=== PATIENT | male | born 1940 | race Caucasian/White ===

== ENCOUNTER 2025-01-13 10:38 | Outpatient (CLI) | payer MEDICAID, SELFPAY ==
[2025-01-13 10:53] LABS: Basophils % 0.6 % (0.1-2.0); Eosinophils # 0.1 Kmm3 (0.0-0.4); Eosinophils % 0.9 % (0.1-12.0); Hematocrit 37.2 % (42.0-52.0); Lymphocytes # 1.6 K/mm3 (0.7-4.5); Lymphocytes % 23.4 % (10-50); Mean Corpuscular HGB Conc 32.3 g/dL (31.8-35.4); Mean Corpuscular Hemoglobin 29.8 pg (27.0-31.2); Mean Corpuscular Volume 92.3 fl (80-94); Mean Platelet Volume 9.5 fl (7.4-10.4); Monocytes # 0.5 K/mm3 (0.1-1.0); Monocytes % 7.4 % (1.7-9.3); Neutrophils # 4.6 K/mm3 (1.8-7.8); Neutrophils % 67.6 % (37.0-80.0); Nucleated Red Blood Cells # 0 10^3/uL; Nucleated Red Blood Cells % 0 %; Platelet Count 240 K/mm3 (142-424); Red Blood Count 4.03 M/mm3 (4.60-6.20); Red Cell Distribution Width 15.9 % (11.5-17.5); Red Cell Distribution Width-SD 52.8 fL; White Blood Count 6.7 K/mm3 (4.8-10.8)
[2025-01-13 11:20] LABS: Chloride 102 mmol/L (98-107); Potassium 3.5 mmoL/L (3.5-5.1); Sodium 134 mmol/L (136-145)
[2025-01-13 11:23] LABS: Anion Gap 6.5 mEq/L (5-15); Blood Urea Nitrogen 16 mg/dl (9-20); Carbon Dioxide 29 mmol/L (22.0-30.0); Estimated Glomerular Filt Rate 92 ml/min (>60); GFR (African American) 111 ML/MIN (>60); Glucose 133 mg/dl (74-100)
== END 2025-01-13 23:59 | disposition home or self-care (01) ==
LOC: LAB.DROPOF 10:45
PROVIDERS: PCP Internal Medicine Adolescent Medicine; Visit Provider Internal Medicine Adolescent Medicine
DX: E83.89 Other disorders of mineral metabolism (principal)
CPT/HCPCS: 80048; 85025

== ENCOUNTER 2025-01-17 19:43 | Inpatient (IN) | payer MEDICAID, SELFPAY ==
--- NOTE | 2025-01-17 19:46 | ECG_ITS ---
APPROVED REPORT Exam: Resting ECG HR:126 bpm ECG Measurements Heart Rate 126 AXES QRSd 118 QRS -76 QT 348 T 103 QTc 422 Conclusion ATRIAL FIBRILLATION WITH RAPID VENTRICULAR RESPONSE LEFT ANTERIOR FASCICULAR BLOCK [QRS AXIS <= -45, QR IN I, RS IN II] ANTEROSEPTAL MYOCARDIAL INFARCTION , OF INDETERMINATE AGE [40+ ms Q WAVE IN V1-V4] ABNORMAL ECG UNCONFIRMED REPORT Electronically signed by : Justice Modi, 01/19/2025 15:15:41
[2025-01-17 19:51] VITALS: BP 154/92; PULSE 83; RESP 18; TEMP 36.9; O2SAT 94; BMI 18.6
--- NOTE | 2025-01-17 19:56 | CT_ITS ---
PROCEDURE INFORMATION: Exam: CT Abdomen And Pelvis With Contrast Exam date and time: 01/17/2025 8:18 PM Age: 84 years old Clinical indication: Abdominal pain; Additional info: Diffuse abd pain TECHNIQUE: Imaging protocol: Computed tomography of the abdomen and pelvis with contrast. Radiation optimization: All CT scans at this facility use at least one of these dose optimization techniques: automated exposure control; mA and/or kV adjustment per patient size (includes targeted exams where dose is matched to clinical indication); or iterative reconstruction. Contrast material: ISOVUE; Contrast volume: 75 m see scored l; Contrast route: IV; COMPARISON: No relevant prior studies available. FINDINGS: Liver: Normal. No mass. Gallbladder and biliary ducts: Distended gallbladder with gallbladder wall thickening and small amount pericholecystic fluid Pancreas: Normal. No ductal dilation. Spleen: Normal. No splenomegaly. Adrenal glands: Normal. No mass. Kidneys and ureters: No hydronephrosis. Stomach and bowel: Increased stool burden at the rectum. No abnormal bowel dilation. Appendix: No evidence of appendicitis. Intraperitoneal space: No abnormal free fluid Vasculature: Unremarkable. No abdominal aortic aneurysm. Lymph nodes: Unremarkable. No enlarged lymph nodes. Urinary bladder: Unremarkable as visualized. Reproductive: Unremarkable as visualized. Bones/joints: Unremarkable. No acute fracture. Soft tissues: Unremarkable. IMPRESSION: 1. Findings suspicious for acute cholecystitis 2. Other incidental findings above.
--- NOTE | 2025-01-17 19:57 | XR_ITS ---
PROCEDURE INFORMATION: Exam: XR Chest Exam date and time: 01/17/2025 8:33 PM Age: 84 years old Clinical indication: Dyspnea TECHNIQUE: Imaging protocol: Radiologic exam of the chest. Views: 1 view. COMPARISON: CT ABDOMEN PELVIS W CON 01/17/2025 8:18 PM FINDINGS: Lungs: Left midlung opacification Pleural spaces: Unremarkable. No pleural effusion. No pneumothorax. Heart/Mediastinum: Unremarkable. No cardiomegaly. Bones/joints: Osseous structures appear normal Other findings: No effusion IMPRESSION: Left mid lung infiltrate or less likely mass.
--- NOTE | 2025-01-17 19:58 | ED_ITS ---
Discharge Plan Disposition Patient Disposition: Admitted Clinical Impressions Clinical Impression: Abdominal pain, Generalized weakness, Acute cholecystitis, Atrial fibrillation with rapid ventricular response Discharge ED Provider: Vannesa Modi General Adult HPI General Chief complaint: Nausea/Vomiting/Diarrhea Stated complaint: n/v, abd pain Time Seen by Provider: 01/17/25 19:50 Mode of Arrival: EMS Source of Information: Patient, EMS and Medical Record Description of Symptoms (Recalled from ER Triage Doc. by RN): Pt to ED vis [facility] from [facility]. Staff there reports pt has been vomiting clear/thick liquid today, and will not eat. Staff also reports pts weight has dropped approx 50lbs in 3 months. Pt has no complaints upon arrival. History of Present Illness HPI narrative: Patient is an 84-year-old male who is from [facility] is a very poor historian primarily speaks Taiwanese we attempted to use a Taiwanese motor vehicle parts interpreter and the patient was able to tell us that he had some right-sided abdominal pain some nausea vomiting yesterday and some generalized weakness which is consistent with the [facility] pelvis. He is a very poor historian does not understand Kosovan and was not doing a very good job with the Taiwanese motor vehicle parts interpreter either so history is severely limited. Related Data Allergies Allergy/AdvReac Type Severity Reaction Status Date / Time No Known Allergies Allergy Verified 01/17/25 19:58 [facility] Disclaimer: The information contained in this section may have been updated after the patient was seen, as this information can be updated by other users. Social History Smoking Status: Never smoker alcohol intake: never current occupational status: other Travel in the last 8 weeks?: None ROS Obtained: Yes All systems reviewed & no additional complaints except as documented Physical Exam General General appearance: alert Respiratory Respiratory exam: Present normal lung sounds bilaterally Cardiovascular Cardiovascular exam: Present regular rate Abdominal Exam Abdominal exam: Present soft, distention and tenderness Neurological Exam Neurological exam: Present alert; Absent oriented X3 Medical Decision Making Medical Records Screening: Per USPSTF and CDC recommendations, given the prevalence of disease in our region, it is our hospital?s policy to screen for HIV and viral Hepatitis for all patients aged 18 and over and those with ongoing risk factors. Kwame Inquiry Pt receiving controlled substance: No Vital Signs: 01/17/25 19:51 01/17/25 20:01 01/17/25 21:00 Temperature 98.5 F Temperature Source Oral Pulse Rate 121 H 108 H Pulse Rate [Left Radial] 83 Respiratory Rate 18 18 15 Blood Pressure 154/78 H 166/100 H Blood Pressure [Right Arm] 154/92 H Blood Pressure Mean [Right Arm] 112 Blood Pressure Source [Right Arm] Automatic Cuff Blood Pressure Position [Right Arm] Sitting 02 Sat by Pulse Oximetry 94 L 98 Oxygen Delivery Method Room Air 01/17/25 21:30 01/17/25 22:02 Temperature Temperature Source Pulse Rate Pulse Rate [Left Radial] Respiratory Rate 19 19 Blood Pressure 157/87 H 124/78 Blood Pressure [Right Arm] Blood Pressure Mean [Right Arm] Blood Pressure Source [Right Arm] Blood Pressure Position [Right Arm] 02 Sat by Pulse Oximetry Oxygen Delivery Method Lab Data Lab results reviewed: Yes I reviewed the patient's lab results. Lab Results 01/17/25 19:30: WBC 11.3 H, RBC 4.12 L, Hgb 12.5 L, Hct 38.0 L, MCV 92.2, MCH 30.3, MCHC 32.9, RDW 16.3, Plt Count 255, MPV 9.6, Neut % (Auto) 79.8, Lymph % (Auto) 11.9, [place] % (Auto) 7.3, Eos % (Auto) 0.2, Baso % (Auto) 0.4, Neut # (Auto) 9.0 H, Lymph # (Auto) 1.3, [place] # (Auto) 0.8, Eos # (Auto) 0.0, Baso # (Auto) 0.0, Sodium 133 L, Potassium 3.8, Chloride 100, Carbon Dioxide 27, Anion Gap 9.8, BUN 15, Creatinine 0.70, Estimated Creat Clear 47, Estimated GFR 107, Est GFR ( Amer) 130, Glucose 210 H, Calcium 8.9, Magnesium 1.9, Total Bilirubin 0.9, AST 31, ALT 20, Alkaline Phosphatase 99, Troponin I 0.06 H, Total Protein 6.5, Albumin 3.3 L, Globulin 3.2, Albumin/Globulin Ratio 1.0 L, Lipase 87 01/17/25 20:10: Lactate 2.1 01/17/25 19:30 01/17/25 19:30 Orders (Tests/Meds): ED MEDICATIONS Generic Name Dose Route Start Last Admin Trade Name Freq PRN Reason Stop Dose Admin Piperacillin Sod/Tazobactam 50 mls @ 100 mls/hr 01/17/25 23:03 Sod 3.375 gm/ Sodium Chloride IV 01/17/25 23:32 ONCE ONE Sodium Chloride 10 ml 01/17/25 20:27 01/17/25 20:28 Sodium Chloride 0.9% 10ml Syr (Rad Only) IV 02/16/25 20:26 10 ml NEEDED PRN Administration Maintain IV Site Discontinued Medications Generic Name Dose Route Start Last Admin Trade Name Emmanuelq PRN Reason Stop Dose Admin Acetaminophen 1,000 mg 01/17/25 19:56 01/17/25 20:07 Acetaminophen 1,000mg/100ml Vial IV 01/17/25 19:57 1,000 mg ONCE ONE Administration Sodium Chloride 500 mls @ 999 mls/hr 01/17/25 19:56 01/17/25 20:07 Sod Chlor 0.9% 1000ml Bag IV 01/17/25 20:26 999 mls/hr .Q31M ONE Administration Iopamidol 75 ml 01/17/25 20:27 01/17/25 20:28 Iopamidol-370 (76%);100ml Bottle IV 01/17/25 20:28 75 ml ONCE ONE Administration Ondansetron HCl 4 mg 01/17/25 19:56 01/17/25 20:08 Ondansetron 4mg/2ml Vial IV 01/17/25 19:57 4 mg ONCE ONE Administration ORDERS Category Date Time Status CT abdomen pelvis w con Stat Cat Scan 01/17/25 19:56 Completed CXR --portable [XR chest portable] Stat Exams 01/17/25 19:57 Completed POCUS Point of Care (ER Only) Stat Exams 01/17/25 23:14 Ordered CBC w/Auto Diff [Complete Blood Count Auto Diff] Stat Lab 01/17/25 19:30 Completed CMP [Comprehensive Metabolic Panel] Stat Lab 01/17/25 19:30 Completed Lactic Acid Stat Lab 01/17/25 20:10 Completed Lipase Stat Lab 01/17/25 19:30 Completed Magnesium Stat Lab 01/17/25 19:30 Completed Trop I [Troponin I] Stat Lab 01/17/25 19:30 Completed Troponin I Q3H Lab 01/17/25 23:00 Ordered Troponin I Q3H Lab 01/18/25 02:00 Ordered UA [Urinalysis and Microscopic] Stat Lab 01/17/25 19:56 Ordered Medical Decision Narrative: Patient with above history and physical diffuse abdominal pain nausea vomiting yesterday and generalized weakness broad workup especially given his significant language barrier has been initiated including CT scan chest x-ray labs IV fluids urinalysis etc. Reassessment 11:[address] scan was performed which I personally interpreted also reviewed radiology read and there is gallbladder wall thickening with pericholecystic fluid patient does have diffuse abdominal tenderness but history as stated above is extremely limited with the use of an motor vehicle parts interpreter and discussing the case directly with the patient himself. It does seem to be consistent with the [facility] and what he is telling us that he is having abdominal pain nausea and vomiting nothing else has been found therefore working diagnosis is acute cholecystitis. Labs essentially unremarkable aside from mild elevation in troponin which is nonspecific. Patient does have atrial fibrillation with RVR and IV fluids and Tylenol were administered but will likely need rate control. Hospital medicine will deal with this further. Patient is hemodynamically stable otherwise with regards to blood pressure and perfusion. He remains slightly confused and we discussed the case with his daughter who does speak good Kosovan and she states that he is confused at baseline. I also spoke with Dr. Thurman who is on-call for hospital medicine told him there is significant diagnostic uncertainty here but the working diagnosis is acute cholecystitis therefore we will give IV antibiotics and get a formal ultrasound tomorrow admit to hospital medicine get his rate under control with regards to atrial fibrillation and reassess. Likely will not go to the operating room tomorrow. Patient was admitted to hospital medicine for further evaluation management. Critical Care Critical Care Time Critical Care Time: Yes Attestation: On 01/17/25, the high probability of a clinically significant, sudden or life threatening deterioration of the following system(s) required my full and direct attention, intervention and personal management. The time I documented below is in addition to time spent performing reported procedures but includes the following listed in this critical care notation. Total Time Total Critical Care Time: 35
[2025-01-17 20:01] VITALS: BP 154/78; PULSE 121; RESP 18; O2SAT 98
[2025-01-17 20:03] LABS: Basophils % 0.4 % (0.1-2.0); Eosinophils % 0.2 % (0.1-12.0); Hemoglobin 12.5 g/dL (14.1-18.0); Lymphocytes # 1.3 K/mm3 (0.7-4.5); Lymphocytes % 11.9 % (10-50); Mean Corpuscular HGB Conc 32.9 g/dL (31.8-35.4); Mean Corpuscular Hemoglobin 30.3 pg (27.0-31.2); Mean Corpuscular Volume 92.2 fl (80-94); Mean Platelet Volume 9.6 fl (7.4-10.4); Monocytes # 0.8 K/mm3 (0.1-1.0); Monocytes % 7.3 % (1.7-9.3); Neutrophils % 79.8 % (37.0-80.0); Nucleated Red Blood Cells # 0 10^3/uL; Nucleated Red Blood Cells % 0 %; Platelet Count 255 K/mm3 (142-424); Red Blood Count 4.12 M/mm3 (4.60-6.20); Red Cell Distribution Width 16.3 % (11.5-17.5); Red Cell Distribution Width-SD 55.1 fL; White Blood Count 11.3 K/mm3 (4.8-10.8)
[2025-01-17 20:05] LABS: Albumin Level 3.3 g/dl (3.5-5.0); Chloride 100 mmol/L (98-107); Potassium 3.8 mmoL/L (3.5-5.1); Sodium 133 mmol/L (136-145)
[2025-01-17 20:07] LABS: Alanine Aminotransferase 20 U/L (12-78); Anion Gap 9.8 mEq/L (5-15); Aspartate Amino Transferase 31 U/L (17-59); Blood Urea Nitrogen 15 mg/dl (9-20); Carbon Dioxide 27 mmol/L (22.0-30.0); Creatinine Clearance Estimated 47 mL/min (50-200); Estimated Glomerular Filt Rate 107 ml/min (>60); GFR (African American) 130 ML/MIN (>60)
[2025-01-17] MEDS: ACETAMINOPHEN 1,000MG/100ML VIAL 1000 MG IV (20:07)
[2025-01-17] MEDS: 0.9 % SODIUM CHLORIDE 1000ML 500 ML 999 ML IV (20:07)
[2025-01-17 20:08] LABS: Alkaline Phosphatase 99 U/L (38-126); Bilirubin,Total 0.9 mg/dl (0.2-1.3); Calcium 8.9 mg/dl (8.4-10.2); Globulin 3.2 g/dL (1.3-3.2); Glucose 210 mg/dl (74-100); Lipase 87 U/L (23-300); Magnesium 1.9 mg/dl (1.6-2.3); Total Protein,Serum 6.5 g/dl (6.3-8.2)
[2025-01-17] MEDS: ONDANSETRON 4MG/2ML VIAL 4 MG IV (20:08)
[2025-01-17 20:20] LABS: Troponin I 0.06 ng/ml (0.00-0.034)
[2025-01-17] MEDS: SODIUM CHLORIDE 0.9% 10ML SYR (RAD ONLY) 10 ML IV (20:28)
[2025-01-17] MEDS: IOPAMIDOL-370 (76%);100ML BOTTLE 75 ML IV (20:28)
[2025-01-17 20:31] LABS: Lactic Acid 2.1 mmol/L (0.7-2.1)
[2025-01-17 21:00] VITALS: BP 166/100; PULSE 108; RESP 15
[2025-01-17 21:30] VITALS: BP 157/87; RESP 19
[2025-01-17 22:02] VITALS: BP 124/78; RESP 19
--- NOTE | 2025-01-17 23:06 | PC.NURSE ---
Called and spoke with [facility] nurse to inquire about pts baseline. Nurse is unsure of all details. Daughter was called. Daughter reports pt is confused at times and has possible dementia. Daughter also reports that pt is non-ambulatory and has been at the half-way for approx 1.5 weeks. Daughter states they have been transferring him to a wheelchair at time there, but is mostly bed bound and has been getting bed baths. Daughter states that pt can speak singaporean. Pt has not spoken any singaporean here. Can answer yes/no questions intermittently. Appears confused. Assessment difficult d/t language barrier and confusion. Batch Tank Controller was used and pt only spoke 2 sentences. Batch Tank Controller had difficult time understanding pt.
--- NOTE | 2025-01-17 23:16 | PC.NURSE ---
called malt house loader for bed assignment
[2025-01-17 23:59] LABS: Troponin I 0.09 ng/ml (0.00-0.034)
[2025-01-18] VITALS (23 sets, daily range): BP systolic 99–144; BP diastolic 52–81; PULSE 90–140; RESP 14–20; TEMP 36.4–37.6; O2SAT 90–99; BMI 19.6
[2025-01-18] MEDS: HEPARIN DRIP CONSULT 1 EACH NOTAPPLIC (00:14)
--- NOTE | 2025-01-18 00:14 | PC.NURSE ---
ATTEMPTED TO GET BLOOD CULTURES WITH DEREJE JIMENEZ. PT DID NOT TOLERATE PROCEDURE AND WAS UNSUCCESFUL COLLECTING
[2025-01-18 00:20] LABS: Reflex Lactic Add Lactic Reflex
[2025-01-18 01:24] LABS: PTT Heparin (inpatient only) 28.7 Seconds (50-75)
[2025-01-18 01:37] LABS: Lactic Acid Follow Up (RFLX 1) 4.5 mmol/L (0.7-2.1)
[2025-01-18 01:51] LABS: Troponin I 0.09 ng/ml (0.00-0.034)
[2025-01-18] MEDS: LACTATED RINGERS 1000ML 1,000 ML 125 ML IV ×3 (02:00→22:40)
[2025-01-18] MEDS: METOPROLOL TARTRATE 5MG/5ML VIAL 5 MG IV ×2 (02:02→06:17)
[2025-01-18] MEDS: HEPARIN SODIUM 5,000 UNIT/ML VIAL 4300 UNIT IV (02:02)
[2025-01-18] MEDS: humaLOG 100 UNITS/ML 10ML VIAL (SSI) SUBCUT ×4 (02:03→22:00)
[2025-01-18] MEDS: PIPERCILLIN/TAZO 3.375 GM in 0.9 % SODIUM CHLORIDE 50 ML IV (02:03)
[2025-01-18] MEDS: HEPARIN SODIUM,PORCINE/D5W 500 ML 18 UNIT IV (02:04)
--- NOTE | 2025-01-18 02:30 | P.HP_ITS ---
<Statement entered by Justice Lunsford MD - 01/18/25 08:29> Rounded on patient after nurse practitioner. Personally examined and interviewed patient. Agree with exam findings and care plan as documented. History of Present Illness *Admission Date: 01/17/25 *Reason for visit:: Abdominal pain *History of present illness: This is an 84-year-old Yemeni-speaking gentleman who arrives from living facility for further evaluation of abdominal pain. Patient has minimal communication capabilities given language barrier. Per nursing staff at living facility, he they were able to delineate that he was complaining of right upper quadrant abdominal pain. He does have a history of dementia as well as frequent auditory hallucinations. Other history includes hypertension, T2DM and GERD. He presents with pain upon palpation to the epigastric and right upper quadrant. Of note patient was also in atrial fibrillation with heart rate in the 120s. No stated history of A-fib, not on AC. Does take metoprolol for hypertension. Merge department workup notable for white blood cell count of 11. Glucose of 210. Lactic of 2.1. Troponin of 0.06. CT of the abdomen notable for distended gallbladder with gallbladder wall thickening and small amount of pericholecystic fluid. No common bile duct dilatation. Given the above-mentioned findings, Dr. Molina was consulted, will see patient in the hospital. He is admitted to hospital service at this time [facility] Disclaimer: The information contained in this section may have been updated after the patient was seen, as this information can be updated by other users. Social History (Updated 01/17/25 @ 23:23 by Vannesa Modi MD) Smoking Status: Never smoker alcohol intake: never current occupational status: other Travel in the last 8 weeks?: None Have you lived/traveled outside US in past 30 days?: No Contact w/someone who lives/traveled outside US past 30 days?: No Exposure to someone with infectious disease in past 14 days?: No Do you have a fever (greater than 100.4 F or 38 C)?: No Have you tested positive for COVID-19?: No Exposed to someone with COVID-19 in past 14 days?: No Do you have a sore throat?: No Do you have a cough?: No Do you have any weakness?: No Do you have any diarrhea?: No Are you experiencing any unusual bleeding?: No Do you have any muscle aches/pain?: No Do you have any abdominal pain?: Yes Are you experiencing loss of taste or smell?: No Review of Systems Review of Systems Review of systems:: unable to obtain Review of systems (narrative): Confusion and language barrier Meds Home Medications and Allergies New Prescriptions to Start Prescriptions: Allergies Allergy/AdvReac Type Severity Reaction Status Date / Time No Known Allergies Allergy Verified 01/17/25 19:58 Exam Data for Last 24 hours Vital signs and Labs for Last 24 Hours: Temp Pulse Resp BP Pulse Ox O2 Del Method 98.5 F 106 H 20 144/77 H 98 Room Air 01/18/25 00:12 01/18/25 00:12 01/18/25 00:12 01/18/25 00:12 01/17/25 20:01 01/18/25 00:12 Laboratory Results - last 24 hr 01/17/25 01:00: APTT 28.7 L 01/17/25 19:30: WBC 11.3 H, RBC 4.12 L, Hgb 12.5 L, Hct 38.0 L, MCV 92.2, MCH 30.3, MCHC 32.9, RDW 16.3, Plt Count 255, MPV 9.6, Neut % (Auto) 79.8, Lymph % (Auto) 11.9, [place] % (Auto) 7.3, Eos % (Auto) 0.2, Baso % (Auto) 0.4, Neut # (Auto) 9.0 H, Lymph # (Auto) 1.3, [place] # (Auto) 0.8, Eos # (Auto) 0.0, Baso # (Auto) 0.0, Sodium 133 L, Potassium 3.8, Chloride 100, Carbon Dioxide 27, Anion Gap 9.8, BUN 15, Creatinine 0.70, Estimated Creat Clear 47, Estimated GFR 107, Est GFR ( Amer) 130, Glucose 210 H, Calcium 8.9, Magnesium 1.9, Total Bilirubin 0.9, AST 31, ALT 20, Alkaline Phosphatase 99, Troponin I 0.06 H, Total Protein 6.5, Albumin 3.3 L, Globulin 3.2, Albumin/Globulin Ratio 1.0 L, Lipase 87 01/17/25 20:10: Lactate 2.1 01/17/25 23:33: Troponin I 0.09 H 01/18/25 01:00: Lactate 4.5 H, Troponin I 0.09 H I & O for Last 24 hours: Intake & Output 01/15/25 01/16/25 01/17/25 01/18/25 23:59 23:59 23:59 23:59 Weight 62.142 kg Constitutional Constitutional: no acute distress *Routine HEENT Exam Head: Present normocephalic Eye: Present EOMI and PERRL ENT: Present mucous membranes moist *Routine Neck Exam Neck: Present supple; Absent lymphadenopathy *Routine Respiratory Exam Respiratory: Present CTA bilaterally *Routine Cardiovascular Exam Cardiovascular: Present RRR *Routine Abdominal Exam Abdominal: Present soft, normoactive bowel sounds and tenderness (Right upper quadrant TTP) *Routine Rectal Exam Rectal:: deferred *Routine Genitalia Exam Genitalia:: deferred *Routine Extremities Exam Extremities: Absent cyanosis, clubbing or edema *Routine Skin Exam Skin: Present warm; Absent rash *Routine Neurological Exam Neurological: Present alert and oriented X3 Assessment and Plan *Assessment and plan (1) Acute cholecystitis: Status: Acute Category: Medical Code(s): K81.0 - Acute cholecystitis (2) Abdominal pain: Status: Acute Category: Medical Code(s): R10.9 - Unspecified abdominal pain (3) Atrial fibrillation with rapid ventricular response: Status: Acute Category: Medical Code(s): I48.91 - Unspecified atrial fibrillation (4) NSTEMI (non-ST elevated myocardial infarction): Status: Acute Category: Medical Code(s): I21.4 - Non-ST elevation (NSTEMI) myocardial infarction (5) Generalized weakness: Status: Acute Category: Medical Code(s): R53.1 - Weakness (6) Diabetes: Status: Acute Category: Medical Code(s): E11.9 - Type 2 diabetes mellitus without complications Plan #Acute cholecystitis #Abdominal pain Reports abdominal pain and weight loss recently. CT imaging with distended gallbladder and pericholecystic fluid. Dr. Molina consulted. Will see patient in hospital. Likely OR on Saturday. Continue Zosyn Continue IV fluids Nonfebrile, no leukocytosis, low suspicion for cholangitis #Atrial fibrillation with RVR #NSTEMI Poor communication even with community pharmacist services but does not allude to the fact that he is having chest pain. Likely new onset atrial fibrillation but unsure of the timing. Given elevated [id number] score of 4, (age,sex,hypertension and diabetes,history) will initiate heparin drip. Metoprolol x 1 dose with improvement in rate to the low 100s Troponin of 0.06, peak of 0.09 and flat #T2DM Continue sliding scale and long-acting insulin #Sepsis Meets criteria for tachycardia, lactic acidosis and leukocytosis. Acute cholecystitis on imaging. Received 30 mL/kg bolus of IV fluids Follow-up blood cultures Continue Zosyn #Heparin drip - Requires toxicity monitoring with pharmacokinetics
[2025-01-18] MEDS: LACTATED RINGERS 1000ML 1,000 ML 999 ML IV (02:33)
[2025-01-18 03:10] LABS: Reflex Lactic (2 hrs) Add Lactic Reflex
[2025-01-18 03:56] LABS: Basophils % 0.1 % (0.1-2.0); Hematocrit 38.5 % (42.0-52.0); Hemoglobin 12.5 g/dL (14.1-18.0); Lymphocytes # 0.7 K/mm3 (0.7-4.5); Lymphocytes % 2.7 % (10-50); Mean Corpuscular HGB Conc 32.5 g/dL (31.8-35.4); Mean Corpuscular Hemoglobin 30.2 pg (27.0-31.2); Mean Platelet Volume 9.3 fl (7.4-10.4); Monocytes # 1.2 K/mm3 (0.1-1.0); Monocytes % 4.7 % (1.7-9.3); Neutrophils # 24.2 K/mm3 (1.8-7.8); Neutrophils % 91.7 % (37.0-80.0); Nucleated Red Blood Cells # 0 10^3/uL; Nucleated Red Blood Cells % 0 %; Platelet Count 207 K/mm3 (142-424); Red Blood Count 4.14 M/mm3 (4.60-6.20); Red Cell Distribution Width 16.7 % (11.5-17.5); Red Cell Distribution Width-SD 57.4 fL; White Blood Count 26.4 K/mm3 (4.8-10.8)
[2025-01-18 03:58] LABS: MANUAL DIFFERENTIAL MANUAL DIFFERENTIAL (MANUAL DIFF)
[2025-01-18 04:08] LABS: Anion Gap 11.2 mEq/L (5-15); Blood Urea Nitrogen 10 mg/dl (9-20); Calcium 8.1 mg/dl (8.4-10.2); Carbon Dioxide 22 mmol/L (22.0-30.0); Chloride 106 mmol/L (98-107); Creatinine Clearance Estimated 47 mL/min (50-200); Estimated Glomerular Filt Rate 158 ml/min (>60); GFR (African American) 191 ML/MIN (>60); Glucose 129 mg/dl (74-100); Lactic Acid Follow up (RFLX 2) 3.5 mmol/L (0.7-2.1); Potassium 3.2 mmoL/L (3.5-5.1); Sodium 136 mmol/L (136-145)
[2025-01-18 04:11] LABS: Atypical Lymphocytes % 1; Band Neutrophils % 2 (0-8); Lymphocytes % 2 % (10-50); Neutrophils % 95 % (42-76); Total Cells Counted 100
--- NOTE | 2025-01-18 04:19 | EXP.SEPSISRE ---
[facility] Tissue Perfusion Eval Sepsis Re-Evaluation Performed: Yes Date Performed: 01/18/25 Time Performed: 04:19
[2025-01-18] MEDS: ONDANSETRON 4MG/2ML VIAL 4 MG IV (06:16)
[2025-01-18] MEDS: MAGNESIUM SULFATE IN WATER 2 GM/50 ML PIGGYBACK IV (06:17)
[2025-01-18 06:26] LABS: Microscopic, Urine URINE MICROSCOPIC (MICROSCOPIC)
[2025-01-18] MEDS: KCl 10mEq/100ml 100 ML 100 MEQ IV ×2 (06:30)
[2025-01-18 06:40] LABS: Appearance,Urine CLEAR (Clear); Blood, Urine 1+ (Negative); Color,Urine BROWN (Yellow); Glucose,Urine (UA) Negative (Negative); Ketones,Urine 1+ (Negative); Leukocyte Esterase,Urine Negative (Negative); Nitrate,Urine Negative (Negative); PH,Urine 5.5 (5.0-8.5); Protein,Urine 2+ (Negative); Specific Gravity, Urine 1.015 (1.005-1.030); Urobilinogen,Urine >=8.0 EU/dl (0.2)
[2025-01-18 06:42] LABS: POC Glucose,Bedside 110 (70-110)
[2025-01-18 06:42] LABS: Bilirubin,Urine Negative (Negative)
[2025-01-18 06:55] LABS: Bacteria,Urine 2+ /lpf; Squamous Epithelial Cell,Urine Occasional #/hpf (0-5); WBC,Urine Occasional #/hpf (0-3)
[2025-01-18 07:00] LABS: Amorphous Sediment,Urine 1+ /lpf
--- NOTE | 2025-01-18 07:19 | US_ITS ---
FINAL REPORT TECHNIQUE: Sonographic images of the right upper quadrant were obtained. CLINICAL HISTORY: cholecystitis vs cholangitis FINDINGS: PANCREAS: Tail the pancreas obscured. Head of the pancreas is normal. LIVER: Evaluation is somewhat limited. No focal hepatic lesion. No intrahepatic biliary ductal dilatation. GALLBLADDER: Gallbladder is distended with sludge. Gallbladder wall measures 4 mm which is borderline. No pericholecystic fluid. COMMON DUCT: 4 mm. Normal for age. RIGHT KIDNEY: Limited evaluation. No hydronephrosis. FREE FLUID: None. IMPRESSION: Distended gallbladder with sludge and borderline gallbladder wall thickening. No gallstones or pericholecystic fluid. Reviewed, Interpreted and Dictated by Vee Conde MD Transcribed by Yoana Willard Authenticated and [facility]
[2025-01-18 07:38] LABS: Lactic Acid 2.9 mmol/L (0.7-2.1)
--- NOTE | 2025-01-18 08:09 | SW/DCPLANNER ---
Addendum entered by Angelique Duron 01/22/25 09:17: I have updated Angela rai/ [facility] (formerly [facility]) that patient will return today. Addendum entered by Osiris Borges RN 01/22/25 09:00: Called and spoke with Angela and the DON @ [facility] this morning, who confirmed that patient is ok to return with [facility] Drains in place. Plan is for to document daily output and send report with patient to f/u appt with Dr. Molina. Addendum entered by Angelique Duron 01/21/25 09:57: Updated patient information faxed to Angela rai/ [facility]. Original Note: Patient currently resides at [facility] level of care. I will continue to follow up w/ Angela at [facility]. Discharge date is unknown at this time. Updated patient information has been faxed.
--- NOTE | 2025-01-18 08:14 | P.CONPHA_ITS ---
[facility] Pharmacy Heparin Dosing Demographic Data Admission date:: 01/18/25 Date: 01/18/25 Time: 08:14 Allergies Allergy/AdvReac Type Severity Reaction Status Date / Time No Known Allergies Allergy Verified 01/17/25 19:58 Height: 1.83 m Weight: 65.8 kg Indication Medication therapy:: Heparin Current Indications:: AFIB Current Active Problems (Updated 01/19/25 @ 11:44 by Jessica Adames APRN) Hyperlipidemia (Acute) Coronary artery disease (Acute) Hypertension (Acute) Leukocytosis (Acute) Pneumonia (Acute) Diabetes (Acute) NSTEMI (non-ST elevated myocardial infarction) (Acute) Atrial fibrillation with rapid ventricular response (Acute) Acute cholecystitis (Acute) Generalized weakness (Acute) CVA?: No Bleeding problem?: No Kidney disease?: No MA?: No Desired PTT range:: 50-75 seconds Labs Anticoagulation Lab Results:: 01/17/25 01/18/25 19:30 03:45 Hgb 12.5 L 12.5 L Hct 38.0 L 38.5 L Plt Count 255 207 Monitoring Dose Monitor 1: Date: 01/18/25 Time: 01:00 PTT Result:: 28.7 Infusion Rate:: HEPARIN 4300 UNIT BOLUS, 900 UNITS/HR (18 ML/HR) Dose Monitor 2: Date: 01/18/25 Time: 08:53 PTT Result:: 93.8 Infusion Rate:: DOSE DECREASED TO 800 UNITS/HR Dose Monitor 3: Date: 01/18/25 Time: 20:25 PTT Result:: 108.7 Infusion Rate:: DOSE DECREASED TO HEPARIN 600 UNIT/HR Dose Monitor 4: Date: 01/18/25 Time: 22:25 PTT Result:: 95.5 Infusion Rate:: DOSE DECREASED TO HEPARIN 465 UNIT/HR Dose Monitor 5: Date: 01/19/25 Time: 00:58 PTT Result:: 69.6 Infusion Rate:: DOSE CONTINUED AT HEPARIN 465 UNITS/HR Dose Monitor 6: Date: 01/19/25 Time: 07:49 PTT Result:: 63.5 Infusion Rate:: DOSE CONTINUED AT HEPARIN 465 UNITS/HR Core Measures Is INR > or = 2 at discharge?: No Most Recent Labs:: Laboratory Results - last 24 hr 01/17/25 01:00: APTT 28.7 L 01/17/25 06:19: Urine Color Brown, Urine Appearance Clear, Urine pH 5.5, Ur Specific [place] 1.015, Urine Protein 2+ A, Urine Glucose (UA) Negative, Urine Ketones 1+, Urine Blood 1+ A, Urine Nitrate Negative, Urine Bilirubin Negative, Urine Urobilinogen >=8.0, Ur Leukocyte Esterase Negative, Urine RBC 3-5, Urine WBC Occasional, Ur Squamous Epith Cells Occasional, Amorphous Sediment 1+, Urine Bacteria 2+ 01/17/25 19:30: WBC 11.3 H, RBC 4.12 L, Hgb 12.5 L, Hct 38.0 L, MCV 92.2, MCH 30.3, MCHC 32.9, RDW 16.3, Plt Count 255, MPV 9.6, Neut % (Auto) 79.8, Lymph % (Auto) 11.9, [place] % (Auto) 7.3, Eos % (Auto) 0.2, Baso % (Auto) 0.4, Neut # (Auto) 9.0 H, Lymph # (Auto) 1.3, [place] # (Auto) 0.8, Eos # (Auto) 0.0, Baso # (Auto) 0.0, Sodium 133 L, Potassium 3.8, Chloride 100, Carbon Dioxide 27, Anion Gap 9.8, BUN 15, Creatinine 0.70, Estimated Creat Clear 47, Estimated GFR 107, Est GFR ( Amer) 130, Glucose 210 H, Calcium 8.9, Magnesium 1.9, Total Bilirubin 0.9, AST 31, ALT 20, Alkaline Phosphatase 99, Troponin I 0.06 H, Total Protein 6.5, Albumin 3.3 L, Globulin 3.2, Albumin/Globulin Ratio 1.0 L, Lipase 87 01/17/25 20:10: Lactate 2.1 01/17/25 23:33: Troponin I 0.09 H 01/18/25 01:00: Lactate 4.5 H, Troponin I 0.09 H 01/18/25 03:45: WBC 26.4 H* D, RBC 4.14 L, Hgb 12.5 L, Hct 38.5 L, MCV 93.0, MCH 30.2, MCHC 32.5, RDW 16.7, Plt Count 207, MPV 9.3, Neut % (Auto) 91.7 H, Lymph % (Auto) 2.7 L, [place] % (Auto) 4.7, Eos % (Auto) 0.0 L, Baso % (Auto) 0.1, Neut # (Auto) 24.2 H, Lymph # (Auto) 0.7, [place] # (Auto) 1.2 H, Eos # (Auto) 0.0, Baso # (Auto) 0.0, Total Counted 100, Neutrophils % (Manual) 95 H, Band Neutrophils % 2, Lymphocytes % (Manual) 2 L, Atypical Lymphs % 1, Sodium 136, Potassium 3.2 L, Chloride 106, Carbon Dioxide 22, Anion Gap 11.2, BUN 10 D, Creatinine 0.50 L D, Estimated Creat Clear 47, Estimated GFR 158, Est GFR ( Amer) 191 D, Glucose 129 H D, Lactate 3.5 H, Calcium 8.1 L 01/18/25 06:35: POC Glucose 110 01/18/25 07:02: Lactate 2.9 H If INR was < than 2.0 why was therapy stopped?: HEPARIN STOPPED Were Heparin and Warfarin started on the same day?: No If not, why?: HEPARIN STOPPED LOVENOX STARTED
--- NOTE | 2025-01-18 08:27 | EXP.SURG.CON ---
History of Present Illness *Admission Date: 01/18/25 *Reason for visit:: Possible acute cholecystitis *History of present illness: This is an 84-year-old gentleman seen in consultation from the primary service after presenting to the emergency department with recent poor appetite, nausea/vomiting, weakness, and likely right-sided abdominal pain. See HPI imported from admission H&P below. Forwarded from admission H&P: This is an 84-year-old Emir[place]-speaking gentleman who arrives from living facility for further evaluation of abdominal pain. Patient has minimal communication capabilities given language barrier. Per nursing staff at living facility, he they were able to delineate that he was complaining of right upper quadrant abdominal pain. He does have a history of dementia as well as frequent auditory hallucinations. Other history includes hypertension, T2DM and GERD. He presents with pain upon palpation to the epigastric and right upper quadrant. Of note patient was also in atrial fibrillation with heart rate in the 120s. No stated history of A-fib, not on AC. Does take metoprolol for hypertension. Merge department workup notable for white blood cell count of 11. Glucose of 210. Lactic of 2.1. Troponin of 0.06. CT of the abdomen notable for distended gallbladder with gallbladder wall thickening and small amount of pericholecystic fluid. No common bile duct dilatation. Given the above-mentioned findings, Dr. Molina was consulted, will see patient in the hospital. He is admitted to hospital service at this time [facility] Disclaimer: The information contained in this section may have been updated after the patient was seen, as this information can be updated by other users. Medical History (Updated 01/18/25 @ 08:34 by Ken Molina MD) Auditory hallucinations Benign prostatic hyperplasia Constipation Atherosclerosis of coronary artery bypass graft Hypertension Parkinsonism Major depressive disorder Hyperlipidemia Diabetes mellitus Osteoarthritis Social History (Updated 01/18/25 @ 03:59 by Mary Merlos RN) Smoking Status: Never smoker alcohol intake: never current occupational status: other Travel in the last 8 weeks?: None Have you lived/traveled outside US in past 30 days?: No Contact w/someone who lives/traveled outside US past 30 days?: No Exposure to someone with infectious disease in past 14 days?: No Do you have a fever (greater than 100.4 F or 38 C)?: No Have you tested positive for COVID-19?: No Exposed to someone with COVID-19 in past 14 days?: No Do you have a sore throat?: No Do you have a cough?: No Do you have any weakness?: No Are you experiencing any nausea/vomitting?: No Do you have any diarrhea?: No Are you experiencing any unusual bleeding?: No Do you have any muscle aches/pain?: No Do you have any abdominal pain?: Yes Are you experiencing loss of taste or smell?: No Meds Home Medications and Allergies Home Medications ?Medication ?Instructions ?Recorded ?Confirmed ?Type acetaminophen 500 mg tablet 500 mg PO Q6H PRN Fever Or Pain 01/18/25 01/18/25 History acetaminophen 500 mg tablet 500 mg PO TID 01/18/25 01/18/25 History amino acids-protein hydrolysate 30 ea PO DAILY 01/18/25 01/18/25 History oral liquid calcium carbonate (Oyster Shell 500 mg PO BID 01/18/25 01/18/25 History Calcium) clopidogrel 75 mg tablet 75 mg PO HS 01/18/25 01/18/25 History enalapril maleate 20 mg tablet 20 mg PO DAILY 01/18/25 01/18/25 History fentanyl 12 mcg/hr transdermal 1 patch transdermal Q72H 01/18/25 01/18/25 History patch insulin glargine 100 unit/mL (3 15 unit SQ HS 01/18/25 01/18/25 History mL) subcutaneous pen (Lantus Solostar U-100 Insulin) memantine 5 mg tablet 5 mg PO BID 01/18/25 01/18/25 History metoprolol succinate 50 mg 50 mg PO DAILY 01/18/25 01/18/25 History tablet,extended release 24 hr mirtazapine 7.5 mg tablet 7.5 mg PO HS 01/18/25 01/18/25 History multivitamin 1 tab PO DAILY 01/18/25 01/18/25 History polyethylene glycol 3350 17 gram 17 g PO DAILY 01/18/25 01/18/25 History oral powder packet quetiapine 25 mg tablet (Seroquel) 12.5 mg PO DAILY 01/18/25 01/18/25 History rosuvastatin 40 mg tablet 40 mg PO HS 01/18/25 01/18/25 History sennosides 8.6 mg-docusate sodium 1 tab PO BID 01/18/25 01/18/25 History 50 mg tablet (Senna with Docusate Sodium) New Prescriptions to Start Prescriptions: Allergies Allergy/AdvReac Type Severity Reaction Status Date / Time No Known Allergies Allergy Verified 01/17/25 19:58 Exam (Inpt) Vital signs and Labs for Last 24 Hours: Temp Pulse Resp BP Pulse Ox O2 Del Method 99.7 F H 101 H 14 114/66 99 Room Air 01/18/25 04:00 01/18/25 04:00 01/18/25 04:00 01/18/25 04:00 01/18/25 04:00 01/18/25 06:44 Laboratory Results - last 24 hr 01/17/25 01:00: APTT 28.7 L 01/17/25 06:19: Urine Color Brown, Urine Appearance Clear, Urine pH 5.5, Ur Specific [place] 1.015, Urine Protein 2+ A, Urine Glucose (UA) Negative, Urine Ketones 1+, Urine Blood 1+ A, Urine Nitrate Negative, Urine Bilirubin Negative, Urine Urobilinogen >=8.0, Ur Leukocyte Esterase Negative, Urine RBC 3-5, Urine WBC Occasional, Ur Squamous Epith Cells Occasional, Amorphous Sediment 1+, Urine Bacteria 2+ 01/17/25 19:30: WBC 11.3 H, RBC 4.12 L, Hgb 12.5 L, Hct 38.0 L, MCV 92.2, MCH 30.3, MCHC 32.9, RDW 16.3, Plt Count 255, MPV 9.6, Neut % (Auto) 79.8, Lymph % (Auto) 11.9, [place] % (Auto) 7.3, Eos % (Auto) 0.2, Baso % (Auto) 0.4, Neut # (Auto) 9.0 H, Lymph # (Auto) 1.3, [place] # (Auto) 0.8, Eos # (Auto) 0.0, Baso # (Auto) 0.0, Sodium 133 L, Potassium 3.8, Chloride 100, Carbon Dioxide 27, Anion Gap 9.8, BUN 15, Creatinine 0.70, Estimated Creat Clear 47, Estimated GFR 107, Est GFR ( Amer) 130, Glucose 210 H, Calcium 8.9, Magnesium 1.9, Total Bilirubin 0.9, AST 31, ALT 20, Alkaline Phosphatase 99, Troponin I 0.06 H, Total Protein 6.5, Albumin 3.3 L, Globulin 3.2, Albumin/Globulin Ratio 1.0 L, Lipase 87 01/17/25 20:10: Lactate 2.1 01/17/25 23:33: Troponin I 0.09 H 01/18/25 01:00: Lactate 4.5 H, Troponin I 0.09 H 01/18/25 03:45: WBC 26.4 H* D, RBC 4.14 L, Hgb 12.5 L, Hct 38.5 L, MCV 93.0, MCH 30.2, MCHC 32.5, RDW 16.7, Plt Count 207, MPV 9.3, Neut % (Auto) 91.7 H, Lymph % (Auto) 2.7 L, [place] % (Auto) 4.7, Eos % (Auto) 0.0 L, Baso % (Auto) 0.1, Neut # (Auto) 24.2 H, Lymph # (Auto) 0.7, [place] # (Auto) 1.2 H, Eos # (Auto) 0.0, Baso # (Auto) 0.0, Total Counted 100, Neutrophils % (Manual) 95 H, Band Neutrophils % 2, Lymphocytes % (Manual) 2 L, Atypical Lymphs % 1, Sodium 136, Potassium 3.2 L, Chloride 106, Carbon Dioxide 22, Anion Gap 11.2, BUN 10 D, Creatinine 0.50 L D, Estimated Creat Clear 47, Estimated GFR 158, Est GFR ( Amer) 191 D, Glucose 129 H D, Lactate 3.5 H, Calcium 8.1 L 01/18/25 06:35: POC Glucose 110 01/18/25 07:02: Lactate 2.9 H I & O for Labs for Last 24 Hours: Intake & Output 01/15/25 01/16/25 01/17/25 01/18/25 11:59 11:59 11:59 11:59 Intake Total 1300 / 1300 Output Total 210 / 210 Balance 1090 / 1090 Weight 145 lb 1.027 oz Constitutional: no acute distress and chronically ill appearing Respiratory: Absent respiratory distress GI: Present soft and tenderness (Difficult to assess but does seem to be somewhat tender with palpation in the epigastric region, mid abdomen, and right upper quadrant.) Results Labs 01/18/25 03:45 01/18/25 03:45 Labs: Laboratory Results - last 24 hr 01/17/25 01:00: APTT 28.7 L 01/17/25 06:19: Urine Color Brown, Urine Appearance Clear, Urine pH 5.5, Ur Specific [place] 1.015, Urine Protein 2+ A, Urine Glucose (UA) Negative, Urine Ketones 1+, Urine Blood 1+ A, Urine Nitrate Negative, Urine Bilirubin Negative, Urine Urobilinogen >=8.0, Ur Leukocyte Esterase Negative, Urine RBC 3-5, Urine WBC Occasional, Ur Squamous Epith Cells Occasional, Amorphous Sediment 1+, Urine Bacteria 2+ 01/17/25 19:30: WBC 11.3 H, RBC 4.12 L, Hgb 12.5 L, Hct 38.0 L, MCV 92.2, MCH 30.3, MCHC 32.9, RDW 16.3, Plt Count 255, MPV 9.6, Neut % (Auto) 79.8, Lymph % (Auto) 11.9, [place] % (Auto) 7.3, Eos % (Auto) 0.2, Baso % (Auto) 0.4, Neut # (Auto) 9.0 H, Lymph # (Auto) 1.3, [place] # (Auto) 0.8, Eos # (Auto) 0.0, Baso # (Auto) 0.0, Sodium 133 L, Potassium 3.8, Chloride 100, Carbon Dioxide 27, Anion Gap 9.8, BUN 15, Creatinine 0.70, Estimated Creat Clear 47, Estimated GFR 107, Est GFR ( Amer) 130, Glucose 210 H, Calcium 8.9, Magnesium 1.9, Total Bilirubin 0.9, AST 31, ALT 20, Alkaline Phosphatase 99, Troponin I 0.06 H, Total Protein 6.5, Albumin 3.3 L, Globulin 3.2, Albumin/Globulin Ratio 1.0 L, Lipase 87 01/17/25 20:10: Lactate 2.1 01/17/25 23:33: Troponin I 0.09 H 01/18/25 01:00: Lactate 4.5 H, Troponin I 0.09 H 01/18/25 03:45: WBC 26.4 H* D, RBC 4.14 L, Hgb 12.5 L, Hct 38.5 L, MCV 93.0, MCH 30.2, MCHC 32.5, RDW 16.7, Plt Count 207, MPV 9.3, Neut % (Auto) 91.7 H, Lymph % (Auto) 2.7 L, [place] % (Auto) 4.7, Eos % (Auto) 0.0 L, Baso % (Auto) 0.1, Neut # (Auto) 24.2 H, Lymph # (Auto) 0.7, [place] # (Auto) 1.2 H, Eos # (Auto) 0.0, Baso # (Auto) 0.0, Total Counted 100, Neutrophils % (Manual) 95 H, Band Neutrophils % 2, Lymphocytes % (Manual) 2 L, Atypical Lymphs % 1, Sodium 136, Potassium 3.2 L, Chloride 106, Carbon Dioxide 22, Anion Gap 11.2, BUN 10 D, Creatinine 0.50 L D, Estimated Creat Clear 47, Estimated GFR 158, Est GFR ( Amer) 191 D, Glucose 129 H D, Lactate 3.5 H, Calcium 8.1 L 01/18/25 06:35: POC Glucose 110 01/18/25 07:02: Lactate 2.[address] scan - abdomen: report reviewed and image reviewed CT scan - pelvis: report reviewed and image reviewed Assessment and Plan *Assessment and plan (1) Acute cholecystitis: Status: Acute Category: Medical Code(s): K81.0 - Acute cholecystitis Plan: Radiographic anomaly per CT scan noted. Some vague subjective right upper quadrant pain and recent lack of appetite/nausea/vomiting all potentially secondary to biliary disease. Secondary to significant comorbid medical conditions he would be at increased risk for any operative intervention. Follow-up results of formal right upper quadrant ultrasound Tentatively plan cholecystectomy tomorrow (pending ultrasound results, medical assessment of risk, and POA consent). May require transfer to a tertiary facility secondary to comorbid conditions. Continue antibiotics as per primary service (2) NSTEMI (non-ST elevated myocardial infarction): Status: Acute Category: Medical Code(s): I21.4 - Non-ST elevation (NSTEMI) myocardial infarction Plan: Management as per primary service and cardiology (3) Pneumonia: Status: Acute Qualifiers: Pneumonia type: due to unspecified organism Laterality: left Lung location: unspecified part of lung Qualified Code(s): J18.9 - Pneumonia, unspecified organism Category: Medical Code(s): J18.9 - Pneumonia, unspecified organism Plan: Management as per primary service (4) Leukocytosis: Status: Acute Qualifiers: Leukocytosis type: unspecified Qualified Code(s): D72.829 - Elevated white blood cell count, unspecified Category: Medical Code(s): D72.829 - Elevated white blood cell count, unspecified Plan: Significant elevation today could be secondary to acute cholecystitis; however, left-sided pneumonia remains a potential causative factor. (5) Atrial fibrillation with rapid ventricular response: Status: Acute Category: Medical Code(s): I48.91 - Unspecified atrial fibrillation (6) Diabetes: Status: Acute Qualifiers: Diabetes mellitus type: type 2 Diabetes mellitus medical terminologist insulin use: unspecified medical terminologist insulin use status Category: Medical Code(s): E11.9 - Type 2 diabetes mellitus without complications (7) Generalized weakness: Status: Acute Category: Medical Code(s): R53.1 - Weakness
[2025-01-18] MEDS: PIPERACILLIN/TAZO 3.375 GM in 0.9 % SODIUM CHLORIDE 50 ML IV ×3 (09:01→21:00)
--- NOTE | 2025-01-18 09:10 | CA_ITS ---
APPROVED REPORT EXAM: Comprehensive 2D, Doppler, and color-flow Echocardiogram Computer Repair Instructor: Stephanie Huston RVT Ht: 6 ft 0 in Wt: 145lbs BSA: 1.86 BP: 144/77 mmHg Indications: PRE-OP,CHOLECYSTITIS,ELEVATED TROP,A-FIB,HTN,HLD,DM VERY TDS-PT SCANNED FLAT ON BACK,DEMENTIA,LIMITED WINDOWS,BEST STUDY POSSIBLE 2D Dimensions IVSd 0.82 cm M: 0.6-1.2 LVEF (Visual) 50.50 % PWd 0.76 cm M: 0.6 - 1.2 LVDd 4.46 cm M: 4.2 - 5.9 LVDs 3.32 cm M: 2.5 - 4.0 M-Mode Dimensions LA Diam 3.63 cm (1.9-4.0) LV Diastology E Decel Time 120 (160-240 msec) E/A Ratio 2.3 Aortic Valve AO Peak GR. 3.00 mmHg Mitral Valve MV E Max Juan José. 73.0 (40-130 cm/s) MV A Velocity 32.0 (40-130 cm/s) E/A Ratio 2.27 MV PHT 35.0 ms Pulmonary Valve PV Peak Velocity 93.0 (50-150 cm/s) Left Ventricle The left ventricle is normal size. The left ventricular systolic function is normal. The left ventricular ejection fraction is within the normal range. There is increased LV wall thickness. Wall motion accurately evaluated in the setting of technically difficult study. Diastolic function is indeterminate. EF is 55%. Right Ventricle The right ventricle is not very well-visualized, grossly appears at least mildly dilated with normal function. Atria The left atrium size is normal. The right atrium is not well-visualized. The interatrial septum is not well-visualized. Aortic Valve The aortic valve is mildly thickened. There is no aortic valvular stenosis. No aortic regurgitation is present. Mitral Valve The mitral valve is normal in structure. No evidence of mitral valve stenosis. Trace mitral valve regurgitation noted. Tricuspid Valve Tricuspid valve is grossly normal in structure and function. Trace tricuspid regurgitation. There is insufficient TR jet to estimate RVSP. Pulmonic Valve The pulmonic valve is not well-visualized. Great Vessels The aortic root is normal in size. Pericardium There is a small sized, anterior pericardial effusion present along the distal RV free wall. No echo indications of tamponade. No evidence of chamber collapse. Other Information Study Quality: Technically Difficult Conclusion Technically difficult study due to poor acoustic windows. Grossly, normal biventricular systolic function. Mild RV dilation. No significant valvular stenosis or regurgitation. Small, anterior pericardial effusion is present. Serial limited TTE's is suggested to evaluate for progression versus resolution of the pericardial effusion. Electronically signed by : Neeta Lr MD 01/18/2025 12:20:53
[2025-01-18 09:34] LABS: Albumin Level 2.7 g/dl (3.5-5.0)
[2025-01-18 09:36] LABS: Bilirubin,Unconjugated 0.7 mg/dL (0.0-1.1)
[2025-01-18 09:37] LABS: Alanine Aminotransferase 22 U/L (12-78); Alkaline Phosphatase 85 U/L (38-126); Aspartate Amino Transferase 31 U/L (17-59); Bilirubin,Direct 0.7 mg/dl (0.0-0.4); Bilirubin,Indirect 0.7 mg/dL (0.0-0.9); Bilirubin,Total 1.4 mg/dl (0.2-1.3); Total Protein,Serum 5.5 g/dl (6.3-8.2)
[2025-01-18 09:47] LABS: PTT Heparin (inpatient only) 93.8 Seconds (50-75)
--- NOTE | 2025-01-18 09:54 | P.CONPHA_ITS ---
Pharmacy Intervention Comments: HOME MEDICATION LIST VERIFIED USING LIST FROM [facility]
--- NOTE | 2025-01-18 09:57 | PC.NURSE ---
DECREASE HEPARIN DRIP TO 800 UNITS PER MCKENZIE
[2025-01-18] MEDS: HEPARIN SODIUM,PORCINE/D5W 500 ML 16 UNIT IV (10:30)
[2025-01-18 11:55] LABS: POC Glucose,Bedside 176 (70-110)
--- NOTE | 2025-01-18 14:07 | PC.NURSE ---
pt transported to laboratory technical specialist via stretcher
--- NOTE | 2025-01-18 14:08 | IR_ITS ---
APPROVED REPORT Patient Location: [facility] Specialist: ROSHAN Garcia RT (R) PROCEDURES Left heart catheterization Left ventriculogram Selective coronary angiogram INDICATION Acute non-ST elevation myocardial infarction, Preoperative evaluation Informed consent was obtained prior to the procedure. COMPLICATIONS NONE Estimated Blood Loss: LESS THAN 10 ML TECHNIQUE One percent lidocaine used to anesthetize the right anterior aspect of the wrist. The right radial artery was accessed via the Seldinger technique. A 6 [place] sheath was placed in the right radial artery. 2.5 mg of Verapamil, 800 mcg of nitroglycerin, 1mg Lidocaine and 5000 U Heparin were given through the arterial sheath. The 6 [place] JL 3 catheter was also used to perform left heart catheterization, left ventriculogram and selective coronary angiogram. At the end of the procedure the sheath was removed good hemostasis was achieved using Traclet band, patient was transferred to the postop holding area in stable condition. ANGIOGRAPHIC RESULTS The left main artery Has an ostial and distal 10% stenosis The left anterior descending artery Has a proximal 20% stenosis mid vessel 30% stenosis with an additional mid vessel concentric calcified 80% stenosis followed by a stent which has mild to moderate eccentric in-stent restenosis. Distally there is a 90% stenosis as the LAD wraps the apex. A large first diagonal artery has a stent in the proximal segment which is widely patent free of in-stent restenosis with excellent proximal distal transitioning. There is an additional mid vessel 60% stenosis in the diagonal artery The circumflex artery Is nondominant and gives rise to a medium sized first obtuse marginal artery which has 40% calcified mid vessel stenoses. The second obtuse marginal artery has a mid vessel 50% calcified stenosis The right coronary artery Is a large dominant vessel with a proximal eccentric 60% stenosis with mid vessel 30 and 40% stenosis and a distal 30% stenosis. It gives rise to a large posterior descending and posterolateral branch both of which have mild 10 to 20% stenoses The [place] ventriculogram reveals Normal 60% The left ventricular end-diastolic pressure 10 mmHg IMPRESSION Coronary artery disease as described above all of which is best managed medically at this time Normal ejection fraction Normal LVEDP PLAN 1. Patient is a low and acceptable risk to proceed with cholecystectomy providing the atrial fibrillation with rapid ventricular response is better rate controlled 2. Recommend high intensity statin 3. No percutaneous revascularization will improve patient's perioperative cardiac morbidity or mortality 4. Following surgical cholecystectomy patient can be evaluated outpatient with stress testing in the event he is experiencing intractable angina pectoris 5. Medical management is most warranted for the coronary artery disease 6. LDL less than 55 achieved with high intensity statin Electronically signed by : Rogers Calzada MD 01/18/2025 16:45:08
--- NOTE | 2025-01-18 14:59 | EXP.CARD.CON ---
History of Present Illness History of Present Illness Consult date: 01/18/25 Requesting physician: Justice Lunsford Chief complaint: abdominal pain History of present illness: This is an 84-year-old gentleman who presented to the emergency department with abdominal pain. The patient speaks Nepalese and arrived from an outlying living facility. The patient has very minimal communication capabilities given his language barrier. We did try to use the [employer] se[employer] phone but they were unable to translate for the patient because of his underlying dementia and his speech was incoherent. His daughter is also unable to translate for him at this time because of his underlying dementia and him not making any sense when he is trying to communicate. From the nursing staff at the facility where he resides the patient was indicating that he was having right upper quadrant abdominal pain. The patient has also complained to them of epigastric pain and reflux. He does have underlying dementia and frequent auditory hallucinations. His daughter is his POA. Upon arrival to the emergency department the patient was found to be in atrial fibrillation with RVR. He had an elevated troponin as well as a CT that shows concerns for acute cholecystitis. This morning he appears to be in no distress but is pointing to the epigastric region indicating that he is having some discomfort/pain in that area. His vital signs are stable. His daughter does report that he has a history of coronary artery disease with coronary stents placed greater than 10 years ago. She believes he had his stents while he was living in [place]. [facility] Disclaimer: The information contained in this section may have been updated after the patient was seen, as this information can be updated by other users. Medical History (Updated 01/18/25 @ 15:06 by Jessica Adames APRN) Coronary artery disease Pneumonia Diabetes Acute cholecystitis Atrial fibrillation with rapid ventricular response NSTEMI (non-ST elevated myocardial infarction) Auditory hallucinations Benign prostatic hyperplasia Constipation Atherosclerosis of coronary artery bypass graft Hypertension Parkinsonism Major depressive disorder Hyperlipidemia Diabetes mellitus Osteoarthritis Social History (Updated 01/18/25 @ 03:59 by Mary Merlos RN) Smoking Status: Never smoker alcohol intake: never current occupational status: other Travel in the last 8 weeks?: None Have you lived/traveled outside US in past 30 days?: No Contact w/someone who lives/traveled outside US past 30 days?: No Exposure to someone with infectious disease in past 14 days?: No Do you have a fever (greater than 100.4 F or 38 C)?: No Have you tested positive for COVID-19?: No Exposed to someone with COVID-19 in past 14 days?: No Do you have a sore throat?: No Do you have a cough?: No Do you have any weakness?: No Are you experiencing any nausea/vomitting?: No Do you have any diarrhea?: No Are you experiencing any unusual bleeding?: No Do you have any muscle aches/pain?: No Do you have any abdominal pain?: Yes Are you experiencing loss of taste or smell?: No Review of Systems Review of Systems Review of systems:: pertinent systems reviewed and negative unless documented below Constitutional Constitutional: Reports system reviewed and no additional complaints, except as documented Eyes Eyes: Reports system reviewed and no additional complaints, except as documented ENT Ears, Nose, Mouth, and Throat: Reports system reviewed and no additional complaints, except as documented *Cardiovascular Cardiovascular: Reports system reviewed and no additional complaints, except as documented and Reports chest pain *Respiratory Respiratory: Reports system reviewed and no additional complaints, except as documented *Gastrointestinal Gastrointestinal: Reports system reviewed and no additional complaints, except as documented, Reports abdominal pain and Reports heartburn *Genitourinary Genitourinary: Reports system reviewed and no additional complaints, except as documented *Musculoskeletal Musculoskeletal: Reports system reviewed and no additional complaints, except as documented Integumentary/Breasts Skin/Breast: Reports system reviewed and no additional complaints, except as documented *Neurologic Neurologic: Reports system reviewed and no additional complaints, except as documented Psychiatric Psychiatric: Reports system reviewed and no additional complaints, except as documented Endocrine Endocrine: Reports system reviewed and no additional complaints, except as documented Hematologic/Lymphatic Hematologic/Lymphatic: Reports system reviewed and no additional complaints, except as documented Allergic/Immunologic Allergic/Immunologic: Reports system reviewed and no additional complaints, except as documented Exam Data for Last 24 hours Vital signs and Labs for Last 24 Hours: Temp Pulse Resp BP Pulse Ox O2 Del Method 97.8 F 106 H 20 106/65 L 98 Room Air 01/18/25 08:00 01/18/25 08:00 01/18/25 08:00 01/18/25 08:00 01/18/25 08:00 01/18/25 13:10 Laboratory Results - last 24 hr 01/17/25 01:00: APTT 28.7 L 01/17/25 06:19: Urine Color Brown, Urine Appearance Clear, Urine pH 5.5, Ur Specific [place] 1.015, Urine Protein 2+ A, Urine Glucose (UA) Negative, Urine Ketones 1+, Urine Blood 1+ A, Urine Nitrate Negative, Urine Bilirubin Negative, Urine Urobilinogen >=8.0, Ur Leukocyte Esterase Negative, Urine RBC 3-5, Urine WBC Occasional, Ur Squamous Epith Cells Occasional, Amorphous Sediment 1+, Urine Bacteria 2+ 01/17/25 19:30: WBC 11.3 H, RBC 4.12 L, Hgb 12.5 L, Hct 38.0 L, MCV 92.2, MCH 30.3, MCHC 32.9, RDW 16.3, Plt Count 255, MPV 9.6, Neut % (Auto) 79.8, Lymph % (Auto) 11.9, [place] % (Auto) 7.3, Eos % (Auto) 0.2, Baso % (Auto) 0.4, Neut # (Auto) 9.0 H, Lymph # (Auto) 1.3, [place] # (Auto) 0.8, Eos # (Auto) 0.0, Baso # (Auto) 0.0, Sodium 133 L, Potassium 3.8, Chloride 100, Carbon Dioxide 27, Anion Gap 9.8, BUN 15, Creatinine 0.70, Estimated Creat Clear 47, Estimated GFR 107, Est GFR ( Amer) 130, Glucose 210 H, Calcium 8.9, Magnesium 1.9, Total Bilirubin 0.9, AST 31, ALT 20, Alkaline Phosphatase 99, Troponin I 0.06 H, Total Protein 6.5, Albumin 3.3 L, Globulin 3.2, Albumin/Globulin Ratio 1.0 L, Lipase 87 01/17/25 20:10: Lactate 2.1 01/17/25 23:33: Troponin I 0.09 H 01/18/25 01:00: Lactate 4.5 H, Troponin I 0.09 H 01/18/25 03:45: WBC 26.4 H* D, RBC 4.14 L, Hgb 12.5 L, Hct 38.5 L, MCV 93.0, MCH 30.2, MCHC 32.5, RDW 16.7, Plt Count 207, MPV 9.3, Neut % (Auto) 91.7 H, Lymph % (Auto) 2.7 L, [place] % (Auto) 4.7, Eos % (Auto) 0.0 L, Baso % (Auto) 0.1, Neut # (Auto) 24.2 H, Lymph # (Auto) 0.7, [place] # (Auto) 1.2 H, Eos # (Auto) 0.0, Baso # (Auto) 0.0, Total Counted 100, Neutrophils % (Manual) 95 H, Band Neutrophils % 2, Lymphocytes % (Manual) 2 L, Atypical Lymphs % 1, Sodium 136, Potassium 3.2 L, Chloride 106, Carbon Dioxide 22, Anion Gap 11.2, BUN 10 D, Creatinine 0.50 L D, Estimated Creat Clear 47, Estimated GFR 158, Est GFR ( Amer) 191 D, Glucose 129 H D, Lactate 3.5 H, Calcium 8.1 L 01/18/25 06:35: POC Glucose 110 01/18/25 07:02: Lactate 2.9 H 01/18/25 08:53: APTT 93.8 H*, Total Bilirubin 1.4 H, Direct Bilirubin 0.7 H, Conjugated Bilirubin 0.0, Indirect Bilirubin 0.7, Unconjugated Bilirubin 0.7, AST 31, ALT 22, Alkaline Phosphatase 85, Troponin I 0.10 H, Total Protein 5.5 L, Albumin 2.7 L D 01/18/25 11:38: POC Glucose 176 H I & O for Last 24 hours: Intake & Output 01/15/25 01/16/25 01/17/25 01/18/25 23:59 23:59 23:59 23:59 Intake Total 1300 / 1300 Output Total 210 / 210 Balance 1090 / 1090 Weight 137 lb 145 lb 1.027 oz Meds Home Medications and Allergies Home Medications ?Medication ?Instructions ?Recorded ?Confirmed ?Type acetaminophen 500 mg tablet 500 mg PO Q6H PRN Fever Or Pain 01/18/25 01/18/25 History acetaminophen 500 mg tablet 500 mg PO TID 01/18/25 01/18/25 History amino acids-protein hydrolysate 30 ea PO DAILY 01/18/25 01/18/25 History oral liquid calcium carbonate ([place] 500 mg PO BID 01/18/25 01/18/25 History Calcium) clopidogrel 75 mg tablet 75 mg PO HS 01/18/25 01/18/25 History enalapril maleate 20 mg tablet 20 mg PO DAILY 01/18/25 01/18/25 History fentanyl 12 mcg/hr transdermal 1 patch transdermal Q72H 01/18/25 01/18/25 History patch insulin glargine 100 unit/mL (3 15 unit SQ HS 01/18/25 01/18/25 History mL) subcutaneous pen (Lantus Solostar U-100 Insulin) memantine 5 mg tablet 5 mg PO BID 01/18/25 01/18/25 History metoprolol succinate 50 mg 50 mg PO DAILY 01/18/25 01/18/25 History tablet,extended release 24 hr mirtazapine 7.5 mg tablet 7.5 mg PO HS 01/18/25 01/18/25 History multivitamin 1 tab PO DAILY 01/18/25 01/18/25 History polyethylene glycol 3350 17 gram 17 g PO DAILY 01/18/25 01/18/25 History oral powder packet quetiapine 25 mg tablet 25 mg PO HS 01/18/25 01/18/25 History quetiapine 25 mg tablet (Seroquel) 12.5 mg PO DAILY 01/18/25 01/18/25 History rosuvastatin 40 mg tablet 40 mg PO HS 01/18/25 01/18/25 History sennosides 8.6 mg-docusate sodium 1 tab PO BID 01/18/25 01/18/25 History 50 mg tablet (Senna with Docusate Sodium) New Prescriptions to Start Prescriptions: Allergies Allergy/AdvReac Type Severity Reaction Status Date / Time No Known Allergies Allergy Verified 01/17/25 19:58 Assessment and Plan *Assessment and plan (1) NSTEMI (non-ST elevated myocardial infarction): Status: Acute Category: Medical Code(s): I21.4 - Non-ST elevation (NSTEMI) myocardial infarction (2) Atrial fibrillation with rapid ventricular response: Status: Acute Category: Medical Code(s): I48.91 - Unspecified atrial fibrillation (3) Acute cholecystitis: Status: Acute Category: Medical Code(s): K81.0 - Acute cholecystitis (4) Diabetes: Status: Acute Qualifiers: Diabetes mellitus complication status: without complication Diabetes mellitus custodial insulin use: with custodial use Diabetes mellitus type: type 2 Qualified Code(s): E11.9 - Type 2 diabetes mellitus without complications; Z79.4 - senior care (current) use of insulin Category: Medical Code(s): E11.9 - Type 2 diabetes mellitus without complications (5) Pneumonia: Status: Acute Qualifiers: Laterality: left Lung location: unspecified part of lung Pneumonia type: due to unspecified organism Qualified Code(s): J18.9 - Pneumonia, unspecified organism Category: Medical Code(s): J18.9 - Pneumonia, unspecified organism (6) Hypertension: Status: Acute Qualifiers: Hypertension type: primary hypertension Qualified Code(s): I10 - Essential (primary) hypertension Category: Medical Code(s): I10 - Essential (primary) hypertension (7) Coronary artery disease: Status: Acute Qualifiers: Associated angina: with other forms of angina Coronary Disease-Associated Artery/Lesion type: [place] artery [place] vs. transplanted heart: [place] heart Qualified Code(s): I25.118 - Atherosclerotic heart disease of [place] coronary artery with other forms of angina pectoris Category: Medical Code(s): I25.10 - Atherosclerotic heart disease of [place] coronary artery without angina pectoris (8) Hyperlipidemia: Status: Acute Qualifiers: Hyperlipidemia type: mixed hyperlipidemia Qualified Code(s): E78.2 - Mixed hyperlipidemia Category: Medical Code(s): E78.5 - Hyperlipidemia, unspecified Plan Plan: 1. This is an 84-year-old gentleman who was admitted to the hospital and found to have acute cholecystitis. They plan to proceed with gallbladder removal tomorrow. Cardiac clearance is needed. 2. The patient does have an elevated troponin consistent with a non-STEMI. After talking to his daughter on the phone he does have a history of coronary artery disease with stents greater than 10 years ago. He does not follow-up with cardiology that she is aware of. 3. Due to his non-STEMI and angina and known history of coronary artery disease, we will plan to proceed with left cardiac catheterization today to evaluate his coronary artery disease prior to him proceeding with cholecystectomy tomorrow. 4. The patient and his daughter Kerri, who is his POA have been educated on the risks and benefits of proceeding with left cardiac catheterization. His daughter verbalizes understanding and is agreeable in proceeding with the procedure. Verbal consent was obtained over the phone from his daughter Kerri Escobedo who is his POA. 5. The patient will be n.p.o. in preparation for left cardiac catheterization. 6. His EF is normal on echocardiogram. He does have a small effusion. 7. The patient does have atrial fibrillation. He has been treated with metoprolol and his rate did improve. 8. He is currently on a heparin drip for anticoagulation. 9. His blood pressure is well-controlled. 10. His LDL goal is less than 55. Will get a lipid panel in the morning. 11. He is currently being treated for pneumonia. Will defer to the hospitalist. 12. Further recommendations were made pending the patient's response to treatment and the results of his left cardiac catheterization today. Thank you for the opportunity to participate in the care of this patient. All recommendations and orders are per Dr. Lr.
[2025-01-18] MEDS: HEPARIN 1,000 UNITS/ML 10ML VIAL (CATH LAB) 5000 UNIT IV (15:57)
[2025-01-18] MEDS: HEPARIN 1,000 UNITS/500ML NS (CATH LAB) 3000 UNIT IV (15:57)
[2025-01-18] MEDS: 0.9 % SODIUM CHLORIDE 500 ML 25 ML IV (15:57)
[2025-01-18] MEDS: LIDOCAINE 1% 10ML MDV 10 ML IJ (15:57)
[2025-01-18] MEDS: diphenhydrAMINE 50MG/ML VIAL 50 MG IV (15:58)
[2025-01-18] MEDS: MIDAZOLAM HCL 1MG/ML 5ML VIAL 1 MG IV (15:58)
[2025-01-18] MEDS: FENTANYL 100MCG/2ML VIAL 50 MCG IV (15:58)
[2025-01-18] MEDS: NITROGLYCERIN 800MCG/8ML SYR (CATH LAB) 800 MCG IA (15:58)
[2025-01-18] MEDS: VERAPAMIL 2.5MG/ML 2ML VIAL 2.5 MG IV (15:58)
[2025-01-18] MEDS: IOPAMIDOL-370 (76%);100ML BOTTLE 50 ML IV (16:53)
[2025-01-18 18:08] LABS: POC Glucose,Bedside 183 (70-110)
--- NOTE | 2025-01-18 20:01 | EXP.ACUTE.PN ---
Subjective *Date: 01/18/25 *Time: 23:01 Interval history: Confused, difficult to communicate with due to language barrier and dementia. Resting comfortably on exam. Afebrile. Stable on room air Medical Exam Vital signs and Labs for Last 24 Hours: Vital Signs Temp Pulse Pulse Resp BP BP Pulse Ox 01/18/25 18:55 134 H 18 134/56 L 99 01/18/25 18:31 01/18/25 18:25 114 H 18 140/73 95 01/18/25 17:55 125 H 18 125/72 96 01/18/25 17:40 136 H 16 121/75 98 01/18/25 17:25 133 H 18 99/62 L 96 01/18/25 17:10 125 H 16 120/71 97 01/18/25 17:10 01/18/25 16:55 123 H 16 103/57 L 95 01/18/25 16:46 124 H 99/55 L 92 L 01/18/25 16:37 100 H 130 H 18 99/52 L 90 L 01/18/25 13:10 01/18/25 12:00 115 H 01/18/25 12:00 97.6 F 114 H 17 121/65 96 01/18/25 11:20 01/18/25 09:15 01/18/25 09:00 01/18/25 08:00 115 H 01/18/25 08:00 97.8 F 106 H 20 106/65 L 98 01/18/25 06:44 01/18/25 05:00 01/18/25 04:00 90 01/18/25 04:00 99.7 F H 101 H 14 114/66 99 01/18/25 03:00 01/18/25 01:00 01/18/25 01:00 120 H 01/18/25 00:13 133 H 01/18/25 00:12 98.5 F 106 H 20 144/77 H 01/18/25 00:00 98.4 F 112 H 16 144/77 H 98 01/17/25 22:02 19 124/78 01/17/25 21:30 19 157/87 H 01/17/25 21:00 108 H 15 166/100 H O2 Del Method O2 Flow Rate 01/18/25 18:55 Room Air 01/18/25 18:31 Room Air 01/18/25 18:25 Room Air 01/18/25 17:55 Room Air 01/18/25 17:40 Room Air 01/18/25 17:25 Room Air 01/18/25 17:10 Room Air 01/18/25 17:10 Room Air 01/18/25 16:55 Room Air 01/18/25 16:46 Room Air 01/18/25 16:37 Nasal Cannula 2 01/18/25 13:10 Room Air 01/18/25 12:00 01/18/25 12:00 Room Air 01/18/25 11:20 Room Air 01/18/25 09:15 Room Air 01/18/25 09:00 Room Air 01/18/25 08:00 01/18/25 08:00 Room Air 01/18/25 06:44 Room Air 01/18/25 05:00 Room Air 01/18/25 04:00 01/18/25 04:00 Room Air 01/18/25 03:00 Room Air 01/18/25 01:00 Room Air 01/18/25 01:00 Room Air 01/18/25 00:13 01/18/25 00:12 Room Air 01/18/25 00:00 Room Air 01/17/25 22:02 01/17/25 21:30 01/17/25 21:00 Intake and Output 01/18/25 01/18/25 01/18/25 07:59 15:59 23:59 Intake Total 1300 / 1300 Output Total 210 / 210 0 / 210 0 / 210 Balance 1090 / 1090 0 / 1090 0 / 1090 Intake: Intake, Total IV Amount 1300 / 1300 Lactated Ringers 1000ML 1,000 250 / 250 ml @ 125 mls/hr IV .Q8H [facility] Rx# :[id number] Lactated Ringers 1000ML 1,000 1000 / 1000 ml @ 999 mls/hr IV .Q1H1M ONE Rx#:[id number] Piperacillin/Tazo 3.375 gm In 0 50 / 50 .9 % Sodium Chloride 50 ml @ 100 mls/hr IV Q6H [facility] Rx#: [id number] Output: Output, Urine Amount 210 / 210 0 / 210 0 / 210 Other: Number of Voids 0 Number of Unmeasured Voids 0 1 Weight 65.771 kg 65.8 kg Patient Weight 01/18/25 23:59 Weight 65.8 kg Laboratory Results - last 24 hr 01/17/25 01:00: APTT 28.7 L 01/17/25 06:19: Urine Color Brown, Urine Appearance Clear, Urine pH 5.5, Ur Specific [place] 1.015, Urine Protein 2+ A, Urine Glucose (UA) Negative, Urine Ketones 1+, Urine Blood 1+ A, Urine Nitrate Negative, Urine Bilirubin Negative, Urine Urobilinogen >=8.0, Ur Leukocyte Esterase Negative, Urine RBC 3-5, Urine WBC Occasional, Ur Squamous Epith Cells Occasional, Amorphous Sediment 1+, Urine Bacteria 2+ 01/17/25 19:30: WBC 11.3 H, RBC 4.12 L, Hgb 12.5 L, Hct 38.0 L, MCV 92.2, MCH 30.3, MCHC 32.9, RDW 16.3, Plt Count 255, MPV 9.6, Neut % (Auto) 79.8, Lymph % (Auto) 11.9, [place] % (Auto) 7.3, Eos % (Auto) 0.2, Baso % (Auto) 0.4, Neut # (Auto) 9.0 H, Lymph # (Auto) 1.3, [place] # (Auto) 0.8, Eos # (Auto) 0.0, Baso # (Auto) 0.0, Sodium 133 L, Potassium 3.8, Chloride 100, Carbon Dioxide 27, Anion Gap 9.8, BUN 15, Creatinine 0.70, Estimated Creat Clear 47, Estimated GFR 107, Est GFR ( Amer) 130, Glucose 210 H, Calcium 8.9, Magnesium 1.9, Total Bilirubin 0.9, AST 31, ALT 20, Alkaline Phosphatase 99, Troponin I 0.06 H, Total Protein 6.5, Albumin 3.3 L, Globulin 3.2, Albumin/Globulin Ratio 1.0 L, Lipase 87 01/17/25 20:10: Lactate 2.1 01/17/25 23:33: Troponin I 0.09 H 01/18/25 01:00: Lactate 4.5 H, Troponin I 0.09 H 01/18/25 03:45: WBC 26.4 H* D, RBC 4.14 L, Hgb 12.5 L, Hct 38.5 L, MCV 93.0, MCH 30.2, MCHC 32.5, RDW 16.7, Plt Count 207, MPV 9.3, Neut % (Auto) 91.7 H, Lymph % (Auto) 2.7 L, [place] % (Auto) 4.7, Eos % (Auto) 0.0 L, Baso % (Auto) 0.1, Neut # (Auto) 24.2 H, Lymph # (Auto) 0.7, [place] # (Auto) 1.2 H, Eos # (Auto) 0.0, Baso # (Auto) 0.0, Total Counted 100, Neutrophils % (Manual) 95 H, Band Neutrophils % 2, Lymphocytes % (Manual) 2 L, Atypical Lymphs % 1, Sodium 136, Potassium 3.2 L, Chloride 106, Carbon Dioxide 22, Anion Gap 11.2, BUN 10 D, Creatinine 0.50 L D, Estimated Creat Clear 47, Estimated GFR 158, Est GFR ( Amer) 191 D, Glucose 129 H D, Lactate 3.5 H, Calcium 8.1 L 01/18/25 06:35: POC Glucose 110 01/18/25 07:02: Lactate 2.9 H 01/18/25 08:53: APTT 93.8 H*, Total Bilirubin 1.4 H, Direct Bilirubin 0.7 H, Conjugated Bilirubin 0.0, Indirect Bilirubin 0.7, Unconjugated Bilirubin 0.7, AST 31, ALT 22, Alkaline Phosphatase 85, Troponin I 0.10 H, Total Protein 5.5 L, Albumin 2.7 L D 01/18/25 11:38: POC Glucose 176 H 01/18/25 16:55: POC Glucose 183 H I & O for Labs for Last 24 Hours: Intake & Output 01/15/25 01/16/25 01/17/25 01/18/25 23:59 23:59 23:59 23:59 Intake Total 1300 / 1300 Output Total 210 / 210 Balance 1090 / 1090 Weight 62.142 kg 65.8 kg Constitutional: Present mild distress, thin, chronically ill appearing and cooperative Head: Present atraumatic and normocephalic ENT: Present normal exam Respiratory: Present normal respiratory effort; Absent rhonchi, wheezes or crackles Cardiac: Present Tachycardia Comment:: Irregularly irregular GI: Present tenderness (Right upper quadrant) and normal bowel sounds; Absent distention Extremities: Present normal inspection and full ROM Skin: Present intact; Absent erythema Neuro: Present Grossly Intact, alert, awake and moves all extremities; Absent oriented x 3 Assessment and Plan *Assessment and plan (1) Acute cholecystitis: Status: Acute Category: Medical Code(s): K81.0 - Acute cholecystitis (2) Abdominal pain: Status: Deleted Category: Medical Code(s): R10.9 - Unspecified abdominal pain (3) Atrial fibrillation with rapid ventricular response: Status: Acute Category: Medical Code(s): I48.91 - Unspecified atrial fibrillation (4) NSTEMI (non-ST elevated myocardial infarction): Status: Acute Category: Medical Code(s): I21.4 - Non-ST elevation (NSTEMI) myocardial infarction (5) Generalized weakness: Status: Acute Category: Medical Code(s): R53.1 - Weakness (6) Diabetes: Status: Acute Qualifiers: Diabetes mellitus complication status: without complication 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 Presented for nausea and vomiting. Concern for cholecystitis. Cardiology evaluating today for preop optimization. Surgery assisting with management. Anticipate cholecystectomy tomorrow. Continues to require inpatient management. Problems addressed as follows: #Acute cholecystitis #Abdominal pain Reports abdominal pain and weight loss recently. CT imaging with distended gallbladder and pericholecystic fluid. -White count elevated at 26, 91% neutrophils. Hemoglobin 12.5. Kidney function normal with BUN 10, creatinine 0.5. Bilirubin 1.4, LFTs normal with AST and ALT 31 and 22 along with alk phos of 85. Repeat CBC, CMP, magnesium ordered for more - Right upper quadrant ultrasound obtained showing distention of gallbladder with sludge and wall thickening. No gallstones or pericholecystic fluid - Discussed case with surgery, planning on cholecystectomy tomorrow. Continue Zosyn 3.375 g every 6 hours Continue IV fluids #Atrial fibrillation with RVR #NSTEMI Poor communication even with weed thinner services but does not allude to the fact that he is having chest pain. Likely new onset atrial fibrillation but unsure of the timing. Given elevated [id number] score of 4, (age,sex,hypertension and diabetes,history) will initiate heparin drip. Continue metoprolol tartrate 50 mg twice daily. On heparin drip for anticoagulation Cardiology consulted, discussed case, taken for heart cath. No stents required at this time. Optimized for surgery. High risk for intra-abdominal surgery however alternative would be antibiotics and high risk for decompensation and . Family agreeable to proceeding with cholecystectomy #T2DM: continue sliding scale and long-acting insulin, A1c ordered for the morning #Sepsis Meets criteria for tachycardia, lactic acidosis and leukocytosis. Acute cholecystitis on imaging. Received 30 mL/kg bolus of IV fluids Follow-up blood cultures Continue Zosyn #Heparin drip - Requires toxicity monitoring with pharmacokinetics Full code N.p.o.
[2025-01-18] MEDS: METOPROLOL TARTRATE 50MG TABLET 50 MG PO (21:00)
[2025-01-18 21:11] LABS: PTT Heparin (inpatient only) 108.7 Seconds (50-75)
--- NOTE | 2025-01-18 21:19 | PC.NURSE ---
Addendum entered by Maisha Lundberg RN 01/19/25 01:33: Ike from [facility] called at this time to inform me that, according to the patient's PTT result (69.4, drawn at 00:58), there will be no adjustments made to the heparin drip at this time. The next PTT lab will be drawn at 02:30. Addendum entered by Maisha Lundberg RN 01/18/25 23:47: [facility] called at this time to inform me that, according to the patient's PTT result (95.5, drawn at 22:25), adjustments are going to be made to the heparin drip. According to the MAR, the heparin drip changed to be infusing at 9.3 mL/hr (adjusted from 12 mL/hr). The next PTT lab will be drawn at 00:45. Original Note: Ike from [facility] called at this time to inform me that, according to the patient's PTT result (108.7, drawn at 20:25), adjustments are going to be made to the heparin drip. According to the MAR, the heparin drip changed to be infusing at 12 mL/hr (adjusted from 16 mL/hr). The next PTT lab will be drawn at 22:25.
[2025-01-18 21:49] LABS: POC Glucose,Bedside 184 (70-110)
[2025-01-18 23:39] LABS: PTT Heparin (inpatient only) 95.5 Seconds (50-75)
[2025-01-19] VITALS (28 sets, daily range): BP systolic 76–129; BP diastolic 38–87; PULSE 77–120; RESP 14–21; TEMP 36.1–43; O2SAT 91–98; BMI 19.8
[2025-01-19 01:29] LABS: PTT Heparin (inpatient only) 69.4 Seconds (50-75)
--- NOTE | 2025-01-19 01:37 | PC.NURSE ---
Vannesa Schneideris [facility] was notified [id number] that the patient's blood pressure dropped to 90/55, and his axilla temperature was increased at 100.3. The patient was also grimacing and showing voluntary guarding cues to his abdomen during repositioning in bed. New orders for intravenous acetaminophen and a bolus of normal saline were obtained and to be administered per NOV.
[2025-01-19] MEDS: 0.9 % SODIUM CHLORIDE 1000ML 1,000 ML 999 ML IV ×2 (01:40→04:50)
[2025-01-19] MEDS: ACETAMINOPHEN 1,000MG/100ML VIAL 1000 MG IV (01:40)
[2025-01-19] MEDS: PIPERACILLIN/TAZO 3.375 GM in 0.9 % SODIUM CHLORIDE 50 ML IV (02:15)
--- NOTE | 2025-01-19 04:41 | PC.NURSE ---
Addendum entered by Maisha Lundberg RN 01/19/25 05:50: Blood pressure post-normal saline bolus is 99/47. Addendum entered by Maisha Lundberg RN 01/19/25 05:14: Extra vital sign assessments taken accordingly (see intervention). Original Note: Patient remains afebrile since receiving intravenous acetaminophen. However, the patient's blood pressure was hypotensive at 82/41 this morning, and he was starting to verbally complain of significant belly pain as well. Patient appears to understand very little Maori and can speak a couple Maori words (patient primarily speaks his three affiliated language, Macedonian). Elbert ROQUE was notified about the patient's low blood pressure and complaint of abdominal pain. She stated to give the patient another liter of fluids and check the blood pressure in between the infusion; pain will be addressed later once blood pressure increases. Lactic acid lab draw also to be added via verbal order.
[2025-01-19 05:12] LABS: Basophils # 0.1 K/mm3 (0-0.2); Basophils % 0.2 % (0.1-2.0); Hematocrit 31.4 % (42.0-52.0); Hemoglobin 10.6 g/dL (14.1-18.0); Lymphocytes # 1.3 K/mm3 (0.7-4.5); Lymphocytes % 3.9 % (10-50); Mean Corpuscular HGB Conc 33.8 g/dL (31.8-35.4); Mean Corpuscular Hemoglobin 30.5 pg (27.0-31.2); Mean Corpuscular Volume 90.5 fl (80-94); Mean Platelet Volume 9.6 fl (7.4-10.4); Monocytes # 1.5 K/mm3 (0.1-1.0); Monocytes % 4.6 % (1.7-9.3); Neutrophils # 28.9 K/mm3 (1.8-7.8); Neutrophils % 86.7 % (37.0-80.0); Nucleated Red Blood Cells # 0 10^3/uL; Nucleated Red Blood Cells % 0 %; Platelet Count 188 K/mm3 (142-424); Red Blood Count 3.47 M/mm3 (4.60-6.20); Red Cell Distribution Width 16.6 % (11.5-17.5); Red Cell Distribution Width-SD 55.5 fL
[2025-01-19 05:18] LABS: Albumin Level 2.3 g/dl (3.5-5.0); Chloride 107 mmol/L (98-107); Potassium 3.4 mmoL/L (3.5-5.1); Sodium 134 mmol/L (136-145)
[2025-01-19 05:21] LABS: Lactic Acid 2.2 mmol/L (0.7-2.1)
[2025-01-19 05:21] LABS: Alanine Aminotransferase 19 U/L (12-78); Alkaline Phosphatase 82 U/L (38-126); Anion Gap 5.4 mEq/L (5-15); Aspartate Amino Transferase 39 U/L (17-59); Bilirubin,Direct 0.6 mg/dl (0.0-0.4); Bilirubin,Indirect 0.8 mg/dL (0.0-0.9); Bilirubin,Total 1.4 mg/dl (0.2-1.3); Bilirubin,Unconjugated 0.7 mg/dL (0.0-1.1); Blood Urea Nitrogen 11 mg/dl (9-20); Calcium 7.8 mg/dl (8.4-10.2); Carbon Dioxide 25 mmol/L (22.0-30.0); Cholesterol 61 mg/dl (140-200); Creatinine Clearance Estimated 50 mL/min (50-200); Estimated Glomerular Filt Rate 107 ml/min (>60); GFR (African American) 130 ML/MIN (>60); Glucose 157 mg/dl (74-100); HDL Cholesterol 38 mg/dl (40-60); Triglycerides 49 mg/dl (30-150); VLDL Cholesterol 10 mg/dL (0-40)
[2025-01-19 05:22] LABS: Chol/HDL Ratio 1.6 (1-3.5)
[2025-01-19 05:23] LABS: MANUAL DIFFERENTIAL MANUAL DIFFERENTIAL (MANUAL DIFF); White Blood Count 33.4 K/mm3 (4.8-10.8)
--- NOTE | 2025-01-19 05:25 | PC.NURSE ---
Addendum entered by Maisha Lundberg RN 01/19/25 07:09: CT of the abdomen cancelled; chest x-ray taken this morning (see report). Original Note: Lab called at this time to report a critical WBC value of 33.4 for the patient. Elbert ROQUE was paged to inform her about the lab value. She stated that the patient will need to be scanned again; pending new orders, CT of the abdomen.
[2025-01-19 05:33] LABS: Direct LDL Cholesterol < 30.00 mg/dL (100-129)
[2025-01-19 05:34] LABS: POC Glucose,Bedside 204 (70-110)
[2025-01-19 05:34] LABS: POC Glucose,Bedside 160 (70-110)
[2025-01-19 05:36] LABS: Hemoglobin A1C 6.8 % (4.0-6.0)
[2025-01-19] MEDS: humaLOG 100 UNITS/ML 10ML VIAL (SSI) SUBCUT ×2 (05:53→21:21)
[2025-01-19 06:11] LABS: Lymphocytes % 7 % (10-50); Monocytes % 1 % (2-9); Neutrophils % 92 % (42-76); Total Cells Counted 100
[2025-01-19 06:16] LABS: Platelet Estimate Normal; RBC Morphology Normal
--- NOTE | 2025-01-19 06:34 | XR_ITS ---
FINAL REPORT CLINICAL HISTORY: hypoxia COMPARISON: 01/17/2025 FINDINGS: A portable view of the chest was obtained. Cardiac and mediastinal silhouettes are within normal limits. The previously seen left midlung opacity is no longer visible. There is right greater than left basilar opacity favored to represent atelectasis.. There is no significant pleural effusion. No evidence of pneumothorax.. IMPRESSION: Right greater than left basilar opacity, favor atelectasis. Reviewed, Interpreted and Dictated by Vee Conde MD Transcribed by Vanessa Sullivan Authenticated and [facility]
--- NOTE | 2025-01-19 06:34 | EXP.SURG.PN ---
Subjective Narrative: Currently resting Exam Data for Last 24 hours Vital signs and Labs for Last 24 Hours: Temp Pulse Resp BP Pulse Ox O2 Del Method O2 Flow Rate 97.9 F 77 18 108/63 L 94 L Room Air 2 01/19/25 02:10 01/19/25 06:10 01/19/25 06:10 01/19/25 06:10 01/19/25 06:10 01/19/25 06:10 01/18/25 16:37 Laboratory Results - last 24 hr 01/17/25 06:19: Urine Color Brown, Urine Appearance Clear, Urine pH 5.5, Ur Specific [place] 1.015, Urine Protein 2+ A, Urine Glucose (UA) Negative, Urine Ketones 1+, Urine Blood 1+ A, Urine Nitrate Negative, Urine Bilirubin Negative, Urine Urobilinogen >=8.0, Ur Leukocyte Esterase Negative, Urine RBC 3-5, Urine WBC Occasional, Ur Squamous Epith Cells Occasional, Amorphous Sediment 1+, Urine Bacteria 2+ 01/18/25 01:10: POC Glucose 204 H 01/18/25 06:35: POC Glucose 110 01/18/25 07:02: Lactate 2.9 H 01/18/25 08:53: APTT 93.8 H*, Total Bilirubin 1.4 H, Direct Bilirubin 0.7 H, Conjugated Bilirubin 0.0, Indirect Bilirubin 0.7, Unconjugated Bilirubin 0.7, AST 31, ALT 22, Alkaline Phosphatase 85, Troponin I 0.10 H, Total Protein 5.5 L, Albumin 2.7 L D 01/18/25 11:38: POC Glucose 176 H 01/18/25 16:55: POC Glucose 183 H 01/18/25 20:25: APTT 108.7 H* 01/18/25 21:22: POC Glucose 184 H 01/18/25 22:25: APTT 95.5 H* 01/19/25 00:58: APTT 69.4 01/19/25 05:04: WBC 33.4 H* D, RBC 3.47 L, Hgb 10.6 L, Hct 31.4 L, MCV 90.5, MCH 30.5, MCHC 33.8, RDW 16.6, Plt Count 188, MPV 9.6, Neut % (Auto) 86.7 H, Lymph % (Auto) 3.9 L, [place] % (Auto) 4.6, Eos % (Auto) 0.0 L, Baso % (Auto) 0.2, Neut # (Auto) 28.9 H, Lymph # (Auto) 1.3, [place] # (Auto) 1.5 H, Eos # (Auto) 0.0, Baso # (Auto) 0.1, Total Counted 100, Neutrophils % (Manual) 92 H, Lymphocytes % (Manual) 7 L, Monocytes % (Manual) 1 L, Platelet Estimate Normal, RBC Morphology Normal, Sodium 134 L, Potassium 3.4 L, Chloride 107, Carbon Dioxide 25, Anion Gap 5.4, BUN 11, Creatinine 0.70 D, Estimated Creat Clear 50, Estimated GFR 107, Est GFR ( Amer) 130 D, Glucose 157 H, Hemoglobin A1c 6.8 H, Calcium 7.8 L, Total Bilirubin 1.4 H, Direct Bilirubin 0.6 H, Conjugated Bilirubin 0.0, Indirect Bilirubin 0.8, Unconjugated Bilirubin 0.7, AST 39 D, ALT 19, Alkaline Phosphatase 82, Total Protein 5.0 L, Albumin 2.3 L D, Triglycerides 49, Cholesterol 61 L, LDL Cholesterol Direct < 30.00 L, VLDL Cholesterol 10, HDL Cholesterol 38 L, Cholesterol/HDL Ratio 1.6 01/19/25 05:09: Lactate 2.2 H 01/19/25 05:26: POC Glucose 160 H I & O for Last 24 hours: Intake & Output 01/16/25 01/17/25 01/18/25 01/19/25 11:59 11:59 11:59 11:59 Intake Total 1300 / 1300 1903 / 1903 Output Total 210 / 210 250 / 250 Balance 1090 / 1090 1653 / 1653 Weight 145 lb 1.027 oz 146 lb Microbiology Reports for the Last 24 Hours: Microbiology 01/18/25 01:00 Blood Blood Culture - Preliminary NO GROWTH AFTER 24 HOURS 01/18/25 01:00 Blood Blood Culture - Preliminary NO GROWTH AFTER 24 HOURS Constitutional Constitutional: no acute distress and chronically ill appearing *Routine Respiratory Exam Respiratory: Absent respiratory distress *Routine Cardiovascular Exam Cardiovascular: Absent tachycardia *Routine Abdominal Exam Comments: Deferred Progress Note: A&P Assessment and plan (1) Acute cholecystitis: Status: Acute Assessment and plan: Tentatively plan cholecystectomy later today if medically cleared. Anesthesia consult pending. May require transfer to tertiary facility. (2) Pneumonia: Status: Acute (3) Atrial fibrillation with rapid ventricular response: Status: Acute (4) NSTEMI (non-ST elevated myocardial infarction): Status: Acute (5) Leukocytosis: Status: Acute Assessment and plan: Possibly secondary to pneumonia. Possibly secondary to acute cholecystitis
[2025-01-19] MEDS: 0.9 % SODIUM CHLORIDE 1000ML 1,000 ML 100 ML IV ×2 (06:40→16:18)
[2025-01-19] MEDS: MEROPENEM 1 GM in 0.9 % SODIUM CHLORIDE 100 ML IV ×2 (06:40→15:23)
[2025-01-19 08:07] LABS: PTT Heparin (inpatient only) 63.5 Seconds (50-75)
[2025-01-19 09:15] LABS: Reflex Lactic Add Lactic Reflex
[2025-01-19 09:53] LABS: Lactic Acid Follow Up (RFLX 1) 2.7 mmol/L (0.7-2.1)
--- NOTE | 2025-01-19 10:15 | EXP.CARD.PN ---
Subjective Subjective Date: 01/19/25 Time: 09:00 Principal diagnosis: Cholecystitis, elevated troponin Interval history: This is an 84-year-old gentleman who presented to the emergency department with abdominal pain. The patient speaks Micronesian and arrived from an outlying living facility. The patient has very minimal communication capabilities given his language barrier and dementia. We did try to use the medical office scheduler phone but they were unable to translate for the patient because of his underlying dementia and his speech was incoherent. His daughter is also unable to translate for him at this time because of his underlying dementia and him not making any sense when he is trying to communicate her per her report. From the nursing staff at the facility where he resides the patient was indicating that he was having right upper quadrant abdominal pain. The patient has also complained to them of epigastric pain and reflux. He does have underlying dementia and frequent auditory hallucinations. His daughter is his POA. His ex- is at the bedside today. She states that he has been complaining of pain all over his body. No specific complaints this morning. She says he denied any chest pain or shortness of breath. Upon arrival to the emergency department the patient was found to be in atrial fibrillation with RVR. He had an elevated troponin as well as a CT that shows concerns for acute cholecystitis. This morning he appears to be in no distress. He underwent left cardiac catheterization yesterday secondary to his elevated troponin and was found to have patent coronary artery disease and is at acceptable risk from a cardiac standpoint to proceed with surgery today. Exam Data for Last 24 hours Vital signs and Labs for Last 24 Hours: Temp Pulse Resp BP Pulse Ox O2 Del Method O2 Flow Rate 98.0 F 98 H 20 90/45 L 96 Room Air 2 01/19/25 08:00 01/19/25 08:00 01/19/25 08:00 01/19/25 08:00 01/19/25 08:00 01/19/25 08:00 01/18/25 16:37 Laboratory Results - last 24 hr 01/18/25 01:10: POC Glucose 204 H 01/18/25 11:38: POC Glucose 176 H 01/18/25 16:55: POC Glucose 183 H 01/18/25 20:25: APTT 108.7 H* 01/18/25 21:22: POC Glucose 184 H 01/18/25 22:25: APTT 95.5 H* 01/19/25 00:58: APTT 69.4 01/19/25 05:04: WBC 33.4 H* D, RBC 3.47 L, Hgb 10.6 L, Hct 31.4 L, MCV 90.5, MCH 30.5, MCHC 33.8, RDW 16.6, Plt Count 188, MPV 9.6, Neut % (Auto) 86.7 H, Lymph % (Auto) 3.9 L, [place] % (Auto) 4.6, Eos % (Auto) 0.0 L, Baso % (Auto) 0.2, Neut # (Auto) 28.9 H, Lymph # (Auto) 1.3, [place] # (Auto) 1.5 H, Eos # (Auto) 0.0, Baso # (Auto) 0.1, Total Counted 100, Neutrophils % (Manual) 92 H, Lymphocytes % (Manual) 7 L, Monocytes % (Manual) 1 L, Platelet Estimate Normal, RBC Morphology Normal, Sodium 134 L, Potassium 3.4 L, Chloride 107, Carbon Dioxide 25, Anion Gap 5.4, BUN 11, Creatinine 0.70 D, Estimated Creat Clear 50, Estimated GFR 107, Est GFR ( Amer) 130 D, Glucose 157 H, Hemoglobin A1c 6.8 H, Calcium 7.8 L, Total Bilirubin 1.4 H, Direct Bilirubin 0.6 H, Conjugated Bilirubin 0.0, Indirect Bilirubin 0.8, Unconjugated Bilirubin 0.7, AST 39 D, ALT 19, Alkaline Phosphatase 82, Total Protein 5.0 L, Albumin 2.3 L D, Triglycerides 49, Cholesterol 61 L, LDL Cholesterol Direct < 30.00 L, VLDL Cholesterol 10, HDL Cholesterol 38 L, Cholesterol/HDL Ratio 1.6 01/19/25 05:09: Lactate 2.2 H 01/19/25 05:26: POC Glucose 160 H 01/19/25 07:49: APTT 63.5 01/19/25 09:40: Lactate 2.7 H I & O for Last 24 hours: Intake & Output 01/16/25 01/17/25 01/18/25 01/19/25 23:59 23:59 23:59 23:59 Intake Total 1300 / 3203 1903 / 1903 Output Total 210 / 460 250 / 250 Balance 1090 / 2743 1653 / 1653 Weight 137 lb 145 lb 1.027 oz 146 lb Microbiology Reports for the Last 24 Hours: Microbiology 01/18/25 01:00 Blood Blood Culture - Preliminary NO GROWTH AFTER 24 HOURS 01/18/25 01:00 Blood Blood Culture - Preliminary NO GROWTH AFTER 24 HOURS Constitutional Constitutional: no acute distress and thin *Routine HEENT Exam Head: Present normocephalic and atraumatic ENT: Present mucous membranes moist *Routine Neck Exam Neck: Present supple, full ROM and normal carotid upstroke; Absent JVD, carotid bruit or lymphadenopathy *Routine Respiratory Exam Respiratory: Present CTA bilaterally, normal respiratory effort, able to speak in complete sentences and symmetric chest movement *Routine Cardiovascular Exam Cardiovascular: Present Normal S1, Normal S2 and irregularly irregular; Absent murmur or gallop *Routine Abdominal Exam Abdominal: Present soft and normoactive bowel sounds; Absent tenderness, distended or organomegaly *Routine Extremities Exam Extremities: Present full ROM, pulses intact and normal capillary refill; Absent cyanosis, clubbing or edema *Routine Skin Exam Skin: Present intact and warm; Absent erythema *Routine Neurological Exam Neurological: Present alert, oriented X3 and CN II-XII intact; Absent sensory deficit or motor deficit Routine Psychiatric Exam Psychiatric: Present normal affect Progress Note: A&P Assessment and plan (1) Acute cholecystitis: Status: Acute (2) Pneumonia: Status: Acute (3) Atrial fibrillation with rapid ventricular response: Status: Acute (4) NSTEMI (non-ST elevated myocardial infarction): Status: Acute (5) Coronary artery disease: Status: Acute (6) Leukocytosis: Status: Acute (7) Diabetes: Status: Acute (8) Hypertension: Status: Acute (9) Hyperlipidemia: Status: Acute (10) Pericardial effusion: Status: Acute Assessment and Plan Assessment and Plan for All Diagnoses:: Plan: 1. This is an 84-year-old gentleman who was admitted to the hospital and found to have acute cholecystitis. The patient is scheduled to undergo cholecystectomy today. He is at a moderate but acceptable risk to proceed with cholecystectomy today. His coronary artery disease is patent. 2. Coronary artery disease is patent. Recommend aspirin 81 mg daily following surgery. However following cholecystectomy on an outpatient basis if he is having chest pain or shortness of breath he could undergo outpatient Lexiscan stress test to rule out ischemia. 3. Blood pressure is well-controlled. 4. His EF is normal on echocardiogram. He does have a small pericardial effusion. Will repeat a limited echo tomorrow to make sure his small pericardial effusion has not worsened. 5. The patient does have atrial fibrillation. He is rate controlled on metoprolol. 6. He is on a heparin drip for anticoagulation at this time. Prior to discharge home he will need to be switched over to Eliquis for long-term anticoagulation. 7. His LDL goal is less than 55. His LDL is less than 30. He is on a statin. 8. The patient is diabetic. His hemoglobin A1c is 6.8%. Will defer management of this to the hospitalist. 9. The patient is anemic. Will defer this to the hospitalist as well. 10. The patient is currently being treated for pneumonia. Will defer to the hospitalist. 11. He does have a leukocytosis. This is likely stemming from his pneumonia or acute cholecystitis or both. 12. Further recommendations will be made pending the patient's response to treatment. Thank you for the opportunity to participate in the care of this patient. All recommendations and orders are per Dr. Lr.
--- NOTE | 2025-01-19 10:28 | P.PNANES_ITS ---
[facility] Disclaimer: The information contained in this section may have been updated after the patient was seen, as this information can be updated by other users. Medical History (Updated 01/18/25 @ 15:06 by Jessica Adames APRN) Coronary artery disease Pneumonia Diabetes Acute cholecystitis Atrial fibrillation with rapid ventricular response NSTEMI (non-ST elevated myocardial infarction) Auditory hallucinations Benign prostatic hyperplasia Constipation Atherosclerosis of coronary artery bypass graft Hypertension Parkinsonism Major depressive disorder Hyperlipidemia Diabetes mellitus Osteoarthritis Social History (Updated 01/18/25 @ 03:59 by Mary Merlos RN) Smoking Status: Never smoker alcohol intake: never substance use type: denies use current occupational status: other Travel in the last 8 weeks?: None [facility] Anesthesia Checklist Patient Identification Patient Identification: Arm Band and Verbal (Name & ) Structural Data Admitted From: Inpatient Planned Operative Procedure/s: Laparoscopic cholecystectomy Consent for Planned Operative Procedure(s) Verified: Yes Verified Documents: Surgical Consent NPO Status Verified Time NPO: 00:00 Chart Verification Results Verified: CBC, BMP and ECG Additional verifications Fingerstick Blood Glucose: 157 Anesthesia Reactions: No Hx Blood Transfusions: No Blood Transfusion Reaction: No Airway Assessment Mallampati Score:: Class II C-Spine Mobility Assessed: No TMJ Mobility Assessed: No Dentition: Dentures-good fit (Upper dentures, 1 tooth on bottom) Neurological Assessment Level of Consciousness: Lethargic and Disoriented Hx Seizures: No Numbness or tingling in extremities: No Anesthesia Plan Anesthesia Risk discussed: Yes Anesthesia Plan: Verified ASA Class: III Anesthesia Type: General
--- NOTE | 2025-01-19 11:20 | SUR.PREOP ---
Dr. Santacruz called to discuss continuing heparin drip. Orders to stop drip preoperatively. Heparin drip stopped at 1115 am.
[2025-01-19 11:53] LABS: Reflex Lactic (2 hrs) Add Lactic Reflex
[2025-01-19] MEDS: SODIUM CHLORIDE IRRIG SOLUTION 3,000 ML 25 ML IR (13:25)
[2025-01-19] MEDS: LIDOCAINE 1% 20ML MDV 20 ML (13:25)
[2025-01-19] MEDS: OXYMETAZOLINE NASAL SPRAY 0.05% 15ML 15 ML NS (13:44)
--- NOTE | 2025-01-19 14:44 | EXP.OP.NOTE ---
Date of procedure: 01/19/25 Pre-op Diagnosis:: Acute calculus cholecystitis Post-op Diagnosis:: Gangrenous calculus cholecystitis Procedure performed:: Laparoscopic cholecystectomy Surgeon:: Ken Molina MD Anesthesia: BURKE Estimated blood loss (mL): 15 Operative findings:: Entire gallbladder gangrenous Associated small bowel/colonic ileus (distended loops) Harmeet-Dominguez drains (x 2) placed Operative note:: After informed consent was obtained, the patient was taken to the operating room and placed in the supine position. General anesthesia was induced and the abdomen was prepped and draped in a sterile fashion. After infiltration with local anesthetic an infraumbilical incision was made. A Veress needle was placed in position. The abdomen was insufflated. A 5 mm optical trocar was placed in position. Under direct visualization, a 12 mm trocar was placed in the subxiphoid position and 2 additional 5 mm trocars were placed in the right upper quadrant. The gallbladder was gangrenous. An otomy was made along the dome of the gallbladder for decompression. As the gallbladder was elevated necrosis with the entire organ was confirmed. Severe infundibular thickening and soft tissue weeping was noted. To the degree possible, the gallbladder was elevated up and over the liver margin. The tissue around the apparent cystic duct was carefully dissected. The presumed cystic artery was also freed from surrounding tissue and controlled with metallic clips prior to transection distally. Secondary to surrounding necrosis and soft tissue thickening the decision was made to proceed with a dome down approach with placement of Endoloops. Harmonic xiomara were then utilized to dissect the gallbladder away from the liver margin. Endoloops (x 2) were placed at the infundibulum. The gallbladder was transected just past the Endoloops. It was then placed in a retrieval bag and removed through the subxiphoid trocar site. The right upper quadrant was thoroughly irrigated. No active bleeding or bile leak was noted. 2 #10 flat Harmeet-Dominguez drains were placed in the gallbladder fossa and exited through the right upper quadrant trocar sites. The drains were secured with interrupted Nurolon. Fascia at the subxiphoid trocar site was reapproximated utilizing 0 Ethibond. The remaining trocar was removed. All wounds were irrigated and skin was closed with 4-0 Monocryl in an interrupted mattress fashion to facilitate hemostasis. The patient's anesthetic agents were reversed and extubation was completed prior to transfer to recovery in stable condition. Condition: stable (/Guarded) Disposition: PACU Specimens:: Gallbladder Complications:: No immediate
[2025-01-19 14:56] LABS: Microscopic,Cath URINE MICROSCOPIC (MICROSCOPIC)
--- NOTE | 2025-01-19 14:58 | EXP.ANES.I ---
[facility] Anesthesia Record Part I Anesthesia Record I Intake, IV Amount: 1,000 Hydration: Adequate Estimated blood loss (mL): 10 Urine output (mL): 400 Blood Pressure: 129/83 SaO2: 93 Pulse Rate: 110 Airway Patency: Patent Respiratory Rate: 18 Temperature: 97 F Patient is:: Awake Stable to PACU at:: 15:00
--- NOTE | 2025-01-19 15:01 | XR_ITS ---
FINAL REPORT CLINICAL HISTORY: NG placement..post op gb surgery COMPARISON: 01/19/2025 FINDINGS: A portable view of the chest was obtained. New NG tube is seen extending into the stomach. The heart and mediastinum are stable. The lung apices are excluded. The lungs are otherwise unremarkable. IMPRESSION: NG tube as above. Reviewed, Interpreted and Dictated by Vee Conde MD Transcribed by Brielle Kwan Authenticated and [facility]
[2025-01-19 15:19] LABS: Blood, Urine/Cath 3+ (Negative); Color,Urine/Cath BROWN (Yellow); Glucose,Urine/Cath (UA) Negative (Negative); Ketones,Urine/Cath TRACE (Negative); Leukocyte Esterase,Cath Negative (Negative); Nitrate,Cath POSITIVE (Negative); Protein,Urine/Cath 2+ (Negative); Specific Gravity, Urine/Cath 1.025 (1.005-1.030)
[2025-01-19] MEDS: SODIUM CHLORIDE 3% 15ML NEB 3 ML IH (15:43)
[2025-01-19 16:00] LABS: Appearance,Urine/Cath Slightly Cloudy (Clear); Bilirubin,Cath 1+ (Negative)
[2025-01-19 16:22] LABS: Lactic Acid Follow up (RFLX 2) 3.2 mmol/L (0.7-2.1)
[2025-01-19 17:05] LABS: POC Glucose,Bedside 165 (70-110)
[2025-01-19] MEDS: ENOXAPARIN 80MG/0.8ML SYRINGE 65 MG SUBCUT (17:16)
--- NOTE | 2025-01-19 17:44 | PC.NURSE ---
patient is alert to self remains on RA tolerating well. at bedside. at bedside. NG to right nare at 55 cm placed by post op, auscultated and aspirated for placement upon patients arrival to the unit. Xray obtained in post op. NG to gravity. ABD dressing C/D/I. patient is currently resting with eyes closed, RR even and unlabored. at bedside. gagnon placed in post op. urine is still dark in color. mittens placed in post op due to patient pulling at tubes. mittens remain in place, 2 fingers are able to fit under mits. aware of mits and agrees with leaving them in place. plan of care ongoing
[2025-01-19 19:12] LABS: Amorphous Sediment,Ur/Cath 3+ /lpf; Bacteria,Urine/Cath 3+ /lpf
--- NOTE | 2025-01-19 20:57 | P.PN_ITS ---
Subjective *Date: 01/19/25 *Time: 20:57 Interval history: Patient resting comfortably without distress after surgery. No acute concerns. Exam Data for Last 24 hours Vital signs and Labs for Last 24 Hours: Temp Pulse Resp BP Pulse Ox O2 Del Method O2 Flow Rate 97.6 F 96 H 16 104/58 L 96 Room Air 2 01/19/25 17:35 01/19/25 18:05 01/19/25 18:05 01/19/25 18:05 01/19/25 18:05 01/19/25 18:33 01/18/25 16:37 Laboratory Results - last 24 hr 01/18/25 01:10: POC Glucose 204 H 01/18/25 20:25: APTT 108.7 H* 01/18/25 21:22: POC Glucose 184 H 01/18/25 22:25: APTT 95.5 H* 01/19/25 00:58: APTT 69.4 01/19/25 05:04: WBC 33.4 H* D, RBC 3.47 L, Hgb 10.6 L, Hct 31.4 L, MCV 90.5, MCH 30.5, MCHC 33.8, RDW 16.6, Plt Count 188, MPV 9.6, Neut % (Auto) 86.7 H, Lymph % (Auto) 3.9 L, [place] % (Auto) 4.6, Eos % (Auto) 0.0 L, Baso % (Auto) 0.2, Neut # (Auto) 28.9 H, Lymph # (Auto) 1.3, [place] # (Auto) 1.5 H, Eos # (Auto) 0.0, Baso # (Auto) 0.1, Total Counted 100, Neutrophils % (Manual) 92 H, Lymphocytes % (Manual) 7 L, Monocytes % (Manual) 1 L, Platelet Estimate Normal, RBC Morphology Normal, Sodium 134 L, Potassium 3.4 L, Chloride 107, Carbon Dioxide 25, Anion Gap 5.4, BUN 11, Creatinine 0.70 D, Estimated Creat Clear 50, Estimated GFR 107, Est GFR ( Amer) 130 D, Glucose 157 H, Hemoglobin A1c 6.8 H, Calcium 7.8 L, Total Bilirubin 1.4 H, Direct Bilirubin 0.6 H, Conjugated Bilirubin 0.0, Indirect Bilirubin 0.8, Unconjugated Bilirubin 0.7, AST 39 D, ALT 19, Alkaline Phosphatase 82, Total Protein 5.0 L, Albumin 2.3 L D, Triglycerides 49, Ch olesterol 61 L, LDL Cholesterol Direct < 30.00 L, VLDL Cholesterol 10, HDL Cholesterol 38 L, Cholesterol/HDL Ratio 1.6 01/19/25 05:09: Lactate 2.2 H 01/19/25 05:26: POC Glucose 160 H 01/19/25 07:49: APTT 63.5 01/19/25 09:40: Lactate 2.7 H 01/19/25 13:20: Urine Color Brown, Urine Appearance Slightly cloudy, Urine pH 6.0, Ur Specific [place] 1.025, Urine Protein 2+, Urine Glucose (UA) Negative, Urine Ketones Trace, Urine Blood 3+, Urine Nitrate Positive A, Urine Bilirubin 1+ A, Urine Urobilinogen 4.0, Ur Leukocyte Esterase Negative, Urine RBC 5-10, Urine WBC 5-10, Ur Squamous Epith Cells 10-20, Urine Bacteria 3+ A 01/19/25 15:50: Lactate 3.2 H 01/19/25 16:57: POC Glucose 165 H I & O for Last 24 hours: Intake & Output 01/16/25 01/17/25 01/18/25 01/19/25 23:59 23:59 23:59 23:59 Intake Total 1300 / 3203 2903 / 2903 Output Total 210 / 460 250 / 250 Balance 1090 / 2743 2653 / 2653 Weight 62.142 kg 65.8 kg 66.224 kg Microbiology Reports for the Last 24 Hours: Microbiology 01/18/25 01:00 Blood Blood Culture - Preliminary NO GROWTH AFTER 24 HOURS 01/18/25 01:00 Blood Blood Culture - Preliminary NO GROWTH AFTER 24 HOURS Constitutional Constitutional: no acute distress and chronically ill appearing *Routine Respiratory Exam Respiratory: Absent respiratory distress *Routine Cardiovascular Exam Cardiovascular: Absent tachycardia *Routine Abdominal Exam Comments: Deferred Assessment and Plan *Assessment and plan (1) Acute cholecystitis: Status: Acute Category: Medical Code(s): K81.0 - Acute cholecystitis (2) Abdominal pain: Status: Deleted Category: Medical Code(s): R10.9 - Unspecified abdominal pain (3) Atrial fibrillation with rapid ventricular response: Status: Acute Category: Medical Code(s): I48.91 - Unspecified atrial fibrillation (4) NSTEMI (non-ST elevated myocardial infarction): Status: Acute Category: Medical Code(s): I21.4 - Non-ST elevation (NSTEMI) myocardial infarction (5) Generalized weakness: Status: Acute Category: Medical Code(s): R53.1 - Weakness (6) Diabetes: Status: Acute Qualifiers: Diabetes mellitus type: type 2 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 Presented for nausea and vomiting. Concern for cholecystitis. Cardiology evaluating today for preop optimization. Surgery assisting with management. Anticipate cholecystectomy tomorrow. Continues to require inpatient management. Problems addressed as follows: #Sepsis #Acute gangrenous cholecystitis #Abdominal pain Reports abdominal pain and weight loss recently. CT imaging with distended gallbladder and pericholecystic fluid. - Right upper quadrant ultrasound obtained showing distention of gallbladder with sludge and wall thickening. No gallstones or pericholecystic fluid ?WBC worsened to 33.4 this morning. ? General Surgery consulted, s/p laparoscopic cholecystectomy. Patient tolerated procedure well. - Discussed case with surgery, planning on cholecystectomy tomorrow. Continue Zosyn 3.375 g every 6 hours Continue IV fluids #UTI ? UA grossly abnormal, follow-up urine culture. ? Continue Zosyn for now. #Atrial fibrillation with RVR #NSTEMI Poor communication even with translator interpreter services but does not allude to the fact that he is having chest pain. Likely new onset atrial fibrillation in the setting of infection but unsure of the timing. Given elevated [id number] score of 4, (age,sex,hypertension and diabetes,history) will initiate heparin drip. Continue metoprolol tartrate 50 mg twice daily. Transition to Lovenox for anticoagulation. Cardiology consulted, discussed case, taken for heart cath. No stents required at this time. Optimized for surgery. #T2DM: continue sliding scale and long-acting insulin, A1c ordered for the morning Full code Low residue diet
[2025-01-19] MEDS: ATORVASTATIN 40MG TABLET 40 MG PO (21:04)
[2025-01-19] MEDS: PIPERCILLIN/TAZO 3.375 GM in 0.9 % SODIUM CHLORIDE 50 ML IV (21:30)
[2025-01-20] VITALS (7 sets, daily range): BP systolic 89–127; BP diastolic 46–64; PULSE 81–134; RESP 14–18; TEMP 36.4–37.1; O2SAT 95–97; BMI 21.9
[2025-01-20] MEDS: 0.9 % SODIUM CHLORIDE 1000ML 1,000 ML 100 ML IV ×2 (00:38→16:08)
[2025-01-20] MEDS: HYDROMORPHONE 2MG/ML SYRINGE 0.5 MG IV ×3 (01:10→17:34)
[2025-01-20] MEDS: PIPERCILLIN/TAZO 3.375 GM in 0.9 % SODIUM CHLORIDE 50 ML IV ×4 (03:11→21:10)
[2025-01-20 03:45] LABS: POC Glucose,Bedside 178 (70-110)
--- NOTE | 2025-01-20 06:00 | CA_ITS ---
APPROVED REPORT EXAM: Comprehensive 2D, Doppler, and color-flow Echocardiogram Professional Employer Consultant: Kailyn Bunch CRT Ht: 6 ft 0 in Wt: 146lbs BSA: 1.86 BP: 104/58 mmHg Indications: effusion check Other Information Study Quality: Fair Conclusion This is a limited TTE to evaluate for pericardial effusion. Limited windows are obtained. There is a small sized, anterior pericardial effusion present. The largest pocket measures approximately 0.5 cm in diastole. There is no clear evidence of chamber collapse. The IVC is not evaluated in the study. Compared to recent study from 01/18/2025, the size and location of pericardial effusion are unchanged. Further evaluation with serial limited TTE's is suggested. Electronically signed by : Neeta Lr MD 01/20/2025 12:44:58
[2025-01-20] MEDS: ENOXAPARIN 80MG/0.8ML SYRINGE 65 MG SUBCUT ×2 (06:56→16:08)
--- NOTE | 2025-01-20 07:43 | EXP.ANES.II ---
[facility] Anesthesia Record Part II Anesthesia Record Part II Discharge Time: 15:20 Destination: Medical Surgical Department PACU nurse assessment reviewed?: Yes Patient Condition:: Good Anesthesia Complications:: None Swallowing reflex intact?: Yes Airway Patency: Patent Cyanosis?: No Blood Pressure: 124/59 SaO2: 96 Respiratory Rate: 17 Pulse Rate: 107 Temperature: 97.5 F Mental Status: Alert & Oriented Pain level:: 0 Nausea and/or vomitting:: None Intake, IV Amount: 0 Hydration: Adequate
--- NOTE | 2025-01-20 08:11 | EXP.SURG.PN ---
Subjective Narrative: Patient currently resting Exam Data for Last 24 hours Vital signs and Labs for Last 24 Hours: Temp Pulse Resp BP Pulse Ox O2 Del Method O2 Flow Rate 98.3 F 120 H 17 89/48 L 95 Room Air 2 01/20/25 04:00 01/20/25 04:00 01/20/25 07:44 01/20/25 04:00 01/20/25 04:00 01/20/25 07:00 01/18/25 16:37 Laboratory Results - last 24 hr 01/19/25 07:49: APTT 63.5 01/19/25 09:40: Lactate 2.7 H 01/19/25 13:20: Urine Color Brown, Urine Appearance Slightly cloudy, Urine pH 6.0, Ur Specific [place] 1.025, Urine Protein 2+, Urine Glucose (UA) Negative, Urine Ketones Trace, Urine Blood 3+, Urine Nitrate Positive A, Urine Bilirubin 1+ A, Urine Urobilinogen 4.0, Ur Leukocyte Esterase Negative, Urine RBC 5-10, Urine WBC 5-10, Ur Squamous Epith Cells 10-20, Urine Bacteria 3+ A 01/19/25 15:50: Lactate 3.2 H 01/19/25 16:57: POC Glucose 165 H 01/19/25 21:02: POC Glucose 178 H I & O for Last 24 hours: Intake & Output 01/17/25 01/18/25 01/19/25 01/20/25 11:59 11:59 11:59 11:59 Intake Total 1300 / 1300 1903 / 1903 1750 / 1750 Output Total 210 / 210 250 / 250 785 / 785 Balance 1090 / 1090 1653 / 1653 965 / 965 Weight 145 lb 1.027 oz 146 lb 162 lb Microbiology Reports for the Last 24 Hours: Microbiology 01/18/25 01:00 Blood Blood Culture - Preliminary NO GROWTH AFTER 48 HOURS 01/18/25 01:00 Blood Blood Culture - Preliminary NO GROWTH AFTER 48 HOURS Constitutional Comments: Exam deferred to allow patient's rest Progress Note: A&P Assessment and plan (1) Acute gangrenous cholecystitis: Status: Acute Assessment and plan: Postoperative day 1 status post laparoscopic cholecystectomy Continue antibiotics Continue overall management as per primary service Continue Harmeet-Dominguez drainage (2) Atrial fibrillation with rapid ventricular response: Status: Acute (3) NSTEMI (non-ST elevated myocardial infarction): Status: Acute (4) Diabetes: Status: Acute (5) Pneumonia: Status: Acute
[2025-01-20 08:17] LABS: Basophils % 0.1 % (0.1-2.0); Hematocrit 28.8 % (42.0-52.0); Hemoglobin 9.4 g/dL (14.1-18.0); Immature Granulocytes # 0.31 10^3uL; Immature Granulocytes % 2.1 %; Lymphocytes # 0.8 K/mm3 (0.7-4.5); Lymphocytes % 5.3 % (10-50); Mean Corpuscular HGB Conc 32.6 g/dL (31.8-35.4); Mean Corpuscular Hemoglobin 29.9 pg (27.0-31.2); Mean Corpuscular Volume 91.7 fl (80-94); Monocytes # 0.6 K/mm3 (0.1-1.0); Monocytes % 4.3 % (1.7-9.3); Neutrophils # 13.1 K/mm3 (1.8-7.8); Neutrophils % 88.2 % (37.0-80.0); Nucleated Red Blood Cells # 0 10^3/uL; Nucleated Red Blood Cells % 0 %; Platelet Count 183 K/mm3 (142-424); Red Blood Count 3.14 M/mm3 (4.60-6.20); Red Cell Distribution Width 16.8 % (11.5-17.5); White Blood Count 14.9 K/mm3 (4.8-10.8)
[2025-01-20 08:28] LABS: Alanine Aminotransferase 28 U/L (12-78); Albumin Level 2.1 g/dl (3.5-5.0); Albumin/Globulin Ratio 0.8 (1.1-1.8); Alkaline Phosphatase 84 U/L (38-126); Anion Gap 5.9 mEq/L (5-15); Aspartate Amino Transferase 74 U/L (17-59); Bilirubin,Total 0.8 mg/dl (0.2-1.3); Blood Urea Nitrogen 20 mg/dl (9-20); Calcium 7.4 mg/dl (8.4-10.2); Carbon Dioxide 24 mmol/L (22.0-30.0); Chloride 112 mmol/L (98-107); Creatinine Clearance Estimated 56 mL/min (50-200); Estimated Glomerular Filt Rate 92 ml/min (>60); GFR (African American) 111 ML/MIN (>60); Globulin 2.6 g/dL (1.3-3.2); Glucose 157 mg/dl (74-100); Magnesium 2.1 mg/dl (1.6-2.3); Sodium 139 mmol/L (136-145); Total Protein,Serum 4.7 g/dl (6.3-8.2)
[2025-01-20 09:01] LABS: Potassium 2.9 mmoL/L (3.5-5.1)
[2025-01-20] MEDS: 0.9 % SODIUM CHLORIDE 1000ML 500 ML IV (09:59)
--- NOTE | 2025-01-20 11:09 | PC.NURSE ---
pt removed ng tube @ 1100 this morning. notified and he stated to leave ng out unless pt becomes distended or has emesis.
[2025-01-20] MEDS: KCl 10mEq/100ml 100 ML 100 MEQ IV ×8 (11:13→19:55)
--- NOTE | 2025-01-20 11:27 | P.PN_ITS ---
Subjective Subjective Date: 01/20/25 Time: 10:00 Principal diagnosis: Cholecystitis, elevated troponin Interval history: This is an 84-year-old gentleman who presented to the emergency department with abdominal pain. The patient speaks Ukrainian and arrived from an outlying living facility. The patient has very minimal communication capabilities given his language barrier and dementia. We did try to use the screwdown operator phone but they were unable to translate for the patient because of his underlying dementia and his speech was incoherent. His daughter is also unable to translate for him at this time because of his underlying dementia and incoherent speech. From the nursing staff at the facility where he resides the patient was indicating that he was having right upper quadrant abdominal pain. The patient has also complained to them of epigastric pain and reflux. He does have underlying dementia and frequent auditory hallucinations. His daughter is his POA. His ex- is at the bedside today. He underwent gallbladder removal yesterday. He tolerated this procedure well. The ex- states that he has been complaining of pain all over his body still. No specific complaints this morning. He is more awake today and more alert. color appears better today as well. The patient is also being treated for atrial fibrillation with RVR. He had an elevated troponin this admission and underwent left cardiac catheterizati on with patent coronary artery disease. Exam Data for Last 24 hours Vital signs and Labs for Last 24 Hours: Temp Pulse Resp BP Pulse Ox O2 Del Method O2 Flow Rate 98.3 F 117 H 18 93/51 L 95 Room Air 2 01/20/25 04:00 01/20/25 08:00 01/20/25 08:00 01/20/25 08:00 01/20/25 08:00 01/20/25 11:00 01/18/25 16:37 Laboratory Results - last 24 hr 01/19/25 13:20: Urine Color Brown, Urine Appearance Slightly cloudy, Urine pH 6.0, Ur Specific [place] 1.025, Urine Protein 2+, Urine Glucose (UA) Negative, Urine Ketones Trace, Urine Blood 3+, Urine Nitrate Positive A, Urine Bilirubin 1+ A, Urine Urobilinogen 4.0, Ur Leukocyte Esterase Negative, Urine RBC 5-10, Urine WBC 5-10, Ur Squamous Epith Cells 10-20, Urine Bacteria 3+ A 01/19/25 15:50: Lactate 3.2 H 01/19/25 16:57: POC Glucose 165 H 01/19/25 21:02: POC Glucose 178 H 01/20/25 08:05: WBC 14.9 H D, RBC 3.14 L, Hgb 9.4 L, Hct 28.8 L, MCV 91.7, MCH 29.9, MCHC 32.6, RDW 16.8, Plt Count 183, MPV 10.0, Neut % (Auto) 88.2 H, Lymph % (Auto) 5.3 L, [place] % (Auto) 4.3, Eos % (Auto) 0.0 L, Baso % (Auto) 0.1, Neut # (Auto) 13.1 H, Lymph # (Auto) 0.8, [place] # (Auto) 0.6, Eos # (Auto) 0.0, Baso # (Auto) 0.0, Sodium 139, Potassium 2.9 L*, Chloride 112 H, Carbon Dioxide 24, Anion Gap 5.9, BUN 20 D, Creatinine 0.80, Estimated Creat Clear 56, Estimated GFR 92, Est GFR ( Amer) 111, Glucose 157 H, Calcium 7.4 L, Magnesium 2.1 D, Total Bilirubin 0.8, AST 74 H D, ALT 28 D, Alkaline Phosphatase 84, Total Protein 4.7 L, Albumin 2.1 L, Globulin 2.6, Albumin/Globulin Ratio 0.8 L I & O for Last 24 hours: Intake & Output 01/17/25 01/18/25 01/19/25 01/20/25 23:59 23:59 23:59 23:59 Intake Total 1300 / 3203 2903 / 3653 750 / 750 Output Total 210 / 460 550 / 1035 685 / 685 Balance 1090 / 2743 2353 / 2618 65 / 65 Weight 137 lb 145 lb 1.027 oz 146 lb 162 lb Microbiology Reports for the Last 24 Hours: Microbiology 01/18/25 01:00 Blood Blood Culture - Preliminary NO GROWTH AFTER 48 HOURS 01/18/25 01:00 Blood Blood Culture - Preliminary NO GROWTH AFTER 48 HOURS Constitutional Constitutional: no acute distress and thin *Routine HEENT Exam Head: Present normocephalic and atraumatic ENT: Present mucous membranes moist *Routine Neck Exam Neck: Present supple, full ROM and normal carotid upstroke; Absent JVD, carotid bruit or lymphadenopathy *Routine Respiratory Exam Respiratory: Present CTA bilaterally, normal respiratory effort and symmetric chest movement *Routine Cardiovascular Exam Cardiovascular: Present Normal S1, Normal S2, tachycardia and irregularly irregular; Absent murmur or gallop *Routine Abdominal Exam Abdominal: Present soft and normoactive bowel sounds; Absent tenderness, distended or organomegaly *Routine Extremities Exam Extremities: Present full ROM, pulses intact and normal capillary refill; Absent cyanosis, clubbing or edema *Routine Skin Exam Skin: Present intact and warm; Absent erythema *Routine Neurological Exam Neurological: Present alert Comments: unable to assess due to language barrier and dementia. Routine Psychiatric Exam Psychiatric: Present normal affect Progress Note: A&P Assessment and plan (1) Acute gangrenous cholecystitis: Status: Acute (2) Atrial fibrillation with rapid ventricular response: Status: Acute (3) NSTEMI (non-ST elevated myocardial infarction): Status: Acute (4) Pericardial effusion: Status: Acute (5) Coronary artery disease: Status: Acute (6) Diabetes: Status: Acute (7) Pneumonia: Status: Acute (8) Hyperlipidemia: Status: Acute (9) Hypertension: Status: Acute (10) Leukocytosis: Status: Acute Assessment and Plan Assessment and Plan for All Diagnoses:: Plan: 1. This is an 84-year-old gentleman who was admitted to the hospital and found to have acute cholecystitis. The patient underwent cholecystectomy yesterday and was found to have an acute gangrenous cholecystitis. He tolerated the proce dure well. His leukocytosis has improved with removal of his gallbladder. Will defer to general surgery. 2. Patient underwent left cardiac catheterization this admission was found to have patent coronary artery disease. Coronary artery disease is stable. We do recommend aspirin 81 mg daily. 3. Blood pressure is well-controlled. 4. His EF is normal on echocardiogram. Repeat limited echocardiogram shows no change in his pericardial effusion. Will repeat another limited echocardiogram tomorrow morning and as long as this remains unchanged he can have serial limited echocardiograms on an outpatient basis. 5. The patient does have atrial fibrillation. His rate is slightly elevated today. He is on metoprolol. His elevated heart rate is most likely a postop response from his surgery. No changes at this time. 6. His heparin drip has been stopped. He is now on subcu Lovenox. Prior to discharge home he will need to be on Eliquis for long-term anticoagulation. 7. His LDL goal is less than 55. His LDL is less than 30. He is on a statin. 8. The patient is diabetic. His hemoglobin A1c is 6.8%. Will defer management of this to the hospitalist. 9. The patient is anemic. Will defer this to the hospitalist as well. 10. The patient is currently being treated for pneumonia. Will defer to the hospitalist. 11. No further recommendations at this time from a cardiac standpoint. If any other cardiac issues arise throughout the patient's hospitalization, please feel free to contact cardiology again. He will need to follow-up in cardiology clinic in 2 weeks once he is discharged from the hospital. He will need to be discharged on the following cardiac medications: Aspirin 81 mg daily, Eliquis 5 mg p.o. twice daily, metoprolol tartrate 50 mg p.o. twice daily and Crestor 40 mg p.o. nightly. Thank you for the opportunity to participate in the care of this patient. All recommendations and orders are per Dr. Lr.
[2025-01-20 12:24] LABS: POC Glucose,Bedside 153 (70-110)
[2025-01-20 17:48] LABS: POC Glucose,Bedside 172 (70-110)
[2025-01-20 17:48] LABS: POC Glucose,Bedside 159 (70-110)
--- NOTE | 2025-01-20 20:45 | EXP.PN ---
Subjective *Date: 01/20/25 *Time: 20:45 Interval history: Patient alert today, responsive. No bowel movement yet. Will consider suppository for ileus tomorrow. Will consider digoxin tomorrow if not rate controlled. Will speak to daughter about goals of care tomorrow. Exam Data for Last 24 hours Vital signs and Labs for Last 24 Hours: Temp Pulse Resp BP Pulse Ox O2 Del Method O2 Flow Rate 97.5 F L 81 14 106/56 L 97 Room Air 2 01/20/25 20:00 01/20/25 20:00 01/20/25 20:00 01/20/25 20:00 01/20/25 20:00 01/20/25 20:00 01/18/25 16:37 Laboratory Results - last 24 hr 01/19/25 21:02: POC Glucose 178 H 01/20/25 06:00: POC Glucose 159 H 01/20/25 08:05: WBC 14.9 H D, RBC 3.14 L, Hgb 9.4 L, Hct 28.8 L, MCV 91.7, MCH 29.9, MCHC 32.6, RDW 16.8, Plt Count 183, MPV 10.0, Neut % (Auto) 88.2 H, Lymph % (Auto) 5.3 L, [place] % (Auto) 4.3, Eos % (Auto) 0.0 L, Baso % (Auto) 0.1, Neut # (Auto) 13.1 H, Lymph # (Auto) 0.8, [place] # (Auto) 0.6, Eos # (Auto) 0.0, Baso # (Auto) 0.0, Sodium 139, Potassium 2.9 L*, Chloride 112 H, Carbon Dioxide 24, Anion Gap 5.9, BUN 20 D, Creatinine 0.80, Estimated Creat Clear 56, Estimated GFR 92, Est GFR ( Amer) 111, Glucose 157 H, Calcium 7.4 L, Magnesium 2.1 D, Total Bilirubin 0.8, AST 74 H D, ALT 28 D, Alkaline Phosphatase 84, Total Protein 4.7 L, Albumin 2.1 L, Globulin 2.6, Albumin/Globulin Ratio 0.8 L 01/20/25 12:07: POC Glucose 153 H 01/20/25 17:34: POC Glucose 172 H I & O for Last 24 hours: Intake & Output 01/17/25 01/18/25 01/19/25 01/20/25 23:59 23:59 23:59 23:59 Intake Total 1300 / 3203 2903 / 3653 3954 / 3954 Output Total 210 / 460 550 / 1035 1185 / 1185 Balance 1090 / 2743 2353 / 2618 2769 / 2769 Weight 62.142 kg 65.8 kg 66.224 kg 73.482 kg Microbiology Reports for the Last 24 Hours: Microbiology 01/18/25 01:00 Blood Blood Culture - Preliminary NO GROWTH AFTER 48 HOURS 01/18/25 01:00 Blood Blood Culture - Preliminary NO GROWTH AFTER 48 HOURS Constitutional Constitutional: no acute distress and chronically ill appearing *Routine Respiratory Exam Respiratory: Absent respiratory distress *Routine Cardiovascular Exam Cardiovascular: Present tachycardia and irregularly irregular *Routine Abdominal Exam Comments: Deferred Assessment and Plan *Assessment and plan (1) Acute cholecystitis: Status: Deleted Category: Medical Code(s): K81.0 - Acute cholecystitis (2) Abdominal pain: Status: Deleted Category: Medical Code(s): R10.9 - Unspecified abdominal pain (3) Atrial fibrillation with rapid ventricular response: Status: Acute Category: Medical Code(s): I48.91 - Unspecified atrial fibrillation (4) NSTEMI (non-ST elevated myocardial infarction): Status: Acute Category: Medical Code(s): I21.4 - Non-ST elevation (NSTEMI) myocardial infarction (5) Generalized weakness: Status: Acute Category: Medical Code(s): R53.1 - Weakness (6) Diabetes: Status: Acute Qualifiers: Diabetes mellitus type: type 2 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 Presented for nausea and vomiting. Concern for cholecystitis. Cardiology evaluating today for preop optimization. Surgery assisting with management. Anticipate cholecystectomy tomorrow. Continues to require inpatient management. Problems addressed as follows: #Sepsis #Acute gangrenous cholecystitis #Abdominal pain #Postoperative ileus ? Presented with abdominal pain and weight loss recently. Initial CT imaging with distended gallbladder and pericholecystic fluid. - Right upper quadrant ultrasound obtained showing distention of gallbladder with sludge and wall thickening. No gallstones or pericholecystic fluid ? General Surgery consulted, s/p laparoscopic cholecystectomy. Patient tolerated procedure well. ?WBC improved from 33-14.9 today. ? Unfortunately patient has not had a bowel movement yet, continue NPO. Will trial suppository tomorrow. Continue Zosyn 3.375 g every 6 hours Continue IV fluids #UTI ? UA grossly abnormal, follow-up urine culture. ? Continue Zosyn for now. 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 Likely new onset atrial fibrillation in the setting of infection but unsure of the timing. Given elevated [id number] score of 4, (age,sex,hypertension and diabetes,history) will initiate heparin drip. Continue metoprolol tartrate 50 mg twice daily. Transition to Lovenox for anticoagulation. Cardiology consulted, discussed case, taken for heart cath. No stents required at this time. Optimized for surgery. ? Will consider digoxin tomorrow if patient is still not rate controlled. #T2DM: continue sliding scale and long-acting insulin, # Hemoglobin A1c 6.8%. #Dementia ? Continue supportive therapy. Full code Low residue diet
--- NOTE | 2025-01-20 23:50 | PC.NURSE ---
Pt voided via purewick post gagnon catheter removal. Pt had 100mL out around 2300.
[2025-01-21] VITALS: BP 97/68; PULSE 100; PULSE 120; RESP 14; TEMP 36.1; O2SAT 98
[2025-01-21] MEDS: 0.9 % SODIUM CHLORIDE 1000ML 1,000 ML 100 ML IV (01:51)
[2025-01-21] MEDS: PIPERCILLIN/TAZO 3.375 GM in 0.9 % SODIUM CHLORIDE 50 ML IV ×4 (03:19→20:49)
[2025-01-21 04:00] VITALS: BP 115/65; PULSE 100; PULSE 120; RESP 14; TEMP 36.9; O2SAT 96; BMI 22.4
--- NOTE | 2025-01-21 04:33 | PC.NURSE ---
Pt doing well this shift. Receiving IVABx and fluids. at bedside. Pt has voided via purewick since gagnon removal. Urine is thomas colored. Resting in bed with eyes closed. Respirations appear even and unlabored. Currently resting in low, locked bed with call light in reach.
--- NOTE | 2025-01-21 06:00 | CA_ITS ---
APPROVED REPORT EXAM: Limited 2D Echocardiogram Sewing Machine Operator Floorperson: Rachel Bass, RCS, RVS Ht: 6 ft 0 in Wt: 162lbs BSA: 1.95 BP: 104/60 mmHg Indications: Persistant Pericardial effusion check Echo Enhancing Agent Comments: Patient suffers 3 kinds of communication barriers: Vincentian speaking, Deafness & dementia=combative and confused Other Information Study Quality: Fair Conclusion This is a limited TTE to evaluate for pericardial effusion. Limited windows were obtained. There is a small sized, anterior pericardial effusion present. The largest pocket measures 0.5 cm in diastole. There is also a trivial posterior pocket present. No other indications of tamponade. No evidence of chamber collapse. Compared to prior study from 1 day prior on 01/20/2025, the pericardial effusion is overall unchanged. Electronically signed by : Neeta Lr MD 01/21/2025 13:24:46
--- NOTE | 2025-01-21 07:01 | P.PN_ITS ---
Subjective Narrative: Resting. No issues per nursing overnight. Exam Data for Last 24 hours Vital signs and Labs for Last 24 Hours: Temp Pulse Resp BP Pulse Ox O2 Del Method O2 Flow Rate 98.4 F 120 H 14 115/65 96 Room Air 2 01/21/25 04:00 01/21/25 04:00 01/21/25 04:00 01/21/25 04:00 01/21/25 04:00 01/21/25 06:37 01/18/25 16:37 Laboratory Results - last 24 hr 01/20/25 06:00: POC Glucose 159 H 01/20/25 08:05: WBC 14.9 H D, RBC 3.14 L, Hgb 9.4 L, Hct 28.8 L, MCV 91.7, MCH 29.9, MCHC 32.6, RDW 16.8, Plt Count 183, MPV 10.0, Neut % (Auto) 88.2 H, Lymph % (Auto) 5.3 L, Angelina % (Auto) 4.3, Eos % (Auto) 0.0 L, Baso % (Auto) 0.1, Neut # (Auto) 13.1 H, Lymph # (Auto) 0.8, Angelina # (Auto) 0.6, Eos # (Auto) 0.0, Baso # (Auto) 0.0, Sodium 139, Potassium 2.9 L*, Chloride 112 H, Carbon Dioxide 24, Anion Gap 5.9, BUN 20 D, Creatinine 0.80, Estimated Creat Clear 56, Estimated GFR 92, Est GFR ( Amer) 111, Glucose 157 H, Calcium 7.4 L, Magnesium 2.1 D, Total Bilirubin 0.8, AST 74 H D, ALT 28 D, Alkaline Phosphatase 84, Total Protein 4.7 L, Albumin 2.1 L, Globulin 2.6, Albumin/Globulin Ratio 0.8 L 01/20/25 12:07: POC Glucose 153 H 01/20/25 17:34: POC Glucose 172 H I & O for Last 24 hours: Intake & Output 01/18/25 01/19/25 01/20/25 01/21/25 11:59 11:59 11:59 11:59 Intake Total 1300 / 1300 1903 / 1903 1750 / 1750 4647 / 4647 Output Total 210 / 210 250 / 250 985 / 985 770 / 770 Balance 1090 / 1090 1653 / 1653 765 / 765 3877 / 3877 Weight 145 lb 1.027 oz 146 lb 162 lb 165 lb 5 oz Constitutional Constitutional: no acute distress *Routine Respiratory Exam Respiratory: Absent respiratory distress Progress Note: A&P Assessment and plan (1) Acute gangrenous cholecystitis: Status: Acute Assessment and plan: Postoperative day 2 status post laparoscopic cholecystectomy Follow-up a.m. labs Continue antibiotics Continue overall management as per primary service Continue Harmeet-Dominguez drainage (2) Atrial fibrillation with rapid ventricular response: Status: Acute (3) NSTEMI (non-ST elevated myocardial infarction): Status: Acute (4) Generalized weakness: Status: Acute (5) Diabetes: Status: Acute (6) Pneumonia: Status: Acute
[2025-01-21 08:00] VITALS: BP 105/79; PULSE 101; PULSE 99; RESP 16; O2SAT 98
[2025-01-21 08:50] LABS: Basophils % 0.1 % (0.1-2.0); Eosinophils % 0.1 % (0.1-12.0); Hematocrit 30.7 % (42.0-52.0); Immature Granulocytes # 0.04 10^3uL; Immature Granulocytes % 0.4 %; Lymphocytes # 1.3 K/mm3 (0.7-4.5); Lymphocytes % 12.9 % (10-50); Mean Corpuscular HGB Conc 32.6 g/dL (31.8-35.4); Mean Corpuscular Hemoglobin 30.1 pg (27.0-31.2); Mean Corpuscular Volume 92.5 fl (80-94); Mean Platelet Volume 9.6 fl (7.4-10.4); Monocytes # 0.6 K/mm3 (0.1-1.0); Monocytes % 5.6 % (1.7-9.3); Neutrophils # 8.2 K/mm3 (1.8-7.8); Neutrophils % 80.9 % (37.0-80.0); Nucleated Red Blood Cells # 0 10^3/uL; Nucleated Red Blood Cells % 0 %; Platelet Count 172 K/mm3 (142-424); Red Blood Count 3.32 M/mm3 (4.60-6.20); Red Cell Distribution Width 16.9 % (11.5-17.5); Red Cell Distribution Width-SD 57.5 fL; White Blood Count 10.2 K/mm3 (4.8-10.8)
[2025-01-21 09:30] LABS: Alanine Aminotransferase 54 U/L (12-78); Albumin Level 2.1 g/dl (3.5-5.0); Albumin/Globulin Ratio 0.8 (1.1-1.8); Alkaline Phosphatase 88 U/L (38-126); Anion Gap 4.3 mEq/L (5-15); Aspartate Amino Transferase 154 U/L (17-59); Bilirubin,Total 0.7 mg/dl (0.2-1.3); Blood Urea Nitrogen 21 mg/dl (9-20); Calcium 7.7 mg/dl (8.4-10.2); Carbon Dioxide 24 mmol/L (22.0-30.0); Chloride 117 mmol/L (98-107); Creatinine Clearance Estimated 57 mL/min (50-200); Estimated Glomerular Filt Rate 92 ml/min (>60); GFR (African American) 111 ML/MIN (>60); Globulin 2.7 g/dL (1.3-3.2); Glucose 121 mg/dl (74-100); Magnesium 2.3 mg/dl (1.6-2.3); Potassium 4.3 mmoL/L (3.5-5.1); Sodium 141 mmol/L (136-145); Total Protein,Serum 4.8 g/dl (6.3-8.2)
[2025-01-21 11:21] VITALS: BMI 22.4
[2025-01-21 12:00] VITALS: BP 133/70; PULSE 130; PULSE 86; RESP 16; TEMP 37; O2SAT 98
--- NOTE | 2025-01-21 13:42 | DIET.NUTRFU ---
Spoke to nursing at , pureed/thin liquids is baseline diet. Currently on clear liquids post sx. will upgrade diet when medically appropriate to pureed/thin. Patient is missing multiple teeth on bottom. Nursing at indicated po intake is poor, sometimes refusing meals. He allows staff to assist with meals at times. He does like chocolate and strawberry nutritional supplements will start when diet upgraded. also reported significant wt loss since admit in November of 16.8# and 20# before admitted to . During stay he has gained wt from 62kg to 74kg possibly d/t IVF, notified provider and discontinued. Based on wt loss, mental status and po intake he triggers for SPCM, provider notified. Will continue to monitor diet tolerance
--- NOTE | 2025-01-21 15:19 | XR_ITS ---
FINAL REPORT CLINICAL HISTORY: eval for ileus FINDINGS: A single supine view of the abdomen was obtained. There is a drain in the right upper quadrant, presumably from recent cholecystectomy. There is a nonspecific, nonobstructive bowel gas pattern. Several mildly prominent small bowel loops are favored to be ileus. Gas and stool is seen throughout the colon. There is a curvilinear metallic density projecting over the right sacrum, likely artifact on the patient. Osseous structures are within normal limits. IMPRESSION: Nonspecific, nonobstructive bowel gas pattern with possible mild ileus. Reviewed, Interpreted and Dictated by Vee Conde MD Transcribed by Brielle Kwan Authenticated and [facility]
[2025-01-21 16:00] VITALS: BP 134/96; PULSE 142; PULSE 92; RESP 20; O2SAT 96
[2025-01-21] MEDS: METOPROLOL TARTRATE 50MG TABLET 50 MG PO ×2 (16:18→20:49)
[2025-01-21] MEDS: ASPIRIN EC 81MG TABLET 81 MG PO (16:18)
[2025-01-21] MEDS: MEMANTINE 10MG TABLET 5 MG PO ×2 (16:18→20:49)
[2025-01-21] MEDS: humaLOG 100 UNITS/ML 10ML VIAL (SSI) SUBCUT (16:27)
[2025-01-21 16:29] LABS: POC Glucose,Bedside 162 (70-110)
[2025-01-21] MEDS: HYDROMORPHONE 2MG/ML SYRINGE 0.5 MG IV (18:03)
[2025-01-21 20:00] VITALS: BP 110/63; PULSE 100; PULSE 104; RESP 18; TEMP 36.4; O2SAT 94
[2025-01-21] MEDS: CLOPIDOGREL 75MG TAB 75 MG PO (20:49)
[2025-01-21] MEDS: ATORVASTATIN 40MG TABLET 40 MG PO (20:49)
[2025-01-21 21:19] LABS: POC Glucose,Bedside 76 (70-110)
--- NOTE | 2025-01-21 21:48 | EXP.PN ---
Subjective *Date: 01/21/25 *Time: 21:48 Interval history: Patient is much more alert and oriented today, conversational. Has had at least 2 bowel movements. Advancing diet, full liquid diet for now. Anticipate discharge tomorrow as diet advancement continues. Exam Data for Last 24 hours Vital signs and Labs for Last 24 Hours: Temp Pulse Resp BP Pulse Ox O2 Del Method O2 Flow Rate 97.5 F L 104 H 18 110/63 94 L Room Air 2 01/21/25 20:00 01/21/25 20:00 01/21/25 20:00 01/21/25 20:00 01/21/25 20:00 01/21/25 20:00 01/18/25 16:37 Laboratory Results - last 24 hr 01/21/25 08:40: WBC 10.2 D, RBC 3.32 L, Hgb 10.0 L, Hct 30.7 L, MCV 92.5, MCH 30.1, MCHC 32.6, RDW 16.9, Plt Count 172, MPV 9.6, Neut % (Auto) 80.9 H, Lymph % (Auto) 12.9, Mcculloch % (Auto) 5.6, Eos % (Auto) 0.1, Baso % (Auto) 0.1, Neut # (Auto) 8.2 H, Lymph # (Auto) 1.3, Mcculloch # (Auto) 0.6, Eos # (Auto) 0.0, Baso # (Auto) 0.0 01/21/25 09:05: Sodium 141, Potassium 4.3 D, Chloride 117 H, Carbon Dioxide 24, Anion Gap 4.3 L, BUN 21 H, Creatinine 0.80, Estimated Creat Clear 57, Estimated GFR 92, Est GFR ( Amer) 111, Glucose 121 H, Calcium 7.7 L, Magnesium 2.3, Total Bilirubin 0.7, AST 154 H D, ALT 54 D, Alkaline Phosphatase 88, Total Protein 4.8 L, Albumin 2.1 L, Globulin 2.7, Albumin/Globulin Ratio 0.8 L 01/21/25 16:22: POC Glucose 162 H 01/21/25 21:11: POC Glucose 76 I & O for Last 24 hours: Intake & Output 01/18/25 01/19/25 01/20/25 01/21/25 23:59 23:59 23:59 23:59 Intake Total 1300 / 3203 2903 / 3653 3954 / 3954 2163 / 2163 Output Total 210 / 460 550 / 1035 1285 / 1385 910 / 910 Balance 1090 / 2743 2353 / 2618 2669 / 2569 1253 / 1253 Weight 65.8 kg 66.224 kg 73.482 kg 74.98 kg Microbiology Reports for the Last 24 Hours: Microbiology 01/17/25 06:19 Urine,Clean Catch Urine Culture - Preliminary 01/19/25 13:20 Urine,Catheterized Urine Culture - Final No growth. Constitutional Constitutional: no acute distress and chronically ill appearing *Routine Respiratory Exam Respiratory: Absent respiratory distress *Routine Cardiovascular Exam Cardiovascular: Present tachycardia and irregularly irregular *Routine Abdominal Exam Comments: Deferred Assessment and Plan *Assessment and plan (1) Acute cholecystitis: Status: Deleted Category: Medical Code(s): K81.0 - Acute cholecystitis (2) Abdominal pain: Status: Deleted Category: Medical Code(s): R10.9 - Unspecified abdominal pain (3) Atrial fibrillation with rapid ventricular response: Status: Acute Category: Medical Code(s): I48.91 - Unspecified atrial fibrillation (4) NSTEMI (non-ST elevated myocardial infarction): Status: Acute Category: Medical Code(s): I21.4 - Non-ST elevation (NSTEMI) myocardial infarction (5) Generalized weakness: Status: Acute Category: Medical Code(s): R53.1 - Weakness (6) Diabetes: Status: Acute Qualifiers: Diabetes mellitus type: type 2 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 Presented for nausea and vomiting. Concern for cholecystitis. Cardiology evaluating today for preop optimization. Surgery assisting with management. #Sepsis #Acute gangrenous cholecystitis #Abdominal pain #Postoperative ileus ? Presented with abdominal pain and weight loss recently. Initial CT imaging with distended gallbladder and pericholecystic fluid. - Right upper quadrant ultrasound obtained showing distention of gallbladder with sludge and wall thickening. No gallstones or pericholecystic fluid ? General Surgery consulted, s/p laparoscopic cholecystectomy. Patient tolerated procedure well. ? WBC improved from 33-14.9-10.2 today. ? Patient has had at least 2 bowel movements, will continue advancing diet. Full liquid diet for tonight. - Continue Zosyn 3.375 g every 6 hours ? Anticipate further advancement of an diet tomorrow and discharge back to [facility]. ? Will give IV Lasix 40 mg tomorrow morning to reduce slight volume overload in the setting of IV fluids. 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 Likely new onset atrial fibrillation in the setting of infection but unsure of the timing. Given elevated [id number] score of 4, (age,sex,hypertension and diabetes,history) will initiate heparin drip. Continue metoprolol tartrate 50 mg twice daily. Transition to Lovenox for anticoagulation. Cardiology consulted, discussed case, taken for heart cath. No stents required at this time. Optimized for surgery. ? Will consider digoxin tomorrow if patient is still not rate controlled. #T2DM: continue sliding scale and long-acting insulin, - Hemoglobin A1c 6.8%. #Dementia ? Continue supportive therapy. Full code Full liquid diet
[2025-01-21 23:47] LABS: POC Glucose,Bedside 101 (70-110)
[2025-01-22] VITALS: PULSE 95
[2025-01-22 01:50] VITALS: BP 122/66; PULSE 115
[2025-01-22] MEDS: PIPERCILLIN/TAZO 3.375 GM in 0.9 % SODIUM CHLORIDE 50 ML IV ×3 (02:29→15:10)
[2025-01-22 04:00] VITALS: BP 118/81; PULSE 96; RESP 18; TEMP 36.4; O2SAT 97; BMI 21.7
--- NOTE | 2025-01-22 04:11 | PC.NURSE ---
Pt alert to self. Arousable to name. Received zosyn. Drinking well. Currently resting in bed with eyes open. Respirations even and unlabored. Bed is low, locked, and call light is in reach.
[2025-01-22] MEDS: ENOXAPARIN 80MG/0.8ML SYRINGE 65 MG SUBCUT (05:06)
[2025-01-22 05:18] LABS: POC Glucose,Bedside 108 (70-110)
[2025-01-22 06:12] LABS: Basophils % 0.2 % (0.1-2.0); Eosinophils % 0.4 % (0.1-12.0); Hematocrit 35.4 % (42.0-52.0); Hemoglobin 10.6 g/dL (14.1-18.0); Immature Granulocytes # 0.02 10^3uL; Immature Granulocytes % 0.4 %; Lymphocytes % 18.1 % (10-50); Mean Corpuscular HGB Conc 29.9 g/dL (31.8-35.4); Mean Corpuscular Hemoglobin 29.8 pg (27.0-31.2); Mean Corpuscular Volume 99.4 fl (80-94); Monocytes # 0.5 K/mm3 (0.1-1.0); Monocytes % 9.6 % (1.7-9.3); Neutrophils # 3.8 K/mm3 (1.8-7.8); Neutrophils % 71.3 % (37.0-80.0); Nucleated Red Blood Cells # 0 10^3/uL; Nucleated Red Blood Cells % 0 %; Platelet Count 175 K/mm3 (142-424); Red Blood Count 3.56 M/mm3 (4.60-6.20); Red Cell Distribution Width 17.4 % (11.5-17.5); Red Cell Distribution Width-SD 64.7 fL; White Blood Count 5.3 K/mm3 (4.8-10.8)
[2025-01-22 08:00] VITALS: BP 137/71; PULSE 100; PULSE 82; RESP 16; TEMP 36.6; O2SAT 97
--- NOTE | 2025-01-22 08:23 | EXP.PHA.PN ---
Subjective *Date: 01/22/25 *Time: 08:23 Medical Exam Vital signs and Labs for Last 24 Hours: Vital Signs Temp Pulse Pulse Resp BP Pulse Ox O2 Del Method 01/22/25 06:30 Room Air 01/22/25 05:00 Room Air 01/22/25 04:00 97.6 F 96 H 18 118/81 97 Room Air 01/22/25 03:00 Room Air 01/22/25 01:50 115 H 122/66 01/22/25 01:00 Room Air 01/22/25 00:00 95 H 01/21/25 23:00 Room Air 01/21/25 21:00 Room Air 01/21/25 20:00 100 H 01/21/25 20:00 Room Air 01/21/25 20:00 97.5 F L 104 H 18 110/63 94 L Room Air 01/21/25 17:54 Room Air 01/21/25 16:00 142 H 01/21/25 16:00 92 H 20 134/96 H 96 Room Air 01/21/25 16:00 Room Air 01/21/25 15:00 Room Air 01/21/25 12:13 Room Air 01/21/25 12:00 130 H 01/21/25 12:00 98.6 F 86 16 133/70 98 Room Air 01/21/25 10:06 Room Air 01/21/25 08:35 Room Air Intake and Output 01/21/25 01/22/25 01/22/25 23:59 07:59 15:59 Intake Total 450 / 2163 100 / 100 Output Total 90 / 910 530 / 530 Balance 360 / 1253 -430 / -430 Intake: Intake, Total IV Amount 450 / 1893 100 / 100 0.9 % Sodium Chloride 1000ML 1, 400 / 1743 000 ml @ 100 mls/hr IV .Q10H BARNEY Rx#:[id number] Piperacillin/Tazo 3.375 gm In 0 50 / 150 100 / 100 .9 % Sodium Chloride 50 ml @ 100 mls/hr IV Q6H BARNEY Rx#: [id number] Output: Output, Urine Amount 450 / 450 Output, Drainage Amount 90 / 160 80 / 80 Left 60 / 90 60 / 60 Right 30 / 70 20 / 20 Other: Number of Unmeasured Voids 0 Weight 72.847 kg Patient Weight 01/22/25 23:59 Weight 72.847 kg Laboratory Results - last 24 hr 01/21/25 08:40: WBC 10.2 D, RBC 3.32 L, Hgb 10.0 L, Hct 30.7 L, MCV 92.5, MCH 30.1, MCHC 32.6, RDW 16.9, Plt Count 172, MPV 9.6, Neut % (Auto) 80.9 H, Lymph % (Auto) 12.9, Hopkins % (Auto) 5.6, Eos % (Auto) 0.1, Baso % (Auto) 0.1, Neut # (Auto) 8.2 H, Lymph # (Auto) 1.3, Hopkins # (Auto) 0.6, Eos # (Auto) 0.0, Baso # (Auto) 0.0 01/21/25 09:05: Sodium 141, Potassium 4.3 D, Chloride 117 H, Carbon Dioxide 24, Anion Gap 4.3 L, BUN 21 H, Creatinine 0.80, Estimated Creat Clear 57, Estimated GFR 92, Est GFR ( Amer) 111, Glucose 121 H, Calcium 7.7 L, Magnesium 2.3, Total Bilirubin 0.7, AST 154 H D, ALT 54 D, Alkaline Phosphatase 88, Total Protein 4.8 L, Albumin 2.1 L, Globulin 2.7, Albumin/Globulin Ratio 0.8 L 01/21/25 16:22: POC Glucose 162 H 01/21/25 21:11: POC Glucose 76 01/21/25 23:40: POC Glucose 101 01/22/25 05:05: POC Glucose 108 01/22/25 05:30: WBC 5.3 D, RBC 3.56 L, Hgb 10.6 L, Hct 35.4 L, MCV 99.4 H, MCH 29.8, MCHC 29.9 L, RDW 17.4, Plt Count 175, MPV 10.0, Neut % (Auto) 71.3, Lymph % (Auto) 18.1, Hopkins % (Auto) 9.6 H, Eos % (Auto) 0.4, Baso % (Auto) 0.2, Neut # (Auto) 3.8, Lymph # (Auto) 1.0, Hopkins # (Auto) 0.5, Eos # (Auto) 0.0, Baso # (Auto) 0.0 I & O for Labs for Last 24 Hours: Intake & Output 01/19/25 01/20/25 01/21/25 01/22/25 23:59 23:59 23:59 23:59 Intake Total 2903 / 3653 3954 / 3954 2163 / 2163 100 / 100 Output Total 550 / 1035 1285 / 1385 910 / 910 530 / 530 Balance 2353 / 2618 2669 / 2569 1253 / 1253 -430 / -430 Weight 66.224 kg 73.482 kg 74.98 kg 72.847 kg Microbiology Reports for the Last 24 Hours: Microbiology 01/18/25 01:00 Blood Blood Culture - Preliminary NO GROWTH AFTER 4 DAYS 01/18/25 01:00 Blood Blood Culture - Preliminary NO GROWTH AFTER 4 DAYS 01/17/25 06:19 Urine,Clean Catch Urine Culture - Preliminary 01/19/25 13:20 Urine,Catheterized Urine Culture - Final No growth. The patient's infection will respond to the chosen ABx?: Yes (BLOOD AND URINE CX NO GROWTH, AFEBRILE OVER 24 HR, WHITE BLOOD CELL 5.3) Is the patient receiving the right drug, dose, and route?: Yes Could a more targeted ABx be ordered?: No
--- NOTE | 2025-01-22 08:24 | EXP.SURG.PN ---
Subjective Narrative: Per nursing, the patient continues to clinically improve. Exam Data for Last 24 hours Vital signs and Labs for Last 24 Hours: Temp Pulse Resp BP Pulse Ox O2 Del Method O2 Flow Rate 97.6 F 96 H 18 118/81 97 Room Air 2 01/22/25 04:00 01/22/25 04:00 01/22/25 04:00 01/22/25 04:00 01/22/25 04:00 01/22/25 06:30 01/18/25 16:37 Laboratory Results - last 24 hr 01/21/25 08:40: WBC 10.2 D, RBC 3.32 L, Hgb 10.0 L, Hct 30.7 L, MCV 92.5, MCH 30.1, MCHC 32.6, RDW 16.9, Plt Count 172, MPV 9.6, Neut % (Auto) 80.9 H, Lymph % (Auto) 12.9, Mcdonough % (Auto) 5.6, Eos % (Auto) 0.1, Baso % (Auto) 0.1, Neut # (Auto) 8.2 H, Lymph # (Auto) 1.3, Mcdonough # (Auto) 0.6, Eos # (Auto) 0.0, Baso # (Auto) 0.0 01/21/25 09:05: Sodium 141, Potassium 4.3 D, Chloride 117 H, Carbon Dioxide 24, Anion Gap 4.3 L, BUN 21 H, Creatinine 0.80, Estimated Creat Clear 57, Estimated GFR 92, Est GFR ( Amer) 111, Glucose 121 H, Calcium 7.7 L, Magnesium 2.3, Total Bilirubin 0.7, AST 154 H D, ALT 54 D, Alkaline Phosphatase 88, Total Protein 4.8 L, Albumin 2.1 L, Globulin 2.7, Albumin/Globulin Ratio 0.8 L 01/21/25 16:22: POC Glucose 162 H 01/21/25 21:11: POC Glucose 76 01/21/25 23:40: POC Glucose 101 01/22/25 05:05: POC Glucose 108 01/22/25 05:30: WBC 5.3 D, RBC 3.56 L, Hgb 10.6 L, Hct 35.4 L, MCV 99.4 H, MCH 29.8, MCHC 29.9 L, RDW 17.4, Plt Count 175, MPV 10.0, Neut % (Auto) 71.3, Lymph % (Auto) 18.1, Mcdonough % (Auto) 9.6 H, Eos % (Auto) 0.4, Baso % (Auto) 0.2, Neut # (Auto) 3.8, Lymph # (Auto) 1.0, Mcdonough # (Auto) 0.5, Eos # (Auto) 0.0, Baso # (Auto) 0.0 I & O for Last 24 hours: Intake & Output 01/19/25 01/20/25 01/21/25 01/22/25 11:59 11:59 11:59 11:59 Intake Total 1903 / 1903 1750 / 1750 4647 / 4647 820 / 820 Output Total 250 / 250 985 / 985 1420 / 1420 620 / 620 Balance 1653 / 1653 765 / 765 3227 / 3227 200 / 200 Weight 146 lb 162 lb 165 lb 4.842 oz 160 lb 9.6 oz Microbiology Reports for the Last 24 Hours: Microbiology 01/18/25 01:00 Blood Blood Culture - Preliminary NO GROWTH AFTER 4 DAYS 01/18/25 01:00 Blood Blood Culture - Preliminary NO GROWTH AFTER 4 DAYS 01/17/25 06:19 Urine,Clean Catch Urine Culture - Preliminary 01/19/25 13:20 Urine,Catheterized Urine Culture - Final No growth. Constitutional Constitutional: no acute distress Comments: More alert *Routine Respiratory Exam Respiratory: Absent respiratory distress *Routine Cardiovascular Exam Cardiovascular: Absent tachycardia *Routine Abdominal Exam Comments: Dressings in place. No spreading cellulitis. Serosanguineous drainage from Harmeet-Dominguez drains. Progress Note: A&P Assessment and plan (1) Acute gangrenous cholecystitis: Status: Acute Assessment and plan: Postoperative day 3 status post laparoscopic cholecystectomy Continue overall management as per primary service Continue Harmeet-Dominguez drains for now (plan to remove at follow-up appointment) (2) Atrial fibrillation with rapid ventricular response: Status: Acute (3) NSTEMI (non-ST elevated myocardial infarction): Status: Acute (4) Generalized weakness: Status: Acute (5) Diabetes: Status: Acute (6) Pneumonia: Status: Acute
[2025-01-22] MEDS: FUROSEMIDE 40MG/4ML VIAL 40 MG IV (09:30)
[2025-01-22 10:49] LABS: Alanine Aminotransferase 55 U/L (12-78); Albumin Level 2.3 g/dl (3.5-5.0); Albumin/Globulin Ratio 0.8 (1.1-1.8); Alkaline Phosphatase 102 U/L (38-126); Anion Gap 8.4 mEq/L (5-15); Aspartate Amino Transferase 93 U/L (17-59); Bilirubin,Total 1.1 mg/dl (0.2-1.3); Blood Urea Nitrogen 16 mg/dl (9-20); Calcium 7.5 mg/dl (8.4-10.2); Carbon Dioxide 20 mmol/L (22.0-30.0); Chloride 116 mmol/L (98-107); Creatinine Clearance Estimated 56 mL/min (50-200); Estimated Glomerular Filt Rate 107 ml/min (>60); GFR (African American) 130 ML/MIN (>60); Globulin 2.8 g/dL (1.3-3.2); Glucose 143 mg/dl (74-100); Magnesium 2.2 mg/dl (1.6-2.3); Potassium 3.4 mmoL/L (3.5-5.1); Sodium 141 mmol/L (136-145); Total Protein,Serum 5.1 g/dl (6.3-8.2)
[2025-01-22 12:00] VITALS: PULSE 123
--- NOTE | 2025-01-22 13:58 | P.DS_ITS ---
General Admission date:: 01/18/25 HPI HPI HPI: This is an 84-year-old gentleman seen in consultation from the primary service after presenting to the emergency department with recent poor appetite, nausea/vomiting, weakness, and likely right-sided abdominal pain. See HPI imported from admission H&P below. Forwarded from admission H&P: This is an 84-year-old Sammarinese-speaking gentleman who arrives from living facility for further evaluation of abdominal pain. Patient has minimal communication capabilities given language barrier. Per nursing staff at living facility, he they were able to delineate that he was complaining of right upper quadrant abdominal pain. He does have a history of dementia as well as frequent auditory hallucinations. Other history includes hypertension, T2DM and GERD. He presents with pain upon palpation to the epigastric and right upper quadrant. Of note patient was also in atrial fibrillation with heart rate in the 120s. No stated history of A-fib, not on AC. Does take metoprolol for hypertension. Merge department workup notable for white blood cell count of 11. Glucose of 210. Lactic of 2.1. Troponin of 0.06. CT of the abdomen notable for distended gallbladder with gallbladder wall thickening and small amount of pericholecystic fluid. No common bile duct dilatation. Given the above-mentioned findings, Dr. Molina was consulted, will see patient in the hospital. He is admitted to hospital service at this time Hospital Course Hospital Course Hospital Course: 84-year-old male with dementia and language barrier due to new language of Sammarinese. Presented for nausea and vomiting. Concern for cholecystitis. Cardiology evaluating today for preop optimization. Surgery assisting with management. #Sepsis #Acute gangrenous cholecystitis #Abdominal pain #Postoperative ileus ? Presented with abdominal pain and weight loss recently. Initial CT imaging with distended gallbladder and pericholecystic fluid. - Right upper quadrant ultrasound obtained showing distention of gallbladder with sludge and wall thickening. No gallstones or pericholecystic fluid ? General Surgery consulted, s/p laparoscopic cholecystectomy. Patient tolerated procedure well. ? Sepsis improved with IV Zosyn. Transition to Augmentin for 3 more days. ? Tolerating diet, but mostly refusing to eat due to poor appetite. No nausea/vomiting, having bowel movements. #Atrial fibrillation with RVR #NSTEMI ? Poor communication even with systems test technician services but does not allude to the fact that he is having chest pain. ? Likely new onset atrial fibrillation in the setting of infection but unsure of the timing. [id number] score of 4, (age,sex,hypertension and diabetes,history). ? Started metoprolol tartrate 50 mg twice daily, Eliquis 5 mg twice daily, aspirin 81 mg. ? Cardiology consulted, discussed case, taken for heart cath. No stents re quired at this time. Optimized for surgery. #Failure to thrive #Functional decline #Poor appetite ? Unfortunately patient exhibits significant failure to thrive and functional decline. He is refusing to eat, participate with therapy, and take medications. Not taking medications especially for his A-fib puts him at a higher risk for CVA. ? Given multiple comorbidities I would encourage a conversation with patient's daughter regarding hospice care upon arrival back to [facility]. ? Continue memantine, mirtazapine, supportive therapy. #T2DM - Hemoglobin A1c 6.8%. ? Patient mostly refusing to eat, discontinued insulin. #Sacral ulcer ? Continue wound care, turning patient on bed. Total time spent on discharge: 35 minutes on chart review, counseling, documentation, and direct care with patient. Exam Data for Last 24 hours Vital signs and Labs for Last 24 Hours: Temp Pulse Resp BP Pulse Ox O2 Del Method O2 Flow Rate 97.8 F 82 16 137/71 97 Room Air 2 01/22/25 08:00 01/22/25 08:00 01/22/25 08:00 01/22/25 08:00 01/22/25 08:00 01/22/25 13:00 01/18/25 16:37 Laboratory Results - last 24 hr 01/21/25 16:22: POC Glucose 162 H 01/21/25 21:11: POC Glucose 76 01/21/25 23:40: POC Glucose 101 01/22/25 05:05: POC Glucose 108 01/22/25 05:30: WBC 5.3 D, RBC 3.56 L, Hgb 10.6 L, Hct 35.4 L, MCV 99.4 H, MCH 29.8, MCHC 29.9 L, RDW 17.4, Plt Count 175, MPV 10.0, Neut % (Auto) 71.3, Lymph % (Auto) 18.1, [place] % (Auto) 9.6 H, Eos % (Auto) 0.4, Baso % (Auto) 0.2, Neut # (Auto) 3.8, Lymph # (Auto) 1.0, [place] # (Auto) 0.5, Eos # (Auto) 0.0, Baso # (Auto) 0.0 01/22/25 10:10: Sodium 141, Potassium 3.4 L D, Chloride 116 H, Carbon Dioxide 20 L, Anion Gap 8.4, BUN 16, Creatinine 0.70, Estimated Creat Clear 56, Estimated GFR 107, Est GFR ( Amer) 130, Glucose 143 H, Calcium 7.5 L, Magnesium 2.2, Total Bilirubin 1.1, AST 93 H D, ALT 55, Alkaline Phosphatase 102, Total Protein 5.1 L, Albumin 2.3 L, Globulin 2.8, Albumin/Globulin Ratio 0.8 L I & O for Last 24 hours: Intake & Output 01/19/25 01/20/25 01/21/25 01/22/25 23:59 23:59 23:59 23:59 Intake Total 2903 / 3653 3954 / 3954 2163 / 2163 100 / 100 Output Total 550 / 1035 1285 / 1385 910 / 910 530 / 530 Balance 2353 / 2618 2669 / 2569 1253 / 1253 -430 / -430 Weight 66.224 kg 73.482 kg 74.98 kg 72.847 kg Microbiology Reports for the Last 24 Hours: Microbiology 01/17/25 06:19 Urine,Clean Catch Urine Culture - Preliminary 01/18/25 01:00 Blood Blood Culture - Preliminary NO GROWTH AFTER 4 DAYS 01/18/25 01:00 Blood Blood Culture - Preliminary NO GROWTH AFTER 4 DAYS 01/19/25 13:20 Urine,Catheterized Urine Culture - Final No growth. Results Data Completed and Pending Labs on day of discharge: Labs from last 24 hours 01/22/25 01/22/25 01/22/25 10:10 05:30 05:05 WBC 5.3 D RBC 3.56 L Hgb 10.6 L Hct 35.4 L MCV 99.4 H MCH 29.8 MCHC 29.9 L RDW 17.4 Plt Count 175 MPV 10.0 Neut % (Auto) 71.3 Lymph % (Auto) 18.1 [place] % (Auto) 9.6 H Eos % (Auto) 0.4 Baso % (Auto) 0.2 Neut # (Auto) 3.8 Lymph # (Auto) 1.0 [place] # (Auto) 0.5 Eos # (Auto) 0.0 Baso # (Auto) 0.0 Sodium 141 Potassium 3.4 L D Chloride 116 H Carbon Dioxide 20 L Anion Gap 8.4 BUN 16 Creatinine 0.70 Estimated Creat Clear 56 Estimated GFR 107 Est GFR ( Amer) 130 Glucose 143 H POC Glucose 108 Calcium 7.5 L Magnesium 2.2 Total Bilirubin 1.1 AST 93 H D ALT 55 Alkaline Phosphatase 102 Total Protein 5.1 L Albumin 2.3 L Globulin 2.8 Albumin/Globulin Ratio 0.8 L 01/21/25 01/21/25 01/21/25 23:40 21:11 16:22 WBC RBC Hgb Hct MCV MCH MCHC RDW Plt Count MPV Neut % (Auto) Lymph % (Auto) [place] % (Auto) Eos % (Auto) Baso % (Auto) Neut # (Auto) Lymph # (Auto) [place] # (Auto) Eos # (Auto) Baso # (Auto) Sodium Potassium Chloride Carbon Dioxide Anion Gap BUN Creatinine Estimated Creat Clear Estimated GFR Est GFR ( Amer) Glucose POC Glucose 101 76 162 H Calcium Magnesium Total Bilirubin AST ALT Alkaline Phosphatase Total Protein Albumin Globulin Albumin/Globulin Ratio Preliminary micro results at discharge 01/17/25 06:19 Urine Culture - Preliminary Urine,Clean Catch 01/18/25 01:00 Blood Culture - Preliminary Blood NO GROWTH AFTER 4 DAYS 01/18/25 01:00 Blood Culture - Preliminary Blood NO GROWTH AFTER 4 DAYS DS: Diagnosis Discharge Diagnosis (1) Acute gangrenous cholecystitis: Status: Acute Code(s): K81.0 - Acute cholecystitis (2) Atrial fibrillation with rapid ventricular response: Status: Acute Code(s): I48.91 - Unspecified atrial fibrillation (3) NSTEMI (non-ST elevated myocardial infarction): Status: Acute Code(s): I21.4 - Non-ST elevation (NSTEMI) myocardial infarction (4) Generalized weakness: Status: Acute Code(s): R53.1 - Weakness (5) Diabetes: Status: Acute Code(s): E11.9 - Type 2 diabetes mellitus without complications Qualifiers: Diabetes mellitus complication status: without complication 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 insulin use: with mcc use Diabetes mellitus type: type 2 Qualified Code(s): E11.9 - Type 2 diabetes mellitus without complications; Z79.4 - exterminator termite (current) use of insulin (6) Pneumonia: Status: Acute Code(s): J18.9 - Pneumonia, unspecified organism Qualifiers: Laterality: left Lung location: unspecified part of lung Pneumonia type: due to unspecified organism Qualified Code(s): J18.9 - Pneumonia, unspecified organism Meds Home Medications and Allergies Home Medications ?Medication ?Instructions ?Recorded ?Confirmed ?Type acetaminophen 500 mg tablet 500 mg PO Q6H PRN Fever Or Pain 01/18/25 01/18/25 History acetaminophen 500 mg tablet 500 mg PO TID 01/18/25 01/18/25 History amino acids-protein hydrolysate 30 ea PO DAILY 01/18/25 01/18/25 History oral liquid calcium carbonate (Oyster Shell 500 mg PO BID 01/18/25 01/18/25 History Calcium) fentanyl 12 mcg/hr transdermal 1 patch transdermal Q72H 01/18/25 01/18/25 History patch memantine 5 mg tablet 5 mg PO BID 01/18/25 01/18/25 History mirtazapine 7.5 mg tablet 7.5 mg PO HS 01/18/25 01/18/25 History multivitamin 1 tab PO DAILY 01/18/25 01/18/25 History polyethylene glycol 3350 17 gram 17 g PO DAILY 01/18/25 01/18/25 History oral powder packet sennosides 8.6 mg-docusate sodium 1 tab PO BID 01/18/25 01/18/25 History 50 mg tablet (Senna with Docusate Sodium) amoxicillin 500 mg-potassium 1 tab PO TID 3 days #9 tabs 01/22/25 Rx clavulanate 125 mg tablet (Augmentin) apixaban 5 mg tablet (Eliquis) 5 mg PO BID 30 days #60 tabs 01/22/25 Rx aspirin 81 mg tablet,delayed 81 mg PO DAILY 30 days #30 tabs 01/22/25 Rx release metoprolol tartrate 50 mg tablet 50 mg PO BID 30 days #60 tabs 01/22/25 Rx New Prescriptions to Start Prescriptions: amoxicillin-pot clavulanate [Augmentin] Manoj Ravi apixaban [Eliquis] Manoj Ravi aspirin Manoj Ravi metoprolol tartrate Manoj Ravi Allergies Allergy/AdvReac Type Severity Reaction Status Date / Time No Known Allergies Allergy Verified 01/17/25 19:58 Discharge Plan Disposition Patient Disposition: er Intermediate Care Fac Condition: Fair Discharge Order Discharge Orders: Discharge Order (Routine); Ordered 01/22/25 Ordered By: Manoj Ravi Follow up Plan Follow up with: Rogers Calzada MD [Staff Physician] - 01/26/25 2:30 pm Ken Molina MD [Staff Physician] - 01/27/25 2:00 pm Prescriptions/Medication Reconciliation: New aspirin 81 mg Tablet,Delayed Release (Dr/Ec) 81 mg PO DAILY 30 Days Qty: 30 0RF metoprolol tartrate 50 mg Tablet 50 mg PO BID 30 Days Qty: 60 0RF Eliquis 5 mg tablet 5 mg PO BID 30 Days Qty: 60 0RF amoxicillin-pot clavulanate [Augmentin] 500-125 mg tablet 1 tab PO TID 3 Days Qty: 9 0RF Continued fentanyl 12 mcg/hr patch 72 hour 1 patch transdermal Q72H multivitamin Tablet 1 tab PO DAILY polyethylene glycol 3350 17 gram Powder In Packet 17 g PO DAILY amino acids-protein hydrolys Liquid 30 ea PO DAILY sennosides-docusate sodium [Senna with Docusate Sodium] 8.6-50 mg Tablet 1 tab PO BID acetaminophen 500 mg Tablet 500 mg PO Q6H PRN (Reason: Fever Or Pain) acetaminophen 500 mg tablet 500 mg PO TID calcium carbonate [Oyster Shell Calcium] 500 mg calcium (1,250 mg) Tablet 500 mg PO BID memantine 5 mg Tablet 5 mg PO BID mirtazapine 7.5 mg Tablet 7.5 mg PO HS Discontinued enalapril maleate 20 mg tablet 20 mg PO DAILY clopidogrel 75 mg tablet 75 mg PO HS quetiapine [Seroquel] 25 mg Tablet 12.5 mg PO DAILY metoprolol succinate 50 mg Tablet Extended Release 24 Hr 50 mg PO DAILY rosuvastatin 40 mg Tablet 40 mg PO HS insulin glargine [Lantus Solostar U-100 Insulin] 100 unit/mL (3 mL) insulin pen 15 unit SQ HS quetiapine 25 mg tablet 25 mg PO HS Problem Reconciliation Problems Reviewed?: Yes Patient Discharge Instructions Patient Instructions: Cardiac Catheterization, Surgical Site Infection, Cholecystectomy -- Laparoscopic Surgery, Moderate Sedation, DI for Post-Surgical Bleeding, Catheter-Associated Urinary Tract Infection Print Language: Sammarinese Providers Primary Care Provider: Provider,Referral Admit Provider: Justice Lunsford Attending Provider: Justice Lunsford
--- NOTE | 2025-01-22 14:40 | PC.NURSE ---
PT IS RESTING IN BED. ALERT TO SELF ONLY. PT ONLY SPEAKS IN [place] HOWEVER STATES HE UNDERSTANDS MEXICAN. PT DOES NOT RESPOND WELL WHEN USING THE LOADER SEMICONDUCTOR DIES. PT HAS REFUSED TO BE TURNED AND REPOSITIONED AND GOT VERY UPSET WITH STAFF WHEN TRYING TO CLEAN PT AFTER HAVING A BOWEL MOVEMENT. STAGE 3 NOTED TO PT'S COCCYX. CLEAN DRESSING APPLIED. BLISTER NOTED TO RIGHT HEEL. DRESSING APPLIED AND HEELS ELEVATED. REFUSED PO MEDS, GLUCOSE CHECK AND EATING. AFIB ON TELEMETRY HR 120-130'S. PHYSICIAN NOTIFIED. WILL CONTINUE TO MONITOR.
[2025-01-22 16:00] VITALS: PULSE 117
[2025-01-22 16:23] LABS: POC Glucose,Bedside 183 (70-110)
--- NOTE | 2025-01-25 08:24 | SW/DCPLANNER ---
I received a consult that patient's family is interested in Hospice Care for this patient. I have updated patient's PCP Dr Mcnally whom agrees w/ Hospice. Patient information will be faxed to Trista w/ Hospice to follow up w/ patient and family at [place]. Patient did return to [place] [facility] level of care.
[2025-01-26 15:32] LABS: POC Glucose,Bedside 134 (70-110)
[2025-01-26 15:37] LABS: POC Glucose,Bedside 155 (70-110)
== END 2025-01-22 18:28 | DRG 853 ==
LOC: ER 23:04 → 2ND 23:20
PROVIDERS: Internal Medicine; Nurse Practitioner Acute Care; Nurse Practitioner Family; Student in an Organized Health Care Education/Training Program; Surgery; Admitting Provider Internal Medicine Adolescent Medicine; Emergency Provider Student in an Organized Health Care Education/Training Program; Visit Provider Internal Medicine Adolescent Medicine
PROC: 4A023N7 Measurement of Cardiac Sampling and Pressure, Left Heart, Percutaneous Approach (ICD-10-PCS; CPT 93452; principal; 2025-01-18 15:50)
PROC: 0FT44ZZ Resection of Gallbladder, Percutaneous Endoscopic Approach (ICD-10-PCS; CPT 47562; principal; 2025-01-19 11:25)
DX: A41.9 Sepsis, unspecified organism (principal); E43 Unspecified severe protein-calorie malnutrition; L89.153 Pressure ulcer of sacral region, stage 3; I21.A1 Myocardial infarction type 2; J18.9 Pneumonia, unspecified organism; K80.00 Calculus of gallbladder with acute cholecystitis without obstruction; N39.0 Urinary tract infection, site not specified; K91.89 Other postprocedural complications and disorders of digestive system; K56.7 Ileus, unspecified; R44.0 Auditory hallucinations; K82.A1 Gangrene of gallbladder in cholecystitis; Z79.4 Long term (current) use of insulin; Z79.899 Other long term (current) drug therapy; I25.10 Atherosclerotic heart disease of native coronary artery without angina pectoris; I48.91 Unspecified atrial fibrillation; Z55.6 Problems related to health literacy; I10 Essential (primary) hypertension; E78.5 Hyperlipidemia, unspecified; E11.9 Type 2 diabetes mellitus without complications; Z95.5 Presence of coronary angioplasty implant and graft; F03.90 Unspecified dementia, unspecified severity, without behavioral disturbance, psychotic disturbance, mood disturbance, and anxiety; R62.7 Adult failure to thrive; Z68.20 Body mass index [BMI] 20.0-20.9, adult; Z91.198 Patient's noncompliance with other medical treatment and regimen for other reason
CPT/HCPCS: 36415; 71045; 74018; 74177; 76705; 80048; 80053; 80061; 80076; 81001; 82962; 83036; 83605; 83690; 83735; 84484; 85007; 85025; 85730; 87040; 87086; 93005; 93306; 93308; 93458; 99152; 99291; C1725; C1769; J0131; J1100; J1171; J1200; J1644; J1650; J1938; J2185; J2250; J2405; J2543; J3010; J3475; J3480; J7030; J7120; Q9967

== ENCOUNTER 2025-02-19 12:41 | Outpatient (CLI) | payer MEDICAID, SELFPAY ==
--- OUTSIDE RECORDS SUMMARY | 2025-02-19 12:47 | XMS_ITS | Encounter Summary ---
Author Organization [facility] Address [address] [place] [address] Care Team Providers Care Assistant Golf Coach Name Role Phone Isai Yenifer Aguirre APRN Primary Care Provider HourLidia ryder DMD Primary Care Provider [phone] Dave Ward Unavailable Unavailable HourLidia ryder DMD Unavailable [phone] JazzYenifer sosa APRN Primary Care Provider Rhina Stock Unavailable Unavailable Eyad Madrid MD Primary Care Provider [phone] Declan Santiago Unavailable Unavailable Edei Francois LPN Unavailable UnavailRutihe Arnold Unavailable Unavailable Encounter Details Date Type Department Care Team (Late st Contact Info) Description 06/20/2023 Community [facility] [address] [place] [address] Caroline Silva, PLSQL DEVELOPER [address] [facility] [address] [place], [place] [id number] Memory loss (Primary Dx) Social History Tobacco Use Types Packs/Day Years Used Date Smoking Tobacco: Never Passive Smoke Exposure: Never Smokeless Tobacco: Never Alcohol Use Standard Drinks/Week Comments Never 0 (1 standard drink = 0.6 oz pur e alcohol) PHQ-2 Answer Date Recorded Patient Health Questionnaire-2 Score 0 06/24/2023 Sex and Gender Information Value Date Recorded Sex Assigned at Male 11/28/2024 6:13 PM EDT Legal Sex Male 10:34 AM EST Gender Identity Not on file Sexual Orientation Straight 11/28/2024 6: 13 PM EDT documented as of this encounter Plan of Treatment Upcoming Encounters Date Type Department Care Team (Late st Contact Info) Description 2025 8:00 AM EDT Office Visit [place] [facility] [address] [place] [address] Kole Mclaughlin MD [address] [place] [address] 08/09/2025 11:40 AM EST Office Visit [facility] [place] [facility] [address], [address] [place] [address] Sara Cardenas MD [address] [place] [address] documented as of this encounter Visit Diagnoses Diagnosis Memory loss- Primary documented in this encounter Additional Health Concerns Infection Onset Date Last Indicated Resolved Time COVID-19 Rule-Out 11/03/2024 11/03/2024 11/04/2024 11:35 AM EST COVID-19 Rule-Out 11/15/2024 11/15/2024 11/16/2024 4:02 AM EST Respiratory Rule-Out 11/15/2024 11/15/2024 025 9:44 PM EST Assessment Noted Time A fall risk assessment has been complete d for the patient 05/08/2023 1:11 PM EDT A Body Mass Index follow-up plan has been documented for the patient 05/29/2023 12:34 PM EDT documented as of this encounter Care Teams Assistant Golf Coach Relationship Specialty Start Date End Date Yenifer Alex APRN [address] [place] [address] PCP - General Family Medicine 01/31/23 06/24/23 Lidia Bee DMD [address] [address] PCP - General 06/25/23 07/03/23 Yenifer Alex APRN [address] [place] [address] PCP - General Family Medicine 07/04/23 12/25/23 Eyad Madrid MD [address] [place], [place] [id number] PCP - General Family Medicine 12/26/23 Dave [employer] Dental Student Dental Architectural Practice Manager 06/25/23 01/06/24 Lidia Bee, DMD [address] [address] Dentist 07/04/23 01/31/25 Rhina Stock Community Health Worker 11/08/23 11/19/23 Declan Santiago Dental Student Dental Architectural Practice Manager 01/07/24 01/31/25 Edie Francois, [facility] TCM Nurse 11/02/24 12/02/24 Ruthie Sanders [facility] [place] [address] Contact Officer 11/03/24 11/03/24 documented as of this encounter
--- OUTSIDE RECORDS SUMMARY | 2025-02-19 12:47 | XMS_ITS | Encounter Summary ---
Author Organization [facility] Address [address] [place] [address] Care Team Providers Care Ski Technician Name Role Phone Herbert Beejc Lei DMD Unavailable [phone] Eyad Madrid MD Primary Care Provider [phone] Declan Santiago Unavailable Unavailable Encounter Details Date Type Department Care Team (Late st Contact Info) Description 12/07/2024 Telephone [place] [facility] [address] [place] [address] Dave Whitehead MD [address] [place] [address] Social History Tobacco Use Types Packs/Day Years Used Date Smoking Tobacco: Never Passive Smoke Exposure: Never Smokeless Tobacco: Never Alcohol Use Standard Drinks/Week Comments Never 0 (1 standard drink = 0.6 oz pur e alcohol) Humiliation, Afraid, Rape, and Kick questionnair e Answer Date Recorded Within the last year, have y ou been afraid of your partner or ex-partner? No 11/02/2024 Within the last year, have y ou been humiliated or emotionally abused in other ways by your partner or ex-partner? No Within the last year, have y ou been kicked, hit, slapped, or otherwise physically hurt by your partner or ex-partner? No 11/02/2024 Within the last year, have y ou been raped or forced to have any kind of sexual activity by your partner or ex-partner? No 11/02/2024 AUDIT-C Answer Date Recorded Q1: How often do you have a drink containing alcohol? Never 10/28/2024 Q2: How many drinks containi ng alcohol do you have on a typical day when you are drinking? Patient does not drink Q3: How often do you have si x or more drinks on one occasion? Never 10/28/2024 PHQ-2 Answer Date Recorded Patient Health Questionnaire-2 Score 0 10/28/2024 Hunger Vital Sign Answer Date Recorded Within the past 12 months, y ou worried that your food would run out before you got the money to buy more. Never true 11/02/19 25 Within the past 12 months, t he food you bought just didn't last and you didn't have money to get more. Never true 11/02/2024 PRAPARE - Transportation Answer Date Re corded In the past 12 months, has l ack of transportation kept you from medical appointments or from getting medications? No 10/17 In the past 12 months, has l ack of transportation kept you from meetings, work, or from getting things needed for daily living? No 11/02/2024 Housing Stability Vital Sign Answer Tony e Recorded In the last 12 months, was t here a time when you were not able to pay the mortgage or rent on time? No 11/08/2023 Number of Places Lived in the Last Year Not on f ile 11/08/2023 In the last 12 months, was t here a time when you did not have a steady place to sleep or slept in a penitentiary (including now)? No 11/08/2023 PHQ-9 Answer Date Recorded Patient Health Questionnaire-9 Score 0 10/08/2024 Housing Stability Vital Sign Answer Tony e Recorded In the last 12 months, was t here a time when you were not able to pay the mortgage or rent on time? No 11/02/2024 In the past 12 months, how m any times have you moved where you were living? 1 11/02/2024 At any time in the past 12 m onths, were you homeless or living in a penitentiary (including now)? No 11/02/2024 Safety and Environment Answer Date Ki rded Do you worry that your child may have been physically abused? No 10/28/2024 Do you worry that your child may have been sexua lly abused? No 10/28/2024 Are there any guns kept in o r around your home or where your child spends time? No 10/28/2024 Guns Unloaded or Locked Away Not on file 08/2025 Utilities Answer Date Recorded In the past 12 months has [employer] electric, gas, oil, or water company threatened to shut off services in your home? No 11/02/2024 PHQ-2A Answer Date Recorded Patient Health Questionnaire-2 Score 0 07/22/2023 Sex and Gender Information Value Date Recorded Sex Assigned at Male 11/28/2024 6:13 PM EDT Legal Sex Male 10:34 AM EST Gender Identity Not on file Sexual Orientation Straight 11/28/2024 6: 13 PM EDT documented as of this encounter Miscellaneous Notes * Telephone Encounter - Sharita Elmore - 12/07/2024 3:06 PM EDT Patient Phone Message Reason for Call: Please cancel upcoming appt. Per the facility at the daughter's request Daughter will call back to r/s in the future Best contact number and optimal time of day to reach caller: [phone] Note: Please do not reply to this message. Follow-up communication and further actions as a result of this message need to be communicated with the patient directly, if the patient is not active onMyChart. If the patient is active on MyChart, they will receive notification of the communication/outcome via MyChart. documented in this encounter Plan of Treatment Upcoming Encounters Date Type Department Care Team (Late st Contact Info) Description 2025 8:00 AM EDT Office Visit [place] [facility] [address] [place] [id number] Kole Mclaughlin MD [address] [place] [address] 08/09/2025 11:40 AM EST Office Visit [facility] [place] [address], [address] [place] [address] Sara Cardenas MD [address] [place] [address] documented as of this encounter Visit Diagnoses Not on filedocumented in this encounter Additional Health Concerns Assessment Noted Time PHQ-9 Depression Total Score: 0 10/08/19 11:36 AM EST A fall risk assessment has been complete d for the patient 10/28/2024 10:14 AM EST A Body Mass Index follow-up plan has been documented for the patient 12/07/2024 8:22 AM EDT documented as of this encounter Care Teams Ski Technician Relationship Specialty Start Date End Date Eyad Madrid MD [address] [place] [address] PCP - General Family Medicine 12/26/23 Lidia Bee DMD [address] [place] [address] Dentist 07/04/23 01/31/25 Declan Santiago Dental Student Dental Dioramist 01/07/24 01/31/25 documented as of this encounter
--- OUTSIDE RECORDS SUMMARY | 2025-02-19 12:47 | XMS_ITS | Encounter Summary ---
Author Organization [facility] Address [address] [place] [address] Care Team Providers Care Leather Lacer Name Role Phone Lidia Bee DMD Unavailable [phone] Eyad Madrid MD Primary Care Provider [phone] Declan Santiago Unavailable Unavailable Edie Francois LPN Unavailable Unavailabl e Reason for Visit * Reason Onset Date Comments HCN - Patient Message 12/01/2024 Encounter Details Date Type Department Care Team (Late st Contact Info) Description 12/01/2024 Telephone Physical [facility] [address] [place] [address] Edmundo Denny, DO [address] [facility] [address] [place] [address] HCN - Patient Message Social History Tobacco Use Types Packs/Day Years [...] place to sleep or slept in a residential (including now)? No 11/08/2023 PHQ-9 Answer Date [...] any time in the past 12 m [facility], were you homeless or living in a residential (including now)? No 11/02/2024 Safety and Environment [...] Recorded In the past 12 months has [employer], gas, oil, or water [employer] threatened to shut off services in your home? No 11/02/2024 PHQ-2A Answer Date Recorded Patient Health Questionnaire-2 Score 0 07/22/2023 Sex and Gender Information Value Date Recorded Sex Assigned at Male 11/28/2024 6:13 PM EDT Legal Sex Male 10:34 AM EST Gender Identity Not on file Sexual Orientation Straight 11/28/2024 6: 13 PM EDT documented as of this encounter Functional Status * Calculated C-SSRS Risk Score (Lifetime/Recent) Answer Date of Assessment Author No Risk Indicated 12/06/2024 8:03 AM EDT Ivon Khan RN * Question Answer Date of Assessment Author 1. Wish to be (Past 1 Month) No 025 8:03 AM EDT Ivon Khan RN 2. Non-Specific Active [place]ici [place] Thoughts (Past 1 Month) No 12/06/2024 8:03 AM EDT Lesa Khan RN 6. Suicidal Behavior (Lifetime) No 8:03 AM EDT Ivon Khan RN documented as of this encounter Miscellaneous Notes * Telephone Encounter - Abby Veras - 12/01/2024 10:25 AM EDT Clinical Concern/Question Reason for Call: Denisha, patient is calling stating the patient is in hospital @ and they are stating he cannot be dismissed until he has had Physical Therapy because he can needs to be ableto walk. She states that [facility] said they do not do Physical Therapy . They would like to see if provider can get someone to do the Physical Therapy there so that he can be dismissed. Please call to advise what provider can do to help with this. Best contact number: Other: [phone], Spouse Kolby Optimal time of day to reach caller: ANYTIME Additional comments/information from caller: Alt # is [phone] Kerri (daughter) Note: Please do not reply to this [...] Visit [place] [facility] [address] [place] [address] Kole Mclaughlin MD [address] [place] [address] 08/09/2025 11:40 AM EST Office Visit [facility] [place] [address] [facility], [address] [place] [address] Sara Cardenas MD [address] [facility] [address] [place] [address] documented as of this encounter [...] documented as of this encounter Care Teams Leather Lacer Relationship Specialty Start Date End Date Eyad Madrid MD [address] [place] [address] [id number] PCP - General Family Medicine 12/26/23 Lidia Bee DMD [address] [place] [address] [phone] Dentist 07/04/23 01/31/25 Declan Santiago Dental Student Dental Desizing Pad Operator 01/07/24 01/31/25 Edie Francois, [facility] TCM Nurse 11/02/24 12/02/24 documented as of this encounter
--- OUTSIDE RECORDS SUMMARY | 2025-02-19 12:47 | XMS_ITS | Clinical Summary ---
Author Organization [facility] Address [address] [place] [address] Care Team Providers Care Service Architect Name Role Phone Eyad Madrid MD Primary Care Provider [phone] Allergies Active Allergy Reactions Criticality Noted Date Comments Losartan Other - please docum ent in the comment field Low 09/18/2007 From Climacs; angioedema Other reaction(s): Substance type unknown (finding), Unknown From Climacs; angioedema From Climacs; angioedema Other reaction(s): Substance type unknown (finding), Unknown From Climacs; angioedema From Climacs; angioedema Timolol Other - please docum ent in the comment field Low 01/28/2009 Other reaction(s): Unknown Other reaction(s): Substance type unknown (finding) Other reaction(s): Unknown Other reaction(s): Substance type unknown (finding) Medications metoprolol succinate XL (Toprol-XL) 50 MG 24 hr tablet Take 1 tablet (50 mg) by mouth 1 (one) time each day. 3 Active omega-3 (Fish Oil) 1000 MG capsule Take 1 capsule (1,000 mg) by mouth 2 (two) times a day with meals. Active enalapril (Vasotec) 20 MG tablet Take 1 tablet (20 mg) by mouth daily. Active clopidogrel (Plavix) 75 MG tablet Take 1 tablet (75 mg) by mouth 1 (one) time each day. 3 Active amLODIPine (Norvasc) 10 MG tabletIndication s:Hypertension, unspecified type Take 1 tablet (10 mg) by mouth 1 (one) time each day. 90 tablet 3 3 Active rosuvastatin (Crestor) 40 MG tablet Take 1 tablet (40 mg) by mouth daily. Active memantine (Namenda) 5 MG tablet Take 1 tablet (5 mg) by mouth daily. 4 Active glucagon (Baqsimi Two Pack) 3 MG/DOSE powder Nasal Powder Administer 3 mg into affected nostril(s) 1 (one) time if needed (severe hypoglycemia). 2 each 3 4 05/21/20 25 Active glucagon 1 MG injection Inject 1 mg under the skin 1 (one) time if needed for low blood sugar. 1 kit 3 4 05/21/20 25 Active Calcium Citrate-Vitamin D 250-2.5 MG-MCG tablet Take 1 tablet by mouth twice a day. 4 Active glucose blood test strip 2x/day, Please provide strips compatible with patient's meter and insurance 180 each 3 4 Active Lancets misc Use 2x/day as directed 180 each 3 4 Active Insulin Pen Needle (Pen [place]) 32G X 5 MM misc 1 each 1 (one) time each day. 90 each 3 4 09/03/20 25 Active Psyllium (Daily Fiber) 51.7 % pack Take 1 packet by mouth 1 (one) time each day if needed (loose stool). 30 each 6 5 10/08/19 26 Active acetaminophen (Tylenol) 500 MG tablet Take 2 tablets (1,000 mg) by mouth every 6 hours as needed for pain, headaches or fever. 5 Active diclofenac (Voltaren) 1 % topical gel Place 1 g on the skin in the morning and 1 g at noon and 1 g in the evening and 1 g before bedtime. Apply as directed to Joints as needed for pain. 5 Active senna-docusate (Maria Luisa-Colace) 8.6-50 MG tablet Take 1 tablet by mouth in the morning and 1 tablet before bedtime. 03/24/202 5 Active QUEtiapine (SEROquel) 25 MG tablet Take 1 tablet (25 mg) by mouth nightly. Active QUEtiapine (SEROquel) 25 MG tablet Take 0.5 tablets (12.5 mg) by mouth daily. In the morning (0900). Active polyethylene glycol (Miralax) 17 g packet Take 17 g by mouth daily. Active melatonin tablet Take 1 tablet (3 mg) by mouth nightly. Active lidocaine (Lidoderm) 5 % patch Apply 1 patch topically 1 (one) time each day at the same time over 12 hours. Remove & discard patch within 12 hours or as directed by MD. Active multivitamin (Theragran-M) tablet Take 1 tablet by mouth daily. Active insulin glargine-yfgn 100 UNIT/ML injection vial Inject 0.15 mL (15 Units) under the skin nightly. Active Active Problems Problem Noted Date Diagnosed Date Old complex tear of medial meniscus of right kne e 11/10/2024 Old tear of lateral meniscus of right knee 11/10 Old disruption of posterior cruciate ligament of right knee 11/10/2024 Falls 11/02/2024 Falls, initial encounter 10/31/2024 Abnormal computed tomography angiography of head 10/30/2024 Parkinsonism 10/29/2024 Head trauma 10/28/2024 Assessment & Plan (10/28/2024 11:48 AM EST): Patient presents after fall to clinic for further evaluation. Notably significant bruising to spine (sacrum) as well as tenderness to palpation across back of head. Concerns at this time include intracranial hematoma in the setting of progressively worsening confusion as well as acute pain on top of this. Due to his presentation, patient was sent to ED for emergent CT head non-con and trauma workup. 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 12/24/2023 Other seborrheic keratosis 12/09/2023 Neoplasm of uncertain behavior of skin Other melanin hyperpigmentation 12/03/2023 Other nonthrombocytopenic purpura 12/03/2023 Other amnesia 11/12/2023 Age-related physical debility 11/08/2023 Polyneuropathy, unspecified 10/15/2023 Bladder outlet obstruction 10/09/2023 Urinary frequency 10/09/2023 Urge incontinence 10/09/2023 Urinary urgency 10/09/2023 Nocturia 10/09/2023 Diverticulum of bladder 10/09/2023 Neuromuscular dysfunction of bladder, unspecifie d 10/09/2023 Other retention of urine 10/09/2023 Nonexudative age-related mac ular degeneration, bilateral, intermediate dry stage 09/24/2023 Sensorineural hearing loss, bilateral 09/17/2023 Tinnitus, bilateral 09/17/2023 Dysuria 08/29/2023 Acute pansinusitis, unspecified 08/20/2023 Bilateral primary osteoarthritis of knee 023 Adhesive capsulitis of right shoulder 08/06/2023 Tricompartment osteoarthritis of right knee 07/18 Mild cognitive impairment 07/31/2023 Other abnormal findings on d iagnostic imaging of central nervous system 07/30/2023 Diarrhea, unspecified 07/22/2023 Pelvic and perineal pain 07/22/2023 Disorientation, unspecified 07/18/2023 Other chest pain 07/08/2023 Unspecified abnormalities of heart beat 07/08/20 Disorder of the skin and subcutaneous tissue, un specified 06/24/2023 Unspecified background retinopathy 06/24/2023 Unspecified hearing loss, bilateral 06/24/2023 Bursitis of right shoulder 06/06/2023 Adhesive capsulitis of unspecified shoulder 05/18 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 06/06/2023 Impingement syndrome of right shoulder 3 Photokeratitis, unspecified eye 06/06/2023 Primary osteoarthritis, right shoulder 3 Right shoulder pain 06/06/2023 Unsteadiness on feet 06/06/2023 Left anterior fascicular block 05/29/2023 Tinea unguium 04/18/2023 Snoring 04/10/2023 Unspecified atrial fibrillation 04/10/2023 Coronary artery disease invo lving napaimute coronary artery of napaimute heart 03/27/2023 PAC (premature atrial contraction) 03/27/2023 NSVT (nonsustained ventricular tachycardia) 03/16 Lower extremity edema 03/26/2023 Localized edema 03/26/2023 Noninfective gastroenteritis and colitis, unspec ified 03/21/2023 Effusion, left ankle 02/14/2023 Effusion, right ankle 02/14/2023 Hypoglycemia, unspecified 01/31/2023 Palpitations 01/16/2023 Presence of coronary angioplasty implant and gra ft 01/16/2023 Gout, unspecified 01/08/2023 Pain in left foot 01/08/2023 Pain in right foot 01/08/2023 Dorsalgia, unspecified 12/25/2022 Other dorsalgia 12/25/2022 Fall on same level from slip ping, tripping and stumbling without subsequent striking against object, initial encounter 12/25/2022 Loss of height 12/25/2022 Osteophyte, vertebrae 12/25/2022 Other diseases of pulmonary vessels 12/25/2022 Other disorders of lung 12/25/2022 Other specified deforming dorsopathies, thoracic region 12/25/2022 Spinal stenosis, lumbar kirti on without neurogenic claudication 12/25/2022 Spondylolisthesis, lumbar region 12/25/2022 Strain of muscle, fascia and tendon of lower back, initial encounter 12/25/2022 Strain of muscle, fascia and tendon of right hip, initial encounter 12/25/2022 Unspecified fall, initial encounter 12/25/[address] or not applicable 12/25/2022 Other fatigue 12/25/2022 Type 2 diabetes mellitus wit h diabetic neuropathy, with long-term current use of insulin 11/27/2022 Neuropathy 11/27/2022 Hypertension 11/27/2022 Hyperlipidemia 11/27/2022 Type 2 diabetes mellitus wit h diabetic neuropathy, unspecified 09/16/2022 Unspecified osteoarthritis, unspecified site 09/2022 Chronic kidney disease, unspecified 09/16/2021 Resolved Problems Problem Noted Date Diagnosed Date Resolved Date Hypophosphatemia 11/03/2024 12/07/2024 Falls, initial encounter 10/28/2024 Encounters Date Type Department Care Team Description 01/07/2025 Nurse Triage [facility] [address], [address] [place] [address] Eyad Madrid MD 01/06/2025 Telephone [facility] [address], [address] [place] [address] Eyad Madrid MD 01/04/2025 Telephone Radiology Virtual Dept. [address] [place] [address] Di Thao 12/17/2024 Patient Outreach [facility] Medicine Specialties [address] [place] [address] Jasper Vivar 12/07/2024 Telephone [facility] [address], [address] [place] [address] Dave Whitehead MD 12/07/2024 Travel 12/01/2024 Telephone [facility] [address] [place] [address] Edmundo Denny DO HCN - Patient Message 11/30/2024 Telephone [facility] Diabetes Education [address] [place] [id number] Blanca James APRN HCN - Patient Message 11/22/2024 Refill [facility] [address] [place] [address] Rashaad Munoz DO 10/31/2024 2:36 PM EST - 12/07/2024 11:09 AM EDT Hospital Encounter [facility] [address] [place] [id number] Saeid Molina MD Kale, MD Leonides Cervantes, MD Rojelio Amin, MD Nish Wilburn, MD Obdulio Mitchell, MD Radha Nunes (Primary Dx) Discharge Disposition: [facility] from Last 3 Months Immunizations Immunization Administration Dates Next Due Influenza, High-dose, Split Virus, Trivalent, Injectable, preservative free 05/21/2024 Influenza, Unspecified 06/22/2015,2013,07/21/2013,06/02,06/20/2011,06/30/2010,07/27/2008 ,06/20/2007,07/05/2006,06/21/2005,06/17,07/07/2002,07/15/2001, 0 Influenza, high-dose, quadrivalent 06/03/2023, Influenza, injectable, MDCK, preservative free, quadrivalent 06/13/2017 Influenza, recombinant, quad rivalent, injectable, preservative free 06/10/2012,05/19/2009 Influenza, seasonal, injectable 06/20/2011,07/27 Influenza, seasonal, injecta ble, preservative free 10/29/2016 Pfizer Covid-19 Vaccine 12y+ , Kiran Protein, PF, Radhames-Sucrose 06/24/2023 Pneumococcal Conjugate PCV 13 12/02/2014 Pneumococcal Polysaccharide PPV23 08/29/2010,12/2006,09/16/1997 TD (adult), 2 Lf tetanus tox oid, preservative free, adsorbed 04/17/2011 Tdap 06/02/2014,04/17/2011 Tetanus Immune Globulin 12/15/1999 Zoster, Recombinant 05/01/2024,03/02/2024 Social History Tobacco Use Types Packs/Day Years Used Date Smoking Tobacco: Never Passive Smoke Exposure: Never Smokeless Tobacco: Never Tobacco Cessation:Counseling Given: Not Answered Alcohol Use Standard Drinks/Week Comments Never 0 [...] place to sleep or slept in a skilled nursing (including now)? No 11/08/2023 PHQ-9 Answer Date [...] any time in the past 12 m [facility], were you homeless or living in a skilled nursing (including now)? No 11/02/2024 Safety and Environment [...] Recorded In the past 12 months has e electric, gas, oil, or water company threatened to shut off services in your home? No 11/02/2024 PHQ-2A Answer Date Recorded Patient Health Questionnaire-2 Score 0 07/22/2023 Sex and Gender Information Value Date Recorded Sex Assigned at Male 11/28/2024 6:13 PM EDT Legal Sex Male 10:34 AM EST Gender Identity Not on file Sexual Orientation Straight 11/28/2024 6: 13 PM EDT Last Filed Vital Signs Vital Sign Reading Time Taken Comments Blood Pressure 119/75 12/07/2024 8:03 AM EDT Pulse 83 12/07/2024 8:03 AM EDT Temperature 37.6 C (99.6 F) 12/07/2024 8:03 AM EDT Respiratory Rate 16 12/07/2024 8:03 AM EDT Oxygen Saturation 94% 12/07/2024 8:03 AM EDT Inhaled Oxygen Concentration - - Weight 82.8 kg (182 lb 8.7 oz) 10/31/2024 7:26 P M EST Height 185.4 cm (6' 1 ) 10/31/2024 7:26 PM EST Body Mass Index 24.08 10/31/2024 7:26 PM EST Plan of Treatment Upcoming Encounters Date Type Department Care Team (Late st Contact Info) Description 2025 8:00 AM EDT [facility] [address] [place] [address] Kole Mclaughlin MD [address] [place] [address] 08/09/2025 11:40 AM EST Office Visit [facility] [place] [address], [address] [place] [address] Sara Cardenas MD [address] [place] [address] Health Maintenance Due Date Last Done Comments Dental X-Ray: Bitewings 1940 Dental X-Ray: Full Mouth 1939 Diabetes: Dental Exam 1949 [facility]-Hepatitis A Vaccines (1 of 2 - Risk 2-dose series) 1958 [facility]-RSV Vaccine: 60+ Years or (1 - 1-dose 75+ series) 2014 Dental Oral Exam 12/26/2023 06/25/2023 Dental Prophylaxis 12/26/2023 06/25/2023 [facility]-Bone Density Scan 04/03/2024 04/03/2023, 023 [id number] Vaccine ( - 2023- season) 2024 06/24/2023, 12/14/2020, 11/16/2020 [facility]-DTaP,Tdap,and Td Vaccines (3 - Td or Tdap) 06/02/2024 06/02/2014, 04/17/2011, 04/17/2011 [facility]-Diabetes: Hemoglobin A1C 01/30/2025 10/31/2024, 09/03/2024, 05/21/2024, Additional history exists [facility]-Infant/Child/Adol SDOH Screenings 04/27/2025 10/28/2024 [facility]- SDOH Screenings 05/02/2025 [facility]-Adult SDOH Screenings 05/02/2025 11/02/2024 [facility]-Depression Screening 10/28/2025 10/28/2024, 09/17 [facility]-Pneumococcal Vaccine: 50+ Years Completed 12/02/2014, 08/29/2010, 05/20/2007, Additional history exists [facility]-Zoster Vaccines Completed 05/01/2024, [facility]-Influenza Vaccine Completed 05/21/2024 , 06/03/2023, 07/10/2022, Additional history exists HPV Vaccines Aged Out No longer eligi ble based on patient's age to complete this topic [facility]-HIB Vaccines Aged Out No longer e ligible based on patient's age to complete this topic [facility]-IPV Vaccines Aged Out No longer e ligible based on patient's age to complete this topic [facility]-Rotavirus Vaccines Aged Out No lo nger eligible based on patient's age to complete this topic Procedures Procedure Name Priority Date/Time Associated Diagnosis Comments POCT GLUCOSE METER UNSOLICITED RESULTS Routine 12/07/2024 8:02 AM EDT PHOSPHORUS, PLASMA Timed 12/07/2024 4: 19 AM EDT MAGNESIUM, PLASMA Timed 12/07/2024 4:1 9 AM EDT COMPREHENSIVE METABOLIC PANEL, PLASMA Timed 12/07/2024 4:19 AM EDT CBC W/O DIFFERENTIAL Timed 12/07/2024 4:19 AM EDT POCT GLUCOSE METER UNSOLICITED RESULTS Routine 12/07/2024 4:15 AM EDT POCT GLUCOSE METER UNSOLICITED RESULTS Routine 12/06/2024 8:24 PM EDT POCT GLUCOSE METER UNSOLICITED RESULTS Routine 12/06/2024 5:01 PM EDT POCT GLUCOSE METER UNSOLICITED RESULTS Routine 12/06/2024 12:06 PM EDT POCT GLUCOSE METER UNSOLICITED RESULTS Routine 12/06/2024 8:01 AM EDT POCT GLUCOSE METER UNSOLICITED RESULTS Routine 12/05/2024 8:29 PM EDT POCT GLUCOSE METER UNSOLICITED RESULTS Routine 12/05/2024 4:55 PM EDT POCT GLUCOSE METER UNSOLICITED RESULTS Routine 12/05/2024 11:21 AM EDT POCT GLUCOSE METER UNSOLICITED RESULTS Routine 12/05/2024 7:27 AM EDT POCT GLUCOSE METER UNSOLICITED RESULTS Routine 12/04/2024 8:11 PM EDT POCT GLUCOSE METER UNSOLICITED RESULTS Routine 12/04/2024 4:48 PM EDT POCT GLUCOSE METER UNSOLICITED RESULTS Routine 12/04/2024 11:56 AM EDT POCT GLUCOSE METER UNSOLICITED RESULTS Routine 12/04/2024 10:16 AM EDT POCT GLUCOSE METER UNSOLICITED RESULTS Routine 12/04/2024 7:52 AM EDT POCT GLUCOSE METER UNSOLICITED RESULTS Routine 12/03/2024 8:35 PM EDT POCT GLUCOSE METER UNSOLICITED RESULTS Routine 12/03/2024 4:51 PM EDT POCT GLUCOSE METER UNSOLICITED RESULTS Routine 12/03/2024 11:45 AM EDT POCT GLUCOSE METER UNSOLICITED RESULTS Routine 12/03/2024 9:43 AM EDT POCT GLUCOSE METER UNSOLICITED RESULTS Routine 12/03/2024 8:13 AM EDT PHOSPHORUS, PLASMA Timed 12/03/2024 5: 51 AM EDT MAGNESIUM, PLASMA Timed 12/03/2024 5:5 1 AM EDT COMPREHENSIVE METABOLIC PANEL, PLASMA Timed 12/03/2024 5:51 AM EDT CBC W/O DIFFERENTIAL Timed 12/03/2024 5:51 AM EDT POCT GLUCOSE METER UNSOLICITED RESULTS Routine 12/02/2024 8:12 PM EDT POCT GLUCOSE METER UNSOLICITED RESULTS Routine 12/02/2024 4:54 PM EDT POCT GLUCOSE METER UNSOLICITED RESULTS Routine 12/02/2024 11:38 AM EDT POCT GLUCOSE METER UNSOLICITED RESULTS Routine 12/02/2024 7:14 AM EDT POCT GLUCOSE METER UNSOLICITED RESULTS Routine 12/01/2024 8:24 PM EDT POCT GLUCOSE METER UNSOLICITED RESULTS Routine 12/01/2024 5:29 PM EDT POCT GLUCOSE METER UNSOLICITED RESULTS Routine 12/01/2024 12:16 PM EDT POCT GLUCOSE METER UNSOLICITED RESULTS Routine 12/01/2024 8:05 AM EDT POCT GLUCOSE METER UNSOLICITED RESULTS Routine 11/30/2024 8:30 PM EDT POCT GLUCOSE METER UNSOLICITED RESULTS Routine 11/30/2024 5:28 PM EDT POCT GLUCOSE METER UNSOLICITED RESULTS Routine 11/30/2024 12:07 PM EDT POCT GLUCOSE METER UNSOLICITED RESULTS Routine 11/30/2024 7:42 AM EDT PHOSPHORUS, PLASMA Timed 11/30/2024 7: 42 AM EDT MAGNESIUM, PLASMA Timed 11/30/2024 7:4 2 AM EDT COMPREHENSIVE METABOLIC PANEL, PLASMA Timed 11/30/2024 7:42 AM EDT CBC W/O DIFFERENTIAL Timed 11/30/2024 7:42 AM EDT POCT GLUCOSE METER UNSOLICITED RESULTS Routine 11/29/2024 8:05 PM EDT POCT GLUCOSE METER UNSOLICITED RESULTS Routine 11/29/2024 5:19 PM EDT POCT GLUCOSE METER UNSOLICITED RESULTS Routine 11/29/2024 12:04 PM EDT POCT GLUCOSE METER UNSOLICITED RESULTS Routine 11/29/2024 8:02 AM EDT POCT GLUCOSE METER UNSOLICITED RESULTS Routine 11/28/2024 10:05 PM EDT POCT GLUCOSE METER UNSOLICITED RESULTS Routine 11/28/2024 6:56 PM EDT POCT GLUCOSE METER UNSOLICITED RESULTS Routine 11/28/2024 5:17 PM EDT POCT GLUCOSE METER UNSOLICITED RESULTS Routine 11/28/2024 11:52 AM EDT POCT GLUCOSE METER UNSOLICITED RESULTS Routine 11/28/2024 7:41 AM EDT POCT GLUCOSE METER UNSOLICITED RESULTS Routine 11/27/2024 9:18 PM EDT POCT GLUCOSE METER UNSOLICITED RESULTS Routine 11/27/2024 4:54 PM EDT POCT GLUCOSE METER UNSOLICITED RESULTS Routine 11/27/2024 12:13 PM EDT POCT GLUCOSE METER UNSOLICITED RESULTS Routine 11/27/2024 8:12 AM EDT POCT GLUCOSE METER UNSOLICITED RESULTS Routine 11/26/2024 8:23 PM EDT POCT GLUCOSE METER UNSOLICITED RESULTS Routine 11/26/2024 5:37 PM EDT POCT GLUCOSE METER UNSOLICITED RESULTS Routine 11/26/2024 11:56 AM EDT POCT GLUCOSE METER UNSOLICITED RESULTS Routine 11/26/2024 7:47 AM EDT PHOSPHORUS, PLASMA Timed 11/26/2024 5: 04 AM EDT MAGNESIUM, PLASMA Timed 11/26/2024 5:0 4 AM EDT COMPREHENSIVE METABOLIC PANEL, PLASMA Timed 11/26/2024 5:04 AM EDT CBC W/O DIFFERENTIAL Timed 11/26/2024 5:04 AM EDT POCT GLUCOSE METER UNSOLICITED RESULTS Routine 11/25/2024 7:37 PM EDT POCT GLUCOSE METER UNSOLICITED RESULTS Routine 11/25/2024 5:41 PM EDT POCT GLUCOSE METER UNSOLICITED RESULTS Routine 11/25/2024 11:42 AM EDT POCT GLUCOSE METER UNSOLICITED RESULTS Routine 11/25/2024 8:18 AM EDT POCT GLUCOSE METER UNSOLICITED RESULTS Routine 11/24/2024 8:33 PM EDT POCT GLUCOSE METER UNSOLICITED RESULTS Routine 11/24/2024 5:15 PM EDT POCT GLUCOSE METER UNSOLICITED RESULTS Routine 11/24/2024 11:43 AM EDT POCT GLUCOSE METER UNSOLICITED RESULTS Routine 11/24/2024 8:07 AM EDT POCT GLUCOSE METER UNSOLICITED RESULTS Routine 11/23/2024 7:56 PM EDT POCT GLUCOSE METER UNSOLICITED RESULTS Routine 11/23/2024 5:22 PM EDT POCT GLUCOSE METER UNSOLICITED RESULTS Routine 11/23/2024 12:04 PM EDT POCT GLUCOSE METER UNSOLICITED RESULTS Routine 11/23/2024 7:47 AM EDT PHOSPHORUS, PLASMA Timed 11/23/2024 4: 37 AM EDT MAGNESIUM, PLASMA Timed 11/23/2024 4:3 7 AM EDT COMPREHENSIVE METABOLIC PANEL, PLASMA Timed 11/23/2024 4:37 AM EDT CBC W/O DIFFERENTIAL Timed 11/23/2024 4:37 AM EDT POCT GLUCOSE METER UNSOLICITED RESULTS Routine 11/22/2024 7:39 PM EDT POCT GLUCOSE METER UNSOLICITED RESULTS Routine 11/22/2024 5:07 PM EDT POCT GLUCOSE METER UNSOLICITED RESULTS Routine 11/22/2024 11:44 AM EDT POCT GLUCOSE METER UNSOLICITED RESULTS Routine 11/22/2024 8:13 AM EDT POCT GLUCOSE METER UNSOLICITED RESULTS Routine 11/22/2024 1:39 AM EST POCT GLUCOSE METER UNSOLICITED RESULTS Routine 11/21/2024 8:16 PM EST POCT GLUCOSE METER UNSOLICITED RESULTS Routine 11/21/2024 5:10 PM EST POCT GLUCOSE METER UNSOLICITED RESULTS Routine 11/21/2024 11:55 AM EST POCT GLUCOSE METER UNSOLICITED RESULTS Routine 11/21/2024 7:53 AM EST POCT GLUCOSE METER UNSOLICITED RESULTS Routine 11/21/2024 3:13 AM EST POCT GLUCOSE METER UNSOLICITED RESULTS Routine 11/20/2024 8:29 PM EST POCT GLUCOSE METER UNSOLICITED RESULTS Routine 11/20/2024 5:09 PM EST POCT GLUCOSE METER UNSOLICITED RESULTS Routine 11/20/2024 1:37 PM EST POCT GLUCOSE METER UNSOLICITED RESULTS Routine 11/20/2024 8:31 AM EST POCT GLUCOSE METER UNSOLICITED RESULTS Routine 11/19/2024 7:41 PM EST POCT GLUCOSE METER UNSOLICITED RESULTS Routine 11/19/2024 5:02 PM EST POCT GLUCOSE METER UNSOLICITED RESULTS Routine 11/19/2024 11:55 AM EST POCT GLUCOSE METER UNSOLICITED RESULTS Routine 11/19/2024 7:52 AM EST PHOSPHORUS, PLASMA Timed 11/19/2024 5: 34 AM EST MAGNESIUM, PLASMA Timed 11/19/2024 5:3 4 AM EST COMPREHENSIVE METABOLIC PANEL, PLASMA Timed 11/19/2024 5:34 AM EST CBC W/O DIFFERENTIAL Timed 11/19/2024 5:34 AM EST HEMOGLOBIN A1C Add-On 10/31/2024 3:58 PM EST PROPHYLAXIS - ADULT Routine 06/25/2023 9 :00 AM EDT Dental calculus COMPREHENSIVE ORAL EVALUATION - NEW OR ESTABLISHED PATIENT Routine 06/25/2023 9:00 AM EDT Encounter for dental examination from Last 3 Months or Most Recently Relevant to Health Maintenance Results * (ABNORMAL) POCT glucose meter (12/07/2024 8:02 AM EDT) Only the most recent of79 resultswithin the time period is included. [facility] POCT Glucose 113(H) 74 - 99 mg/dL 12/07/2024 8:07 AM EDT [facility] Comment:Accuracy of a glucos e result obtained from a capillary whole blood specimen relies upon adequate, non-compromised capillary blood flow. If the capillary glucose result is not consistent with the patient's clinical signs and symptoms, glucose testing should be repeated with either an arterial or venous sample on the glucometer or sent to the main labortory for testing. Comment 12/07/2024 8:07 AM EDT [facility] Data Lead ID Priya Black 12/07/2024 8:07 AM EDT [facility] Device ID [id number] 12/07/2024 8:07 AM EDT [facility]ALTH[facility] Specimen Type POC Capillary 12/07/2024 8:07 AM EDT [facility] Blood Capillary blood specimen / Unknown 12/07/2024 8:02 AM EDT 12/07/2024 8:07 AM EDT Angela Mak MD LAB POINT OF CARE TE ST DOCKED DEVICE UNSOLICITED RESULTS Final Result Performing Organization Address City/State/[facility] Co de Phone Number [facility] [address] [place] [phone] * (ABNORMAL) CBC W/O Differential (12/07/2024 4:19 AM EDT) Only the most recent of6 resultswithin the time period is included. WBC Count 3.31(L) 3.70 - 10.30 10*3/uL LAB HEMATOLOGY METHOD 12/07/2024 4:29 AM EDT [facility] RBC Count 3.70(L) 4.60 - 6.10 10*6/uL LAB HEMATOLOGY METHOD 12/07/2024 4:29 AM EDT [facility] HGB 11.6(L) 13.7 - 17.5 g/dL LAB HEMATOLOGY METHOD 12/07/2024 4:29 AM EDT [facility] HCT 34.7(L) 40.0 - 51.0 % LAB HEMATOLOGY METHOD 12/07/2024 4:29 AM EDT [facility] Platelet Count 181 155 - 369 10*3/uL LAB HEMATOLOGY METHOD 12/07/2024 4:29 AM EDT [facility] MCV 94 79 - 98 fL LAB HEMATOLOGY METHOD 12/07/2024 4:29 AM EDT [facility] MCH 31.4 26.0 - 32.0 pg LAB HEMATOLOGY METHOD 12/07/2024 4:29 AM EDT [facility] MCHC 33.4 30.7 - 35.5 g/dL LAB HEMATOLOGY METHOD 12/07/2024 4:29 AM EDT [facility] RDW 12.9 11.5 - 14.5 % LAB HEMATOLOGY METHOD 12/07/2024 4:29 AM EDT [facility] MPV 8.9 8.8 - 12.5 fL LAB HEMATOLOGY METHOD 12/07/2024 4:29 AM EDT [facility] nRBC 0.0 <=0.0 per 100 WBCs LAB HEMATOLOGY METHOD 12/07/2024 4:29 AM EDT [facility] Blood Venous blood specimen / Unknown Venipuncture / Unknown 12/07/2024 4:19 AM EDT 12/07/2024 4:24 AM EDT us Alyse Serrato MD LAB BLOOD ORDERABLES Final Resu lt [facility] [address] [place] [address] * Phosphorus, Plasma (12/07/2024 4:19 AM EDT) Only the most recent of6 resultswithin the time period is included. Phosphorus, Plasma 2.8 2.5 - 4.5 mg/dL 12/07/2024 4:51 AM EDT [facility] Blood Venous blood specimen / Unknown Venipuncture / Unknown 12/07/2024 4:19 AM EDT 12/07/2024 4:24 AM EDT us Alyse Serrato MD LAB BLOOD ORDERABLES Final Resu lt Performing Organization Address [facility] Co de Phone Number [facility] [address] [place] [address] * Magnesium, Plasma (12/07/2024 4:19 AM EDT) Only the most recent of6 resultswithin the time period is included. Magnesium, Plasma 2.0 1.9 - 2.4 mg/dL 12/07/2024 4:51 AM EDT [facility] Blood Venous blood specimen / Unknown Venipuncture / Unknown 12/07/2024 4:19 AM EDT 12/07/2024 4:24 AM EDT us Alyse Serrato MD LAB BLOOD ORDERABLES Final Resu Performing Organization Address [facility] de Phone Number [facility]ALTH[facility]ARE [facility] [address] [place] [address] * (ABNORMAL) Comprehensive Metabolic Panel, Plasma (12/07/2024 4:19 AM EDT) Only the most recent of6 resultswithin the time period is included. Glucose, Plasma 129(H) 74 - 99 mg/dL 12/07/2024 4:51 AM EDT [facility] BUN, Plasma 15 8 - 23 mg/dL 12/07/2024 4:51 AM EDT [facility] Creatinine, Plasma 0.80 0.70 - 1.20 mg/dL 12/07/2024 4:51 AM EDT [facility] BUN/Creatinine Ratio 19 12/07/2024 4:51 AM EDT [facility] Sodium, Plasma 137 136 - 145 mmol/L 12/07/2024 4:51 AM EDT [facility] Potassium, Plasma 3.8 3.6 - 4.9 mmol/L 12/07/2024 4:51 AM EDT [facility] Chloride, Plasma 103 97 - 107 mmol/L 12/07/2024 4:51 AM EDT [facility] CO2, Plasma 24 22 - 29 mmol/L 12/07/2024 4:51 AM EDT [facility] Anion Gap 10 6 - 16 mmol/L 12/07/2024 4:51 AM EDT [facility] Total Calcium, Plasma 8.6(L) 8.9 - 10.2 mg/dL 12/07/2024 4:51 AM EDT [facility] Total Protein 6.1(L) 6.3 - 7.9 g/dL 12/07/2024 4:51 AM EDT [facility] Albumin, Plasma 3.4(L) 3.5 - 5.2 g/dL 12/07/2024 4:51 AM EDT [facility] AST, Plasma 34 10 - 50 U/L 12/07/2024 4:51 AM EDT [facility] ALT, Plasma 51(H) 10 - 50 U/L 12/07/2024 4:51 AM EDT [facility] Alkaline Phosphatase, Plasma 76 40 - 115 U/L 12/07/2024 4:51 AM EDT [facility] Total Bilirubin, Plasma 0.3 0.2 - 1.1 mg/dL 12/07/2024 4:51 AM EDT [facility] eGFRcr 86.7 mL/min/1.7 3m*2 12/07/2024 4:51 AM EDT [facility] Comment:Reported eGFRcr in m L/min/1.73m2 is based the CKD-EPI 2020 equation that does not use a race coefficient. Blood Venous blood specimen / Unknown Venipuncture / Unknown 12/07/2024 4:19 AM EDT 12/07/2024 4:24 AM EDT us Alyse Serrato MD LAB BLOOD ORDERABLES Final Resu lt [facility] [address] [place] [address] * (ABNORMAL) Hemoglobin A1c (10/31/2024 3:58 PM EST) Hemoglobin A1c 8.3(H) <5.7 % 11/01/2024 4:17 PM EST [facility] Blood Venous blood specimen / Unknown Venipuncture / Unknown 10/31/2024 3:58 PM EST 10/31/2024 4:12 PM EST Narrative [facility] - 11/01/2024 4:17 PM EST HA1C Interpretive Data: Diagnosis of Diabetes: Diabetic > or = 6.5% Pre-diabetic 5.7 to 6.4% Non-diabetic < or = 5.6% Glycemic Targets for Type I and Type II Diabetics: Non- Adults <7.0% Adults <6.0% Children and Adolescents <7.5% Source: [place] [employer]. Standards of medical care in diabetes,2017. Diabetes Care.2017:40 (suppl 1):S1-S135. HbA1c assay performed by an ion-exchange chromatography method that is certified traceable to the DCCT. us Sonam Parker MD LAB BLOOD ORDERABLES Final Res ult [facility] [address] [place] [address] from Last 3 Months or Most Recently Relevant to Health Maintenance Insurance MEDICAID [id number] [place] Advance Directives * Full Code (Latest Code Status on File) Date Activated Date Inactivated Comments 10/31/2024 5:35 PM 12/07/2024 1:15 PM Question Answer Comments Patient has decision-making capacity? Yes * Full Code Date Activated Date Inactivated Comments 10/28/2024 7:56 PM 10/30/2024 8:12 PM Interpeter [phone] [id number] Question Answer Comments Patient has decision-making capacity? Yes Care Teams Service Architect Relationship Specialty Start Date End Date Eyad Madrid MD [address] [place] [address] PCP - General Family Medicine 12/26/23
--- OUTSIDE RECORDS SUMMARY | 2025-02-19 12:47 | XMS_ITS | Encounter Summary ---
Author Organization [facility] Address [address] [place] [address] Care Team Providers Care Electrical Repairer Name Role Phone Herbert Beejc Lei DMD Unavailable [phone] Eyad Madrid MD Primary Care Provider [phone] Declan Santiago Unavailable Unavailable Encounter Details Date Type Department Care Team (Late st Contact Info) Description 01/06/2025 Telephone [facility] [address], [address] [place] [address] Eyad Madrid MD [address] [place] [address] Social History Tobacco Use Types Packs/Day Years [...] place to sleep or slept in a alf (including now)? No 11/08/2023 PHQ-9 Answer Date [...] were you homeless or living in a alf (including now)? No 11/02/2024 Safety and Environment [...] Recorded In the past 12 months has th e [employer], gas, oil, or water [employer] threatened to shut off services in your [...] encounter Miscellaneous Notes * Telephone Encounter - Ivon Paul - 01/07/2025 9:55 AM EDT Returned call to patient's using a [employer] toddler nanny. Telephone connection was poor and conversation was difficult. states patient is in critical condition then requests to call back later when she isn't driving. ER precautions provided to patient. Patient verbalized understanding. * Telephone Encounter - Tejal Montez - 01/06/2025 2:04 PM EDT Patient Phone Message Reason for Call: Patient was discharged from [place] [address] to [facility]. is seeking a call back to [facility] base on his medical condition. She states his health is declining. speaks some Moroccan butstates she may need a Macedonian toddler nanny when the clinical staff calls her back. Thank you! Best contact number and optimal time of day to reach caller: [phone] Note: Please do not reply to this [...] Description 2025 8:00 AM EDT [facility] Visit [facility] [address] [place] [address] Kole Mclaughlin MD [address] [place] [address] 08/09/2025 11:40 AM EST Office Visit [facility] [place] [address] [facility], [address] [place] [address] Sara Cardenas MD [address] [place] [address] documented as of this encounter [...] documented as of this encounter Care Teams Electrical Repairer Relationship Specialty Start Date End Date Eyad Madrid MD [address] [place] [address] PCP - General Family Medicine 12/26/23 Lidia Bee DMD [address] [address] Dentist 07/04/23 01/31/25 Declan Santiago Dental Student Dental Casting House Worker 01/07/24 01/31/25 documented as of this encounter
--- OUTSIDE RECORDS SUMMARY | 2025-02-19 12:47 | XMS_ITS ---
Author Organization [facility] Address [address] [place] [address] Care Team Providers Care Putty Glazer Name Role Phone Eyad Madrid MD Primary Care Provider [phone] Active Problems Problem Noted Date Diagnosed Date [...] unspecified eye 06/06/2023 Primary osteoarthritis, right shoulder Right shoulder pain 06/06/2023 Unsteadiness on feet 06/06/2023 Left anterior fascicular block 05/29/2023 Tinea unguium 04/18/2023 Snoring 04/10/2023 Unspecified atrial fibrillation 04/10/2023 Coronary artery disease invo lving [place] coronary artery of [place] heart 03/27/2023 PAC (premature atrial contraction) 03/27/2023 [...] site 09/2022 Chronic kidney disease, unspecified 09/16/2021 Current Treatment and Therapy Plans No current plan information found. Past Treatment and Therapy Plans No past plan information found. Lifetime Dose Tracking * Chemical Lifetime Dose Automatic Entry Manual Entr y Fluoro Time 2.43 minutes 2.43 minutes 0 minutes Air Kerma 100 mGy 100 mGy 0 mGy Resolved Problems Problem Noted Date Diagnosed Date Resolved Date Hypophosphatemia 11/03/2024 12/07/2024 Falls, initial encounter 10/28/2024
--- OUTSIDE RECORDS SUMMARY | 2025-02-19 12:47 | XMS_ITS | Encounter Summary ---
Author Organization [facility] Address [address] [place] [address] Care Team Providers Care Forest Products Gatherer Name Role Phone Lidia Bee Quique DMD Unavailable [phone] Eyad Madrid MD Primary Care Provider [phone] Declan Santiago Unavailable Unavailable Reason for Visit * Reason Onset Date Comments HCN - Patient Message 01/07/2025 Anorexia 01/07/2025 Encounter Details Date Type Department Care Team (Late st Contact Info) Description 01/07/2025 Nurse Triage [address], [address] [place] [address] Eyad Madrid MD [address] [place] [id number] Social History Tobacco Use Types Packs/Day Years [...] place to sleep or slept in a jail (including now)? No 11/08/2023 PHQ-9 Answer Date [...] any time in the past 12 m [facility], were you homeless or living in a jail (including now)? No 11/02/2024 Safety and Environment [...] Recorded In the past 12 months has [employer], gas, oil, or water company threatened to [...] encounter Miscellaneous Notes * Telephone Encounter - Sherrell Baca RN - 01/13/2025 7:50 AM EDT Response was received by PCP. PCP aware of concerns and will follow patient. * Telephone Encounter - Ivon Paul - 01/08/2025 1:57 PM EDT Patient Verification Patient identity has been confirmed using name and date of ? Yes called clinic and I spoke with her. She voiced concerns about patient declining at his assisted living facility. She states that patient has not been eating, is losing weight and is not speaking. She wants patient to be transferred to an ER for evaluation, however states the assisted living staff as well as patient personally is refusing to fulfill this request. I informed of our recommendation for patient to be evaluated in the ER per protocol, but also advised her of patient's rightto refuse. I mentioned to her that I would call and speak with nurse at assisted living facility and inform her of our recommendations. I did so and the RN I spoke with voiced that patient has had ongoing issues with being a picky eater, and having trouble swallowing his medications, however he has been communicating with their staff as well as the covering physician at the facility. Nurse confirms that there has been no significant change in patient's condition from their perspective that would warrant admission. I advised the RN of the conversation I had with patient's and she plans to call patient's daughter to further discuss. I advised during earlier conversation I would beforwarding my documentation to patient's [facility] PCP for their review and advice. Will follow up with her in the event of any further changes or recommendations to plan of care. She verbalized understanding and is agreeable. Main symptom/problem/concern: not eating, weight loss, not speaking Other symptoms: no Start time/date: several days Duration/how long: ongoing Any medication or treatment for this problem: no Been seen for problem: no Getting better or worse: worse, per . No significant changes, per nurse at facility. Reason for Disposition Nursing judgment Protocols used: No Protocol Available - Sick Adult-A-[place] * Telephone Encounter - Chrissy Trimble - 01/08/2025 1:24 PM EDT Clinical Concern/Question Reason for Call: Patient's calling back, requesting someone to call her today. States she did not get a phone call back yesterday. She has concerns about patient, she is unable to care for him. Best contact number: [phone] (home) Optimal time of day to reach caller: ANYTIME Additional comments/information from caller: None Note: Please do not reply to this message. Follow-up communication and further actions as a result of this message need to be communicated with the patient directly, if the patient is not active onMyChart. If the patient is active on MyChart, they will receive notification of the communication/outcome via [employer]. * Telephone Encounter - Chrissy Trimble - 01/07/2025 2:23 PM EDT Status Update Call #1 1st call regarding the status of the initial request. Best contact number: [phone] (home) Optimal time of day to reach caller: ANYTIME Additional comments/information from caller: Patient's calling back. States she was speaking with someone earlier and had to call back. Please call again. Note: Please do not reply to this message. Follow-up communication and further actions as a result of this message need to be communicated with the patient directly, if the patient is not active onMyChart. If the patient is active on MyChart, they will receive notification of the communication/outcome via MyChart. * Telephone Encounter - Payton Arreola - 01/07/2025 11:17 AM EDT Clinical Concern/Question Reason for Call: Pt returning call from clinic, is requesting a call back. Please advise. Best contact number: [phone] (home) Optimal time of day to reach caller: ANYTIME Additional comments/information from caller: None Note: Please do not reply to this message. Follow-up communication and further actions as a result of this message need to be communicated with the patient directly, if the patient is not active onMyChart. If the patient is active on MyChart, they will receive notification of the communication/outcome via [employer]. documented in this encounter Plan of Treatment Upcoming Encounters Date Type Department Care Team (Late st Contact Info) Description 2025 8:00 AM EDT [facility] Visit [facility] [address], [address] [place] [address] Kole Mclaughlin MD [address] [place] [phone] 08/09/2025 11:40 AM EST Office Visit [facility] [place] [address], [address] [place] [address] Sara Cardenas MD [address] [place] [address] documented as of this encounter [...] documented as of this encounter Care Teams Forest Products Gatherer Relationship Specialty Start Date End Date Eyad Madrid MD [address] [place] [address] PCP - General Family Medicine 12/26/23 Lidia Bee DMD [address] [place] [address] Dentist 07/04/23 01/31/25 Declan Santiago Dental Student Dental Shop And Alteration Tailor 01/07/24 01/31/25 documented as of this encounter
--- OUTSIDE RECORDS SUMMARY | 2025-02-19 12:47 | XMS_ITS | Encounter Summary ---
Author Organization [facility] Address [address] [place] [address] Care Team Providers Care Retail Buyer Name Role Phone Shrutibritni Lidia Lei DMD Unavailable [phone] Eyad Madrid MD Primary Care Provider [phone] Declan Santiago Unavailable Unavailable Encounter Details Date Type Department Care Team (Late st Contact Info) Description 01/04/2025 Telephone Radiology Virtual Dept. [address] [place] [address] Di Thao Social History Tobacco Use Types Packs/Day Years [...] place to sleep or slept in a care home (including now)? No 11/08/2023 PHQ-9 Answer Date [...] any time in the past 12 m [facility], were you homeless or living in a care home (including now)? No 11/02/2024 Safety and Environment [...] Visit [place] [facility] [address] [place] [address] Kole Mclaughlin MD [address] [place] [address] 08/09/2025 11:40 AM EST Office Visit [facility] [place] [address] [facility], [address] [place] [address] Sara Cardenas MD [address] [facility] [address] [place] [address] documented as of this encounter Visit Diagnoses Not on filedocumented in this encounter Additional Health Concerns Assessment Noted Time PHQ-9 Depression Total Score: 0 10/08/19 25 11:36 AM EST A fall risk assessment has been complete d for the patient 10/28/2024 10:14 AM EST A Body Mass Index follow-up plan has been documented for the patient 12/07/2024 8:22 AM EDT documented as of this encounter Care Teams Retail Buyer Relationship Specialty Start Date End Date Eyad Madrid MD [address] [place] [address] PCP - General Family Medicine 12/26/23 Lidia Bee DMD [address] [address] Dentist 07/04/23 01/31/25 Declan Santiago Dental Student Dental Car Dryer 01/07/24 01/31/25 documented as of this encounter
== END 2025-02-19 23:59 | disposition home or self-care (01) ==
LOC: LAB.DROPOF 12:45
PROVIDERS: PCP Internal Medicine Adolescent Medicine; Visit Provider Nurse Practitioner Family
DX: L89.610 Pressure ulcer of right heel, unstageable (principal)
CPT/HCPCS: 87070; 87077; 87205

== ENCOUNTER 2025-02-22 12:48 | Outpatient (CLI) | payer MEDICAID, SELFPAY ==
--- OUTSIDE RECORDS SUMMARY | 2025-02-22 12:54 | XMS_ITS | Clinical Summary ---
Author Organization [facility] Address [address] [place] [address] Care Team Providers Care Cctv Technician Name Role Phone Eyad Madrid MD Primary Care Provider [phone] Allergies Active Allergy Reactions Criticality Noted Date [...] 3 4 Active Insulin Pen Needle (Pen [place]) 32G X 5 MM misc 1 each [...] fibrillation 04/10/2023 Coronary artery disease invo lving [place] coronary artery of [place] heart 03/27/2023 PAC (premature atrial contraction) 03/27/2023 [...] Department Care Team Description 01/07/2025 Nurse Triage [facility] [address], [address] [place] [address] Eyad Madrid MD 01/06/2025 Telephone [facility] [address], [address] [place] [address] Eyad Madrid MD 01/04/2025 Telephone Radiology Virtual Dept. [address] [place] [address] Di Thao 12/17/2024 Patient Outreach [facility] [address], [address]nd [place] [address] Jasper Vivar 12/07/2024 Telephone [facility] [address], 1st [place] [address] Dave Whitehead MD 12/07/2024 Travel 12/01/2024 Telephone [facility] [address] [place] [address] Edmundo Denny DO HCN - Patient Message 11/30/2024 Telephone [facility] Diabetes Education [address] [place] [address] Blanca James APRN HCN - Patient Message 11/22/2024 Refill [facility] [address] [place] [address] Rashaad Munoz DO 10/31/2024 2:36 PM EST - 12/07/2024 11:09 AM EDT Hospital Encounter [facility]patient [address] [place] [id number] Saeid Molina MD Kale, MD Leonides Cervantes, MD Rojelio Amin, MD Nish Wilburn, MD Obdulio Mitchell, MD Radha Nunes (Primary Dx) Discharge Disposition: [facility] from Last 3 Months Immunizations Immunization [...] place to sleep or slept in a halfway (including now)? No 11/08/2023 PHQ-9 Answer Date [...] any time in the past 12 m [facility], were you homeless or living in a halfway (including now)? No 11/02/2024 Safety and Environment [...] Visit [place] [facility] [address], 1st [place] [address] Kole Mclaughlin MD [address] [place] [address] 08/09/2025 11:40 AM EST Office Visit [facility] [place] [address], [address] [place] [address] Sara Cardenas MD [address] [place] [address] Health Maintenance Due Date Last Done Comments Dental X-Ray: Bitewings 1940 Dental X-Ray: Full Mouth 1939 Diabetes: Dental Exam 1949 [facility]-Hepatitis A Vaccines (1 of 2 - Risk 2-dose series) 1958 [facility]-RSV Vaccine: 60+ Years or (1 - 1-dose 75+ series) 2014 Dental Oral Exam 12/26/2023 06/25/2023 Dental Prophylaxis 12/26/2023 06/25/2023 [facility]-Bone Density Scan 04/03/2024 04/03/2023, 023 [id number] Vaccine ( - 2023- season) 2024 06/24/2023, [...] UNSOLICITED RESULTS Routine 11/22/2024 1:39 AM EST HEMOGLOBIN A1C Add-On 10/31/2024 3:58 PM EST PROPHYLAXIS - ADULT Routine 06/25/2023 9 :00 AM EDT Dental calculus COMPREHENSIVE ORAL EVALUATION - NEW OR ESTABLISHED PATIENT Routine 06/25/2023 9:00 AM EDT Encounter for dental examination from Last 3 Months or Most Recently Relevant to Health Maintenance Results * (ABNORMAL) POCT glucose meter (12/07/2024 8:02 AM EDT) Only the most recent of66 resultswithin the time period is included. Pathologist [facility] POCT Glucose 113(H) 74 - 99 mg/dL [...] Comment 12/07/2024 8:07 AM EDT [facility]ARE [facility] Assistance Representative ID Priya Black 12/07/2024 8:07 AM EDT HEALTHCARE LAB Device ID [id number] 12/07/2024 8:07 AM EDT [facility] Specimen Type POC Capillary 12/07/2024 8:07 AM EDT [facility] Blood Capillary blood specimen / Unknown 12/07/2024 8:02 AM EDT 12/07/2024 8:07 AM EDT Angela Mak MD LAB POINT OF CARE TE ST DOCKED DEVICE UNSOLICITED RESULTS Final Result Performing Organization Address City/State/[facility] Co de Phone Number HEALTHCARE LAB [address] [place] [address] * (ABNORMAL) CBC W/O Differential (12/07/2024 4:19 AM EDT) Only the most recent of5 resultswithin the time period is included. [facility] WBC Count 3.31(L) 3.70 - 10.30 10*3/uL LAB HEMATOLOGY METHOD 12/07/2024 4:29 AM EDT [facility] RBC Count 3.70(L) 4.60 - 6.10 10*6/uL LAB HEMATOLOGY METHOD 12/07/2024 4:29 AM EDT [facility] HGB 11.6(L) 13.7 - 17.5 g/dL LAB HEMATOLOGY METHOD 12/07/2024 4:29 AM EDT [facility] HCT 34.7(L) 40.0 - 51.0 % LAB HEMATOLOGY METHOD 12/07/2024 4:29 AM EDT [facility] Platelet Count 181 155 - 369 10*3/uL LAB HEMATOLOGY METHOD 12/07/2024 4:29 AM EDT [facility] MCV 94 79 - 98 fL LAB HEMATOLOGY METHOD 12/07/2024 4:29 AM EDT [facility] MCH 31.4 26.0 - 32.0 pg LAB HEMATOLOGY METHOD 12/07/2024 4:29 AM EDT [facility] MCHC 33.4 30.7 - 35.5 g/dL LAB HEMATOLOGY METHOD 12/07/2024 4:29 AM EDT [facility] RDW 12.9 11.5 - 14.5 % LAB HEMATOLOGY METHOD 12/07/2024 4:29 AM EDT [facility] MPV 8.9 8.8 - 12.5 fL LAB HEMATOLOGY METHOD 12/07/2024 4:29 AM EDT [facility] nRBC 0.0 <=0.0 per 100 WBCs LAB HEMATOLOGY METHOD 12/07/2024 4:29 AM EDT [facility] Blood Venous blood specimen / Unknown Venipuncture / Unknown 12/07/2024 4:19 AM EDT 12/07/2024 4:24 AM EDT us Alyse Serrato MD LAB BLOOD ORDERABLES Final Resu lt [facility] [address] [place] [address] * Phosphorus, Plasma (12/07/2024 4:19 AM EDT) Only the most recent of5 resultswithin the time period is included. Phosphorus, Plasma 2.8 2.5 - 4.5 mg/dL 12/07/2024 4:51 AM EDT [facility] Blood Venous blood specimen / Unknown Venipuncture / Unknown 12/07/2024 4:19 AM EDT 12/07/2024 4:24 AM EDT us Alyse Serrato MD LAB BLOOD ORDERABLES Final Resu lt Performing Organization Address City/[facility]/ZIP Co de Phone Number HEALTHCARE LAB [address] [place] [address] * Magnesium, Plasma (12/07/2024 4:19 AM EDT) Only the most recent of5 resultswithin the time period is included. [facility] Magnesium, Plasma 2.0 1.9 - 2.4 mg/dL 12/07/2024 4:51 AM EDT [facility] Blood Venous blood specimen / Unknown Venipuncture / Unknown 12/07/2024 4:19 AM EDT 12/07/2024 4:24 AM EDT Alyse Serrato MD LAB BLOOD ORDERABLES Final Resu Performing Organization Address [facility] Co de Phone Number HEALTHCARE LAB [address] [place] [address] * (ABNORMAL) Comprehensive Metabolic Panel, Plasma (12/07/2024 4:19 AM EDT) Only the most recent of5 resultswithin the time period is included. [facility] Glucose, Plasma 129(H) 74 - 99 mg/dL 12/07/2024 4:51 AM EDT [facility] BUN, Plasma 15 8 - 23 mg/dL 12/07/2024 4:51 AM EDT [facility] Creatinine, Plasma 0.80 0.70 - 1.20 mg/dL 12/07/2024 4:51 AM EDT [facility] BUN/Creatinine Ratio 19 12/07/2024 4:51 AM EDT [facility]ALTHCARE [facility] Sodium, Plasma 137 136 - 145 mmol/L 12/07/2024 4:51 AM EDT [facility] Potassium, Plasma 3.8 3.6 - 4.9 mmol/L 12/07/2024 4:51 AM EDT [facility] Chloride, Plasma 103 97 - 107 mmol/L 12/07/2024 4:51 AM EDT [facility] CO2, Plasma 24 22 - 29 mmol/L 12/07/2024 4:51 AM EDT [facility] Anion Gap 10 6 - 16 mmol/L 12/07/2024 4:51 AM EDT [facility] Total Calcium, Plasma 8.6(L) 8.9 - 10.2 mg/dL 12/07/2024 4:51 AM EDT [facility] Total Protein 6.1(L) 6.3 - 7.9 g/dL 12/07/2024 4:51 AM EDT [facility] Albumin, Plasma 3.4(L) 3.5 - 5.2 g/dL 12/07/2024 4:51 AM EDT [facility] AST, Plasma 34 10 - 50 U/L 12/07/2024 4:51 AM EDT [facility] ALT, Plasma 51(H) 10 - 50 U/L 12/07/2024 4:51 AM EDT [facility] Alkaline Phosphatase, Plasma 76 40 - 115 U/L 12/07/2024 4:51 AM EDT [facility] Total Bilirubin, Plasma 0.3 0.2 - 1.1 mg/dL 12/07/2024 4:51 AM EDT [facility] eGFRcr 86.7 mL/min/1.7 3m*2 12/07/2024 4:51 AM EDT [facility] Comment:Reported eGFRcr in m L/min/1.73m2 is based the CKD-EPI 2020 equation that does not use a race coefficient. Blood Venous blood specimen / Unknown Venipuncture / Unknown 12/07/2024 4:19 AM EDT 12/07/2024 4:24 AM EDT us Alyse Serrato MD LAB BLOOD ORDERABLES Final Resu lt [facility] [address] [place] [address] * (ABNORMAL) Hemoglobin A1c (10/31/2024 3:58 PM EST) Hemoglobin A1c 8.3(H) <5.7 % 11/01/2024 4:17 PM EST [facility] Blood Venous blood specimen / Unknown Venipuncture / Unknown 10/31/2024 3:58 PM EST 10/31/2024 4:12 PM EST Narrative [facility] - 11/01/2024 4:17 PM EST HA1C Interpretive Data: Diagnosis of Diabetes: Diabetic > or = 6.5% Pre-diabetic 5.7 to 6.4% Non-diabetic < or = 5.6% Glycemic Targets for Type I and Type II Diabetics: Non- Adults <7.0% Adults <6.0% Children and Adolescents <7.5% Source: [place] [employer]. Standards of medical care in diabetes,2017. Diabetes Care.2017:40 (suppl 1):S1-S135. HbA1c assay performed by an ion-exchange chromatography method that is certified traceable to the DCCT. us Sonam Parker MD LAB BLOOD ORDERABLES Final Res ult [facility] [address] [place] [address] from Last 3 Months or Most Recently Relevant to Health Maintenance Insurance MEDICAID [employer] [place] Advance Directives * Full Code (Latest Code Status on File) Date Activated Date Inactivated Comments 10/31/2024 5:35 PM 12/07/2024 1:15 PM Question Answer Comments Patient has decision-making capacity? Yes * Full Code Date Activated Date Inactivated Comments 10/28/2024 7:56 PM 10/30/2024 8:12 PM Interpeter [phone] Question Answer Comments Patient has decision-making capacity? Yes Care Teams Cctv Technician Relationship Specialty Start Date End Date Eyad Madrid MD [address] [place] [address] PCP - General Family Medicine 12/26/23
--- OUTSIDE RECORDS SUMMARY | 2025-02-22 12:54 | XMS_ITS | Encounter Summary ---
Author Organization [facility] Address [address] [place] [address] Care Team Providers Care Whey Department Operator Name Role Phone Lidia Bee Quique DMD Unavailable [phone] Eyad Madrid MD Primary Care Provider [phone] Declan Santiago Unavailable Unavailable Reason for Visit * Reason Onset Date Comments HCN - Patient Message 01/07/2025 Anorexia 01/07/2025 Encounter Details Date Type Department Care Team (Late st Contact Info) Description 01/07/2025 Nurse Triage [address], [address] [place] [address] Eyad Madrid MD [address] [id number] Social History Tobacco Use Types Packs/Day Years [...] place to sleep or slept in a assisted (including now)? No 11/08/2023 PHQ-9 Answer Date [...] time in the past 12 m [facility], were you homeless or living in a assisted (including now)? No 11/02/2024 Safety and Environment [...] Recorded In the past 12 months has [employer], gas, oil, or water company threatened to [...] I would beforwarding my documentation to patient's [facility] PCP for their review and advice. [...] to care for him. Best contact number: [phone] (home) Optimal time of day to reach caller: ANYTIME Additional comments/information from caller: None Note: Please do not reply to this message. Follow-up communication and further actions as a result of this message need to be communicated with the patient directly, if the patient is not active onMyChart. If the patient is active on MyChart, they will receive notification of the communication/outcome via Crediit. * Telephone Encounter - Chrissy Trimble - 01/07/2025 2:23 PM EDT Status Update Call #1 1st call regarding the status of the initial request. Best contact number: [phone] (home) Optimal time of day to reach [...] call back. Please advise. Best contact number: [phone] (home) Optimal time of day to reach caller: ANYTIME Additional comments/information from caller: None Note: Please do not reply to this message. Follow-up communication and further actions as a result of this message need to be communicated with the patient directly, if the patient is not active onMyChart. If the patient is active on MyChart, they will receive notification of the communication/outcome via [email or web address]. documented in this encounter Plan of Treatment Upcoming Encounters Date Type Department Care Team (Late st Contact Info) Description 2025 8:00 AM EDT [facility] [place] [facility] [address], 1st [place] [address] Kole Mclaughlin MD [address] [place] [address] 08/09/2025 11:40 AM EST Office Visit [facility] [place] [address], [address] [place] [address] Sara Cardenas MD [address] [place] [address] documented as of this encounter [...] documented as of this encounter Care Teams Whey Department Operator Relationship Specialty Start Date End Date Eyad Madrid MD [address] [place] [address] PCP - General Family Medicine 12/26/23 Lidia Bee DMD [address] [place] [address] Dentist 07/04/23 01/31/25 Declan Santiago Dental Student Dental [place] 01/07/24 01/31/25 documented as of this encounter
--- OUTSIDE RECORDS SUMMARY | 2025-02-22 12:54 | XMS_ITS ---
Author Organization [facility] Address [address] [place] [address] Care Team Providers Care Shorts Sifter Name Role Phone Eyad Madrid MD Primary Care Provider [phone] Active Problems Problem Noted Date Diagnosed Date [...] fibrillation 04/10/2023 Coronary artery disease invo lving [place] coronary artery of [place] heart 03/27/2023 PAC (premature atrial contraction) 03/27/2023 [...] dorsopathies, thoracic region 12/25/2022 Spinal stenosis, lumbar kitri on without neurogenic claudication 12/25/2022 Spondylolisthesis, lumbar [...]
--- OUTSIDE RECORDS SUMMARY | 2025-02-22 12:54 | XMS_ITS | Encounter Summary ---
Author Organization [facility] Address [address] [address] Care Team Providers Care Machine Hose Cutter Name Role Phone Herbert Beejc Lei DMD Unavailable [phone] Eyad Madrid MD Primary Care Provider [phone] Declan Santiago Unavailable Unavailable Encounter Details Date Type Department Care Team (Late st Contact Info) Description 12/07/2024 Telephone [place] [facility] [address] [place] [address] Dave Whitehead MD [address] [address] Social History Tobacco Use Types Packs/Day [...] Recorded In the past 12 months has [employer], gas, oil, or water company threatened [...] optimal time of day to reach caller: [phone] Note: Please do not reply to this [...] Description 2025 8:00 AM EDT Office Visit [place] [facility] [address], 1st [place] [address] Kole Mclaughlin MD [address] [address] 08/09/2025 11:40 AM EST Office Visit [facility] [place] [address], [address] [address] Sara Cardenas MD [address] [address] documented as of this encounter Visit [...] documented as of this encounter Care Teams Machine Hose Cutter Relationship Specialty Start Date End Date Eyad Madrid MD [address] [place] [address] PCP - General Family Medicine 12/26/23 Lidia Bee DMD [address] [place] [address] Dentist 07/04/23 01/31/25 Declan Santiago Dental Student Dental [employer] Supervisor 01/07/24 01/31/25 documented as of this encounter
--- OUTSIDE RECORDS SUMMARY | 2025-02-22 12:54 | XMS_ITS | Encounter Summary ---
Author Organization [facility] Address [address] [place] [address] Care Team Providers Care Top Frame Maker Name Role Phone Shrutibritni Lidia Lei DMD Unavailable [phone] Eyad Madrid MD Primary Care Provider [phone] Declan Santiago Unavailable Unavailable Encounter Details Date Type Department Care Team (Late st Contact Info) Description 01/04/2025 Telephone Radiology Virtual Dept. [address] [place] [address] Di Thao Social History Tobacco [...] place to sleep or slept in a [place] facility (including now)? No 11/08/2023 PHQ-9 Answer Date [...] were you homeless or living in a [place] (including now)? No 11/02/2024 Safety and Environment [...] Visit [place] [facility] [address], 1st [place] [address] Kole Mclaughlin MD [address] [place] [address] 08/09/2025 11:40 AM EST Office Visit [facility] [place] [address], [address] [place] [address] Sara Cardenas MD [address] [place] [address] documented as of this encounter [...] documented as of this encounter Care Teams Top Frame Maker Relationship Specialty Start Date End Date Eyad Madrid MD [address] [place] [address] PCP - General Family Medicine 12/26/23 Lidia Bee DMD [address] [address] Dentist 07/04/23 01/31/25 Declan Santiago Dental Student Dental Hat Renovator 01/07/24 01/31/25 documented as of this encounter
--- OUTSIDE RECORDS SUMMARY | 2025-02-22 12:54 | XMS_ITS | Encounter Summary ---
Author Organization [facility] Address [address] [place] [address] Care Team Providers Care Drying Can Worker Name Role Phone Isai Yenifer Aguirre APRN Primary Care Provider HourLdiia ryder DMD Primary Care Provider [phone] Dave Ward Unavailable Unavailable HourLidia ryder DMD Unavailable [phone] JazzYenifer sosa APRN Primary Care Provider Rhina Stock Unavailable Unavailable Eyad Madrid MD Primary Care Provider [phone] Declan Santiago Unavailable Unavailable Edie Francois LPN Unavailable UnavailRuthie Arnold Unavailable Unavailable Encounter Details Date Type Department Care Team (Late st Contact Info) Description 06/20/2023 Community [facility] [address] [place] [address] Caroline Silva, CONFIGURATION MANAGEMENT ARCHITECT [address] [facility] [facility] [address] [place], [place] [id number] Memory loss (Primary Dx) Social History Tobacco [...] Visit [place] [facility] [address] [place] [address] Kole Mclaughlin MD [address] [place] [address] 08/09/2025 11:40 AM EST Office Visit [facility] [place] [address], [address] [place] [address] Sara Cardenas MD [address] [place] [address] documented as of this encounter [...] documented as of this encounter Care Teams Drying Can Worker Relationship Specialty Start Date End Date Yenifer Alex APRN [address] [place] [address] PCP - General Family Medicine 01/31/23 06/24/23 Lidia Bee DMD [address] [address] PCP - General 06/25/23 07/03/23 Yenifer Alex APRN [address] [place] [address] PCP - General Family Medicine 07/04/23 12/25/23 Eyad Madrid MD [address] [place], [place] [phone] PCP - General Family Medicine 12/26/23 Dave [employer] Dental Student Dental [employer] 06/25/23 01/06/24 Lidia Bee, DMD [address] [address] Dentist 07/04/23 01/31/25 Rhina Stock Community Health Worker 11/08/23 11/19/23 Declan Santiago Dental Student Dental [employer] 01/07/24 01/31/25 Edei Francois, JONNY [facility] TCM Nurse 11/02/24 12/02/24 Ruthie Sanders [facility] [place] [address] Drawbench Operator Helper 11/03/24 11/03/24 documented as of this encounter
--- OUTSIDE RECORDS SUMMARY | 2025-02-22 12:54 | XMS_ITS | Encounter Summary ---
Author Organization [facility] Address [address] [place] [address] Care Team Providers Care Manager Garage Name Role Phone Herbert Beejc Lei DMD Unavailable [phone] Eyad Madrid MD Primary Care Provider [phone] Declan Santiago Unavailable Unavailable Encounter Details Date Type Department Care Team (Late st Contact Info) Description 01/06/2025 Telephone Replaced by [facility] [address], [address] [place] [address] Eyad Madrid MD [address] [place] [address] Social History Tobacco Use Types [...] place to sleep or slept in a senior care (including now)? No 11/08/2023 PHQ-9 Answer Date [...] were you homeless or living in a senior care (including now)? No 11/02/2024 Safety and Environment [...] the past 12 months has th e [employer], gas, oil, or water [employer] threatened to shut off services in your [...] EDT Returned call to patient's using a [employer] rail assembler. Telephone connection was poor and conversation was difficult. states patient is in critical condition then requests to call back later when she isn't driving. ER precautions provided to patient. Patient verbalized understanding. * Telephone Encounter - Tejal Montez - 01/06/2025 2:04 PM EDT Patient Phone Message Reason for Call: Patient was discharged [place] [address] to [facility]. is seeking a call back to [facility] on his medical condition. She states his health is declining. speaks some Martiniquais butstates she may need a Sammarinese rail assembler when the clinical staff calls her back. Thank you! Best contact number and optimal time of day to reach caller: [phone] Note: Please do not reply to this [...] Description 2025 8:00 AM EDT Office Visit [place] [facility] [address] [place] [address] Kole Mclaughlin MD [address] [place] [address] 08/09/2025 11:40 AM EST Office Visit [facility] [place] [address] [facility], [address] [place] [address] Sara Cardenas MD [address] [place] [address] documented as of this encounter [...] documented as of this encounter Care Teams Manager Garage Relationship Specialty Start Date End Date Eyad Madrid MD [address] [place] [address] PCP - General Family Medicine 12/26/23 Lidia Bee DMD [address] [address] Dentist 07/04/23 01/31/25 Declan Santiago Dental Student Dental Training Engineer 01/07/24 01/31/25 documented as of this encounter
--- OUTSIDE RECORDS SUMMARY | 2025-02-22 12:54 | XMS_ITS | Encounter Summary ---
Author Organization [facility] Address [address] [place] [address] Care Team Providers Care Judicial Administrative Assistant Name Role Phone Lidia Bee DMD Unavailable [phone] Eyad Madrid MD Primary Care Provider [phone] Declan Santiago Unavailable Unavailable Edie Francois LPN Unavailable Unavailabl e Reason for Visit * Reason Onset Date Comments HCN - Patient Message 12/01/2024 Encounter Details Date Type Department Care Team (Late st Contact Info) Description 12/01/2024 Telephone Physical Medicine & Rehabilitation [facility] at [facility] [address] [place] [address] Edmundo Denny, DO [address] [facility] [address] [place] [address] HCN - Patient Message Social [...] place to sleep or slept in a half-way (including now)? No 11/08/2023 PHQ-9 Answer Date [...] any time in the past 12 m [facility] [place], were you homeless or living in a half-way (including now)? No 11/02/2024 Safety and Environment [...] Recorded In the past 12 months has [employer], gas, oil, or water [employer] threatened to shut off services in your [...] help with this. Best contact number: Other: [phone], Spouse Kolby Optimal time of day to reach caller: ANYTIME Additional comments/information from caller: Alt # is [phone] Kerri (daughter) Note: Please do not reply [...] Visit [place] [facility] [address], [address] [place] [address] Kole Mclaughlin MD [address] [place] [address] 08/09/2025 11:40 AM EST Office Visit [facility] [place] [address] [facility], [address] [place] [address] Sara Cardenas MD [address] [facility] [address] [place] [address] documented as of this encounter [...] documented as of this encounter Care Teams Judicial Administrative Assistant Relationship Specialty Start Date End Date Eyad Madrid MD [address] [place] [address] [phone] PCP - General Family Medicine 12/26/23 Lidia Bee DMD [address] [place] [phone] Dentist 07/04/23 01/31/25 Declan Santiago Dental Student Dental Upper Cutter Machine 01/07/24 01/31/25 Edie Francois, JONNY [facility] TCM Nurse 11/02/24 12/02/24 documented as of this encounter
--- NOTE | 2025-02-22 13:00 | CA_ITS ---
APPROVED REPORT EXAM: Limited 2D Echocardiogram Java Front End Web Developer: RT Onelia(R) Ht: 6 ft 0 in Wt: 140lbs BSA: 1.83 BP: 142/68 mmHg Indications: Limited echo to reassess pericardial effusion seen on echo done 01/18/25 as inpatient. Limited scanning/windows secondary to patient cooperation and body habitus Other Information Study Quality: Technically Difficult Conclusion This is a limited TTE to evaluate for pericardial effusion. Limited windows are obtained. Technically difficult study. In the available views, there is no pericardial effusion visualized. Electronically signed by : Neeta Lr MD 02/22/2025 23:20:49
== END 2025-02-22 23:59 | disposition home or self-care (01) ==
LOC: RT 12:49
PROVIDERS: PCP Internal Medicine Adolescent Medicine; Visit Provider Nurse Practitioner Family
DX: I31.39 Other pericardial effusion (noninflammatory) (principal)
CPT/HCPCS: 93308

== ENCOUNTER 2025-02-23 21:29 | Inpatient (IN) | payer MEDICAID, SELFPAY ==
[2025-02-23] VITALS (8 sets, daily range): BP systolic 114–139; BP diastolic 60–78; PULSE 71–151; RESP 16–40; TEMP 36.6; O2SAT 98–100; BMI 17.7
--- OUTSIDE RECORDS SUMMARY | 2025-02-23 21:40 | XMS_ITS | Encounter Summary ---
Author Organization [facility] Address [address] [place] [address] Care Team Providers Care Edge Grinder Name Role Phone Lidia Bee DMD Unavailable [phone] Eyad Madrid MD Primary Care Provider [phone] Declan Santiago Unavailable Unavailable Edie Francois LPN Unavailable Unavailabl e Reason for Visit * Reason Onset Date Comments HCN - Patient Message 12/01/2024 Encounter Details Date Type Department Care Team (Late st Contact Info) Description 12/01/2024 Telephone Physical Medicine & Rehabilitation Clinic at [facility] [address] [place] [address] Edmundo Denny, DO [address] [facility] [address] [place] [address] HCN - Patient Message Social [...] time in the past 12 m [place], were you homeless or living in a [...] Recorded In the past 12 months has [employer], gas, oil, or water [employer] threatened to shut off services in your [...] AM EDT Clinical Concern/Question Reason for Call: [place], patient is calling stating the patient is [...] help with this. Best contact number: Other: [phone], Spouse Kolby Optimal time of day to reach caller: ANYTIME Additional comments/information from caller: Alt # is [phone] Kerri (daughter) Note: Please do not reply [...] Visit [place] [facility] [address], 1st [place] [address] Kole Mclaughlin MD [address] [place] [address] 08/09/2025 11:40 AM EST Office Visit [facility] [place] [address] [facility], [address] [place] [address] Sara Cardenas MD [address] [facility] [address] [place] [address] documented as of this encounter [...] documented as of this encounter Care Teams Edge Grinder Relationship Specialty Start Date End Date Eyad Madrid MD [address] [place] [address] [phone] PCP - General Family Medicine 12/26/23 Lidia Bee DMD [address] [place] [address] [phone] Dentist 07/04/23 01/31/25 Declan Santiago Dental Student Dental Regional Account Executive 01/07/24 01/31/25 Edie Francois, JONNY [facility] TCM Nurse 11/02/24 12/02/24 documented as of this encounter
--- OUTSIDE RECORDS SUMMARY | 2025-02-23 21:40 | XMS_ITS | Encounter Summary ---
Author Organization [facility] Address [address] [place] [address] Care Team Providers Care Supervisor Wire Rope Fabrication Name Role Phone Shrutibritni Lidia Lei DMD Unavailable [phone] Eyad Madrid MD Primary Care Provider [phone] Declan Santiago Unavailable Unavailable Encounter Details Date Type Department Care Team (Late st Contact Info) Description 01/04/2025 Telephone Radiology Virtual Dept. [address] [place] [address] Di Thao Social History Tobacco [...] place to sleep or slept in a usp (including now)? No 11/08/2023 PHQ-9 Answer Date [...] any time in the past 12 m [facility], were you homeless or living in a usp (including now)? No 11/02/2024 Safety and Environment [...] Visit [place] [facility] [address], 1st [place] [address] Kole Mclaughlin MD [address] [place] [address] 08/09/2025 11:40 AM EST Office Visit [facility] [place] [address] [facility], [address] [place] [address] Sara Cardenas MD [address] [facility] [address] [place] [address] documented as of this encounter [...] documented as of this encounter Care Teams Supervisor Wire Rope Fabrication Relationship Specialty Start Date End Date Eyad Madrid MD [address] [place] [address] PCP - General Family Medicine 12/26/23 Lidia Bee DMD [address] [address] Dentist 07/04/23 01/31/25 Declan Santiago Dental Student Dental Solidworks Designer 01/07/24 01/31/25 documented as of this encounter
--- OUTSIDE RECORDS SUMMARY | 2025-02-23 21:40 | XMS_ITS | Encounter Summary ---
Author Organization [facility] Address [address] [place] [address] Care Team Providers Care Piercer Name Role Phone Herbert Beejc Lei DMD Unavailable [phone] Eyad Madrid MD Primary Care Provider [phone] Declan Santiago Unavailable Unavailable Encounter Details Date Type Department Care Team (Late st Contact Info) Description 12/07/2024 Telephone [place] [facility] [address], 1[address] [place] [address] Dave Whitehead MD [address] [place] [address] Social History Tobacco Use Types [...] Recorded In the past 12 months has [employer], gas, oil, or water company threatened [...] optimal time of day to reach caller: [phone] Note: Please do not reply to this [...] Description 2025 8:00 AM EDT Office Visit [place] [facility] [address], 1st [place] [phone] Kole Mclaughlin MD [address] [place] [address] 08/09/2025 11:40 AM EST Office Visit [facility] [place] [address], [address] [place] [address] Sara Cardenas MD [address] [place] [address] documented as of this encounter [...] documented as of this encounter Care Teams Piercer Relationship Specialty Start Date End Date Eyad Madrid MD [address] [place] [address] PCP - General Family Medicine 12/26/23 Lidia Bee DMD [address] [place] [address] Dentist 07/04/23 01/31/25 Declan Santiago Dental Student Dental Cupola Tapper Helper 01/07/24 01/31/25 documented as of this encounter
--- OUTSIDE RECORDS SUMMARY | 2025-02-23 21:40 | XMS_ITS | Clinical Summary ---
Author Organization [facility] Address [address] [place] [address] Care Team Providers Care Foil Stamp Operator Name Role Phone Eyad Madrid MD Primary Care Provider [phone] Allergies Active Allergy Reactions Criticality Noted Date [...] 3 4 Active Insulin Pen Needle (Pen Balfour) 32G X 5 MM misc 1 each [...] fibrillation 04/10/2023 Coronary artery disease invo lving [place] coronary artery of [place] heart 03/27/2023 PAC (premature atrial contraction) 03/27/2023 [...] Department Care Team Description 01/07/2025 Nurse Triage [facility] [address] [facility] [address] [facility], [address] [place] [address] Eyad Madrid MD 01/06/2025 Telephone [facility] [address] [facility] [address] [facility], [address] [place] [address] Eyad Madrid MD 01/04/2025 Telephone Radiology Virtual Dept. [address] [place] [address] Di Thao 12/17/2024 Patient Outreach [facility] [address], 2nd [place] [address] Jasper Vivar 12/07/2024 Telephone [facility] [address], [address] [place] [address] Dave Whitehead MD 12/07/2024 Travel 12/01/2024 Telephone Physical Medicine & Rehabilitation [facility] at [facility] [address] [place] [address] Edmundo Denny DO HCN - Patient Message 11/30/2024 Telephone [facility] [address] [place] [address] Blanca James [facility] HCN - Patient Message 10/31/2024 2:36 PM EST - 12/07/2024 11:09 AM EDT Hospital Encounter [facility] [address] [place] [phone] Saeid Molina MD Kale, MD Leonides Cervantes Archana M, MD Marks, MD Nish Wilburn, MD Obdulio Mitchell, Angela J, MD [place] (Primary Dx) Discharge Disposition: Detention Facility from Last 3 Months Immunizations Immunization Administration Dates Next Due Influenza, High-dose, Split Virus, Trivalent, Injectable, preservative free 05/21/2024 Influenza, Unspecified 06/22/2015,2013,07/21/2013,06/02,06/20/2011,06/30/2010,07/27/2008 ,06/20/2007,07/05/2006,06/21/2005,06/17,07/07/2002,07/15/2001, 0 Influenza, high-dose, quadrivalent 06/03/2023, Influenza, injectable, MDCK, preservative free, quadrivalent 06/13/2017 Influenza, recombinant, quad rivalent, injectable, preservative free 06/10/2012,05/19/2009 Influenza, seasonal, injectable 06/20/2011,07/27 Influenza, seasonal, injecta ble, preservative free 10/29/2016 CardioLogs Covid-19 Vaccine 12y+ , Kiran Protein, PF, [...] place to sleep or slept in a group home (including now)? No 11/08/2023 PHQ-9 Answer [...] any time in the past 12 m [facility], were you homeless or living in a group home (including now)? No 11/02/2024 Safety and [...] Recorded In the past 12 months has [employer], gas, oil, or water [employer] threatened to shut off services in your [...] Visit [place] [facility] [address], 1st [place] [address] Kole Mclaughlin MD [address] [place] [address] 08/09/2025 11:40 AM EST Office Visit [facility] [place] [address] [facility], [address] [place] [address] Sara Cardenas MD [address] [place] [address] Health Maintenance Due Date Last Done Comments Dental X-Ray: Bitewings 1940 Dental X-Ray: Full Mouth 1939 Diabetes: Dental Exam 1949 [facility]-Hepatitis A Vaccines (1 of 2 - Risk 2-dose series) 1958 [facility]-RSV Vaccine: 60+ Years or (1 - 1-dose 75+ series) 2014 Dental Oral Exam 12/26/2023 06/25/2023 Dental Prophylaxis 12/26/2023 06/25/2023 [facility]-Bone Density Scan 04/03/2024 04/03/2023, 023 [id number] Vaccine ( - 2023- season) 2024 06/24/2023, [...] W/O DIFFERENTIAL Timed 11/23/2024 4:37 AM EDT HEMOGLOBIN A1C Add-On 10/31/2024 3:58 PM EST PROPHYLAXIS - ADULT Routine 06/25/2023 9 :00 AM EDT Dental calculus COMPREHENSIVE ORAL EVALUATION - NEW OR ESTABLISHED PATIENT Routine 06/25/2023 9:00 AM EDT Encounter for dental examination from Last 3 Months or Most Recently Relevant to Health Maintenance Results * (ABNORMAL) POCT glucose meter (12/07/2024 8:02 AM EDT) Only the most recent of61 resultswithin the time period is included. POCT Glucose 113(H) 74 - 99 mg/dL 12/07/2024 8:07 AM EDT [facility] Comment:Accuracy of a glucos e [...] for testing. Comment 12/07/2024 8:07 AM EDT [facility] Club Car Attendant ID Priya Black 12/07/2024 8:07 AM EDT [facility] Device ID [id number] 12/07/2024 8:07 AM EDT [facility] Specimen Type POC Capillary 12/07/2024 8:07 AM EDT [facility] Blood Capillary blood specimen / Unknown 12/07/2024 8:02 AM EDT 12/07/2024 8:07 AM EDT Angela Mak MD LAB POINT OF CARE TE ST DOCKED DEVICE UNSOLICITED RESULTS Final Result [facility] [address] [place] [address] * (ABNORMAL) CBC W/O Differential (12/07/2024 4:19 AM EDT) Only the most recent of5 resultswithin the time period is included. WBC Count 3.31(L) 3.70 - 10.30 10*3/uL LAB HEMATOLOGY METHOD 12/07/2024 4:29 AM EDT [facility] RBC Count 3.70(L) 4.60 - 6.10 10*6/uL LAB HEMATOLOGY METHOD 12/07/2024 4:29 AM EDT [facility] HGB 11.6(L) 13.7 - 17.5 g/dL LAB HEMATOLOGY METHOD 12/07/2024 4:29 AM EDT [facility] HCT 34.7(L) 40.0 - 51.0 % LAB HEMATOLOGY METHOD 12/07/2024 4:29 AM EDT [facility] Platelet Count 181 155 - 369 10*3/uL LAB HEMATOLOGY METHOD 12/07/2024 4:29 AM EDT [facility] MCV 94 79 - 98 fL LAB HEMATOLOGY METHOD 12/07/2024 4:29 AM EDT [facility] MCH 31.4 26.0 - 32.0 pg LAB HEMATOLOGY METHOD 12/07/2024 4:29 AM EDT [facility] MCHC 33.4 30.7 - 35.5 g/dL LAB HEMATOLOGY METHOD 12/07/2024 4:29 AM EDT [facility] RDW 12.9 11.5 - 14.5 % LAB HEMATOLOGY METHOD 12/07/2024 4:29 AM EDT [facility] MPV 8.9 8.8 - 12.5 fL LAB HEMATOLOGY METHOD 12/07/2024 4:29 AM EDT [facility] nRBC 0.0 <=0.0 per 100 WBCs LAB HEMATOLOGY METHOD 12/07/2024 4:29 AM EDT [facility] Blood Venous blood specimen / Unknown Venipuncture / Unknown 12/07/2024 4:19 AM EDT 12/07/2024 4:24 AM EDT us Alyse Serrato MD LAB BLOOD ORDERABLES Final Resu lt Performing Organization Address City/[facility] Co de Phone Number [facility] [address] [place] [address] * Phosphorus, Plasma (12/07/2024 4:19 AM EDT) Only the most recent of5 resultswithin the time period is included. Phosphorus, Plasma 2.8 2.5 - 4.5 mg/dL 12/07/2024 4:51 AM EDT [facility] Blood Venous blood specimen / Unknown Venipuncture / Unknown 12/07/2024 4:19 AM EDT 12/07/2024 4:24 AM EDT us Alyse Serrato MD LAB BLOOD ORDERABLES Final Resu lt Performing Organization Address [facility] de Phone Number [facility] [address] [place] [address] * Magnesium, Plasma (12/07/2024 4:19 AM EDT) Only the most recent of5 resultswithin the time period is included. Magnesium, Plasma 2.0 1.9 - 2.4 mg/dL 12/07/2024 4:51 AM EDT [facility] Blood Venous blood specimen / Unknown Venipuncture / Unknown 12/07/2024 4:19 AM EDT 12/07/2024 4:24 AM EDT us Alyse Serrato MD LAB BLOOD ORDERABLES Final Resu lt Performing Organization Address [facility] Co de Phone Number [facility] [address] [place] [address] * (ABNORMAL) Comprehensive Metabolic Panel, Plasma (12/07/2024 4:19 AM EDT) Only the most recent of5 resultswithin the time period is included. Glucose, Plasma 129(H) 74 - 99 mg/dL 12/07/2024 4:51 AM EDT [facility] BUN, Plasma 15 8 - 23 mg/dL 12/07/2024 4:51 AM EDT [facility] Creatinine, Plasma 0.80 0.70 - 1.20 mg/dL 12/07/2024 4:51 AM EDT [facility] BUN/Creatinine Ratio 19 12/07/2024 4:51 AM EDT [facility] Sodium, Plasma 137 136 - 145 mmol/L 12/07/2024 4:51 AM EDT [facility] Potassium, Plasma 3.8 3.6 - 4.9 mmol/L 12/07/2024 4:51 AM EDT [facility] Chloride, Plasma 103 97 - 107 mmol/L 12/07/2024 4:51 AM EDT [facility] CO2, Plasma 24 22 - 29 mmol/L 12/07/2024 4:51 AM EDT [facility] Anion Gap 10 6 - 16 mmol/L 12/07/2024 4:51 AM EDT [facility] Total Calcium, Plasma 8.6(L) 8.9 - 10.2 mg/dL 12/07/2024 4:51 AM EDT [facility] Total Protein 6.1(L) 6.3 - 7.9 g/dL 12/07/2024 4:51 AM EDT [facility] Albumin, Plasma 3.4(L) 3.5 - 5.2 g/dL 12/07/2024 4:51 AM EDT [facility] AST, Plasma 34 10 - 50 U/L 12/07/2024 4:51 AM EDT [facility] ALT, Plasma 51(H) 10 - 50 U/L 12/07/2024 4:51 AM EDT [facility] Alkaline Phosphatase, Plasma 76 40 - 115 U/L 12/07/2024 4:51 AM EDT [facility] Total Bilirubin, Plasma 0.3 0.2 - 1.1 mg/dL 12/07/2024 4:51 AM EDT [facility] eGFRcr 86.7 mL/min/1.7 3m*2 12/07/2024 4:51 AM EDT [facility] Comment:Reported eGFRcr in m L/min/1.73m2 is based the CKD-EPI 2020 equation that does not use a race coefficient. Blood Venous blood specimen / Unknown Venipuncture / Unknown 12/07/2024 4:19 AM EDT 12/07/2024 4:24 AM EDT us Alyse Serrato MD LAB BLOOD ORDERABLES Final Resu lt Performing Organization Address [facility] Co de Phone Number [facility] [address] [place] [address] * (ABNORMAL) Hemoglobin A1c (10/31/2024 3:58 PM EST) Hemoglobin A1c 8.3(H) <5.7 % 11/01/2024 4:17 PM EST [facility] Blood Venous blood specimen / Unknown Venipuncture / Unknown 10/31/2024 3:58 PM EST 10/31/2024 4:12 PM EST Narrative [facility] - 11/01/2024 4:17 PM EST HA1C Interpretive Data: Diagnosis of Diabetes: Diabetic > or = 6.5% Pre-diabetic 5.7 to 6.4% Non-diabetic < or = 5.6% Glycemic Targets for Type I and Type II Diabetics: Non- Adults <7.0% Adults <6.0% Children and Adolescents <7.5% Source: [place] [employer]. Standards of medical care in diabetes,2017. Diabetes Care.2017:40 (suppl 1):S1-S135. HbA1c assay performed by an ion-exchange chromatography method that is certified traceable to the DCCT. us Sonam Parker MD LAB BLOOD ORDERABLES Final Res ult Performing Organization Address [facility] Co de Phone Number [facility] [address] [place] [address] from Last 3 Months or Most Recently Relevant to Health Maintenance Insurance MEDICAID [employer] [place] Advance Directives * Full Code (Latest Code Status on File) Date Activated Date Inactivated Comments 10/31/2024 5:35 PM 12/07/2024 1:15 PM Question Answer Comments Patient has decision-making capacity? Yes * Full Code Date Activated Date Inactivated Comments 10/28/2024 7:56 PM 10/30/2024 8:12 PM Interpeter [phone] [id number] Question Answer Comments Patient has decision-making capacity? Yes Care Teams Foil Stamp Operator Relationship Specialty Start Date End Date Eyad Madrid MD [address] [place] [address] PCP - General Family Medicine 12/26/23
--- OUTSIDE RECORDS SUMMARY | 2025-02-23 21:40 | XMS_ITS | Encounter Summary ---
Author Organization [facility] Address [address] [place] [address] Care Team Providers Care Production Generalist Name Role Phone Herbert Beejc Lei DMD Unavailable [phone] Eyad Madrid MD Primary Care Provider [phone] Declan Santiago Unavailable Unavailable Encounter Details Date Type Department Care Team (Late st Contact Info) Description 01/06/2025 Telephone [facility] [address], [address] [place] [address] Eyad Madrid MD [address] [place] [address] Social History Tobacco Use Types [...] place to sleep or slept in a mcc (including now)? No 11/08/2023 PHQ-9 Answer Date [...] were you homeless or living in a mcc (including now)? No 11/02/2024 Safety and Environment [...] the past 12 months has th e [employer], gas, oil, or water [employer] threatened to shut off services in your [...] EDT Returned call to patient's using a [employer] sign language interpreter. Telephone connection was poor and conversation was difficult. states patient is in critical condition then requests to call back later when she isn't driving. ER precautions provided to patient. Patient verbalized understanding. * Telephone Encounter - Tejal Montez - 01/06/2025 2:04 PM EDT Patient Phone Message Reason for Call: Patient was discharged from [place] [address] to [facility]. is seeking a call back to [facility] base on his medical condition. She states his health is declining. speaks some Kyrgyz butstates she may need a Malawian sign language interpreter when the clinical staff calls her back. Thank you! Best contact number and optimal time of day to reach caller: [phone] Note: Please do not reply to this [...] Description 2025 8:00 AM EDT Office Visit [place] [facility] [address], [address]st [place] [address] Kole Mclaughlin MD [address] [place] [address] 08/09/2025 11:40 AM EST Office Visit [facility] [place] [address] [facility], [address] [place] [address] Sara Cardenas MD [address] [place] [address] documented as of this encounter [...] documented as of this encounter Care Teams Production Generalist Relationship Specialty Start Date End Date Eyad Madrid MD [address] [place] [address] PCP - General Family Medicine 12/26/23 Lidia Bee DMD [address] [address] Dentist 07/04/23 01/31/25 Declan Santiago Dental Student Dental Train Controller 01/07/24 01/31/25 documented as of this encounter
--- OUTSIDE RECORDS SUMMARY | 2025-02-23 21:40 | XMS_ITS ---
Author Organization [facility] Address [address] [place] [address] Care Team Providers Care Desizing Machine Offbearer Name Role Phone Eyad Madrid MD Primary Care Provider [phone] Active Problems Problem Noted Date Diagnosed Date [...] fibrillation 04/10/2023 Coronary artery disease invo lving [place] coronary artery of [place] heart 03/27/2023 PAC (premature atrial contraction) 03/27/2023 [...]
--- OUTSIDE RECORDS SUMMARY | 2025-02-23 21:40 | XMS_ITS | Encounter Summary ---
Author Organization [facility] Address [address] [place] [address] Care Team Providers Care Bilingual Medical Receptionist Name Role Phone Isai Yenifer Aguirre APRN Primary Care Provider HourLidia ryder DMD Primary Care Provider [phone] Dave Ward Unavailable Unavailable HourLidia ryder DMD Unavailable [phone] JazzYenifer sosa APRN Primary Care Provider Rhina Stock Unavailable Unavailable Eyad Madrid MD Primary Care Provider [phone] Declan Santiago Unavailable Unavailable Edie Francois LPN Unavailable UnavailRuthie Arnold Unavailable Unavailable Encounter Details Date Type Department Care Team (Late st Contact Info) Description 06/20/2023 Community [facility] [address] [place] [address] Caroline Silva, EVENT HOST [address] [facility] [address] [place], [place] [id number] Memory loss (Primary Dx) Social History Tobacco [...] Visit [place] [facility] [address], [address] [place] [address] Kole Mclaughlin MD [address] [place] [address] 08/09/2025 11:40 AM EST Office Visit [facility] [place] [address], [address] [place] [address] Sara Cardenas MD [address] [place] [address] documented as of this encounter [...] documented as of this encounter Care Teams Bilingual Medical Receptionist Relationship Specialty Start Date End Date Yenifer Alex APRN [address] [place] [address] PCP - General Family Medicine 01/31/23 06/24/23 Lidia Bee DMD [address] [address] PCP - General 06/25/23 07/03/23 Yenifer Alex APRN [address] [place] [address] PCP - General Family Medicine 07/04/23 12/25/23 Eyad Madrid MD [address] [place], [place] [id number] PCP - General Family Medicine 12/26/23 Dave Ward [employer] Dental Student Dental Stores Laborer 06/25/23 01/06/24 Lidia Bee, DMD [address] [address] Dentist 07/04/23 01/31/25 Rhina Stock Community Health Worker 11/08/23 11/19/23 Declan Santiago Dental Student Dental Stores Laborer 01/07/24 01/31/25 Edie Francois, JONNY [facility] TCM Nurse 11/02/24 12/02/24 Ruthie Sanders [facility] [place] [address] Service Transformer Repair Supervisor 11/03/24 11/03/24 documented as of this encounter
--- OUTSIDE RECORDS SUMMARY | 2025-02-23 21:40 | XMS_ITS | Encounter Summary ---
Author Organization [facility] Address [address] [place] [address] Care Team Providers Care Mixing Pan Tender Name Role Phone Lidia Bee Quique DMD Unavailable [phone] Eyad Madrid MD Primary Care Provider [phone] Declan Santiago Unavailable Unavailable Reason for Visit * Reason Onset Date Comments HCN - Patient Message 01/07/2025 Anorexia 01/07/2025 Encounter Details Date Type Department Care Team (Late st Contact Info) Description 01/07/2025 Nurse Triage [address], [address] [place] [address] Eyad Madrid MD [address] [id number] Social History Tobacco Use Types Packs/Day Years [...] any time in the past 12 m [facility], were you homeless or living in [...] Recorded In the past 12 months has [employer], gas, oil, or water company threatened to [...] I would beforwarding my documentation to patient's [facility] PCP for their review and advice. Will [...] to care for him. Best contact number: [phone] (home) Optimal time of day to reach caller: ANYTIME Additional comments/information from caller: None Note: Please do not reply to this message. Follow-up communication and further actions as a result of this message need to be communicated with the patient directly, if the patient is not active onMyChart. If the patient is active on MyChart, they will receive notification of the communication/outcome via Uniquedut. * Telephone Encounter - Chrissy Trimble - 01/07/2025 2:23 PM EDT Status Update Call #1 1st call regarding the status of the initial request. Best contact number: [phone] (home) Optimal time of day to reach [...] call back. Please advise. Best contact number: [phone] (home) Optimal time of day to reach caller: ANYTIME Additional comments/information from caller: None Note: Please do not reply to this message. Follow-up communication and further actions as a result of this message need to be communicated with the patient directly, if the patient is not active onMyChart. If the patient is active on MyChart, they will receive notification of the communication/outcome via MyCBlinkt. documented in this encounter Plan of Treatment Upcoming Encounters Date Type Department Care Team (Late st Contact Info) Description 2025 8:00 AM EDT Office Visit [place] [facility] [address] [place] [address] Kole Mclaughlin MD [address] [place] [id number] 08/09/2025 11:40 AM EST Office Visit [facility] [place] [address], [address] [place] [address] Sara Cardenas MD [address] [place] [address] documented as of this encounter [...] documented as of this encounter Care Teams Mixing Pan Tender Relationship Specialty Start Date End Date Eyad Madrid MD [address] [place] [address] PCP - General Family Medicine 12/26/23 Lidia Bee DMD [address] [place] [address] Dentist 07/04/23 01/31/25 Declan Santiago Dental Student Dental Machine Ceramic Coater 01/07/24 01/31/25 documented as of this encounter
--- NOTE | 2025-02-23 21:58 | ECG_ITS ---
APPROVED REPORT Exam: Resting ECG HR:134 bpm ECG Measurements Heart Rate 134 AXES QRSd 92 QRS -30 QT 302 T 227 QTc 381 Conclusion ATRIAL FIBRILLATION WITH RAPID VENTRICULAR RESPONSE SEPTAL MYOCARDIAL INFARCTION , PROBABLY OLD [40+ ms Q WAVE IN V1/V2] MODERATE T-WAVE ABNORMALITY, CONSIDER INFERIOR ISCHEMIA [-0.1+ mV T-WAVE IN II/aVF] ABNORMAL ECG UNCONFIRMED REPORT Electronically signed by : JAZZY MELTON, 02/25/2025 01:10:34
--- NOTE | 2025-02-23 22:07 | HMH.EDGENADL ---
Discharge Plan Disposition Patient Disposition: Admitted Condition: Fair Clinical Impressions Clinical Impression: Adult failure to thrive, Osteomyelitis Discharge ED Provider: Rashaad Alfaro Adult HPI General Chief complaint: Wound/Laceration Stated complaint: general decline Time Seen by Provider: 02/23/25 22:07 Mode of Arrival: Ambulatory Source of Information: EMS Description of Symptoms (Recalled from ER Triage Doc. by RN): Pt presents to the Ed from [facility] for evaluation of wounds to R heel and R hip. PT has a tendency to not want to talk in Spanish. EMS stated that facility stated he may become combative at times. History of Present Illness HPI narrative: Patient is a 89-year-old male with history of paroxysmal A-fib, hyperlipidemia, hypertension, on Eliquis and aspirin and Plavix. History is provided via EMS and provider report. Patient speaks Solomon Islander, refusing spanish interpreter/translator. Not cooperative with history gathering, but is following commands. Per Dr. Dubois, patient is arriving from group home for hospice evaluation, however patient is still full code per documentation. Family is still deciding on hospice. Reportedly, per nursing report, patient has not been eating or drinking over the last several days. Complaining of abdominal pain. Per my review of the EMR, did receive a cholecystectomy last month. Related Data Home Medications ?Medication ?Instructions ?Recorded ?Confirmed acetaminophen 500 mg tablet 500 mg PO Q6H PRN Fever Or Pain 01/18/25 02/04/25 amino acids-protein hydrolysate 30 ea PO DAILY 01/18/25 02/04/25 oral liquid calcium carbonate (Oyster Shell 500 mg PO BID 01/18/25 02/04/25 Calcium) fentanyl 12 mcg/hr transdermal 1 patch transdermal Q72H 01/18/25 02/04/25 patch memantine 5 mg tablet 5 mg PO BID 01/18/25 02/04/25 mirtazapine 7.5 mg tablet 7.5 mg PO HS 01/18/25 02/04/25 multivitamin 1 tab PO DAILY 01/18/25 02/04/25 polyethylene glycol 3350 17 gram 17 g PO DAILY 01/18/25 02/04/25 oral powder packet sennosides 8.6 mg-docusate sodium 1 tab PO BID 01/18/25 02/04/25 50 mg tablet (Senna with Docusate Sodium) calcium 500 mg (as 1 tab PO DAILY 02/04/25 02/04/25 carbonate)-vitamin D3 5 mcg (200 unit) tablet (Oyster Shell Calcium-Vitamin D3) clopidogrel 75 mg tablet 75 mg PO DAILY 02/04/25 02/04/25 diclofenac sodium 1 % topical gel 2 g topical ONCE PRN 02/04/25 02/04/25 enalapril maleate 20 mg tablet 20 mg PO DAILY 02/04/25 02/04/25 insulin glargine 100 unit/mL (3 unit SQ 02/04/25 02/04/25 mL) subcutaneous pen (Lantus Solostar U-100 Insulin) potassium chloride 10 mEq 10 meq PO ONCE 02/04/25 02/04/25 tablet,extended release(part/cryst) rosuvastatin 40 mg tablet 40 mg PO DAILY 02/04/25 02/04/25 Previous Rx's ?Medication ?Instructions ?Recorded amoxicillin 500 mg-potassium 1 tab PO TID 3 days #9 tabs 01/22/25 clavulanate 125 mg tablet (Augmentin) apixaban 5 mg tablet (Eliquis) 5 mg PO BID 30 days #60 tabs 01/22/25 aspirin 81 mg tablet,delayed 81 mg PO DAILY 30 days #30 tabs 01/22/25 release metoprolol tartrate 50 mg tablet 50 mg PO BID 30 days #60 tabs 01/22/25 Allergies Allergy/AdvReac Type Severity Reaction Status Date / Time No Known Allergies Allergy Verified 02/04/25 10:51 [facility] Disclaimer: The information contained in this section may have been updated after the patient was seen, as this information can be updated by other users. Medical History (Updated 02/24/25 @ 01:42 by Rashaad Alfaro MD) Hyperlipidemia Paroxysmal atrial fibrillation NSTEMI (non-ST elevated myocardial infarction) Pericardial effusion Coronary artery disease Pneumonia Diabetes Atrial fibrillation with rapid ventricular response Auditory hallucinations Benign prostatic hyperplasia Constipation Atherosclerosis of coronary artery bypass graft Hypertension Parkinsonism Major depressive disorder Diabetes mellitus Osteoarthritis Surgical History History of cardiac cath History of laparoscopic cholecystectomy Social History Smoking Status: Never smoker alcohol intake: never substance use type: denies use current occupational status: other Travel in the last 8 weeks?: None Have you lived/traveled outside US in past 30 days?: No Contact w/someone who lives/traveled outside US past 30 days?: No Exposure to someone with infectious disease in past 14 days?: No Do you have a fever (greater than 100.4 F or 38 C)?: No Have you tested positive for COVID-19?: No Exposed to someone with COVID-19 in past 14 days?: No Do you have a sore throat?: No Do you have a cough?: No Do you have any weakness?: No Do you have any diarrhea?: No Are you experiencing any unusual bleeding?: No Do you have any muscle aches/pain?: No Do you have any abdominal pain?: No Are you experiencing loss of taste or smell?: No Other Medical History Have you received the Flu Vaccine for this season: No Have you received the Pneumonia Vaccine: Yes ROS Obtained: Yes All systems reviewed & no additional complaints except as documented Physical Exam General General appearance: alert (Not oriented), in no apparent distress and cachectic Head Head exam: atraumatic and normocephalic Eye Eye exam: Present PERRL and EOMI ENT ENT exam: Present normal oropharynx Neck Neck exam: Present full ROM and trachea midline Chest Chest inspection: Present symmetric chest wall rise Respiratory Respiratory exam: Present normal lung sounds bilaterally; Absent stridor Cardiovascular Cardiovascular exam: Present regular rate and normal rhythm Abdominal Exam Abdominal exam: Present soft and tenderness (Diffuse); Absent distention, guarding or rebound exam: Present normal inspection Extremities Exam Extremities exam: Present full ROM Back Exam Back exam: Present tenderness and other (Significant sacral decubitus ulcer that is unstageable. Able to visualize sacrum deep in the wound. There is stool contaminating the wound. Some scant erythema and tenderness around the margins of the wound) Neurological Exam Neurological exam: Present alert; Absent motor sensory deficit (Moving all extremities and follow commands.) Psychiatric Psychiatric exam: Present normal mood Skin Skin exam: Present warm and dry Medical Decision Making Medical Records Screening: Per USPSTF and CDC recommendations, given the prevalence of disease in our region, it is our hospital?s policy to screen for HIV and viral Hepatitis for all patients aged 18 and over and those with ongoing risk factors. Kwame Inquiry Pt receiving controlled substance: No Vital Signs: 02/23/25 21:34 02/23/25 22:16 02/23/25 22:21 Temperature 97.8 F Temperature Source Tympanic Pulse Rate 151 H 71 Pulse Rate [Right] 84 Respiratory Rate 16 40 H 34 H Blood Pressure 114/61 Blood Pressure [Right Arm] 114/72 Blood Pressure Mean [Right Arm] 86 02 Sat by Pulse Oximetry 99 98 Oxygen Delivery Method Room Air 02/23/25 22:22 02/23/25 22:24 02/23/25 23:01 Temperature Temperature Source Pulse Rate 90 87 Pulse Rate [Right] Respiratory Rate 37 H 23 34 H Blood Pressure 117/78 123/66 126/60 Blood Pressure [Right Arm] Blood Pressure Mean [Right Arm] 02 Sat by Pulse Oximetry 99 98 Oxygen Delivery Method 02/23/25 23:31 02/23/25 23:48 02/24/25 00:00 Temperature Temperature Source Pulse Rate 134 H 91 H Pulse Rate [Right] Respiratory Rate 21 21 12 Blood Pressure 139/74 129/73 119/66 Blood Pressure [Right Arm] Blood Pressure Mean [Right Arm] 02 Sat by Pulse Oximetry 100 98 Oxygen Delivery Method 02/24/25 00:32 02/24/25 00:47 Temperature Temperature Source Pulse Rate Pulse Rate [Right] Respiratory Rate 18 19 Blood Pressure 108/50 L 126/90 Blood Pressure [Right Arm] Blood Pressure Mean [Right Arm] 02 Sat by Pulse Oximetry Oxygen Delivery Method Lab Data Lab Results 02/23/25 22:07: PT 14.2 H, INR 1.30 H, APTT 33.0 H, Sodium 141, Potassium 4.3, Chloride 111 H, Carbon Dioxide 27, Anion Gap 7.3, BUN 24 H, Creatinine 0.90, Estimated Creat Clear 42, Estimated GFR 80, Est GFR ( Amer) 97, Glucose 215 H, Calcium 9.4, Phosphorus 3.7, Magnesium 2.1, Total Bilirubin 0.6, AST 30, ALT 18, Alkaline Phosphatase 112, Total Creatine Kinase 47 L, Total Protein 6.4 D, Albumin 2.9 L, Globulin 3.5 H, Albumin/Globulin Ratio 0.8 L, Lipase 28, TSH 2.22, Free T4 1.45 02/23/25 22:19: WBC 9.7, RBC 3.75 L, Hgb 10.7 L, Hct 34.8 L, MCV 92.8, MCH 28.5, MCHC 30.7 L, RDW 17.6 H, Plt Count 379, MPV 10.6 H, Neut % (Auto) 70.1, Lymph % (Auto) 20.5, Morrison % (Auto) 5.4, Eos % (Auto) 3.0, Baso % (Auto) 0.4, Neut # (Auto) 6.8, Lymph # (Auto) 2.0, Morrison # (Auto) 0.5, Eos # (Auto) 0.3, Baso # (Auto) 0.0, Lactate 1.8 02/23/25 23:11: Urine Color Yellow, Urine Appearance Clear, Urine pH 5.5, Ur Specific [place] 1.029, Urine Protein Trace, Urine Glucose (UA) Negative, Urine Ketones Trace, Urine Blood Negative, Urine Nitrate Negative, Urine Bilirubin 1+ A, Urine Urobilinogen 0.2, Ur Leukocyte Esterase Negative, Urine RBC Occasional, Urine WBC 3-5, Ur Squamous Epith Cells 5-10, Urine Bacteria 2+ 02/23/25 23:50: Ammonia < 9 L 02/23/25 22:19 02/23/25 22:07 Orders (Tests/Meds): ED MEDICATIONS Generic Name Dose Route Start Last Admin Trade Name Freq PRN Reason Stop Dose Admin Acetaminophen 650 mg 02/24/25 00:36 Acetaminophen 325mg Tab PO 03/26/25 00:35 Q4HP PRN Fever or Mild Pain (1-3) Piperacillin Sod/Tazobactam 50 mls @ 100 mls/hr 02/24/25 00:30 02/24/25 01:31 Sod 3.375 gm/ Sodium Chloride IV 03/06/25 00:29 100 mls/hr Q8H BARNEY Administration Vancomycin HCl 1,000 mg/ 250 mls @ 125 mls/hr 02/24/25 00:45 Sodium Chloride IV 02/24/25 02:44 ONCE ONE Lactated Ringer's 1,000 mls @ 50 mls/hr 02/24/25 00:45 Lactated Ringer's 1000 Ml Bag IV 03/26/25 00:44 .Q20H [facility] Miscellaneous 1 each 02/24/25 00:30 Vancomycin Consult Request NOTAPPLIC 03/26/25 00:29 CONSULT PHARMACY [facility] Morphine Sulfate 2 mg 02/24/25 00:36 Morphine 2mg/Ml Syringe IV 03/26/25 00:35 Q2HP PRN Severe Pain (7-10) Discontinued Medications Generic Name Dose Route Start Last Admin Trade Name Gabriel PRN Reason Stop Dose Admin Acetaminophen 1,000 mg 02/23/25 22:34 02/23/25 22:42 Acetaminophen 1,000mg/100ml Vial IV 02/23/25 22:35 1,000 mg ONCE ONE Administration Lactated Ringer's 1,000 mls @ 999 mls/hr 02/23/25 22:31 02/23/25 22:42 Lactated Ringer's 1000 Ml Bag IV 02/23/25 23:31 999 mls/hr .Q1H1M ONE Administration Lactated Ringer's 1,000 mls @ 999 mls/hr 02/24/25 00:26 Lactated Ringer's 1000 Ml Bag IV 02/24/25 01:26 .Q1H1M ONE Iopamidol 75 ml 02/23/25 23:29 02/23/25 23:30 Iopamidol-370 (76%);100ml Bottle IV 02/23/25 23:30 75 ml ONCE ONE Administration ORDERS Category Date Time Status CT abdomen pelvis w con Stat Cat Scan 02/23/25 22:31 Completed Ammonia Stat Lab 02/23/25 23:50 Completed Basic Metabolic Panel AMLAB Lab 02/24/25 06:00 Ordered CBC [Complete Blood Count Auto Diff] Stat Lab 02/23/25 22:19 Completed CK [Creatine Kinase] Stat Lab 02/23/25 22:07 Completed CMP [Comprehensive Metabolic Panel] Stat Lab 02/23/25 22:07 Completed Free T4 (Free Thyroxine) Stat Lab 02/23/25 22:07 Completed Lactic Acid Stat Lab 02/23/25 22:19 Completed Lipase Stat Lab 02/23/25 22:07 Completed MAG [Magnesium] Stat Lab 02/23/25 22:07 Completed PHOS [Phosphorous] Stat Lab 02/23/25 22:07 Completed PT INR [Prothrombin Time INR] Stat Lab 02/23/25 22:07 Completed PTT [Activated Partial Thrombo Time] Stat Lab 02/23/25 22:07 Completed Prealbumin Stat Lab 02/23/25 22:07 Received TSH [Thyroid Stimulating Hormone] Stat Lab 02/23/25 22:07 Completed UA [Urinalysis and Microscopic] Stat Lab 02/23/25 23:11 Completed Blood Culture Stat Micro 02/24/25 00:48 Received Urine Culture Stat Micro 02/23/25 23:11 Received ECG Data Tracing #1: I reviewed this ECG and interpreted as documented below: A-fib with a rate of 134. No acute ischemic ST changes, some T wave depressions in lateral precordial leads and 2. Not acutely actionable. Medical Decision Narrative: In summary, this 84-year-old male presents to the emergency department today with failure to thrive. On initial evaluation patient is afebrile, hemodynamically stable, but is tachycardic into the 130s and 140s A-fib on the monitor. Respiratory within normal limits saturating well on room air. Differential diagnosis includes but is not limited to osteomyelitis, infected sacral decubitus ulcer, failure to thrive, electrolyte derangement, ALBERTO, UTI. Based on these concerns, I ordered CBC CMP ammonia free T4, TSH, NR, urinalysis, blood culture, urine culture, abdomen. I reviewed prior records including ED note from 01 17 which demonstrates admission for cholecystitis. Patient received 2 L of lactated Ringer's, Tylenol IV, Zosyn for treatment. Labs personally reviewed demonstrate no leukocytosis, mild anemia, chronic when compared with prior, INR 1.3, PTT 33 seconds, no significant lecture light derangement. Glucose within normal limits. Urinalysis without evidence of infection.. CT imaging personally interpreted demonstrate area near the sacrum, concerning findings for osteomyelitis. Significant stool burden, though patient is actively stooling here considered enema deferred given patient is actively having bowel movement right now and has contaminated sacral decubitus ulcer on my evaluation. But reasonable to begin broad-spectrum antibiotics for the patient will continue fluid resuscitation. Given infected decubitus ulcer and concerning findings for osteomyelitis, felt reasonable to consult hospitalist Dr. Correa. Had an interactive discussion with him and ultimately he agrees to meet the patient to the service for further work of definitive management and he will be transferred in hemodynamically stable condition. After fluid resuscitation on reassessment, his perfusion remains good and tachycardia has improved. I had an discussion with Dr. Dubois as well and made him aware of his admission to the hospital. Dr. Dubois agrees that this is the best course of action for the patient and they will work on care coordination while he is inpatient and discuss hospice further. Of note, social determinants of health include poor social support. Critical Care Critical Care Time Critical Care Time: No
[2025-02-23 22:30] LABS: Alanine Aminotransferase 18 U/L (12-78); Albumin Level 2.9 g/dl (3.5-5.0); Albumin/Globulin Ratio 0.8 (1.1-1.8); Alkaline Phosphatase 112 U/L (38-126); Anion Gap 7.3 mEq/L (5-15); Aspartate Amino Transferase 30 U/L (17-59); Bilirubin,Total 0.6 mg/dl (0.2-1.3); Blood Urea Nitrogen 24 mg/dl (9-20); Calcium 9.4 mg/dl (8.4-10.2); Carbon Dioxide 27 mmol/L (22.0-30.0); Chloride 111 mmol/L (98-107); Creatinine Clearance Estimated 42 mL/min (50-200); Estimated Glomerular Filt Rate 80 ml/min (>60); GFR (African American) 97 ML/MIN (>60); Globulin 3.5 g/dL (1.3-3.2); Glucose 215 mg/dl (74-100); Potassium 4.3 mmoL/L (3.5-5.1); Sodium 141 mmol/L (136-145); Total Protein,Serum 6.4 g/dl (6.3-8.2)
[2025-02-23 22:31] LABS: Basophils % 0.4 % (0.1-2.0); Eosinophils # 0.3 Kmm3 (0.0-0.4); Hematocrit 34.8 % (42.0-52.0); Hemoglobin 10.7 g/dL (14.1-18.0); Immature Granulocytes # 0.06 10^3uL; Immature Granulocytes % 0.6 %; Lymphocytes % 20.5 % (10-50); Mean Corpuscular HGB Conc 30.7 g/dL (31.8-35.4); Mean Corpuscular Hemoglobin 28.5 pg (27.0-31.2); Mean Corpuscular Volume 92.8 fl (80-94); Mean Platelet Volume 10.6 fl (7.4-10.4); Monocytes # 0.5 K/mm3 (0.1-1.0); Monocytes % 5.4 % (1.7-9.3); Neutrophils # 6.8 K/mm3 (1.8-7.8); Neutrophils % 70.1 % (37.0-80.0); Nucleated Red Blood Cells # 0 10^3/uL; Nucleated Red Blood Cells % 0 %; Platelet Count 379 K/mm3 (142-424); Red Blood Count 3.75 M/mm3 (4.60-6.20); Red Cell Distribution Width 17.6 % (11.5-17.5); Red Cell Distribution Width-SD 60.1 fL; White Blood Count 9.7 K/mm3 (4.8-10.8)
--- NOTE | 2025-02-23 22:31 | CT_ITS ---
PROCEDURE INFORMATION: Exam: CT Abdomen And Pelvis With Contrast Exam date and time: 02/23/2025 11:24 PM Age: 84 years old Clinical indication: Abdominal pain; Additional info: Abd pain, jaundice TECHNIQUE: Imaging protocol: Computed tomography of the abdomen and pelvis with contrast. Radiation optimization: All CT scans at this facility use at least one of these dose optimization techniques: automated exposure control; mA and/or kV adjustment per patient size (includes targeted exams where dose is matched to clinical indication); or iterative reconstruction. Contrast material: ISOVUE; Contrast volume: 75 ml; Contrast route: IV; COMPARISON: CT ABDOMEN PELVIS W CON 01/17/2025 8:18 PM FINDINGS: Pleural spaces: Moderate size left pleural effusion with adjacent consolidative opacity may represent pneumonia in appropriate clinical setting. Liver: 1.3 cm hypervascular lesion in the central liver possibly hemangioma, indeterminate. Gallbladder and biliary ducts: Cholecystectomy Pancreas: No ductal dilation. No peripancreatic inflammatory changes. Spleen: Calcified granulomas spleen Adrenal glands: No mass. Kidneys and ureters: No hydronephrosis. Unremarkable renogram. Stomach and bowel: The rectum is distended with stool. Large amount of stool in the colon Appendix: No evidence of appendicitis. Intraperitoneal space: No evidence of pneumoperitoneum. Vasculature: Vascular plaque in the aorta and its branches. Lymph nodes: No lymphadenopathy by size criteria. Urinary bladder: Asymmetric thickening in the urinary bladder wall anterolaterally on the left, nonspecific possibly cystitis, can not exclude neoplastic process. Several small urinary bladder wall diverticula Reproductive: The prostate is enlarged Bones/joints: Destructive changes in the coccyx, can not exclude osteomyelitis. Sacral decubitus ulcer. Soft tissues: Intramuscular calcification on the left laterally at the level of L4 IMPRESSION: 1. Moderate size left pleural effusion with adjacent consolidative opacity may represent pneumonia in appropriate clinical setting. Recommend imaging follow-up until complete resolution. 2. Destructive changes in the coccyx, can not exclude osteomyelitis. Large Sacral decubitus ulcer with soft tissue emphysema. Recommend direct visualization. 3. 1.3 cm hypervascular lesion in the central liver possibly hemangioma, indeterminate. Correlate with MRI if no contraindications. 4. Asymmetric thickening in the urinary bladder wall anterolaterally on the left, nonspecific possibly cystitis, can not exclude neoplastic process. Recommend direct visualization. 5. The rectum is distended with stool.
--- NOTE | 2025-02-23 22:35 | PC.NURSE ---
Notified provider at 2200 of EKG results and tachycardia.
[2025-02-23 22:42] LABS: Lactic Acid 1.8 mmol/L (0.7-2.1)
[2025-02-23] MEDS: LACTATED RINGERS 1000ML 1,000 ML 999 ML IV (22:42)
[2025-02-23] MEDS: ACETAMINOPHEN 1,000MG/100ML VIAL 1000 MG IV (22:42)
[2025-02-23 22:48] LABS: Creatine Kinase 47 U/L (55-170); Lipase 28 U/L (23-300); Magnesium 2.1 mg/dl (1.6-2.3); Phosphorous 3.7 mg/dl (2.5-4.5)
[2025-02-23 23:04] LABS: Free T4 (Free Thyroxine) 1.45 ng/dl (0.78-2.19)
--- NOTE | 2025-02-23 23:12 | PC.NURSE ---
intermittent cath. Pt tolerated well.
[2025-02-23 23:15] LABS: Microscopic, Urine URINE MICROSCOPIC (MICROSCOPIC)
[2025-02-23 23:16] LABS: Appearance,Urine CLEAR (Clear); Blood, Urine Negative (Negative); Color,Urine YELLOW (Yellow); Glucose,Urine (UA) Negative (Negative); Ketones,Urine TRACE (Negative); Leukocyte Esterase,Urine Negative (Negative); Nitrate,Urine Negative (Negative); PH,Urine 5.5 (5.0-8.5); Protein,Urine TRACE (Negative); Urobilinogen,Urine 0.2 EU/dl (0.2)
[2025-02-23 23:17] LABS: Bilirubin,Urine 1+ (Negative)
[2025-02-23 23:19] LABS: Thyroid Stimulating Hormone 2.22 uIU/mL (0.465-4.68)
[2025-02-23 23:20] LABS: Specific Gravity, Urine 1.029 (1.005-1.030)
[2025-02-23] MEDS: IOPAMIDOL-370 (76%);100ML BOTTLE 75 ML IV (23:30)
[2025-02-23 23:33] LABS: Bacteria,Urine 2+ /lpf; RBC,Urine Occasional #/hpf (0-3)
[2025-02-23 23:47] LABS: Prothrombin Time 14.2 seconds (10.1-12.5)
[2025-02-24] VITALS (9 sets, daily range): BP systolic 101–134; BP diastolic 50–90; PULSE 69–132; RESP 12–28; TEMP 36.7–37.2; O2SAT 94–100; BMI 18.5
[2025-02-24 00:06] LABS: Ammonia < 9 umol/L (9-30)
--- NOTE | 2025-02-24 01:22 | PC.NURSE ---
patients wound assessed on buttuck, cleaned and dressed with mepilex with wet to dry dressing. pt sacrum ulcer is 6 cm round, 2.5 cm deep and has tunneling present around 2 cm. pt wound on right foot was dressed with mepilex and michelle wrap to hold bandage in place. stage 3 ulcer on foot. wound was debrided at outside facility. skin is black on wound measuring 3 cm in length. pt feet seperated with a pillow and turned on his side.
[2025-02-24] MEDS: PIPERACILLIN/TAZO 3.375 GM in 0.9 % SODIUM CHLORIDE 50 ML IV ×4 (01:31→20:19)
[2025-02-24] MEDS: LACTATED RINGERS 1000ML 1,000 ML 999 ML IV (01:37)
--- NOTE | 2025-02-24 01:43 | PC.NURSE ---
report called to DEREJE Varela
--- NOTE | 2025-02-24 02:45 | PC.NURSE ---
Patient arrived to floor via stretcher from ED at 02:44.
[2025-02-24] MEDS: LACTATED RINGERS 1000ML 1,000 ML 50 ML IV ×2 (03:20→20:21)
[2025-02-24] MEDS: VANCOMYCIN HCL 1,000 MG in 0.9 % SODIUM CHLORIDE 250 ML 125 MG IV (03:20)
--- NOTE | 2025-02-24 03:40 | PC.WOUNDNOTE ---
Sacral wound Right heel Right arm
--- NOTE | 2025-02-24 05:03 | P.HP_ITS ---
History of Present Illness *Admission Date: 02/24/25 *Reason for visit:: Adult failure to thrive *History of present illness: Patient is a 84-year-old male who is a correction resident with past medical history of paroxysmal atrial fibrillation on Eliquis hypertension hyperlipidemia who presents to the hospital due to failure to thrive. According to the correction documentation patient has not been eating well, patient reportedly has history of dementia. 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 Patient denies any other complaints at this time. [facility] Disclaimer: The information contained in this section may have been updated after the kimberly valentino was seen, as this information can be updated by other users. Medical History (Updated 02/24/25 @ 01:42 by Rashaad Alfaro MD) Hyperlipidemia Paroxysmal atrial fibrillation NSTEMI (non-ST elevated myocardial infarction) Pericardial effusion Coronary artery disease Pneumonia Diabetes Atrial fibrillation with rapid ventricular response Auditory hallucinations Benign prostatic hyperplasia Constipation Atherosclerosis of coronary artery bypass graft Hypertension Parkinsonism Major depressive disorder Diabetes mellitus Osteoarthritis Surgical History History of cardiac cath History of laparoscopic cholecystectomy Social History Smoking Status: Never smoker alcohol intake: never substance use type: denies use current occupational status: other Travel in the last 8 weeks?: None Have you lived/traveled outside [place] in past 30 days?: No Contact w/someone who lives/traveled outside US past 30 days?: No Exposure to someone with infectious disease in past 14 days?: No Do you have a fever (greater than 100.4 F or 38 C)?: No Have you tested positive for COVID-19?: No Exposed to someone with COVID-19 in past 14 days?: No Do you have a sore throat?: No Do you have a cough?: No Do you have any weakness?: No Do you have any diarrhea?: No Are you experiencing any unusual bleeding?: No Do you have any muscle aches/pain?: No Do you have any abdominal pain?: No Are you experiencing loss of taste or smell?: No Other Medical History Have you received the Flu Vaccine for this season: Yes Have you received the Pneumonia Vaccine: Yes Review of Systems Review of Systems Review of systems:: pertinent systems reviewed and negative unless documented below Meds Home Medications and Allergies Home Medications ?Medication ?Instructions ?Recorded ?Confirmed ?Type acetaminophen 500 mg tablet 500 mg PO Q6H PRN Fever Or Pain 01/18/25 02/24/25 History calcium carbonate (Oyster Shell 500 mg PO BID 01/18/25 02/24/25 History Calcium) fentanyl 12 mcg/hr transdermal 1 patch transdermal Q72 H 01/18/25 02/24/25 History patch memantine 5 mg tablet 5 mg PO HS 01/18/25 02/24/25 History mirtazapine 7.5 mg tablet 7.5 mg PO HS 01/18/25 History multivitamin 1 tab PO DAILY 01/18/2502/14 History polyethylene glycol 3350 17 gram 17 g PO DAILY 5 02/24/25 History oral powder packet sennosides 8.6 mg-docusate sodium 1 tab PO BID 5 02/24/25 History 50 mg tablet (Senna with Docusate Sodium) apixaban 5 mg tablet (Eliquis) 5 mg PO BID 30 days #60 tabs 01/22/25 02/24/25 Rx metoprolol tartrate 50 mg tablet 50 mg PO BID 30 days #60 tabs 01/22/25 02/24/25 Rx diclofenac sodium 1 % topical gel 2 g topical ONCE PRN Pain (Scale 02/04/25 02/24/25 History Score 4-6) potassium chloride 10 mEq 40 meq PO ONCE 02/04/2502/14 History tablet,extended release(part/cryst) Saccharomyces boulardii 250 mg 250 mg PO BID 02/24/25 02/24/25 History capsule (Florastor) amino acids-protein hydrolysate 15 1 ea PO DAILY 02/2402/24/25 History gram-100 kcal/30 mL oral liquid pkt balsam josh-castor oil topical 1 applic topical BID 02/24/25 History ointment clindamycin HCl 300 mg capsule 150 mg PO QID 02/24/25 02/24/25 History collagenase clostridium histo. 250 1 applic topical DA FANNIE 02/24/25 02/24/25 History unit/gram topical ointment (Santyl) honey 80 % topical gel (MediHoney 1 applic topical JAMES LY 02/24/25 02/24/25 History (honey)) sodium hypochlorite 0.25 % 1 applic topical DAILY 02/1402/24/25 History solution (Dakin's Solution) New Prescriptions to Start Prescriptions: Allergies Allergy/AdvReac Type Severity Reaction Status Date / Time No Known Allergies Allergy Verified 02/04/25 10:51 Exam Data for Last 24 hours Vital signs and Labs for Last 24 Hours: Temp Pulse Resp BP Pulse Ox O2 Del Method 98.7 F 126 H 18 105/55 L 99 Room Air 02/24/25 02:51 02/24/25 03:24 02/24/25 03:24 02/24/25 03:24 02/24/25 03:24 02/24/25 03:24 Laboratory Results - last 24 hr 02/23/25 22:07: PT 14.2 H, INR 1.30 H, APTT 33.0 H, Sodium 141, Potassium 4.3, Chloride 111 H, Carbon Dioxide 27, Anion Gap 7.3, BUN 24 H, Creatinine 0.90, Estimated Creat Clear 42, Estimated GFR 80, Est GFR ( Amer) 97, Glucose 215 H, Calcium 9.4, Phosphorus 3.7, Magnesium 2.1, Total Bilirubin 0.6, AST 30, ALT 18, Alkaline Phosphatase 112, Total Creatine Kinase 47 L, Total Protein 6.4 D, Albumin 2.9 L, Globulin 3.5 H, Albumin/Globulin Ratio 0.8 L, Lipase 28, TSH 2.22, Free T4 1.45 02/23/25 22:19: WBC 9.7, RBC 3.75 L, Hgb 10.7 L, Hct 34.8 L, MCV 92.8, MCH 28.5, MCHC 30.7 L, RDW 17.6 H, Plt Count 379, MPV 10.6 H, Neut % (Auto) 70.1, Lymph % (Auto) 20.5, [place] % (Auto) 5.4, Eos % (Auto) 3.0, Baso % (Auto) 0.4, Neut # (Auto) 6.8, Lymph # (Auto) 2.0, [place] # (Auto) 0.5, Eos # (Auto) 0.3, Baso # (Auto) 0.0, Lactate 1.8 02/23/25 23:11: Urine Color Yellow, Urine Appearance Clear, Urine pH 5.5, Ur Specific [place] 1.029, Urine Protein Trace, Urine Glucose (UA) Negative, Urine Ketones Trace, Urine Blood Negative, Urine Nitrate Negative, Urine Bilirubin 1+ A, Urine Urobilinogen 0.2, Ur Leukocyte Esterase Negative, Urine RBC Occasional, Urine WBC 3-5, Ur Squamous Epith Cells 5-10, Urine Bacteria 2+ 02/23/25 23:50: Ammonia < 9 L I & O for Last 24 hours: Intake & Output 02/21/25 02/22/25 02/23/25 02/24/25 23:59 23:59 23:59 23:59 Weight 54.431 kg 56.699 kg Constitutional Constitutional: no acute distress *Routine HEENT Exam Head: Present normocephalic Eye: Present EOMI and PERRL ENT: Present mucous membranes moist *Routine Neck Exam Neck: Present supple; Absent lymphadenopathy *Routine Respiratory Exam Respiratory: Present CTA bilaterally *Routine Cardiovascular Exam Cardiovascular: Present RRR *Routine Abdominal Exam Abdominal: Present soft and normoactive bowel sounds; Absent tenderness *Routine Rectal Exam Rectal:: deferred *Routine Genitalia Exam Genitalia:: deferred *Routine Extremities Exam Extremities: Absent cyanosis, clubbing or edema Routine Back/Spine/Pelvis Exam Comments: has sacral decubitus ulcer, stage 4 *Routine Skin Exam Skin: Present warm; Absent rash *Routine Neurological Exam Neurological: Present alert and oriented X3 Assessment and Plan *Assessment and plan (1) Osteomyelitis: Status: Acute Category: Medical Code(s): M86.9 - Osteomyelitis, unspecified (2) Adult failure to thrive: Status: Acute Category: Medical Code(s): R62.7 - Adult failure to thrive (3) Paroxysmal atrial fibrillation: Status: Acute Category: Medical Code(s): I48.0 - Paroxysmal atrial fibrillation (4) Hyperlipidemia: Status: Acute Qualifiers: Hyperlipidemia type: mixed hyperlipidemia Qualified Code(s): E78.2 - Mixed hyperlipidemia Category: Medical Code(s): E78.5 - Hyperlipidemia, unspecified (5) Hypertension: Status: Acute Qualifiers: Hypertension type: primary hypertension Qualified Code(s): I10 - Essential (primary) hypertension Category: Medical Code(s): I10 - Essential (primary) hypertension Plan Patient is a 84-year-old male who is a correction resident with past medical history of paroxysmal atrial fibrillation on Eliquis hypertension hyperlipidemia who presents to the hospital due to failure to thrive. According to the correction documentation patient has not been eating well, patient reportedly has history of dementia. 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 Patient denies any other complaints at this time. 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
--- NOTE | 2025-02-24 07:41 | EXP.PHA.CONS ---
Pharmacy Consult Date: 02/24/25 Time: 07:41 Referring provider: DR. GARNETT Reason for Consult:: VANCOMYCIN DOSING Allergies Allergy/AdvReac Type Severity Reaction Status Date / Time No Known Allergies Allergy Verified 02/04/25 10:51 Home Medications ?Medication ?Instructions ?Recorded ?Confirmed ?Type acetaminophen 500 mg tablet 500 mg PO Q6H PRN Fever Or Pain 01/18/25 02/24/25 History calcium carbonate (Oyster Shell 500 mg PO BID 01/18/25 02/24/25 History Calcium) fentanyl 12 mcg/hr transdermal 1 patch transdermal Q72H 01/18/25 02/24/25 History patch memantine 5 mg tablet 5 mg PO HS 01/18/25 02/24/25 History mirtazapine 7.5 mg tablet 7.5 mg PO HS 01/18/25 02/24/25 History multivitamin 1 tab PO DAILY 01/18/25 02/24/25 History polyethylene glycol 3350 17 gram 17 g PO DAILY 01/18/25 02/24/25 History oral powder packet sennosides 8.6 mg-docusate sodium 1 tab PO BID 01/18/25 02/24/25 History 50 mg tablet (Senna with Docusate Sodium) apixaban 5 mg tablet (Eliquis) 5 mg PO BID 30 days #60 tabs 01/22/25 02/24/25 Rx metoprolol tartrate 50 mg tablet 50 mg PO BID 30 days #60 tabs 01/22/25 02/24/25 Rx diclofenac sodium 1 % topical gel 2 g topical ONCE PRN Pain (Scale 02/04/25 02/24/25 History Score 4-6) potassium chloride 10 mEq 40 meq PO ONCE 02/04/25 02/24/25 History tablet,extended release(part/cryst) Saccharomyces boulardii 250 mg 250 mg PO BID 02/24/25 02/24/25 History capsule (Florastor) amino acids-protein hydrolysate 15 1 ea PO DAILY 02/24/25 02/24/25 History gram-100 kcal/30 mL oral liquid pkt balsam josh-castor oil topical 1 applic topical BID 02/24/25 02/24/25 History ointment clindamycin HCl 300 mg capsule 150 mg PO QID 02/24/25 02/24/25 History collagenase clostridium histo. 250 1 applic topical DAILY 02/24/25 02/24/25 History unit/gram topical ointment (Santyl) honey 80 % topical gel (MediHoney 1 applic topical DAILY 02/24/25 02/24/25 History (honey)) sodium hypochlorite 0.25 % 1 applic topical DAILY 02/24/25 02/24/25 History solution (Dakin's Solution) New Prescriptions to Start Prescriptions: Height: 1.75 m Weight: 56.699 kg Laboratory Results:: Laboratory Results - last 24 hr 02/23/25 22:07: PT 14.2 H, INR 1.30 H, APTT 33.0 H, Sodium 141, Potassium 4.3, Chloride 111 H, Carbon Dioxide 27, Anion Gap 7.3, BUN 24 H, Creatinine 0.90, Estimated Creat Clear 42, Estimated GFR 80, Est GFR ( Amer) 97, Glucose 215 H, Calcium 9.4, Phosphorus 3.7, Magnesium 2.1, Total Bilirubin 0.6, AST 30, ALT 18, Alkaline Phosphatase 112, Total Creatine Kinase 47 L, Total Protein 6.4 D, Albumin 2.9 L, Globulin 3.5 H, Albumin/Globulin Ratio 0.8 L, Lipase 28, TSH 2.22, Free T4 1.45 02/23/25 22:19: WBC 9.7, RBC 3.75 L, Hgb 10.7 L, Hct 34.8 L, MCV 92.8, MCH 28.5, MCHC 30.7 L, RDW 17.6 H, Plt Count 379, MPV 10.6 H, Neut % (Auto) 70.1, Lymph % (Auto) 20.5, [place] % (Auto) 5.4, Eos % (Auto) 3.0, Baso % (Auto) 0.4, Neut # (Auto) 6.8, Lymph # (Auto) 2.0, [place] # (Auto) 0.5, Eos # (Auto) 0.3, Baso # (Auto) 0.0, Lactate 1.8 02/23/25 23:11: Urine Color Yellow, Urine Appearance Clear, Urine pH 5.5, Ur Specific [place] 1.029, Urine Protein Trace, Urine Glucose (UA) Negative, Urine Ketones Trace, Urine Blood Negative, Urine Nitrate Negative, Urine Bilirubin 1+ A, Urine Urobilinogen 0.2, Ur Leukocyte Esterase Negative, Urine RBC Occasional, Urine WBC 3-5, Ur Squamous Epith Cells 5-10, Urine Bacteria 2+ 02/23/25 23:50: Ammonia < 9 L Medical History: Medical History (Updated 02/24/25 @ 01:42 by Rashaad Alfaro MD) Hyperlipidemia Paroxysmal atrial fibrillation NSTEMI (non-ST elevated myocardial infarction) Pericardial effusion Coronary artery disease Pneumonia Diabetes Atrial fibrillation with rapid ventricular response Auditory hallucinations Benign prostatic hyperplasia Constipation Atherosclerosis of coronary artery bypass graft Hypertension Parkinsonism Major depressive disorder Diabetes mellitus Osteoarthritis Assessment and Plan Assessment and plan all Dx Assessment and Plan for all problems:: Pharmacokinetic dosing service Objective: Patient: Floor: Age: 81 yo Serum creatinine: 1.30 mg/dL Height: 68.9 Inches Weight (kg): 62.1 Assessment: IBW (kg): 70.47 Dosing wt(kg): 62.1 Estimated Creatinine clearance (ml/min): 38.5 CRCL method: Cockcroft and Gault using ibw(default). Drug selected: Vancomycin Loading dose (mg): Vd (liters): 49.7 (factor used: 0.8 L/kg) Livan (hr-1): 0.036 Half life (hrs): 19.25 CLvanco=?? 1.789 L/hr Recommended dose: 1000 mg Interval: 24 hrs Infusion time (hrs): 2.0 Predicted peak (mcg/mL): 33.6 Predicted trough (mcg/mL): 15.22 Total body weight is being used for vancomycin dosing. Recommendations: Give Vancomycin 1000 mg q 24 hrs with an expected Cpeak of 33.6 mcg/ml and an expected Ctrough of 15.22 mcg/ml AUC 0-24 /KENNEDY Data: KENNEDY 0.5 mcg/mL:?? AUC/KENNEDY:? 1117.9 KENNEDY 1.0 mcg/mL:?? AUC/KENNEDY:? 559.0 --------- KENNEDY 1.5 mcg/mL:?? AUC/KENNEDY:? 372.6 KENNEDY 2.0 mcg/mL:?? AUC/KENNEDY:? 279.5 Thank you for the consult, will continue to follow. -DEREK LORD, CASSIED
[2025-02-24 07:48] LABS: Chloride 113 mmol/L (98-107); Sodium 143 mmol/L (136-145)
[2025-02-24 07:51] LABS: Blood Urea Nitrogen 21 mg/dl (9-20); Calcium 9.2 mg/dl (8.4-10.2); Carbon Dioxide 27 mmol/L (22.0-30.0); Creatinine Clearance Estimated 43 mL/min (50-200); Estimated Glomerular Filt Rate 107 ml/min (>60); GFR (African American) 130 ML/MIN (>60); Glucose 206 mg/dl (74-100)
--- OUTSIDE RECORDS SUMMARY | 2025-02-24 08:09 | XMS_ITS | Clinical Summary ---
Author Organization [facility] Address [address] [place] [address] Care Team Providers Care Test Hole Driller Name Role Phone Eyad Madrid MD Primary Care Provider [phone] Allergies Active Allergy Reactions Criticality Noted Date [...] 3 4 Active Insulin Pen Needle (Pen Waban) 32G X 5 MM misc 1 each [...] fibrillation 04/10/2023 Coronary artery disease invo lving [place] coronary artery of [place] heart 03/27/2023 PAC (premature atrial contraction) 03/27/2023 [...] Department Care Team Description 01/07/2025 Nurse Triage [facility] [address], [address] [place] [address] Eyad Madrid MD 01/06/2025 Telephone [facility] [address], [address] [place] [address] Eyad Madrid MD 01/04/2025 Telephone Radiology Virtual Dept. [address] [place] [address] Di Thao 12/17/2024 Patient Outreach [facility] Medicine Specialties [address], [address] [place] [address] Jasper Vivar 12/07/2024 Telephone [facility] [address], [address]st [place] [address] Dave Whitehead MD 12/07/2024 Travel 12/01/2024 Telephone Physical Medicine & Rehabilitation Clinic at [facility] [address] [place] [address] Edmundo Denny DO HCN - Patient Message 11/30/2024 Telephone [facility] Diabetes Education [address] [place] [address] Blanca James TOE LINING CLOSER HCN - Patient Message 10/31/2024 2:36 PM EST - 12/07/2024 11:09 AM EDT Hospital Encounter [facility] [address] [place] [id number] Saeid Molina MD Kale, MD Leonides Cervantes Archana M, MD Marks, MD Nish Wilburn, MD Obdulio Mitchell, Angela J, MD [place] (Primary Dx) Discharge Disposition: Retirement Facility from Last 3 Months Immunizations Immunization Administration Dates Next Due Influenza, High-dose, Split Virus, Trivalent, Injectable, preservative free 05/21/2024 Influenza, Unspecified 06/22/2015,2013,07/21/2013,06/02,06/20/2011,06/30/2010,07/27/2008 ,06/20/2007,07/05/2006,06/21/2005,06/17,07/07/2002,07/15/2001, 0 Influenza, high-dose, quadrivalent 06/03/2023, Influenza, injectable, MDCK, preservative free, quadrivalent 06/13/2017 Influenza, recombinant, quad rivalent, injectable, preservative free 06/10/2012,05/19/2009 Influenza, seasonal, injectable 06/20/2011,07/27 Influenza, seasonal, injecta ble, preservative free 10/29/2016 [employer] Covid-19 Vaccine 12y+ , Kiran Protein, PF, [...] place to sleep or slept in a intermediate (including now)? No 11/08/2023 PHQ-9 Answer Date [...] any time in the past 12 m [facility], were you homeless or living in a intermediate (including now)? No 11/02/2024 Safety and Environment [...] Recorded In the past 12 months has [employer], gas, oil, or water [employer] threatened to shut off services in your [...] [address], 1st [place] [address] Kole Mclaughlin MD [address] [place] [address] 08/09/2025 11:40 AM EST Office Visit [facility] [address], [address] [place] [address] Sara Cardenas MD [address] [place] [address] Health Maintenance Due Date Last Done Comments Dental X-Ray: Bitewings 1940 Dental X-Ray: Full Mouth 1939 Diabetes: Dental Exam 1949 [facility]-Hepatitis A Vaccines (1 of 2 - Risk 2-dose series) 1958 [facility]-RSV Vaccine: 60+ Years or (1 - 1-dose 75+ series) 2014 Dental Oral Exam 12/26/2023 06/25/2023 Dental Prophylaxis 12/26/2023 06/25/2023 [facility]-Bone Density Scan 04/03/2024 04/03/2023, 023 [id number] Vaccine ( - 2023- season) 2024 06/24/2023, [...] UNSOLICITED RESULTS Routine 11/24/2024 8:07 AM EDT HEMOGLOBIN A1C Add-On 10/31/2024 3:58 PM EST PROPHYLAXIS - ADULT Routine 06/25/2023 9 :00 AM EDT Dental calculus COMPREHENSIVE ORAL EVALUATION - NEW OR ESTABLISHED PATIENT Routine 06/25/2023 9:00 AM EDT Encounter for dental examination from Last 3 Months or Most Recently Relevant to Health Maintenance Results * (ABNORMAL) POCT glucose meter (12/07/2024 8:02 AM EDT) Only the most recent of57 resultswithin the time period is included. Pathologist [facility] POCT Glucose 113(H) 74 - 99 [...] Comment 12/07/2024 8:07 AM EDT HEALTHCARE LAB Functional Manager ID Priya Black 12/07/2024 8:07 AM EDT [facility] Device ID [id number] 12/07/2024 8:07 AM EDT HEALTHCARE LAB Specimen Type POC Capillary 12/07/2024 8:07 AM EDT [facility] Blood Capillary blood specimen / Unknown 12/07/2024 8:02 AM EDT 12/07/2024 8:07 AM EDT Angela Mak MD LAB POINT OF CARE TE ST DOCKED DEVICE UNSOLICITED RESULTS Final Result [facility] [address] [place] [address] * (ABNORMAL) CBC W/O Differential (12/07/2024 4:19 AM EDT) Only the most recent of4 resultswithin the time period is included. Pathologist [facility] WBC Count 3.31(L) 3.70 - 10.30 10*3/uL LAB HEMATOLOGY METHOD 12/07/2024 4:29 AM EDT HEALTHCARE LAB RBC Count 3.70(L) 4.60 - 6.10 10*6/uL LAB HEMATOLOGY METHOD 12/07/2024 4:29 AM EDT [facility] HGB 11.6(L) 13.7 - 17.5 g/dL LAB HEMATOLOGY METHOD 12/07/2024 4:29 AM EDT [facility] HCT 34.7(L) 40.0 - 51.0 % LAB HEMATOLOGY METHOD 12/07/2024 4:29 AM EDT [facility] Platelet Count 181 155 - 369 10*3/uL LAB HEMATOLOGY METHOD 12/07/2024 4:29 AM EDT [facility] MCV 94 79 - 98 fL LAB HEMATOLOGY METHOD 12/07/2024 4:29 AM EDT [facility] MCH 31.4 26.0 - 32.0 pg LAB HEMATOLOGY METHOD 12/07/2024 4:29 AM EDT [facility] MCHC 33.4 30.7 - 35.5 g/dL LAB HEMATOLOGY METHOD 12/07/2024 4:29 AM EDT [facility] RDW 12.9 11.5 - 14.5 % LAB HEMATOLOGY METHOD 12/07/2024 4:29 AM EDT [facility] MPV 8.9 8.8 - 12.5 fL LAB HEMATOLOGY METHOD 12/07/2024 4:29 AM EDT [facility] nRBC 0.0 <=0.0 per 100 WBCs LAB HEMATOLOGY METHOD 12/07/2024 4:29 AM EDT [facility] Blood Venous blood specimen / Unknown Venipuncture / Unknown 12/07/2024 4:19 AM EDT 12/07/2024 4:24 AM EDT us Alyse Serrato MD LAB BLOOD ORDERABLES Final Resu lt [facility]ARE [facility] [address] [place] [address] * Phosphorus, Plasma (12/07/2024 4:19 AM EDT) Only the most recent of4 resultswithin the time period is included. Phosphorus, Plasma 2.8 2.5 - 4.5 mg/dL 12/07/2024 4:51 AM EDT [facility] Blood Venous blood specimen / Unknown Venipuncture / Unknown 12/07/2024 4:19 AM EDT 12/07/2024 4:24 AM EDT us Alyse Serrato MD LAB BLOOD ORDERABLES Final Resu lt Performing Organization Address [facility] Co de Phone Number HEALTHCARE LAB [address] [place] [address] * Magnesium, Plasma (12/07/2024 4:19 AM EDT) Only the most recent of4 resultswithin the time period is included. Magnesium, Plasma 2.0 1.9 - 2.4 mg/dL 12/07/2024 4:51 AM EDT [facility] Blood Venous blood specimen / Unknown Venipuncture / Unknown 12/07/2024 4:19 AM EDT 12/07/2024 4:24 AM EDT us Alyse Serrato MD LAB BLOOD ORDERABLES Final Resu lt Performing Organization Address [facility] de Phone Number HEALTHCARE LAB [address] [place] [address] * (ABNORMAL) Comprehensive Metabolic Panel, Plasma (12/07/2024 4:19 AM EDT) Only the most recent of4 resultswithin the time period is included. Glucose, [...] - 145 mmol/L 12/07/2024 4:51 AM EDT [facility] Potassium, Plasma 3.8 3.6 - 4.9 mmol/L 12/07/2024 4:51 AM EDT HEALTHCARE LAB Chloride, Plasma 103 97 - 107 mmol/L 12/07/2024 4:51 AM EDT [facility] CO2, Plasma 24 22 - 29 mmol/L 12/07/2024 4:51 AM EDT [facility] Anion Gap 10 6 - 16 mmol/L 12/07/2024 4:51 AM EDT [facility] Total Calcium, Plasma 8.6(L) 8.9 - 10.2 mg/dL 12/07/2024 4:51 AM EDT [facility] Total Protein 6.1(L) 6.3 - 7.9 g/dL 12/07/2024 4:51 AM EDT [facility] Albumin, Plasma 3.4(L) 3.5 - 5.2 g/dL 12/07/2024 4:51 AM EDT [facility] AST, Plasma 34 10 - 50 U/L 12/07/2024 4:51 AM EDT [facility] ALT, Plasma 51(H) 10 - 50 U/L 12/07/2024 4:51 AM EDT [facility] Alkaline Phosphatase, Plasma 76 40 - 115 U/L 12/07/2024 4:51 AM EDT [facility] Total Bilirubin, Plasma 0.3 0.2 - 1.1 mg/dL 12/07/2024 4:51 AM EDT [facility] eGFRcr 86.7 mL/min/1.7 3m*2 12/07/2024 4:51 AM EDT [facility] Comment:Reported eGFRcr in m L/min/1.73m2 is based the CKD-EPI 2020 equation that does not use a race coefficient. Blood Venous blood specimen / Unknown Venipuncture / Unknown 12/07/2024 4:19 AM EDT 12/07/2024 4:24 AM EDT us Alyse Serrato MD LAB BLOOD ORDERABLES Final Resu lt [facility] [address] [place] [address] * (ABNORMAL) Hemoglobin A1c (10/31/2024 3:58 PM EST) Hemoglobin A1c 8.3(H) <5.7 % 11/01/2024 4:17 PM EST [facility] Blood Venous blood specimen / Unknown Venipuncture / Unknown 10/31/2024 3:58 PM EST 10/31/2024 4:12 PM EST Narrative [facility] - 11/01/2024 4:17 PM EST HA1C Interpretive Data: Diagnosis of Diabetes: Diabetic > or = 6.5% Pre-diabetic 5.7 to 6.4% Non-diabetic < or = 5.6% Glycemic Targets for Type I and Type II Diabetics: Non- Adults <7.0% Adults <6.0% Children and Adolescents <7.5% Source: [place] [employer]. Standards of medical care in diabetes,2017. Diabetes Care.2017:40 (suppl 1):S1-S135. HbA1c assay performed by an ion-exchange chromatography method that is certified traceable to the DCCT. Sonam Parker MD LAB BLOOD ORDERABLES Final Res ult [facility] [address] [place] [address] from Last 3 Months or Most Recently Relevant to Health Maintenance Insurance MEDICAID [facility] [place] Advance Directives * Full Code (Latest Code Status on File) Date Activated Date Inactivated Comments 10/31/2024 5:35 PM 12/07/2024 1:15 PM Question Answer Comments Patient has decision-making capacity? Yes * Full Code Date Activated Date Inactivated Comments 10/28/2024 7:56 PM 10/30/2024 8:12 PM Interpeter 7 [id number] Question Answer Comments Patient has decision-making capacity? Yes Care Teams Test Hole Driller Relationship Specialty Start Date End Date Eyad Madrid MD [address] [place] [address] PCP - General Family Medicine 12/26/23
--- OUTSIDE RECORDS SUMMARY | 2025-02-24 08:09 | XMS_ITS | Encounter Summary ---
Author Organization [facility] Address [address] [place] [address] Care Team Providers Care Etl Tester Name Role Phone Lidia Bee DMD Unavailable [phone] Eyad Madrid MD Primary Care Provider [phone] Declan Santiago Unavailable Unavailable Edie Francois LPN Unavailable Unavailabl e Reason for Visit * Reason Onset Date Comments HCN - Patient Message 12/01/2024 Encounter Details Date Type Department Care Team (Late st Contact Info) Description 12/01/2024 Telephone Physical Medicine & Rehabilitation [facility] at [facility] [address] [place] [address] Edmundo Denny, DO [address] [facility] [address] [place] [address] HCN - Patient Message Social [...] place to sleep or slept in a mcfp (including now)? No 11/08/2023 PHQ-9 Answer Date [...] any time in the past 12 m [facility], were you homeless or living in a mcfp (including now)? No 11/02/2024 Safety and Environment [...] Recorded In the past 12 months has [employer], gas, oil, or water [employer] threatened to shut off services in [...] AM EDT Clinical Concern/Question Reason for Call: [place], patient is calling stating the patient is [...] help with this. Best contact number: Other: [phone], Spouse Kolby Optimal time of day to reach caller: ANYTIME Additional comments/information from caller: Alt # is [phone] Kerri (daughter) Note: Please do not reply [...] Visit [place] [facility] [address], [address]st [place] [address] Kole Mclaughlin MD [address] [place] [address] 08/09/2025 11:40 AM EST Office Visit [facility] [place] [address], [address] [place] [address] Sara Cardenas MD [address] [place] [address] documented as of this encounter [...] documented as of this encounter Care Teams Etl Tester Relationship Specialty Start Date End Date Eyad Madrid MD [address] [place] [id number] PCP - General Family Medicine 12/26/23 Lidia Bee DMD [address] [place] [phone] Dentist 07/04/23 01/31/25 Declan Santiago Dental Student Dental Public Relations Director 01/07/24 01/31/25 Edie Francois, [facility] TCM Nurse 11/02/24 12/02/24 documented as of this encounter
--- OUTSIDE RECORDS SUMMARY | 2025-02-24 08:09 | XMS_ITS | Encounter Summary ---
Author Organization [facility] Address [address] [place] [address] Care Team Providers Care Classification Analyst Name Role Phone Herbert Beejc Lei DMD Unavailable [phone] Eyad Madrid MD Primary Care Provider [phone] Declan Santiago Unavailable Unavailable Encounter Details Date Type Department Care Team (Late st Contact Info) Description 12/07/2024 Telephone [place] [facility] [address], [address] [place] [address] Dave Whitehead MD [address] [place] [address] Social History Tobacco Use Types [...] Recorded In the past 12 months has [employer], gas, oil, or water company threatened [...] optimal time of day to reach caller: [phone] Note: Please do not reply to this [...] Description 2025 8:00 AM EDT Office Visit [place] [facility] [address], 1st [place] [address] Kole Mclaughlin MD [address] [place] [address] 08/09/2025 11:40 AM EST Office Visit [facility] [place] [address], [address] [place] [address] Sara Cardenas MD [address] [place] [address] documented as of this encounter [...] documented as of this encounter Care Teams Classification Analyst Relationship Specialty Start Date End Date Eyad Madrid MD [address] [place] [address] PCP - General Family Medicine 12/26/23 Lidia Bee DMD [address] [place] [address] Dentist 07/04/23 01/31/25 Declan Santiago Dental Student Dental Receiving Room Clerk 01/07/24 01/31/25 documented as of this encounter
--- OUTSIDE RECORDS SUMMARY | 2025-02-24 08:09 | XMS_ITS ---
Author Organization [facility] Address [address] [place] [address] Care Team Providers Care Analytical Statistician Name Role Phone Eyad Madrid MD Primary Care Provider Active Problems Problem Noted Date Diagnosed Date [...] fibrillation 04/10/2023 Coronary artery disease invo lving [place] coronary artery of [place] heart 03/27/2023 PAC (premature atrial contraction) 03/27/2023 [...]
--- OUTSIDE RECORDS SUMMARY | 2025-02-24 08:10 | XMS_ITS | Encounter Summary ---
Author Organization [facility] Address [address] [place] [address] Care Team Providers Care Rim Technician Name Role Phone Lidia Bee Quique DMD Unavailable [phone] Eyad Madrid MD Primary Care Provider [phone] Declan Santiago Unavailable Unavailable Reason for Visit * Reason Onset Date Comments HCN - Patient Message 01/07/2025 Anorexia 01/07/2025 Encounter Details Date Type Department Care Team (Late st Contact Info) Description 01/07/2025 Nurse Triage [address], [address] [place] [address] Eyad Madrid MD [address] [id number] Social History Tobacco Use Types Packs/Day Years [...] place to sleep or slept in a fdc (including now)? No 11/08/2023 PHQ-9 Answer Date [...] were you homeless or living in a fdc (including now)? No 11/02/2024 Safety and Environment [...] Recorded In the past 12 months has [employer], gas, oil, or water company threatened to [...] I would beforwarding my documentation to patient's [facility] PCP for their review and advice. [...] to care for him. Best contact number: [phone] (home) Optimal time of day to reach caller: ANYTIME Additional comments/information from caller: None Note: Please do not reply to this message. Follow-up communication and further actions as a result of this message need to be communicated with the patient directly, if the patient is not active onMyChart. If the patient is active on MyChart, they will receive notification of the communication/outcome via [place] LLCt. * Telephone Encounter - Chrissy Trimble - 01/07/2025 2:23 PM EDT Status Update Call #1 1st call regarding the status of the initial request. Best contact number: [phone] (home) Optimal time of day to reach [...] call back. Please advise. Best contact number: [phone] (home) Optimal time of day to reach caller: ANYTIME Additional comments/information from caller: None Note: Please do not reply to this message. Follow-up communication and further actions as a result of this message need to be communicated with the patient directly, if the patient is not active onMyChart. If the patient is active on MyChart, they will receive notification of the communication/outcome via MyCAnchantot. documented in this encounter Plan of Treatment Upcoming Encounters Date Type Department Care Team (Late st Contact Info) Description 2025 8:00 AM EDT Office Visit [place] [facility] [address], [address] [place] [address] Kole Mclaughlin MD [address] [place] [address] 08/09/2025 11:40 AM EST Office Visit [facility] [place] [address], [address] [place] [address] Sara Cardenas MD [address] [place] [address] documented as of this encounter [...] documented as of this encounter Care Teams Rim Technician Relationship Specialty Start Date End Date Eyad Madrid MD [address] [place] [address] PCP - General Family Medicine 12/26/23 Lidia Bee DMD [address] [place] [address] Dentist 07/04/23 01/31/25 Declan Santiago Dental Student Dental Room Attendant 01/07/24 01/31/25 documented as of this encounter
--- OUTSIDE RECORDS SUMMARY | 2025-02-24 08:10 | XMS_ITS | Encounter Summary ---
Author Organization [facility] Address [address] [place] [address] Care Team Providers Care General Lithographic Worker Name Role Phone Herbert Beejc Lei DMD Unavailable [phone] Eyad Madrid MD Primary Care Provider [phone] Declan Santiago Unavailable Unavailable Encounter Details Date Type Department Care Team (Late st Contact Info) Description 01/06/2025 Telephone [facility] [address], [address] [place] [address] Eyad Madrid MD [address] [place] [address] Social History Tobacco Use Types [...] place to sleep or slept in a longterm (including now)? No 11/08/2023 PHQ-9 Answer Date [...] were you homeless or living in a longterm (including now)? No 11/02/2024 Safety and Environment [...] the past 12 months has th e [place], gas, oil, or water [employer] threatened to shut off services in your [...] EDT Returned call to patient's using a [employer] supplies sales representative. Telephone connection was poor and conversation was difficult. states patient is in critical condition then requests to call back later when she isn't driving. ER precautions provided to patient. Patient verbalized understanding. * Telephone Encounter - Tejal Montez - 01/06/2025 2:04 PM EDT Patient Phone Message Reason for Call: Patient was discharged from [place] [address] to [facility]. is seeking a call back to [facility] base on his medical condition. She states his health is declining. speaks some Slovenian butstates she may need a [place] dairy supplies sales representative when the clinical staff calls her back. Thank you! Best contact number and optimal time of day to reach caller: [phone] Note: Please do not reply to this [...] Description 2025 8:00 AM EDT Office Visit [place] [facility] [address], [address] [place] [address] Kole Mclaughlin MD [address] [place] [address] 08/09/2025 11:40 AM EST Office Visit [facility] [place] [address] [facility] [place] [address] Sara Cardenas MD [address] [place] [address] documented as of this encounter [...] documented as of this encounter Care Teams General Lithographic Worker Relationship Specialty Start Date End Date Eyad Madrid MD [address] [place] [address] PCP - General Family Medicine 12/26/23 Lidia Bee DMD [address] [address] Dentist 07/04/23 01/31/25 Declan Santiago Dental Student Dental Streetcar Dispatcher 01/07/24 01/31/25 documented as of this encounter
--- OUTSIDE RECORDS SUMMARY | 2025-02-24 08:10 | XMS_ITS | Encounter Summary ---
Author Organization [facility] Address [address] [place] [address] Care Team Providers Care Nursing Clinical Director Name Role Phone Isai Yenifer Aguirre APRN Primary Care Provider HourLidia ryder DMD Primary Care Provider [phone] Dave Ward Unavailable Unavailable HourLidia ryder DMD Unavailable [phone] JazzYenifer sosa APRN Primary Care Provider Rhina Stock Unavailable Unavailable Eyad Madrid MD Primary Care Provider [phone] Declan Santiago Unavailable Unavailable Edie Francois LPN Unavailable UnavailRuthie Arnold Unavailable Unavailable Encounter Details Date Type Department Care Team (Late st Contact Info) Description 06/20/2023 [facility] [address] [place] [address] Caroline Silva, REPAIR MECHANIC [address] [facility] [address] [place], [place] [id number] Memory loss (Primary Dx) Social History Tobacco [...] Visit [place] [facility] [address] [place] [address] Kole Mclaughlin MD [address] [place] [address] 08/09/2025 11:40 AM EST Office Visit [facility] [place] [address], [address] [place] [address] Sara Cardenas MD [address] [place] [address] documented as of this encounter [...] documented as of this encounter Care Teams Nursing Clinical Director Relationship Specialty Start Date End Date Yenifer Alex APRN [address] [place] [address] PCP - General Family Medicine 01/31/23 06/24/23 Lidia Bee DMD [address] [address] PCP - General 06/25/23 07/03/23 Yenifer Alex APRN [address] [place] [address] PCP - General Family Medicine 07/04/23 12/25/23 Eyad Madrid MD 800 [place], [place] [id number] PCP - General Family Medicine 12/26/23 Dave Ward [employer] Dental Student Dental Pvc Loader 06/25/23 01/06/24 Lidia Bee, DMD [address] [address] Dentist 07/04/23 01/31/25 Rhina Stock Community Health Worker 11/08/23 11/19/23 Declan Santiago Dental Student Dental Pvc Loader 01/07/24 01/31/25 Edie Francois, [facility] TCM Nurse 11/02/24 12/02/24 Ruthie Sanders [facility] [place] [address] Blow Mold Operator 11/03/24 11/03/24 documented as of this encounter
--- OUTSIDE RECORDS SUMMARY | 2025-02-24 08:10 | XMS_ITS | Encounter Summary ---
Author Organization [facility] Address [address] [place] [address] Care Team Providers Care Rn Night Name Role Phone Shrutibritni Lidia Lei DMD Unavailable [phone] Eyad Madrid MD Primary Care Provider [phone] Declan Santiago Unavailable Unavailable Encounter Details Date Type Department Care Team (Late st Contact Info) Description 01/04/2025 Telephone Radiology Virtual Dept. [address] [place] [address] Di Thao Social History Tobacco [...] any time in the past 12 m [facility], were you homeless or living in a [...] Visit [place] [facility] [address] [place] [address] Kole Mclaughlin MD [address] [place] [address] 08/09/2025 11:40 AM EST Office Visit [facility] [place] [address] [facility], [address] [place] [address] Sara Cardenas MD [address] [facility] [address] [place] [address] documented as of this encounter [...] documented as of this encounter Care Teams Rn Night Relationship Specialty Start Date End Date Eyad Madrid MD [address] [place] [address] PCP - General Family Medicine 12/26/23 Lidia Bee DMD [address] [address] Dentist 07/04/23 01/31/25 Declan Santiago Dental Student Dental Wood Router 01/07/24 01/31/25 documented as of this encounter
[2025-02-24 08:29] LABS: C-Reactive Protein 129.8 mg/L (0-4)
[2025-02-24 08:31] LABS: Erythrocyte Sedimentation Rate 99 mm/hr (0-20)
[2025-02-24] MEDS: METOPROLOL TARTRATE 50MG TABLET 50 MG PO ×2 (08:43→20:19)
[2025-02-24] MEDS: POLYETHYLENE GLYCOL 3350 17 GM PACKET PO (08:44)
[2025-02-24] MEDS: SENNOSIDES 8.6MG/DOCUSATE 50MG TABLET 1 TAB PO ×2 (08:44→20:19)
[2025-02-24] MEDS: MEMANTINE 10MG TABLET 5 MG PO ×2 (08:44→20:20)
--- NOTE | 2025-02-24 09:11 | DIET.NUTRFU ---
RD consulted d/t malnutrition concern: spoke to [facility] nursing staff where patient lives. He follows a pureed diet, meal intake has been very poor. Refusing most meals and medication pass. He has lost 40# since last admit in January, he continues to have skin breakdown secondary to malnutrition and limited mobility. House supplements are regularly refused at [facility] also. Based on current medical issues he triggers for severe protein malnutrition, will notified provider
--- NOTE | 2025-02-24 09:35 | SW/DCPLANNER ---
Addendum entered by Angelique [place] 02/26/25 14:06: Barbra w/ Hospice at bedside to evaluate patient. The plan for this patient is to return to [facility] today w/ Hospice services. Patient's daughter Kerri/PAULINO concurs w/ this plan and signed paperwork w/ Hospice today. Addendum entered by Angelique [place] 02/26/25 10:09: Patient's family has now expressed an interest in Hospice Care. Patient information has been faxed to Trista rai/ [facility]. Addendum entered by Angelique [place] 02/25/25 15:55: Mandi fredi/ [facility] stated that she will contact me back in the AM regarding referral. Addendum entered by Angelique [place] 02/25/25 14:32: Update on placement w/ [place] facilities: no beds: [facility], [facility], [facility] waiting on a call back: [facility] ([phone]), [facility] ([phone]), [facility] ([phone]) and [facility] ([phone] information faxed: [facility] ([phone]), [facility] ([phone]) and [facility] ([phone]) I have updated patient's family in room. Addendum entered by Angelique [place] 02/25/25 11:36: Patient's family has expressed an interest in a LTC facility in [place]. I explained to family that I can begin placement but if not successful by the time of discharge then patient would return to [facility] level of care. I also explained to family that [facility] could continue to work on LTC once returning. Addendum entered by Angelique [place] 02/24/25 15:30: Patient/family prefer to proceed w/ Surgery consult for the wound and continue antibiotics. Original Note: Patient currently resides at [facility] level of care. Per patient's PCP Dr Mcnally/ Sugey Haji family wanted patient evaluated for Hospice services. I spoke w/ patient's daughter this AM and she stated that her mother (Lulu [phone]) will be onsite today to see patient. Daughter requested that MD explain all aspects of care w/ Lulu and then she will speak w/ her and make a decision regarding pursing Hospice services or not at this time. CM will continue to follow up. Discharge date is unknown at this time.
--- NOTE | 2025-02-24 09:37 | P.CONPHA_ITS ---
Pharmacy Intervention Comments: verified home medication list using long term MAR
--- NOTE | 2025-02-24 09:37 | HMH.PHAINT1 ---
Pharmacy Intervention Comments: verified home medication list using [facility] MAR
--- NOTE | 2025-02-24 15:29 | PC.NURSE ---
PT HAS BEEN RESISTIVE TO CARE FOR DURATION OF SHIFT. REFUSES MOST MEDICATIONS. AT TIMES CAN BECOME COMBATIVE WITH STAFF. TOLERATING ROOM AIR. DSG TO SACRAL AREA CHANGED TODAY. NOT REQUIRING O2 SUPPORT. VERY POOR PO INTAKE THUS FAR.
--- NOTE | 2025-02-24 15:55 | HMH.OTEV ---
OT Inpatient Evaluation Rehab OT IP Evaluation Start: 02/24/25 04:40 Freq: ONCE Status: Active Protocol: Document 02/24/25 14:38 [facility] (Rec: 02/24/25 15:54 [facility] [id number]) Rehab OT IP Assessment Subjective History History and physical Patient is a 84-year-old male who is a care home resident with past medical history of paroxysmal atrial fibrillation on Eliquis hypertension hyperlipidemia who presents to the hospital due to failure to thrive. According to the care home documentation patient has not been eating well, patient reportedly has history of dementia. 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 Patient denies any other complaints at this time. Subjective Pt unable to provide prior level of functioning due to language barrier. Pt's present. She is unable to provide much prior level of functioning as well. She explains he was living at care home and required assistance with everything. She also claims he was not walking. Objective Right Upper Mod Limitation 50% Extremity Gross ROM Left Upper Extremity Mod Limitation 50% Gross ROM Shoulder ROM Muscle Weakness Limitations Elbow ROM Muscle Weakness Limitations Wrist Limitations of Muscle Weakness Range of Motion Bed Mobility bed mobility-scooting,bed mobility - supine/sit Assist Level Maximum x 2 (75% assist) Rehab OT IP prob,goals,plan Problems Date of Evaluation: 02/24/25 OT IP Problems Bed Mobility,Transfers,Balance,Self care,Safety Rehab Potential Rehab Potential Good Equipment Needs Assistive Devices Wheelchair Plan OT intervention Plan Bed Mobility,Transfers,Balance,Self care,Safety, Therapeutic Exercise OT Plan Frequency Daily Duration LOS Discharge Goals Bed Mobility Ability Assistance x1 Sit to Stand Chair Maximum x 1 (75% assist) Transfer Ability Chair Transfer Maximum x 1 (75% assist) Ability Chair Transfer Stand Pivot Technique Chair Transfer Rolling Walker Assistive Devices Feeding Ability Assist with Tray Set Up Lower Body Dressing Maximum Assistance Ability Upper Body Dressing Minimal Assistance Ability Bathing Ability Maximum Assistance Performing Toilet Maximum Assistance Hygiene Ability Overall Commode/ Maximum Assistance Toilet Transfer Ability Commode/Toilet Stand Pivot Transfer Technique Commode/Toilet Mechanical Lift Transfer Assistive Devices Oral Care Assist Maximum Assistance Discharge Plan OT Discharge Plan Pt will continue to be seen for OT services while at [facility]. Pt can return back to SNF once he is medically stable per physician. Short term rehab once returning back to SNF would be beneficial in order to continue addressing functional deficits and improve level of independence. Eval Complexity Eval Charge Codes 46439 - Moderate Complexity PHYSICIAN CERTIFICATION: I certify the specified therapy services for Holden Bai are required, authorized, and reviewed every 30 days.
--- NOTE | 2025-02-24 16:00 | EXP.SURG.CON ---
History of Present Illness *Admission Date: 02/24/25 *Reason for visit:: Sacral decubitus ulceration *History of present illness: This is an 84-year-old gentleman seen in consultation for evaluation regarding sacral decubitus ulceration. Forwarded from emergency department evaluation/admission H&P: Patient is a 84-year-old male who is a longterm resident with past medical history of paroxysmal atrial fibrillation on Eliquis hypertension hyperlipidemia who presents to the hospital due to failure to thrive. According to the longterm documentation patient has not been eating well, patient reportedly has history of dementia. 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 Patient denies any other complaints at this time. [facility] Disclaimer: The information contained in this section may have been updated after the patient was seen, as this information can be updated by other users. Medical History (Updated 02/24/25 @ 16:05 by Ken Molina MD) Hyperlipidemia Paroxysmal atrial fibrillation NSTEMI (non-ST elevated myocardial infarction) Pericardial effusion Coronary artery disease Pneumonia Diabetes Atrial fibrillation with rapid ventricular response Auditory hallucinations Benign prostatic hyperplasia Constipation Atherosclerosis of coronary artery bypass graft Hypertension Parkinsonism Major depressive disorder Diabetes mellitus Osteoarthritis Surgical History History of cardiac cath History of laparoscopic cholecystectomy Social History Smoking Status: Never smoker alcohol intake: never substance use type: denies use current occupational status: other Travel in the last 8 weeks?: None Have you lived/traveled outside US in past 30 days?: No Contact w/someone who lives/traveled outside US past 30 days?: No Exposure to someone with infectious disease in past 14 days?: No Do you have a fever (greater than 100.4 F or 38 C)?: No Have you tested positive for COVID-19?: No Exposed to someone with COVID-19 in past 14 days?: No Do you have a sore throat?: No Do you have a cough?: No Do you have any weakness?: No Do you have any diarrhea?: No Are you experiencing any unusual bleeding?: No Do you have any muscle aches/pain?: No Do you have any abdominal pain?: No Are you experiencing loss of taste or smell?: No Meds Home Medications and Allergies Home Medications ?Medication ?Instructions ?Recorded ?Confirmed ?Type acetaminophen 500 mg tablet 500 mg PO AC 01/18/25 02/24/25 History calcium carbonate (Oyster Shell 500 mg PO BID 01/18/25 02/24/25 History Calcium) fentanyl 12 mcg/hr transdermal 1 patch transdermal Q72H 01/18/25 02/24/25 History patch memantine 5 mg tablet 5 mg PO HS 01/18/25 02/24/25 History mirtazapine 7.5 mg tablet 7.5 mg PO HS 01/18/25 02/24/25 History multivitamin 1 tab PO DAILY 01/18/25 02/24/25 History polyethylene glycol 3350 17 gram 17 g PO DAILY 01/18/25 02/24/25 History oral powder packet sennosides 8.6 mg-docusate sodium 1 tab PO BID 01/18/25 02/24/25 History 50 mg tablet (Senna with Docusate Sodium) apixaban 5 mg tablet (Eliquis) 5 mg PO BID 30 days #60 tabs 01/22/25 02/24/25 Rx metoprolol tartrate 50 mg tablet 50 mg PO BID 30 days #60 tabs 01/22/25 02/24/25 Rx diclofenac sodium 1 % topical gel 2 g topical QIDP PRN Pain (Scale 02/04/25 02/24/25 History Score 4-6) Saccharomyces boulardii 250 mg 250 mg PO BID 02/24/25 02/24/25 History capsule (Florastor) amino acids-protein hydrolysate 15 1 ea PO DAILY 02/24/25 02/24/25 History gram-100 kcal/30 mL oral liquid pkt balsam josh-castor oil topical 1 applic topical BID 02/24/25 02/24/25 History ointment clindamycin HCl 300 mg capsule 450 mg PO QID 02/24/25 02/24/25 History collagenase clostridium histo. 250 1 applic topical DAILY 02/24/25 02/24/25 History unit/gram topical ointment (Santyl) honey 80 % topical gel (MediHoney 1 applic topical DAILY 02/24/25 02/24/25 History (honey)) potassium chloride 20 mEq 40 meq PO DAILY 02/24/25 02/24/25 History tablet,extended release(part/cryst) sodium hypochlorite 0.25 % 1 applic topical DAILY 02/24/25 02/24/25 History solution (Dakin's Solution) New Prescriptions to Start Prescriptions: Allergies Allergy/AdvReac Type Severity Reaction Status Date / Time No Known Allergies Allergy Verified 02/04/25 10:51 Exam (Inpt) Vital signs and Labs for Last 24 Hours: Temp Pulse Resp BP Pulse Ox O2 Del Method 98.9 F 94 H 18 134/64 100 Room Air 02/24/25 08:00 02/24/25 08:00 02/24/25 08:00 02/24/25 08:00 02/24/25 08:00 02/24/25 15:00 Laboratory Results - last 24 hr 02/23/25 22:07: PT 14.2 H, INR 1.30 H, APTT 33.0 H, Sodium 141, Potassium 4.3, Chloride 111 H, Carbon Dioxide 27, Anion Gap 7.3, BUN 24 H, Creatinine 0.90, Estimated Creat Clear 42, Estimated GFR 80, Est GFR ( Amer) 97, Glucose 215 H, Calcium 9.4, Phosphorus 3.7, Magnesium 2.1, Total Bilirubin 0.6, AST 30, ALT 18, Alkaline Phosphatase 112, Total Creatine Kinase 47 L, Total Protein 6.4 D, Albumin 2.9 L, Globulin 3.5 H, Albumin/Globulin Ratio 0.8 L, Lipase 28, TSH 2.22, Free T4 1.45 02/23/25 22:19: WBC 9.7, RBC 3.75 L, Hgb 10.7 L, Hct 34.8 L, MCV 92.8, MCH 28.5, MCHC 30.7 L, RDW 17.6 H, Plt Count 379, MPV 10.6 H, Neut % (Auto) 70.1, Lymph % (Auto) 20.5, [place] % (Auto) 5.4, Eos % (Auto) 3.0, Baso % (Auto) 0.4, Neut # (Auto) 6.8, Lymph # (Auto) 2.0, [place] # (Auto) 0.5, Eos # (Auto) 0.3, Baso # (Auto) 0.0, Lactate 1.8 02/23/25 23:11: Urine Color Yellow, Urine Appearance Clear, Urine pH 5.5, Ur Specific Reserve 1.029, Urine Protein Trace, Urine Glucose (UA) Negative, Urine Ketones Trace, Urine Blood Negative, Urine Nitrate Negative, Urine Bilirubin 1+ A, Urine Urobilinogen 0.2, Ur Leukocyte Esterase Negative, Urine RBC Occasional, Urine WBC 3-5, Ur Squamous Epith Cells 5-10, Urine Bacteria 2+ 02/23/25 23:50: Ammonia < 9 L 02/24/25 06:31: ESR 99 H, Sodium 143, Potassium 4.0, Chloride 113 H, Carbon Dioxide 27, Anion Gap 7.0, BUN 21 H, Creatinine 0.70 D, Estimated Creat Clear 43, Estimated GFR 107, Est GFR ( Amer) 130 D, Glucose 206 H, Calcium 9.2, C-Reactive Protein 129.8 H I & O for Labs for Last 24 Hours: Intake & Output 02/22/25 02/23/25 02/24/25 02/25/25 11:59 11:59 11:59 11:59 Intake Total 50 / 50 Balance 50 / 50 Weight 125 lb 124 lb 15.681 oz Constitutional: chronically ill appearing Respiratory: Absent respiratory distress Comment:: Complex sacral decubitus ulceration with bony erosion/exposure. Marginal necrosis with focal erythematous blush Results Labs 02/23/25 22:19 02/24/25 06:31 Labs: Laboratory Results - last 24 hr 02/23/25 22:07: PT 14.2 H, INR 1.30 H, APTT 33.0 H, Sodium 141, Potassium 4.3, Chloride 111 H, Carbon Dioxide 27, Anion Gap 7.3, BUN 24 H, Creatinine 0.90, Estimated Creat Clear 42, Estimated GFR 80, Est GFR ( Amer) 97, Glucose 215 H, Calcium 9.4, Phosphorus 3.7, Magnesium 2.1, Total Bilirubin 0.6, AST 30, ALT 18, Alkaline Phosphatase 112, Total Creatine Kinase 47 L, Total Protein 6.4 D, Albumin 2.9 L, Globulin 3.5 H, Albumin/Globulin Ratio 0.8 L, Lipase 28, TSH 2.22, Free T4 1.45 02/23/25 22:19: WBC 9.7, RBC 3.75 L, Hgb 10.7 L, Hct 34.8 L, MCV 92.8, MCH 28.5, MCHC 30.7 L, RDW 17.6 H, Plt Count 379, MPV 10.6 H, Neut % (Auto) 70.1, Lymph % (Auto) 20.5, [place] % (Auto) 5.4, Eos % (Auto) 3.0, Baso % (Auto) 0.4, Neut # (Auto) 6.8, Lymph # (Auto) 2.0, [place] # (Auto) 0.5, Eos # (Auto) 0.3, Baso # (Auto) 0.0, Lactate 1.8 02/23/25 23:11: Urine Color Yellow, Urine Appearance Clear, Urine pH 5.5, Ur Specific Reserve 1.029, Urine Protein Trace, Urine Glucose (UA) Negative, Urine Ketones Trace, Urine Blood Negative, Urine Nitrate Negative, Urine Bilirubin 1+ A, Urine Urobilinogen 0.2, Ur Leukocyte Esterase Negative, Urine RBC Occasional, Urine WBC 3-5, Ur Squamous Epith Cells 5-10, Urine Bacteria 2+ 02/23/25 23:50: Ammonia < 9 L 02/24/25 06:31: ESR 99 H, Sodium 143, Potassium 4.0, Chloride 113 H, Carbon Dioxide 27, Anion Gap 7.0, BUN 21 H, Creatinine 0.70 D, Estimated Creat Clear 43, Estimated GFR 107, Est GFR ( Amer) 130 D, Glucose 206 H, Calcium 9.2, C-Reactive Protein 129.8 H Assessment and Plan *Assessment and plan (1) Sacral decubitus ulcer, stage IV: Problem Comment: Circumferential marginal necrosis Status: Acute Category: Medical Code(s): L89.154 - Pressure ulcer of sacral region, stage 4 Plan: I have discussed the risks and benefits of focused debridement. Patient's ex- (deemed decision maker per patient's daughter) is aware of the risks and benefits and is agreeable for debridement of necrotic tissue. She seems to understand that this is not for true curative intent but to allow improved focal control and to facilitate dressing changes. (2) Osteomyelitis: Status: Acute Category: Medical Code(s): M86.9 - Osteomyelitis, unspecified (3) Adult failure to thrive: Status: Acute Category: Medical Code(s): R62.7 - Adult failure to thrive (4) Paroxysmal atrial fibrillation: Status: Acute Category: Medical Code(s): I48.0 - Paroxysmal atrial fibrillation
--- NOTE | 2025-02-24 16:07 | HMH.PTEV ---
Physical Therapy Evaluation Rehab PT IP Evaluation Start: 02/24/25 04:40 Freq: ONCE Status: Active Protocol: Document 02/24/25 15:58 [facility] (Rec: 02/24/25 16:07 [facility] [id number]) Subjective/History History History 84-year-old male who is a custodial resident with past medical history of paroxysmal atrial fibrillation on Eliquis hypertension hyperlipidemia who presents to the hospital due to failure to thrive. According to the custodial documentation patient has not been eating well, patient reportedly has history of dementia . 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 Patient denies any other complaints at this time. Pt speaks limited frisian, is present, she agrees that pt was resident of a SNF prior to admit. He was non-ambulatory prior to admission. Subjective Subjective Pt has no current c/o and reluctantly agrees to mobility assessment. He is alert and talkative at this time. [facility] How much help from another person do you currently need... Turning from your A lot back to your side while in a flat bed without using bedrails? Moving from lying on A lot back to sitting on the side of a flat bed without using bedrails? Moving to and from a A lot bed to a chair ( including a wheelchair)? Standing up from a A lot chair using your arms? (e.g., wheelchair, bedside chair) Walking in hospital Total room? Climbing 3-5 steps Total with a railing? Mobility Score 10 Mobility Level [facility] Mobility 4 Move to chair/commode Mobility Calculator Rehab PT IP Eval Objective Appearance Patient Behavior Appropriate Patient Orientation Person Difficulty following mild instructions Speech Pattern Garbled Ambulation Patient Able to No Ambulate Balance Ability to Arise Able, uses arms to help Sitting Balance Leans or slides in chair Dynamic Sitting Poor Balance Ability Transfers Bed Transfer Ability Maximum x 2 (75% assist) Rehab PT IP prob,goals,plan Problems Date of Evaluation: 02/24/25 PT IP Problems Bed Mobility,Transfers Rehab Potential Rehab Potential Fair Plan PT Intervention Plan Bed Mobility,Transfers,Therapeutic Exercise PT Plan Frequency Daily Duration LOS Discharge Goals Bed Transfer Ability Maximum x 1 (75% assist) Sit to Stand Chair Maximum x 2 (75% assist) Transfer Ability Discharge Plan PT Discharge Plan Pt was able to sit at EOB for ~ 3-4 mins with CGA x 1 for static sitting balance throughout. Pt is most appropriate to return to SNF once medically stable for d/c and would be appropriate for rehab services at this time. Skilled acute therapy services are indicated to increase strength and transfer ability in order to return pt to PLOF. Eval Complexity Eval Charge Codes 59115 - High Complexity PHYSICIAN CERTIFICATION: I certify the specified therapy services for Holden Bai are required, authorized, and reviewed every 30 days.
--- NOTE | 2025-02-24 16:14 | HMH.PTWOUND ---
Rehab Inpt Wound Evaluation Rehab IP Wound Evaluation Start: 02/24/25 07:10 Freq: ONCE Status: Active Protocol: Document 02/24/25 16:08 THOR (Rec: 02/24/25 16:14 THOR [id number]) Rehab PT Wound Assessment Subjective Subjective 84-year-old male who is a detention resident with past medical history of paroxysmal atrial fibrillation on Eliquis hypertension hyperlipidemia who presents to the hospital due to failure to thrive. According to the detention documentation patient has not been eating well, patient reportedly has history of dementia . 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 Patient denies any other complaints at this time. Pt speaks limited salvadorean, is present, she agrees that pt was resident of a SNF prior to admit. He was non-ambulatory prior to admission. Pt presents with wounds to R heel and sacrum upon admission. Wound Right Heel Wound Type Pressure Ulcer Wound Staging Unstageable Query Text:Stage I - Unbroken, red skin, no blanching. Stage II - Skin broken, superficial skin loss involving epidermis alone or also dermis. Partial loss of skin layers. Stage III - Pressure area involves epidermis, dermis and subcutaneous tissue, full thickness skin loss. Stage IV - Pressure area involves epidermis, subcutaneous tissue, bone and other supportive tissue. Full thickness skin loss with extensive destruction of underlying tissue and structures. Wound Length (cm) 4.5 Wound Width (cm) 3.0 Wound Bed Appearance Eschar Percentage of Eschar 100 (Black) (%) Wound Margins Well Defined Description Surrounding Tissue Mantoloking Appearance Primary Dressing Composite Dressing Change Tolerated Well Patient Tolerance Sacrum Wound Type Pressure Ulcer Wound Staging Stage IV Query Text:Stage I - Unbroken, red skin, no blanching. Stage II - Skin broken, superficial skin loss involving epidermis alone or also dermis. Partial loss of skin layers. Stage III - Pressure area involves epidermis, dermis and subcutaneous tissue, full thickness skin loss. Stage IV - Pressure area involves epidermis, subcutaneous tissue, bone and other supportive tissue. Full thickness skin loss with extensive destruction of underlying tissue and structures. Wound Length (cm) 7.5 Wound Width (cm) 6.5 Wound Depth (cm) 1.5 Wound Bed Appearance Yellow,Harrison Percentage of Slough 90 (%) Wound Margins Well Defined Description Surrounding Tissue Dark Red,Purple Appearance Packing Type Alginate Primary Dressing Composite Comment optifoam sacrum Wound Debridement Gauze,Mechanical Method Wound Debridement Minimal Amount of Tissue Removed Dressing Change Tolerated Well Patient Tolerance Plan/Recommendation Comment Heel wound appears to be dry stable eschar and is appropriately dressed and has no need for debridement currently. Sacral wound appears to be 100% necrotic tissue at this time with palpable bone at the wound base. Dressed appropriately and nursing staff is performing appropriate pressure relief per protocol. Will follow for possible cautious, debridement as needed. Eval Complexity Eval Charge Codes 31604 - High Complexity PHYSICIAN CERTIFICATION: I certify the specified therapy services for Holden Bai are required, authorized, and reviewed every 30 days.
[2025-02-24 16:43] LABS: Acinetobacter calcoaceticus-ba Not Detected; Bacteroides fragilis Not Detected; Candida albicans Not Detected; Candida auris Not Detected; Candida glabrata Not Detected; Candida krusei Not Detected; Candida parapsilosis Not Detected; Candida tropicalis Not Detected; Cryptococcus neoformans/gattii Not Detected; Enterobacter cloacae complex Not Detected; Enterobacterales Not Detected; Enterococcus faecalis Not Detected; Enterococcus faecium Not Detected; Haemophilus influenzae Not Detected; Klebsiella aerogenes Not Detected; Klebsiella pneumoniae grp Not Detected; Listeria monocytogenes Not Detected; Neisseria meningitidis Not Detected; Proteus spp. Not Detected; Pseudomonas aeruginosa Not Detected; Salmonella spp. Not Detected; Serratia marcescens Not Detected; Staphylococcus epidermidis Not Detected; Staphylococcus lugdunensis Not Detected; Staphylococcus spp. Not Detected; Stenotrophomonas maltophilia Not Detected; Streptococcus pneumoniae Not Detected; Streptococcus pyogenes Group A Not Detected; Streptococcus spp. Detected
[2025-02-24 16:46] LABS: Streptococcus agalactiae(GrpB) Detected
--- NOTE | 2025-02-24 16:48 | EXP.EVENT.NO ---
Advance care planning note: Active diagnosis: Severe protein calorie malnutrition, unstageable decubitus wound, failure to thrive, dementia. The patient's active diagnoses are of sufficient risk that focused discussion on advanced care planning is indicated in order to allow the patient to thoughtfully consider personal goals of care; and, if situations arise that prevent the ability to personally give input, to ensure appropriate representation of their personal desires through documentation or informed surrogate decision makers. Discussion: Persons present and participating in discussion: Patient's ex- and daughter who is his POA; provider, bedside nurse, social work Discussion: Extensive discussion about patient's continued progression and decline over the past several months. Discussed the extent of the wound in his sacrum with osteomyelitis to the bone and unstageable ulcer. Discussed goals of care including possible hospice versus attempts to treat wound on sacrum. Discussed how the wound has little chance of healing given his malnutrition. After much discussion, family would like to at least attempt to debride wound and try antibiotics to give him a chance to get better. Agreed to consult surgery for further evaluation Time spent: Total time spent [id number] in education and discussion directly related to advance care plannin minutes Justice Lunsford 02/24/2025 2-2:20 PM
[2025-02-24] MEDS: humaLOG 100 UNITS/ML 10ML VIAL (SSI) SUBCUT (17:20)
[2025-02-24 17:30] LABS: POC Glucose,Bedside 236 (70-110)
--- NOTE | 2025-02-24 17:39 | PC.NURSE ---
ATTEMPTED TO OBTAIN CONSENT FOR PROCEDURE OVER THE PHONE WITH PT DAUGHTER BUT SHE WANTED TO DISCUSS WITH FAMILY BEFORE PROCEEDING
[2025-02-24] MEDS: MIRTAZAPINE 15 MG TABLET 7.5 MG PO (20:20)
[2025-02-24 20:32] LABS: Acinetobacter calcoaceticus-ba Not Detected; Bacteroides fragilis Not Detected; CTX-M Not Detected; Candida albicans Not Detected; Candida auris Not Detected; Candida glabrata Not Detected; Candida krusei Not Detected; Candida parapsilosis Not Detected; Candida tropicalis Not Detected; Cryptococcus neoformans/gattii Not Detected; Enterobacter cloacae complex Not Detected; Enterobacterales Detected; Enterococcus faecalis Not Detected; Enterococcus faecium Not Detected; Haemophilus influenzae Not Detected; IMP Not Detected; KPC Not Detected; Klebsiella aerogenes Not Detected; Klebsiella pneumoniae grp Not Detected; Listeria monocytogenes Not Detected; NDM Not Detected; Neisseria meningitidis Not Detected; OXA-48-like Not Detected; Proteus spp. Not Detected; Pseudomonas aeruginosa Not Detected; Salmonella spp. Not Detected; Serratia marcescens Not Detected; Staphylococcus epidermidis Not Detected; Staphylococcus lugdunensis Not Detected; Staphylococcus spp. Not Detected; Stenotrophomonas maltophilia Not Detected; Streptococcus agalactiae(GrpB) Detected; Streptococcus pneumoniae Not Detected; Streptococcus pyogenes Group A Not Detected; Streptococcus spp. Detected; VIM Not Detected; mcr-1 Not Detected
--- NOTE | 2025-02-24 20:32 | PC.NURSE ---
Opened up pts pro stat liquid protein and pt refused to drink it.
--- NOTE | 2025-02-24 20:34 | PC.NURSE ---
Pts ex that is staying with him wants to see about getting pt placed in a different facility. She feels that [facility] is not taken proper care of him. Case management to be consulted.
--- NOTE | 2025-02-24 20:36 | INFXCTL.NOTE ---
Lab called with report on anaerobic blood results. Pt is positive for gram cocci and negative rods and also group b strep. Call was placed to Hospitalist to let him know and he advised he was on the correct antibiotics at this time
--- NOTE | 2025-02-24 20:40 | PC.NURSE ---
Pts iv in the right ac is out. iv in the left ac is infiltrated. fluids and zosyn held at this time til able to get another iv.
[2025-02-25] VITALS (13 sets, daily range): BP systolic 96–137; BP diastolic 62–90; PULSE 68–112; RESP 16–22; TEMP 36.1–36.9; O2SAT 94–100; BMI 18.4
[2025-02-25] MEDS: PIPERACILLIN/TAZO 3.375 GM in 0.9 % SODIUM CHLORIDE 50 ML IV ×4 (01:50→18:53)
[2025-02-25 01:52] LABS: POC Glucose,Bedside 130 (70-110)
[2025-02-25] MEDS: VANCOMYCIN HCL 1,000 MG in 0.9 % SODIUM CHLORIDE 250 ML 125 MG IV (03:53)
--- NOTE | 2025-02-25 06:20 | PC.NURSE ---
Addendum entered by Nury Contreras RN 02/25/25 06:59: Daughter called back at this time and consent was obtained via phone, verified by Sugey Merlos RN Addendum entered by Nury Contreras RN 02/25/25 06:43: Pt is alert to person. Unable to communicate to staff due to language barrier and confusion. Ex is currently at bedside. Attempted to call daughter third time for consent. No answer at this time. OR staff notified. Original Note: Attempted to call daughter/ next of kin x2 to obtain consent for procedure. No answer at this time.
[2025-02-25 06:50] LABS: Basophils # 0.1 K/mm3 (0-0.2); Basophils % 0.7 % (0.1-2.0); Eosinophils # 0.3 Kmm3 (0.0-0.4); Eosinophils % 2.8 % (0.1-12.0); Hematocrit 29.9 % (42.0-52.0); Hemoglobin 8.7 g/dL (14.1-18.0); Immature Granulocytes # 0.05 10^3uL; Immature Granulocytes % 0.6 %; Lymphocytes # 1.8 K/mm3 (0.7-4.5); Lymphocytes % 20.4 % (10-50); Mean Corpuscular HGB Conc 29.1 g/dL (31.8-35.4); Mean Corpuscular Hemoglobin 27.4 pg (27.0-31.2); Mean Corpuscular Volume 94.3 fl (80-94); Mean Platelet Volume 10.2 fl (7.4-10.4); Monocytes # 0.5 K/mm3 (0.1-1.0); Monocytes % 5.5 % (1.7-9.3); Neutrophils # 6.2 K/mm3 (1.8-7.8); Nucleated Red Blood Cells # 0 10^3/uL; Nucleated Red Blood Cells % 0 %; Platelet Count 340 K/mm3 (142-424); Red Blood Count 3.17 M/mm3 (4.60-6.20); Red Cell Distribution Width 17.6 % (11.5-17.5); Red Cell Distribution Width-SD 61.6 fL; White Blood Count 8.9 K/mm3 (4.8-10.8)
--- NOTE | 2025-02-25 06:56 | P.PN_ITS ---
Subjective Narrative: Per nursing, the patient's daughter has been contacted regarding surgical debridement. The patient's daughter is reportedly considering foregoing surgery and placing the patient in hospice care. Exam Data for Last 24 hours Vital signs and Labs for Last 24 Hours: Temp Pulse Resp BP Pulse Ox O2 Del Method 97.8 F 90 16 120/71 94 L Room Air 02/25/25 04:00 02/25/25 04:00 02/25/25 04:00 02/25/25 04:00 02/25/25 04:00 02/25/25 06:38 Laboratory Results - last 24 hr 02/24/25 00:48: A. baumannii (PCR) Not detected, Bacteroides fragilis Not de tected, Beena albicans (PCR) Not detected, Beena auris (PCR) Not detected, C. glabrata (PCR) Not detected, C. krusei (PCR) Not detected, C. parapsilosis (PCR) Not detected, C. tropicalis (PCR) Not detected, Cryptococcus neoformans PCR Not detected, Enterobacterales (PCR) Not detected, Enterococc faecalis PCR Not detected, Enterococc faecium PCR Not detected, E. coli (PCR) Not detected, H. influenzae DNA Not detected, Klebsiella aerogenes (PCR) Not detected, Klebsiella oxytoca PCR Not detected, K. pneumoniae group (PCR) Not detected, List. monocytogenes PCR Not detected, N. meningitidis (PCR) Not detected, Proteus species (PCR) Not detected, Salmonella spp. (PCR) Not detected, Serratia marcescens PCR Not detected, Staphylococcus sp PCR Not detected, Staph aureus (PCR) Not detected, mecA/C & MREJ Resist Gene Not applicable, mecA/C-Methicil Resis Gene Not applicable, Staph epidermidis (PCR) Not detected, Staph lugdunensis (TEM-PCR) Not detected, S. maltophilia (PCR) Not detected, Stre ptococcus sp PCR Detected, S.agalactiae Grp B SMILEY Detected, Strep pneumoniae (PCR) Not detected, S. pyogenes GrpA SMILEY Not detected, P. aeruginosa (PCR) Not detected, Nadege/B-Vanco Res Genes Not applicable, blaIMP Car res Gene PCR Not applicable, KPC-Carbap Res Gene PCR Not applicable, blaNDM Car Res Gene PCR Not applicable, OXA-48 Carbapenem Resis Gene (PCR) Not applicable, blaVIM Car Res Gene PCR Not applicable, CTX-M Gene Resistance (PCR) Not applicable, MCR-1 Resistance Gene Not applicable 02/24/25 06:31: ESR 99 H, Sodium 143, Potassium 4.0, Chloride 113 H, Carbon Dioxide 27, Anion Gap 7.0, BUN 21 H, Creatinine 0.70 D, Estimated Creat Clear 43, Estimated GFR 107, Est GFR ( Amer) 130 D, Glucose 206 H, Calcium 9.2, C-Reactive Protein 129.8 H 02/24/25 17:16: POC Glucose 236 H 02/24/25 21:07: POC Glucose 130 H 02/24/25 : A. baumannii (PCR) Not detected, Bacteroides fragilis Not detected, Beena albicans (PCR) Not detected, Beena auris (PCR) Not detected, C. glabrata (PCR) Not detected, C. krusei (PCR) Not detected, C. parapsilosis (PCR) Not detected, C. tropicalis (PCR) Not detected, Cryptococcus neoformans PCR Not detected, Enterobacterales (PCR) Detected, Enterococc faecalis PCR Not detected, Enterococc faecium PCR Not detected, E. coli (PCR) Detected, H. influenzae DNA Not detected, Klebsiella aerogenes (PCR) Not detected, Klebsiella oxytoca PCR Not detected, K. pneumoniae group (PCR) Not detected, List. monocytogenes PCR Not detected, N. meningitidis (PCR) Not detected, Proteus species (PCR) Not detected, Salmonella spp. (PCR) Not detected, Serratia marcescens PCR Not detected, Staphylococcus sp PCR Not detected, Staph aureus (PCR) Not detected, mecA/C & MREJ Resist Gene Not applicable, mecA/C-Methicil Resis Gene Not applicable, Staph epidermidis (PCR) Not detected, Staph lugdunensis (TEM-PCR) Not detected, S. maltophilia (PCR) Not detected, Streptococcus sp PCR Detected, S.agalactiae Grp B SMILEY Detected, Strep pneumoniae (PCR) Not detected, S. pyogenes GrpA SMILEY Not detected, P. aeruginosa (PCR) Not detected, Nadege/B-Vanco Res Genes Not applicable, blaIMP Car res Gene PCR Not detected, KPC-Carbap Res Gene PCR Not detected, blaNDM Car Res Gene PCR Not detected, OXA-48 Carbapenem Resis Gene (PCR) Not detected, blaVIM Car Res Gene PCR Not detected, CTX-M Gene Resistance (PCR) Not detected, MCR-1 Resistance Gene Not detected I & O for Last 24 hours: Intake & Output 02/22/25 02/23/25 02/24/25 02/25/25 11:59 11:59 11:59 11:59 Intake Total 50 / 50 330 / 330 Output Total 550 / 550 Balance 50 / 50 -220 / -220 Weight 125 lb 124 lb 8 oz Microbiology Reports for the Last 24 Hours: Microbiology 02/24/25 00:35 Blood Blood Culture - Preliminary 02/24/25 00:48 Blood Blood Culture - Preliminary Constitutional Comments: Unchanged Progress Note: A&P Assessment and plan (1) Sacral decubitus ulcer, stage IV: Problem details: Circumferential marginal necrosis Status: Acute (2) Osteomyelitis: Status: Acute (3) Adult failure to thrive: Status: Acute (4) Paroxysmal atrial fibrillation: Status: Acute Assessment and Plan Assessment and Plan for All Diagnoses:: Surgical debridement to facilitate wound care if patient's daughter wishes to pursue (otherwise, the surgical service will sign off as Hospice Care is to reportedly be implemented).
[2025-02-25 07:00] LABS: Albumin Level 2.4 g/dl (3.5-5.0); Chloride 115 mmol/L (98-107); Potassium 3.5 mmoL/L (3.5-5.1); Sodium 144 mmol/L (136-145)
[2025-02-25 07:02] LABS: Alanine Aminotransferase 15 U/L (12-78); Aspartate Amino Transferase 25 U/L (17-59); Blood Urea Nitrogen 17 mg/dl (9-20); Creatinine Clearance Estimated 43 mL/min (50-200); Estimated Glomerular Filt Rate 92 ml/min (>60); GFR (African American) 111 ML/MIN (>60)
[2025-02-25 07:03] LABS: Albumin/Globulin Ratio 0.8 (1.1-1.8); Alkaline Phosphatase 103 U/L (38-126); Anion Gap 6.5 mEq/L (5-15); Bilirubin,Total 0.5 mg/dl (0.2-1.3); Calcium 9.6 mg/dl (8.4-10.2); Carbon Dioxide 26 mmol/L (22.0-30.0); Globulin 3.1 g/dL (1.3-3.2); Glucose 153 mg/dl (74-100); Magnesium 2.1 mg/dl (1.6-2.3); Total Protein,Serum 5.5 g/dl (6.3-8.2)
[2025-02-25 08:13] LABS: Prealbumin 6 mg/dL (9-32)
--- NOTE | 2025-02-25 10:19 | P.OP_ITS ---
Date of procedure: 02/25/25 Pre-op Diagnosis:: Sacral decubitus ulceration with underlying osteomyelitis Post-op Diagnosis:: Same Procedure performed:: Debridement of necrotic sacral decubitus ulceration margin and necrotic sacral tip Surgeon:: Ken Molina MD Anesthesia: MAC Estimated blood loss (mL): 15 Operative findings:: Necrotic marginal tissue and necrotic sacral tip debrided Operative note:: After informed consent was obtained the patient was taken to the operating room and maintained in a left lateral decubitus position. Monitored anesthesia care ensued. The sacral region was prepped and draped in a sterile fashion. Elect rocautery was utilized to debride necrotic tissue along the circumferential margin of the ulceration. The sacral tip was necrotic/purulent (subsequently removed as part of debridement). Electrocautery was then utilized to achieve hemostasis. The wound was packed with dry Kerlix and dressings were then applied. The patient was transferred to recovery in stable condition. Condition: other (Guarded/stable) Disposition: PACU Specimens:: None for pathology Complications:: No immediate
[2025-02-25] MEDS: PRO-STAT AWC 30ML LIQUID PACKET 30 ML PO ×2 (11:40→21:58)
[2025-02-25] MEDS: METOPROLOL TARTRATE 50MG TABLET 50 MG PO ×2 (11:44→22:00)
[2025-02-25] MEDS: MEMANTINE 10MG TABLET 5 MG PO ×2 (11:44→21:59)
[2025-02-25] MEDS: SENNOSIDES 8.6MG/DOCUSATE 50MG TABLET 1 TAB PO ×2 (11:49→22:00)
--- NOTE | 2025-02-25 15:20 | PC.WOUNDNOTE ---
FLUID FILLED BLISTER TO LEFT HIP.
--- NOTE | 2025-02-25 16:05 | PC.NURSE ---
applied foam dressing to fluid filled blister on left hip, wedge used to offload sacral pressure, turning patient from left to right side Q2.
--- NOTE | 2025-02-25 16:11 | P.PN_ITS ---
Subjective *Date: 02/25/25 *Time: 16:59 Interval history: Patient continues to have poor p.o. intake. No nausea or vomiting. Minimal interaction with staff. Altered but appears at baseline mentation. Stable on room air. Taken for surgical debridement this morning. Afebrile. Medical Exam Vital signs and Labs for Last 24 Hours: Vital Signs Temp Pulse Resp BP Pulse Ox O2 Del Method 02/25/25 16:04 Room Air 02/25/25 15:42 98.1 F 92 H 16 96/72 L 94 L 02/25/25 15:00 Room Air 02/25/25 13:00 Room Air 02/25/25 11:00 96.9 F L 108 H 20 128/90 98 Room Air 02/25/25 10:51 97 F L 95 H 18 137/74 100 Room Air 02/25/25 10:41 97 F L 100 H 18 115/68 98 Room Air 02/25/25 10:31 97 F L 97 H 18 103/65 L 98 Room Air 02/25/25 08:00 Room Air 02/25/25 07:57 97.9 F 68 16 129/68 98 Room Air 02/25/25 06:38 Room Air 02/25/25 05:00 Room Air 02/25/25 04:00 97.8 F 90 16 120/71 94 L Room Air 02/25/25 03:00 Room Air 02/25/25 01:00 Room Air 02/24/25 23:36 98.2 F 87 17 118/73 100 Room Air 02/24/25 23:00 Room Air 02/24/25 21:00 Room Air 02/24/25 20:00 98 Room Air 02/24/25 20:00 98.1 F 71 16 112/70 98 Room Air 02/24/25 18:16 Room Air 02/24/25 17:00 Room Air Intake and Output 02/25/25 02/25/25 02/25/25 07:59 15:59 23:59 Output Total 250 / 250 Balance -250 / -250 Output: Output, Urine Amount 250 / 250 Other: Number of Unmeasured Voids 0 Weight 56.472 kg Patient Weight 02/25/25 23:59 Weight 56.472 kg Laboratory Results - last 24 hr 02/23/25 22:07: Prealbumin 6 L 02/24/25 00:48: A. baumannii (PCR) Not detected, Bacteroides fragilis Not detected, Beena albicans (PCR) Not detected, Beena auris (PCR) Not detected, C. glabrata (PCR) Not detected, C. krusei (PCR) Not detected, C. parapsilosis (PCR) Not detected, C. tropicalis (PCR) Not detected, Cryptococcus neoformans PCR Not detected, Enterobacterales (PCR) Not detected, Enterococc faecalis PCR Not detected, Enterococc faecium PCR Not detected, E. coli (PCR) Not detected, H. influenzae DNA Not detected, Klebsiella aerogenes (PCR) Not detected, Klebsiella oxytoca PCR Not detected, K. pneumoniae group (PCR) Not detected, List. monocytogenes PCR Not detected, N. meningitidis (PCR) Not detected, Proteus species (PCR) Not detected, Salmonella spp. (PCR) Not detected, Serratia marcescens PCR Not detected, Staphylococcus sp PCR Not detected, Staph aureus (PCR) Not detected, mecA/C & MREJ Resist Gene Not applicable, mecA/C-Methicil Resis Gene Not applicable, Staph epidermidis (PCR) Not detected, Staph lugdunensis (TEM-PCR) Not detected, S. maltophilia (PCR) Not detected, Streptococcus sp PCR Detected, S.agalactiae Grp B SMILEY Detected, Strep pneumoniae (PCR) Not detected, S. pyogenes GrpA SMILEY Not detected, P. aeruginosa (PCR) Not detected, Nadege/B-Vanco Res Genes Not applicable, blaIMP Car res Gene PCR Not applicable, KPC-Carbap Res Gene PCR Not applicable, blaNDM Car Res Gene PCR Not applicable, OXA-48 Carbapenem Resis Gene (PCR) Not applicable, blaVIM Car Res Gene PCR Not applicable, CTX-M Gene Resistance (PCR) Not applicable, MCR-1 Resistance Gene Not applicable 02/24/25 17:16: POC Glucose 236 H 02/24/25 21:07: POC Glucose 130 H 02/24/25 : A. baumannii (PCR) Not detected, Bacteroides fragilis Not detected, Beena albicans (PCR) Not detected, Beena auris (PCR) Not detected, C. glabrata (PCR) Not detected, C. krusei (PCR) Not detected, C. parapsilosis (PCR) Not detected, C. tropicalis (PCR) Not detected, Cryptococcus neoformans PCR Not detected, Enterobacterales (PCR) Detected, Enterococc faecalis PCR Not detected, Enterococc faecium PCR Not detected, E. coli (PCR) Detected, H. influenzae DNA Not detected, Klebsiella aerogenes (PCR) Not detected, Klebsiella oxytoca PCR Not detected, K. pneumoniae group (PCR) Not detected, List. monocytogenes PCR Not detected, N. meningitidis (PCR) Not detected, Proteus species (PCR) Not detected, Salmonella spp. (PCR) Not detected, Serratia marcescens PCR Not detected, Staphylococcus sp PCR Not detected, Staph aureus (PCR) Not detected, mecA/C & MREJ Resist Gene Not applicable, mecA/C-Methicil Resis Gene Not applicable, Staph epidermidis (PCR) Not detected, Staph lugdunensis (TEM-PCR) Not detected, S. maltophilia (PCR) Not detected, Streptococcus sp PCR Detected, S.agalactiae Grp B SMILEY Detected, Strep pneumoniae (PCR) Not detected, S. pyogenes GrpA SMILEY Not detected, P. aeruginosa (PCR) Not detected, Nadege/B-Vanco Res Genes Not applicable, blaIMP Car res Gene PCR Not detected, KPC-Carbap Res Gene PCR Not detected, blaNDM Car Res Gene PCR Not detected, OXA-48 Carbapenem Resis Gene (PCR) Not detected, blaVIM Car Res Gene PCR Not detected, CTX-M Gene Resistance (PCR) Not detected, MCR-1 Resistance Gene Not detected 02/25/25 06:20: WBC 8.9, RBC 3.17 L, Hgb 8.7 L, Hct 29.9 L, MCV 94.3 H, MCH 27.4, MCHC 29.1 L, RDW 17.6 H, Plt Count 340, MPV 10.2, Neut % (Auto) 70.0, Lymph % (Auto) 20.4, [place] % (Auto) 5.5, Eos % (Auto) 2.8, Baso % (Auto) 0.7, Neut # (Auto) 6.2, Lymph # (Auto) 1.8, [place] # (Auto) 0.5, Eos # (Auto) 0.3, Baso # (Auto) 0.1, Sodium 144, Potassium 3.5, Chloride 115 H, Carbon Dioxide 26, Anion Gap 6.5, BUN 17, Creatinine 0.80, Estimated Creat Clear 43, Estimated GFR 92, Est GFR ( Amer) 111, Glucose 153 H D, Calcium 9.6, Phosphorus 3.0, Magnesium 2.1, Total Bilirubin 0.5, AST 25, ALT 15, Alkaline Phosphatase 103, Total Protein 5.5 L, Albumin 2.4 L D, Globulin 3.1, Albumin/Globulin Ratio 0.8 L I & O for Labs for Last 24 Hours: Intake & Output 02/22/25 02/23/25 02/24/25 02/25/25 23:59 23:59 23:59 23:59 Intake Total 380 / 380 Output Total 300 / 300 250 / 250 Balance 80 / 80 -250 / -250 Weight 54.431 kg 56.69 kg 56.472 kg Microbiology Reports for the Last 24 Hours: Microbiology 02/24/25 00:48 Blood Blood Culture - Preliminary Gram Positive Cocci 02/24/25 00:35 Blood Blood Culture - Preliminary Gram Negative Rods Constitutional: Present mild distress, cachectic, chronically ill appearing and somnolent Head: Present atraumatic and normocephalic ENT: Present normal exam Comment:: Loss of periorbital fat, bitemporal wasting Respiratory: Present normal respiratory effort; Absent rhonchi, wheezes or crackles Cardiac: Present Tachycardia Comment:: Irregularly irregular GI: Present normal bowel sounds; Absent distention or tenderness Comments:: Surgical wound with surgical bandage in place. Seen after debridement Extremities: Present normal inspection and full ROM Skin: Present intact; Absent erythema Neuro: Present Grossly Intact, alert, awake and moves all extremities Assessment and Plan *Assessment and plan (1) Sepsis: Status: Acute Category: Medical Code(s): A41.9 - Sepsis, unspecified organism (2) Osteomyelitis: Status: Acute Category: Medical Code(s): M86.9 - Osteomyelitis, unspecified (3) Sacral decubitus ulcer, stage IV: Problem Comment: Circumferential marginal necrosis Status: Acute Category: Medical Code(s): L89.154 - Pressure ulcer of sacral region, stage 4 (4) Adult failure to thrive: Status: Acute Category: Medical Code(s): R62.7 - Adult failure to thrive (5) Paroxysmal atrial fibrillation: Status: Acute Category: Medical Code(s): I48.0 - Paroxysmal atrial fibrillation (6) Hyperlipidemia: Status: Acute Qualifiers: Hyperlipidemia type: mixed hyperlipidemia Qualified Code(s): E78.2 - Mixed hyperlipidemia Category: Medical Code(s): E78.5 - Hyperlipidemia, unspecified (7) Hypertension: Status: Acute Qualifiers: Hypertension type: primary hypertension Qualified Code(s): I10 - Essential (primary) hypertension Category: Medical Code(s): I10 - Essential (primary) hypertension (8) Severe protein-calorie malnutrition: Status: Acute Category: Medical Code(s): E43 - Unspecified severe protein-calorie malnutrition Plan Patient is a 84-year-old male who is a long-term resident with past medical history of paroxysmal atrial fibrillation on Eliquis hypertension hyperlipidemia who presents to the hospital due to failure to thrive. Found to be septic on arrival with tachycardia heart rate in the 130s, tachypnea respiratory rate 30- 40. Had active infection with sacral decubitus wound with foul-smelling drainage. Wound initially unstageable. Consistent with stage IV after debridement today. Surgery consulted and assisting with care. Continues to require inpatient management for aggressive IV antibiotics. Has osteomyelitis of the sacrum. Prognosis grave, condition serious. Problems addressed as follows: Sepsis, improved Stage IV sacral decubitus ulcer Osteomyelitis of the sacrum -Discussed case with surgery today, taken to the OR. Found to have aleta pus draining from tip of coccyx. Abscess anterior to coccyx/sacrum that was drained as best as possible. Wound debrided. - Chance of healing of wound near 0 due to extent of infection and osteomye litis/bone involvement. - Continue broad-spectrum antibiotics at this time with vancomycin IV and Zosyn. Continues to require close monitoring for toxicity such as renal dysfunction - Will need minimum 6 weeks antibiotics for sacral osteomyelitis. Will consider transitioning to vancomycin daily and meropenem twice daily for broad coverage. Will need PICC line prior to discharge pending goals of care with family - Wound, blood cultures pending - White count normal today at 8.9, hemoglobin with anemia at 8.7. Iron studies ordered and pending for the morning along with CBC, CMP, magnesium, CRP - Kidney function normal with BUN 17, creatinine 0.8. Severe protein calorie malnutrition: Albumin 2.4, significant weight loss in the past few months. Patient's malnutrition complicates potential for wound healing, nutrition consulted, protein supplementation with meals. Poor p.o. intake at this time Chronic medical conditions: Paroxysmal atrial fibrillation Hypertension Hyperlipidemia - Holding Eliquis due to surgical debridement today. Will resume this evening. Continue fentanyl patch daily for chronic pain Continue memantine 5 mg twice daily Continue metoprolol tartrate 50 mg twice daily Continue mirtazapine 7.5 mg nightly for mood and appetite stimulation Continue docusate senna 1 tab twice daily as needed for constipation DVT prophylaxis-on Eliquis
[2025-02-25] MEDS: MULTIVITAMIN TABLET 1 EACH PO (16:27)
[2025-02-25 18:09] LABS: POC Glucose,Bedside 172 (70-110)
[2025-02-25] MEDS: MIRTAZAPINE 15 MG TABLET 7.5 MG PO (22:00)
[2025-02-25] MEDS: APIXABAN 5MG TABLET 5 MG PO (22:00)
[2025-02-25] MEDS: MORPHINE 2MG/ML SYRINGE 2 MG IV (22:16)
[2025-02-25 22:52] LABS: POC Glucose,Bedside 196 (70-110)
[2025-02-26] MEDS: PIPERACILLIN/TAZO 3.375 GM in 0.9 % SODIUM CHLORIDE 50 ML IV ×2 (01:30→08:47)
[2025-02-26 04:00] VITALS: BP 135/55; PULSE 115; RESP 20; TEMP 36.7; O2SAT 98; BMI 19.1
[2025-02-26] MEDS: VANCOMYCIN HCL 1,000 MG in 0.9 % SODIUM CHLORIDE 250 ML 125 MG IV (04:30)
--- NOTE | 2025-02-26 06:27 | PC.NURSE ---
Family at bedside. Dressing monitor on coccyx and changed due to drainage and feces on bandage. Pt is alert to self only. Pt c/o pain once during shift, treated per MAR. Blood glucose monitored. Q2 turns. Plan of care ongoing.
[2025-02-26 06:36] LABS: POC Glucose,Bedside 157 (70-110)
[2025-02-26 06:53] LABS: Basophils % 0.5 % (0.1-2.0); Eosinophils # 0.2 Kmm3 (0.0-0.4); Eosinophils % 2.5 % (0.1-12.0); Hematocrit 29.7 % (42.0-52.0); Hemoglobin 8.6 g/dL (14.1-18.0); Immature Granulocytes # 0.04 10^3uL; Immature Granulocytes % 0.5 %; Lymphocytes # 1.7 K/mm3 (0.7-4.5); Lymphocytes % 22.5 % (10-50); Mean Corpuscular Hemoglobin 27.7 pg (27.0-31.2); Mean Corpuscular Volume 95.5 fl (80-94); Mean Platelet Volume 10.1 fl (7.4-10.4); Monocytes # 0.5 K/mm3 (0.1-1.0); Monocytes % 7.1 % (1.7-9.3); Neutrophils # 4.9 K/mm3 (1.8-7.8); Neutrophils % 66.9 % (37.0-80.0); Nucleated Red Blood Cells # 0 10^3/uL; Nucleated Red Blood Cells % 0 %; Platelet Count 300 K/mm3 (142-424); Red Blood Count 3.11 M/mm3 (4.60-6.20); Red Cell Distribution Width 17.6 % (11.5-17.5); Red Cell Distribution Width-SD 61.6 fL; White Blood Count 7.3 K/mm3 (4.8-10.8)
[2025-02-26 08:18] LABS: Iron 26 ug/dL (49-181)
[2025-02-26 08:19] LABS: Magnesium 1.9 mg/dl (1.6-2.3)
[2025-02-26 08:26] LABS: Albumin Level 2.3 g/dl (3.5-5.0); Chloride 115 mmol/L (98-107); Erythrocyte Sedimentation Rate 102 mm/hr (0-20); Sodium 144 mmol/L (136-145)
[2025-02-26 08:27] LABS: Potassium 3.3 mmoL/L (3.5-5.1); Total Iron Binding Capacity 133 ug/dL (261-462)
[2025-02-26 08:29] LABS: Alanine Aminotransferase 13 U/L (12-78); Anion Gap 5.3 mEq/L (5-15); Aspartate Amino Transferase 24 U/L (17-59); Blood Urea Nitrogen 13 mg/dl (9-20); Carbon Dioxide 27 mmol/L (22.0-30.0); Creatinine Clearance Estimated 45 mL/min (50-200); Estimated Glomerular Filt Rate 107 ml/min (>60); GFR (African American) 130 ML/MIN (>60)
[2025-02-26 08:30] LABS: Albumin/Globulin Ratio 0.8 (1.1-1.8); Alkaline Phosphatase 95 U/L (38-126); Bilirubin,Total 0.5 mg/dl (0.2-1.3); Calcium 8.4 mg/dl (8.4-10.2); Glucose 161 mg/dl (74-100); Total Protein,Serum 5.3 g/dl (6.3-8.2)
[2025-02-26 08:35] LABS: C-Reactive Protein 80.8 mg/L (0-4)
[2025-02-26] MEDS: PRO-STAT AWC 30ML LIQUID PACKET 30 ML PO (08:47)
[2025-02-26] MEDS: MEMANTINE 10MG TABLET 5 MG PO (08:47)
[2025-02-26] MEDS: APIXABAN 5MG TABLET 5 MG PO (08:47)
[2025-02-26] MEDS: SENNOSIDES 8.6MG/DOCUSATE 50MG TABLET 1 TAB PO (08:48)
[2025-02-26] MEDS: POLYETHYLENE GLYCOL 3350 17 GM PACKET PO (08:48)
[2025-02-26] MEDS: METOPROLOL TARTRATE 50MG TABLET 50 MG PO (08:48)
[2025-02-26 08:54] LABS: Ferritin 413 ng/ml (17.9-464)
[2025-02-26] MEDS: MORPHINE 2MG/ML SYRINGE 2 MG IV (10:47)
--- NOTE | 2025-02-26 13:49 | EXP.DC.SUM ---
General Admission date:: 02/24/25 HPI HPI HPI: This is an 84-year-old gentleman seen in consultation for evaluation regarding sacral decubitus ulceration. Forwarded from emergency department evaluation/admission H&P: Patient is a 84-year-old male who is a [facility] resident with past medical history of paroxysmal atrial fibrillation on Eliquis hypertension hyperlipidemia who presents to the hospital due to failure to thrive. According to the [facility] documentation patient has not been eating well, patient reportedly has history of dementia. 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 Patient denies any other complaints at this time. Hospital Course Hospital Course Hospital Course: Holden Bai is a 84-year-old male who is a [facility] resident with past medical history of paroxysmal atrial fibrillation on Eliquis hypertension hyperlipidemia presented to the hospital due to failure to thrive. Found to be septic on arrival with tachycardia heart rate in the 130s, tachypnea respiratory rate 30-40 in the setting of stage IV sacral decubitus ulcer with foul-smelling drainage. Wound initially unstageable. Consistent with stage IV after debridement. Has osteomyelitis of the sacrum. Prognosis grave, condition serious. Problems addressed as follows: Sepsis, improved Stage IV sacral decubitus ulcer Osteomyelitis of the sacrum ? General Surgery consulted, s/p debridement in the OR. Found to have aleta pus draining from tip of coccyx. Abscess anterior to coccyx/sacrum that was drained as best as possible. - Unfortunately chance of healing of wound is virtually none due to extent of infection and osteomyelitis/bone involvement. ? Initially started on broad-spectrum antibiotics including vancomycin, Zosyn. However, after extensive conversations family (daughter and POA Deniaa Escobedo) elected to pursue hospice care in light of severity of sacral ulcer and significant comorbidities. As such, we will discontinue further antibiotics. ? Discharged to back to [place] with hospice care. Severe protein calorie malnutrition: Albumin 2.4, significant weight loss in the past few months. Patient's malnutrition complicates potential for wound healing, nutrition consulted, protein supplementation with meals. Poor p.o. intake at this time. Chronic medical conditions: Paroxysmal atrial fibrillation Hypertension Hyperlipidemia - Continue home medications. Continue fentanyl patch daily for chronic pain Continue memantine 5 mg twice daily Continue metoprolol tartrate 50 mg twice daily Continue mirtazapine 7.5 mg nightly for mood and appetite stimulation Continue docusate senna 1 tab twice daily as needed for constipation Total time spent on discharge: 32 minutes on chart review, counseling, documentation, and direct care with patient. Exam Data for Last 24 hours Vital signs and Labs for Last 24 Hours: Temp Pulse Resp BP Pulse Ox O2 Del Method 98.0 F 115 H 20 135/55 L 98 Room Air 02/26/25 04:00 02/26/25 04:00 02/26/25 04:00 02/26/25 04:00 02/26/25 04:00 02/26/25 09:00 Laboratory Results - last 24 hr 02/25/25 09:39: POC Glucose 172 H 02/25/25 22:42: POC Glucose 196 H 02/26/25 06:20: POC Glucose 157 H 02/26/25 06:35: WBC 7.3, RBC 3.11 L, Hgb 8.6 L, Hct 29.7 L, MCV 95.5 H, MCH 27.7, MCHC 29.0 L, RDW 17.6 H, Plt Count 300, MPV 10.1, Neut % (Auto) 66.9, Lymph % (Auto) 22.5, [place] % (Auto) 7.1, Eos % (Auto) 2.5, Baso % (Auto) 0.5, Neut # (Auto) 4.9, Lymph # (Auto) 1.7, [place] # (Auto) 0.5, Eos # (Auto) 0.2, Baso # (Auto) 0.0, ESR 102 H, Sodium 144, Potassium 3.3 L, Chloride 115 H, Carbon Dioxide 27, Anion Gap 5.3, BUN 13, Creatinine 0.70, Estimated Creat Clear 45, Estimated GFR 107, Est GFR ( Amer) 130, Glucose 161 H, Calcium 8.4, Magnesium 1.9, Iron 26 L, TIBC 133 L, Iron Saturation 19.59781, Ferritin 413, Total Bilirubin 0.5, AST 24, ALT 13, Alkaline Phosphatase 95, C-Reactive Protein 80.8 H D, Total Protein 5.3 L, Albumin 2.3 L, Globulin 3.0, Albumin/Globulin Ratio 0.8 L I & O for Last 24 hours: Intake & Output 02/23/25 02/24/25 02/25/25 02/26/25 23:59 23:59 23:59 23:59 Intake Total 380 / 380 240 / 240 Output Total 300 / 300 250 / 250 300 / 300 Balance 80 / 80 -250 / -180 -60 / -60 Weight 54.431 kg 56.69 kg 56.472 kg 58.377 kg Microbiology Reports for the Last 24 Hours: Microbiology 02/24/25 00:35 Blood Blood Culture - Preliminary Escherichia coli Gram Positive Cocci 02/23/25 23:11 Urine,Clean Catch Urine Culture - Final No growth. 02/24/25 00:48 Blood Blood Culture - Preliminary Strep agalactiae - (group b) Constitutional Comments: Constitutional: Present mild distress, cachectic, chronically ill appearing and somnolent Head: Present atraumatic and normocephalic ENT: Present normal exam Comment:: Loss of periorbital fat, bitemporal wasting Respiratory: Present normal respiratory effort; Absent rhonchi, wheezes or crackles Cardiac: Present Tachycardia Comment:: Irregularly irregular GI: Present normal bowel sounds; Absent distention or tenderness Comments:: Surgical wound with surgical bandage in place. Seen after debridement Extremities: Present normal inspection and full ROM Skin: Present intact; Absent erythema Neuro: Present Grossly Intact, alert, awake and moves all extremities Results Data Completed and Pending Labs on day of discharge: Labs from last 24 hours 02/26/25 02/26/25 02/25/25 06:35 06:20 22:42 WBC 7.3 RBC 3.11 L Hgb 8.6 L Hct 29.7 L MCV 95.5 H MCH 27.7 MCHC 29.0 L RDW 17.6 H Plt Count 300 MPV 10.1 Neut % (Auto) 66.9 Lymph % (Auto) 22.5 [place] % (Auto) 7.1 Eos % (Auto) 2.5 Baso % (Auto) 0.5 Neut # (Auto) 4.9 Lymph # (Auto) 1.7 [place] # (Auto) 0.5 Eos # (Auto) 0.2 Baso # (Auto) 0.0 ESR 102 H Sodium 144 Potassium 3.3 L Chloride 115 H Carbon Dioxide 27 Anion Gap 5.3 BUN 13 Creatinine 0.70 Estimated Creat Clear 45 Estimated GFR 107 Est GFR ( Amer) 130 Glucose 161 H POC Glucose 157 H 196 H Calcium 8.4 Magnesium 1.9 Iron 26 L TIBC 133 L Iron Saturation 19.80533 Ferritin 413 Total Bilirubin 0.5 AST 24 ALT 13 Alkaline Phosphatase 95 C-Reactive Protein 80.8 H D Total Protein 5.3 L Albumin 2.3 L Globulin 3.0 Albumin/Globulin Ratio 0.8 L 02/25/25 09:39 WBC RBC Hgb Hct MCV MCH MCHC RDW Plt Count MPV Neut % (Auto) Lymph % (Auto) [place] % (Auto) Eos % (Auto) Baso % (Auto) Neut # (Auto) Lymph # (Auto) [place] # (Auto) Eos # (Auto) Baso # (Auto) ESR Sodium Potassium Chloride Carbon Dioxide Anion Gap BUN Creatinine Estimated Creat Clear Estimated GFR Est GFR ( Amer) Glucose POC Glucose 172 H Calcium Magnesium Iron TIBC Iron Saturation Ferritin Total Bilirubin AST ALT Alkaline Phosphatase C-Reactive Protein Total Protein Albumin Globulin Albumin/Globulin Ratio Preliminary micro results at discharge 02/24/25 00:35 Blood Culture - Preliminary Blood Escherichia coli Gram Positive Cocci 02/24/25 00:48 Blood Culture - Preliminary Blood Strep agalactiae - (group b) DS: Diagnosis Discharge Diagnosis (1) Sepsis: Status: Acute Code(s): A41.9 - Sepsis, unspecified organism (2) Osteomyelitis: Status: Acute Code(s): M86.9 - Osteomyelitis, unspecified (3) Sacral decubitus ulcer, stage IV: Status: Acute Code(s): L89.154 - Pressure ulcer of sacral region, stage 4 Problem details: Circumferential marginal necrosis (4) Adult failure to thrive: Status: Acute Code(s): R62.7 - Adult failure to thrive (5) Paroxysmal atrial fibrillation: Status: Acute Code(s): I48.0 - Paroxysmal atrial fibrillation (6) Hyperlipidemia: Status: Acute Code(s): E78.5 - Hyperlipidemia, unspecified Qualifiers: Hyperlipidemia type: mixed hyperlipidemia Qualified Code(s): E78.2 - Mixed hyperlipidemia (7) Hypertension: Status: Acute Code(s): I10 - Essential (primary) hypertension Qualifiers: Hypertension type: primary hypertension Qualified Code(s): I10 - Essential (primary) hypertension (8) Severe protein-calorie malnutrition: Status: Acute Code(s): E43 - Unspecified severe protein-calorie malnutrition Meds Home Medications and Allergies Home Medications ?Medication ?Instructions ?Recorded ?Confirmed ?Type acetaminophen 500 mg tablet 500 mg PO AC 01/18/25 02/24/25 History calcium carbonate (Oyster Shell 500 mg PO BID 01/18/25 02/24/25 History Calcium) fentanyl 12 mcg/hr transdermal 1 patch transdermal Q72H 01/18/25 02/24/25 History patch memantine 5 mg tablet 5 mg PO HS 01/18/25 02/24/25 History mirtazapine 7.5 mg tablet 7.5 mg PO HS 01/18/25 02/24/25 History multivitamin 1 tab PO DAILY 01/18/25 02/24/25 History polyethylene glycol 3350 17 gram 17 g PO DAILY 01/18/25 02/24/25 History oral powder packet sennosides 8.6 mg-docusate sodium 1 tab PO BID 01/18/25 02/24/25 History 50 mg tablet (Senna with Docusate Sodium) apixaban 5 mg tablet (Eliquis) 5 mg PO BID 30 days #60 tabs 01/22/25 02/24/25 Rx metoprolol tartrate 50 mg tablet 50 mg PO BID 30 days #60 tabs 01/22/25 02/24/25 Rx diclofenac sodium 1 % topical gel 2 g topical QIDP PRN Pain (Scale 02/04/25 02/24/25 History Score 4-6) Saccharomyces boulardii 250 mg 250 mg PO BID 02/24/25 02/24/25 History capsule (Florastor) amino acids-protein hydrolysate 15 1 ea PO DAILY 02/24/25 02/24/25 History gram-100 kcal/30 mL oral liquid pkt balsam josh-castor oil topical 1 applic topical BID 02/24/25 02/24/25 History ointment collagenase clostridium histo. 250 1 applic topical DAILY 02/24/25 02/24/25 History unit/gram topical ointment (Santyl) honey 80 % topical gel (MediHoney 1 applic topical DAILY 02/24/25 02/24/25 History (honey)) potassium chloride 20 mEq 40 meq PO DAILY 02/24/25 02/24/25 History tablet,extended release(part/cryst) sodium hypochlorite 0.25 % 1 applic topical DAILY 02/24/25 02/24/25 History solution (Dakin's Solution) hydrocodone 5 mg-acetaminophen 325 1 tab PO Q6H PRN pain 3 days #12 02/26/25 Rx mg tablet tabs New Prescriptions to Start Prescriptions: hydrocodone-acetaminophen Manoj Ravi Allergies Allergy/AdvReac Type Severity Reaction Status Date / Time No Known Allergies Allergy Verified 02/04/25 10:51 Discharge Plan Disposition Patient Disposition: Hospice - Medical Facility Condition: Fair Discharge Order Discharge Orders: Discharge Order (Routine); Ordered 02/26/25 Ordered By: Manoj Ravi Follow up Plan Prescriptions/Medication Reconciliation: New hydrocodone-acetaminophen 5-325 mg tablet 1 tab PO Q6H PRN (Reason: pain) 3 Days Qty: 12 0RF Continued diclofenac sodium 1 % gel 2 g topical QIDP PRN (Reason: Pain (Scale Score 4-6)) fentanyl 12 mcg/hr patch 72 hour 1 patch transdermal Q72H multivitamin Tablet 1 tab PO DAILY polyethylene glycol 3350 17 gram Powder In Packet 17 g PO DAILY sennosides-docusate sodium [Senna with Docusate Sodium] 8.6-50 mg Tablet 1 tab PO BID acetaminophen 500 mg Tablet 500 mg PO AC calcium carbonate [Oyster Shell Calcium] 500 mg calcium (1,250 mg) Tablet 500 mg PO BID memantine 5 mg Tablet 5 mg PO HS mirtazapine 7.5 mg Tablet 7.5 mg PO HS metoprolol tartrate 50 mg Tablet 50 mg PO BID 30 Days Qty: 60 0RF Eliquis 5 mg tablet 5 mg PO BID 30 Days Qty: 60 0RF Saccharomyces boulardii [Florastor] 250 mg Capsule 250 mg PO BID amino acids-protein hydrolys 15 gram- 100 kcal/30 mL Liquid In Packet 1 ea PO DAILY Santyl 250 unit/gram Ointment 1 applic TOPICAL DAILY Dakin's Solution 0.25 % Solution 1 applic TOPICAL DAILY MediHoney (honey) 80 % Gel 1 applic TOPICAL DAILY balsam josh-castor oil Ointment 1 applic TOPICAL BID potassium chloride 20 mEq tablet,ER particles/crystals 40 meq PO DAILY Discontinued clindamycin HCl 300 mg capsule 450 mg PO QID Problem Reconciliation Problems Reviewed?: Yes Patient Discharge Instructions Patient Instructions: DI for Osteomyelitis, DI for Pressure Injuries, DI for Surgical Site Infection, DI for Failure to Thrive, [id number] Print Language: Argentine Providers Primary Care Provider: Provider,Referral Admit Provider: Justice Lunsford Attending Provider: Justice Lunsford
--- NOTE | 2025-02-26 14:52 | PC.WOUNDNOTE ---
ulceration to coccyx/sacrum around 4in x4 in with serosanguineous drainage with eschar
--- NOTE | 2025-02-26 15:46 | PC.NURSE ---
Report called to [facility]
--- NOTE | 2025-02-27 07:56 | PC.NURSE ---
Blood culture results forwarded to hospitalist.
== END 2025-02-26 16:13 | disposition hospice, inpatient (51) | DRG 853 ==
LOC: ER 21:41 → 2ND 02-24 01:42
PROVIDERS: Internal Medicine; Surgery; Admitting Provider Internal Medicine Adolescent Medicine; Emergency Provider Emergency Medicine; Visit Provider Internal Medicine Adolescent Medicine
PROC: 0QD10ZZ Extraction of Sacrum, Open Approach (ICD-10-PCS; principal; 2025-02-25 12:45)
DX: A41.9 Sepsis, unspecified organism (principal); E43 Unspecified severe protein-calorie malnutrition; L89.154 Pressure ulcer of sacral region, stage 4; M46.28 Osteomyelitis of vertebra, sacral and sacrococcygeal region; Z68.1 Body mass index [BMI] 19.9 or less, adult; R64 Cachexia; Z51.5 Encounter for palliative care; G20.C Parkinsonism, unspecified; F02.80 Dementia in other diseases classified elsewhere, unspecified severity, without behavioral disturbance, psychotic disturbance, mood disturbance, and anxiety; R62.7 Adult failure to thrive; I48.0 Paroxysmal atrial fibrillation; I10 Essential (primary) hypertension; I25.2 Old myocardial infarction; E11.9 Type 2 diabetes mellitus without complications; M19.90 Unspecified osteoarthritis, unspecified site; Z60.3 Acculturation difficulty; E78.2 Mixed hyperlipidemia; L89.610 Pressure ulcer of right heel, unstageable; Z79.01 Long term (current) use of anticoagulants; Z79.82 Long term (current) use of aspirin; Z79.02 Long term (current) use of antithrombotics/antiplatelets; Z79.899 Other long term (current) drug therapy; Z90.49 Acquired absence of other specified parts of digestive tract; Z79.891 Long term (current) use of opiate analgesic; Z79.4 Long term (current) use of insulin; Z87.01 Personal history of pneumonia (recurrent)
CPT/HCPCS: 36415; 74177; 80048; 80053; 81001; 82140; 82550; 82728; 82962; 83540; 83550; 83605; 83690; 83735; 84100; 84134; 84439; 84443; 85025; 85610; 85651; 85730; 86140; 87040; 87077; 87086; 87154; 87186; 93005; 97163; 97166; 97530; J0131; J2270; J2543; J2704; J3370; J7050; J7120; Q9967